=== PATIENT | female | born 2000 | race African-American/Black ===

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

== ENCOUNTER → 2023-12-25 | Outpatient (CLI) | payer SELFPAY ==
[2023-12-27 20:07] LABS: QNTFERON TB Mitogen Value > 10.00 IU/mL (.); QNTFERON TB Nil Value 0.04 IU/mL (.); QNTFERON TB1+ Ag Value 0.05 IU/mL (.); QNTFERON TB2+ Ag Value 0.04 IU/mL (.); QNTIFERON TB Positive Criteria Negative (Negative)
== END | disposition home or self-care (01) ==
PROVIDERS: PCP Pediatrics; Referring Provider Physician Assistant; Visit Provider Physician Assistant
DX: Z02.1 Encounter for pre-employment examination (principal)
CPT/HCPCS: 36415; 86480

== ENCOUNTER 2024-03-22 10:57 | Emergency (ER) | payer SELFPAY ==
[2024-03-22 10:57] VITALS: BP 125/76; PULSE 68; RESP 14; TEMP 36.3; O2SAT 99; BMI 27.9
--- NOTE | 2024-03-22 11:06 | EKG12_ITS ---
Test Reason : CP Blood Pressure : / mmHG Vent. Rate : 063 BPM Atrial Rate : 063 BPM P-R Int : 110 ms QRS Dur : 110 ms QT Int : 426 ms P-R-T Axes : 000 028 111 degrees QTc Int : 435 ms Sinus rhythm with short MD Nonspecific ST and T wave abnormality Abnormal ECG LOW ATRIAL RHYTHM Confirmed by Paul London ([id number]), rewrite editor JANESSA FRANCIS (1947) on 03/24/2024 11:02:09 AM Referred By: BLOSSOM Confirmed By:Paul London
--- NOTE | 2024-03-22 11:07 | ED.VIS.CHEST ---
HPI History of Present Illness Chief Complaint: Chest Pain Informant: patient Onset/Context/Timing Onset: Today and Yesterday Activity at onset: sudden Timing: Intermittent Quality: Positive for Aching Location: Substernal Current Severity: Gone Maximum Severity: Mild Worsened By: Nothing Relieved By: Nothing Associated Symptoms: Negative for Nausea, Vomiting, Diaphoresis, Dyspnea, Cough, Lightheadedness, Acid Reflux or Palpitations Narrative Narrative: 24-year-old female history of tetralogy of Fallot who had surgery at 11 months and again at 13 years old. She has done well. 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 Where she was working the required to wear an N95 mask when she had on yesterday she felt restricted her breathing and she had some midsternal chest discomfort. No hemoptysis. No leg pain or swelling. No pleuritic pain. No history of DVT or PE or risk factors. No recent travel, surgery or immobilization. No leg pain or swelling. Prior Similar Symptoms: No Recent Illness/Hospitalization: No CVD Risk Factors: Negative for Hypertension, Diabetes, Hypercholesterolemia, Family History 1' </=55 or Smoking PE Risk Factors: Negative for Recent Travel/Surgery, Recent Immobilization, Prior DVT or PE, Cancer or OCP + Smoking + >/=35 TAD Risk Factors: Negative for Marfan's Syndrome [facility] Medical History Tetralogy of Fallot Physical exam, pre-employment Allergy/AdvReac Type Severity Reaction Status Date / Time No Known Allergies Allergy Verified 03/22/24 10:57 Social History Smoking Status: Never smoker ROS ROS ED ROS Narrative Denies recent illness. No recent chest pain except for yesterday and today. Constitutional Constitutional ED: Denies chills or fever(s) Eyes Eyes: Reports none ENT ENT ED: Denies ear pain Cardiovascular Cardiovascular: Reports as per HPI and chest pain; Denies palpitations or racing heartbeat Respiratory/Chest Respiratory/Chest: Denies cough, dyspnea or dyspnea on exertion Gastrointestinal Gastrointestinal: Denies abdominal pain Genitourinary Genitourinary ED: Denies dysuria Musculoskeletal Musculoskeletal: Denies arthralgias Integumentary Denies abscess Neurologic Neurologic: Denies headache(s) Psychiatric Psychiatric: Denies anxiety Endocrine Endocrinology: Denies cold intolerance Hematologic/Lymphatic Hematologic/Lymphatic: Denies easy bleeding Allergic/Immunologic Allergic/Immunologic ED: Denies mouth swelling EXAM Physical Exam Narrative Exam Narrative: Well-appearing 24-year-old female. Vital signs stable afebrile. Pulse ox 9 9% on room air no hypoxia. H EENT exam unremarkable. Mytrex membranes. Neck nontender no JVD. Lungs clear to auscultation bilaterally. Heart regular rate and rhythm rate about 70 5/6 systolic ejection murmur. She has a chronic murmur from her tetralogy of Fallot. Chest wall nontender. No reproducible pain. Abdomen soft nontender. Moving all 4 extremities. Nontender no edema or cords. 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 Dorsi plantarflexion intact. She is awake and alert. No focal motor deficits. Const Vital Signs: 03/22/24 10:57 03/22/24 11:04 03/22/24 11:09 Temperature 97.3 F L Temperature Source Oral Pulse Rate 68 Respiratory Rate 14 Respiratory Effort Normal Non-Labored Blood Pressure 125/76 H Blood Pressure Mean 92 Pulse Ox 99 Oxygen Delivery Method Room Air Room Air Positive well nourished and well developed; Negative for obese, cachectic, contractures or unkempt General Appearance ED: well developed and NAD; Negative for unkempt, cachectic, contractures or pallor Nutritional Appearance: Negative for cachectic or obese HEENT Reports moist mucous membranes normocephalic and atraumatic Eyes PERRL and EOMs intact bilaterally General Eye ED: Negative for pale conjunctiva or scleral icterus Neck no lymphadenopathy, supple and no JVD General: Negative for tenderness Chest Wall inspection of chest normal and palpation of chest normal Chest: Negative for tenderness Resp normal respiratory effort and clear to auscultation bilaterally Effort and Inspection: Negative for respiratory distress Auscultation: Negative for rales, rhonchi or wheezes Cardio regular rate, regular rhythm, S1 normal heart sound, S2 normal heart sound and no murmurs Rate: Negative for bradycardia or tachycardic Peripheral Pulses: pulses 2+ throughout GI normal to inspection, nondistended, normoactive bowel sounds, soft to palpation, non-tender, non-distended and no masses Back/Spine no CVA tenderness and no thoracic nor lumbar tenderness Extremity normal to inspection General Extremety ED: Negative for edema, pulses abnormal or tenderness General Extremity: Negative for edema or pulses abnormal Neuro oriented x3 and CN's II-XII intact bilaterally Sensorium / Orientation: awake, alert, oriented to person, oriented to place and oriented to time; Negative for confused or lethargic Motor Exam: strength 5/5 throughout Psych mental status grossly normal Appearance: Negative for unkempt Attitude: No agitated Mood & Affect: Negative for depressed, anxious or tearful Skin no rashes or lesions noted and no wounds General Skin Exam: Negative for jaundice or pallor Rashes: No rashes noted Trauma: Negative for abrasion or laceration Heart Score History: Slightly/Non-Suspicious ECG: Normal Age: </= 45 years Risk Factors: No Risk Factors Troponin: </= Normal Limit Score: 0 MDM MDM MDM Narrative Medical decision making narrative: 24-year-old female history of tetralogy of Fallot. Atypical chest pain yesterday and today. Believes it was secondary wearing N95 mask and have unrestricted breathing according to the patient. Pain is not reproducible. She has no history or risk factors for DVT or PE. She undergo a cardiac workup. She has an impressive systolic ejection murmur but that is chronic. Repeat exam patient doing well at 1:05 PM. Discussed her test results. Exam unchanged. Atypical nature of her chest discomfort. No risk factors for PE or DVT or history. Comfortable with her being discharged home with outpatient follow-up as needed. Return if worse. History & Record Review Discussion w/independent historian: Patient Additional record(s) reviewed:: Prior inpatient record, Prior outpatient record, Prior ED visit and Prior labs Lab Data Attestation: I reviewed the patient's lab results. Lab results narrative: CBC shows white count 7.9. H&H 11.1 and 36. Patient has a baseline anemia. Consistent with prior labs. Platelets 235. Chemistries show potassium 3.4. Gap 6. BUN and creatinine are 19 and 0.8. Glucose 91. Troponin 6. Chest x-ray and EKG were unremarkable. Labs: Laboratory Results - last 24 hr 03/22/24 11:20 WBC 7.9 RBC 5.69 H Hgb 11.1 L Hct 36.0 L MCV 63.3 L MCH 19.5 L MCHC 30.8 L RDW Std Deviation 36.7 RDW Coeff of Estephania 17.1 H Plt Count 235 MPV 10.0 Immature Gran % (Auto) 0.500 Neut % (Auto) 53.7 Lymph % (Auto) 34.5 [place] % (Auto) 8.5 Eos % (Auto) 2.0 Baso % (Auto) 0.8 Absolute Neuts (auto) 4.2 Absolute Lymphs (auto) 2.72 Nucleated RBC % 0 Sodium 137 Potassium 3.4 L Chloride 106 Carbon Dioxide 25.0 Anion Gap 6 BUN 19 H Creatinine 0.85 Estim Creat Clear Calc 105.04 Est GFR (MDRD) Af Amer 107 Est GFR (MDRD) Non-Af 88 BUN/Creatinine Ratio 22.4 H Glucose 91 Calcium 9.2 Troponin I High Sens 6 Radiography Chest X-Ray - ED: Read by ED Physician, Normal, Heart, Lungs, Mediastinum, Bony Structures and No Acute Disease Diagnostic Testing: Clinical Impression(s) from Imaging Studies Chest X-Ray 03/22/24 11:48 IMPRESSION: Heart upper limits of normal in size with device at the AP window. Mild left basilar atelectasis or scarring. Electronically Signed: Sania Davis MD at 12:26 EDT , Chest x-ray, portable, single view shows no acute abnormality. Normal cardiac silhouette. Normal lung torres. She does have a metallic cage like device I suspect from her prior tetralogy of Fallot surgery. Rhythm Strip Rhythm Strip: Sinus Rhythm Rate: 63 Ectopy: None EKG Initial EKG: Attestation: I personally reviewed and interpreted this EKG as follows: Interpretation: Sinus Rhythm and No Acute Injury Pattern Comments: Normal sinus rhythm rate of 63 no acute signs of MN or ischemia. Inverted T waves in lead V2. No ST elevation. No old EKG available for comparison. Prior EKG tracings: not available for review Discharge Plan Triage Chief Complaint: Chest Pain ED Provider: Elgin Bauman Dx/Rx/DC Orders Clinical Impression: Atypical chest pain, History of tetralogy of Fallot Instructions: ED Chest Pain, Uncertain Cause Primary Care Provider: Care Physician,No Primary Referrals: Gordo Plata MD [Non-Staff] - Activity Restrictions/Additional Instructions: Follow-up with your primary care physician if the chest discomfort continues. Your labs x-ray and EKG today were unremarkable. Print Language: Indonesian Disposition Disposition: Home, Self Care
[2024-03-22 11:42] LABS: Absolute Lymphocyte Count 2.72 X10^3/uL (0.83-4.51); Absolute Neutrophil Count 4.2 X10^3/uL (2.0-7.7); Basophil# 0.06 X10^3/uL; Basophil% 0.8 % (0-1); Eosinophil# 0.16 X10^3/uL; Hemoglobin 11.1 g/dL (12.0-15.0); Lymphocyte # 2.72 X10^3/ul (0.83-4.51); Lymphocyte % 34.5 % (19-41); Mean Corp Hgb Conc 30.8 g/dL (32-36); Mean Corpuscular Hgb 19.5 pg (27.0-32.0); Mean Corpuscular Volume 63.3 fL (81-99); Monocyte# 0.67 X10^3/uL; Monocyte% 8.5 % (0-10); NRBC Flagged by Analyzer 0 % (0-5); Neutrophil # 4.23 X10^3/uL (2.7-7.7); Neutrophil % 53.7 % (47-70); Platelet Count 235 K/mm3 (150-450); RBC Distribution Width CV 17.1 % (11.6-14.6); RBC Distribution Width SD 36.7 fl (35.1-43.9); Red Blood Count 5.69 M/mm3 (4.2-5.4); White Blood Count 7.9 K/mm3 (4.4-11.0)
--- NOTE | 2024-03-22 11:48 | RAD_ITS ---
HISTORY: chest pain. TECHNIQUE: XR Chest 1 View. COMPARISON: None. FINDINGS: CARDIOMEDIASTINAL BORDERS: Cardiac silhouette limits of normal in size with device noted at the AP window. Mediastinal contour unremarkable. LUNGS: Linear plaque-like opacity in the left lung base. PLEURA: No pleural effusion or pneumothorax seen. OSSEOUS STRUCTURES: Unremarkable. RAD/Chest 1 View (Portable) IMPRESSION: Heart upper limits of normal in size with device at the AP window. Mild left basilar atelectasis or scarring. Electronically Signed: Sania Davis MD at 12:26 EDT ,
[2024-03-22 11:59] LABS: Anion Gap 6 (5-15); BUN 19 mg/dL (7-18); BUN/Creat Ratio 22.4 RATIO (10-20); Calcium,Total 9.2 mg/dL (8.5-10.1); Chloride 106 mmol/L (98-107); Creatinine, Serum 0.85 mg/dL (0.55-1.02); EST Glomerular Filtration Rate 88 mL/min (>60); Est Glom Filt Rate - Afr Amer 107 mL/min (>60); Estimated Creatinine Clearance 105.04 ml/min; Glucose 91 mg/dL (74-106); Potassium 3.4 mmol/L (3.5-5.1); Sodium Level 137 mmol/L (136-145); Troponin-I HS 6 pg/mL (3.0-54.0)
[2024-03-22 12:57] VITALS: BP 109/67; PULSE 72; RESP 16; TEMP 36.6; O2SAT 99
== END 2024-03-22 13:20 | disposition home or self-care (01) ==
PROVIDERS: Emergency Provider Emergency Medicine; Visit Provider Emergency Medicine
DX: R07.89 Other chest pain (principal)
CPT/HCPCS: 71045; 80048; 84484; 85025; 93005; 99284; A4216

== ENCOUNTER 2025-01-03 22:34 | Inpatient (IN) | payer SELFPAY ==
[2025-01-03 22:34] VITALS: BP 130/74; PULSE 104; RESP 18; TEMP 37.3; O2SAT 98; BMI 26.5
--- NOTE | 2025-01-03 22:40 | EDS_ITS ---
HPI History of Present Illness Chief Complaint: Abd Pain [facility] Medical History (Updated 01/04/25 @ 02:31 by Jihan Beard) Pulmonary embolism Seizures Tetralogy of Fallot Physical exam, pre-employment Home Medications ?Medication ?Instructions ?Recorded ?Last Taken ?Type ascorbate calcium (vitamin C) 500 1 g PO DAILY vitamin 01/03/25 01/02/25 History mg tablet folic acid 1 mg tablet 1 mg PO DAILY supplement 11/2301/02/25 History magnesium 200 mg tablet 200 mg PO DAILY supplement 0 01/03/25 01/02/25 History mecobalamin (vitamin B12) 500 mcg 500 mcg PO DAILY sup plement 01/03/25 01/02/25 History chewable tablet Allergy/AdvReac Type Severity Reaction Status Date / Time No Known Allergies Allergy Verified 01/03/25 22:36 Social History Smoking Status: Never smoker EXAM Physical Exam Const Vital Signs: 01/03/25 22:34 01/03/25 22:34 01/03/25 23:36 Temperature 99.2 F H 99.2 F H 99.6 F H Temperature Source Oral Oral Oral Pulse Rate 104 H 104 H 94 Respiratory Rate 18 18 20 H Blood Pressure 130/74 H 130/74 H 104/76 Blood Pressure Mean 92 92 85 Pulse Ox 98 98 99 Oxygen Delivery Method Room Air Room Air Room Air 01/04/25 00:00 01/04/25 01:00 01/04/25 01:00 Temperature 99.6 F H 98.8 F 98.8 F Temperature Source Oral Oral Pulse Rate 90 87 86 Respiratory Rate 20 H 18 18 Blood Pressure 110/70 109/65 109/65 Blood Pressure Mean 83 79 79 Pulse Ox 99 98 98 Oxygen Delivery Method Room Air Room Air MDM MDM MDM Narrative Medical decision making narrative: HISTORY OF PRESENT ILLNESS: Chief complaint: Abdominal pain 24-year-old female history of tetralogy of Fallot presents with right-sided flank/rib pain. No inciting event. Patient notes she lifts but stretches a lot before and denies any injury. No falls or trauma. Notes it difficult for her take deep breaths secondary to pain. Notes pain is worse when she lies down. Denies chest pain. The patient denies recent surgery in the last 4 weeks or immobilization in the last 3 days, denies previous diagnosis of DVT or PE, hemoptysis, unilateral leg swelling or malignancy with treatment the last 6 months or palliative. No estrogen use noted. Denies leg swelling. Denies recent cough fever chills. She does note having bronchitis/pneumonia last month. No recent antibiotics. REVIEW OF SYSTEMS: Pertinent positives: Right flank/rib pain Pertinent negatives: Chest pain, leg swelling, cough, urinary complaints PHYSICAL EXAM: Nursing triage notes reviewed, Vital signs reviewed Constitutional: please see mdm HENT: MMM Eyes: Pupils equal round and reactive to light, Extraocular muscles intact Neck: No stridor, no JVD, full neck ROM Lungs: Clear to auscultation, No wheezing or rales. No increased work of breathing, no conversational dyspnea, no accessory muscle use, no nasal flaring. No respiratory distress noted. TTP of right rib margin. No crepitus or flail chest noted. No signs of trauma Heart: Regular rate and rhythm, No murmurs, No rubs and No gallops, 2+ distal pulses (radial, femoral, posterior tibial) in all extremities Abdomen: Soft, there is no tenderness, rigidity, rebound or guarding, no obvious peritoneal signs, no palpable pulsatile abdominal masses, no auscultated abdominal bruit : No CVAT Extremities: No edema Neuro: No new focal neurological deficits, cranial nerves II through XII intact, 5/5 strength in all present extremities. Intact sensation to light touch in all present extremities, 2+ reflexes bilateral patella tendons. Skin: No rash or lesions noted MEDICAL DECISION MAKING: Chief Complaint: please see HPI External records reviewed: Reviewed prior imaging studies. No recent Gallo imaging of the abdomen or pelvis Factors affecting care: As per HPI Social determinants of health: Denies drug use. Notes he sexually active 1 partner unprotected. Not concern about STDs. History obtained from others: Mother Consults: Radiology, Internal Medicine [facility] Narrative: The patient was initially tachycardic with a heart rate of 104, afebrile, nontoxic-appearing saturating 98% on room air I considered the following differential diagnosis: Rib injury, musculoskeletal pain, PE, pneumonia, ACS, gallbladder pathology, nephrolithiasis, pyelonephritis I obtained a broad lab evaluation to further determine if the patient was suffering from a life-threatening etiology. Obtain test prior to giving any NSAIDs. ALL IMAGES (IF OBTAINED) HAVE BEEN PERSONALLY REVIEWED AND INTERPRETED BY MYSELF. EKG shows NSR, Normal axis, anterior lateral TWI, no STEMI, similar to prior CBC no leukocytosis, noted severe anemia (downtrend from prior), no thrombocytopenia D-dimer close elevated concerning for increased clot breakdown and PE in the setting of right rib pain. Will perform CTA of the chest Chest x-ray was read reviewed personally still showed possible right lower lobe infiltrate. Radiologist agreed my interpretation BMP with no significant electrolyte abnormalities, borderline metabolic acidosis with a bicarb of 20.7 with lab reference range of 21-32. No sign of endorgan damage with a normal anion gap LFTs show no evidence of hepatobiliary pathology. High-sensitivity troponin is negative, no evidence of myocardial ischemia Lipase is wnl indicating no pancreatic inflammation. Urinalysis shows no evidence of urinary inflammation suggestive of UTI Urine test negative CT of the chest showed RLL PNA, PE Will start patient on anticoagulation and antibiotic and discuss admission The synthesis of the patient's history, physical exam, labs images suggest PE/PNA causing the patient's symptoms. On reassessment patient's heart rate improved. No sign of right heart strain. Add on BNP and admit. The patient and/or family, caregivers express understanding. The patient and/or family, caregivers agrees with the plan. Shared decision making: I will have a discussion with the patient and or visitors regarding risk/benefits of further testing or admission. They will be made aware of of the risk/benefits inherent in this decision they will be given the opportunity to voice understanding. Total critical care time today provided was at least 0 minutes. This excludes separately billable procedures. Critical care time (if documented) is secondary to the patient having high probability of clinically significant/life threatening deterioration in the patient's condition which required my urgent intervention. Impression: 1. Acute right rib pain 2. Elevated D-dimer 3. Acute pulmonary embolism 4. Community-acquired pneumonia Dispo: Admit to PCU This note was generated with News[employer] dictation software. It may contain incorrect words, spelling, and punctuation that were not noted in review of the chart prior to signing. Lab Data Labs: Laboratory Results - last 24 hr 01/03/25 01/03/25 23:10 23:15 WBC 10.3 RBC 4.70 Hgb 8.7 L Hct 28.4 L MCV 60.4 L MCH 18.5 L MCHC 30.6 L RDW Std Deviation 42.6 RDW Coeff of Estephania 20.8 H Plt Count 213 MPV 9.5 Immature Gran % (Auto) 0.600 Neut % (Auto) 75.9 H Lymph % (Auto) 14.3 L [place] % (Auto) 7.3 Eos % (Auto) 0.8 Baso % (Auto) 1.1 H Absolute Neuts (auto) 7.9 H Absolute Lymphs (auto) 1.48 Nucleated RBC % 0 Anisocytosis 1+ PT 15.7 H INR 1.2 APTT 36.2 D-Dimer Quant (PE/DVT) 1.45 H* Sodium 136 Potassium 3.6 Chloride 104 Carbon Dioxide 20.7 L Anion Gap 11 BUN 13 Creatinine 0.75 Estim Creat Clear Calc 116.30 Est GFR (MDRD) Non-Af 114 BUN/Creatinine Ratio 17.4 Glucose 108 H Calcium 8.8 Total Bilirubin 0.71 AST 15 ALT 16 Alkaline Phosphatase 63 Troponin T High Sens < 6 NT pro BNP II 238 Total Protein 7.2 Albumin 4.0 Globulin 3.3 Albumin/Globulin Ratio 1.2 Lipase 13 Urine Color Yellow Urine Clarity Clear Urine pH 6.0 Ur Specific [place] 1.015 Urine Protein 30 H Urine Glucose (UA) Normal Urine Ketones Negative Urine Occult Blood 150 H Urine Nitrite Negative Urine Bilirubin Negative Urine Urobilinogen 1 H Ur Leukocyte Esterase Negative Urine RBC 0-5 SEEN Urine WBC 0 SEEN Ur Squamous Epith Cells 0-5 SEEN Urine Bacteria 1+ Urine Mucus 0 SEEN Urine Test Negative Radiography Diagnostic Testing: Clinical Impression(s) from Imaging Studies Chest X-Ray 01/03/25 23:21 IMPRESSION: Suspected superior segment right lower lobe pneumonia. Posttreatment progress imaging recommended. Reading Location: [facility] Chest CTA 01/03/25 23:40 IMPRESSION: Right lower lobe pulmonary emboli, small clot burden. Negative heart strain. Right lower lobe airspace disease favoring pneumonia. Critical results discussed with Dr. Sanchez at 12:30 a.m.. Reading Location: [facility] Discharge Plan Disposition Disposition: Acute Care Hospital [facility] Discharge Date/Time: 01/04/25 01:59
--- OUTSIDE RECORDS SUMMARY | 2025-01-03 22:48 | XMS RPT_ITS | CCD ---
Author Organization [facility] Care Team Providers Care Facilities Maintenance Supervisor Name Role Phone LADONNA PLATA Consulting Unavailable HOWARD SHANKS - Attending Unavailable HOWARD SHANKS - Primary Care Unavailable HOWARD SHANKS - Admitting Unavailable PROVIDER, YANE Consulting Unavailable Ladonna Plata MD Primary Care Provider Ladonna Plata MD Primary Care Provider Ladonna Plata MD Primary Care Provider Unavailable Primary Care Provider Unavailabl e Padmini Porter DO Primary Care Provider [phone] Care Physician, No Primary Referring Unava ilable Care Physician, No Primary Primary Care Unava ilable Howard Juarez Attending Unavailable Sherlyn, Ladonna Pérez Primary Care Unavailable Huber Chaidez Referring Unavailable Huber Chaidez Attending Unavailable Care Physician, No Primary Primary Care Unava ilable Elgin Bauman Attending Unavailable Huber Chaidez Attending Unavailable Ladonna Plata Referring Unavailable Kartik Plataothy Elisa Primary Care Unavailable Huber Chaidez Attending Unavailable Kartik Plataothy Elisa Referring Unavailable Playl, Ladonna M Primary Care Unavailable NO, PHYSICIAN Primary Care Unavailable VINNY CASEY Attending Unava ilable NO, PHYSICIAN Primary Care Unavailable VINNY CASEY Attending Unava ilable Unavailable Primary Care Provider Unavailabl e PADMINI PORTER Primary Care Unavailable FABIOLA HURT Referring Unavailable PADMINI PORTER Primary Care Unavailable SELF Referring Unavailable BENDLANDON, TANYA Referring Unavailable PADMINI PORTER Primary Care Unavailable LAMONT ARREAGA Referring Unavailable ASPEN OWEN Referring Unavailable BENDTANYA NAVARRETE Referring Unavailable PADMINI PORTER Primary Care Unavailable BENDALY, TANYA Attending Unavailable BENDALY, TANYA Referring Unavailable PADMINI PORTER Primary Care Unavailable LAMONT ARREAGA Attending Unavailable ASPEN OWEN Attending Unavailable PADMINI PORTER Primary Care Unavailable TANYA BUTTERFIELD Referring Unavailable PADMINI PORTER Primary Care Unavailable TANYA BUTTERFIELD Referring Unavailable Allergies Allergy Classification Reported Allergen(s) Allergy Type Date of Onset Reaction(s) Facility (20 sources) Seasonal allergy; Translations: [SEASONAL ALLERGIES] Propensity to adverse reactions 12-15-2009 [facility] Work Phone: (10 sources) Latex; Translations: [LATEX] Drug Allergy 03-22-2024 Rash [facility] Medications Current Medications Medication Drug Class(es) Dates Sig (Normalized) Sig (Original) amoxicillin 875 mg oral tablet (10 sources) Penicillin-class Antibacterial Start: 06-19-2023 End: 06-29-2023 take 1 tablet by mouth twice daily amoxicillin (AMOXIL) 875 mg tablet Indications: Sore throat Take 1 tablet by mouth two times a day for 10 days. 20 tablet 0 06/19/2023 06/29/2023 Active Start: 02-09-2022 End: 03-29-2023 amoxicillin (POLYMOX, AMOXIL ) 500 mg capsule Indications: TOF (tetralogy of Fallot) Take 4 capsules by mouth as directed. Take dose 30-60 minutes prior to appointment. 4 capsule 0 02/09/2022 03/29/2023 Discontinued Comment on above: Take 4 capsules by [facility] as directed. Take dose 30-60 minutes prior to appointment. Take 1 tablet by [facility] two times a day for 10 days. amoxicillin 875 mg / clavulanate 125 mg oral tablet (1 source) Penicillin-class Antibacterial Start: End: take 1 tablet by mouth twice daily amoxicillin-clavula balbina potassium (AUGMENTIN) 875-125 mg per tablet Take 1 tablet by mouth two times a day for 5 days. 10 tablet 11/04/2024 11/09/2024 Active doxycycline monohydrate 100 mg oral tablet (1 source) Tetracycline-class Drug Start: 5 End: take 1 tablet by mouth twice daily doxycycline monohydrate 100 mg tablet Take 1 tablet by mouth two times a day for 5 days. 10 tablet 11/04/2024 11/09/2024 Active fluconazole 150 mg oral tablet (2 sources) Azole Antifungal Start: 2 End: 2 take 1 tablet by mouth once fluconazole (DIFLUCAN) 150 mg tablet Take 1 tablet by mouth one time only for 1 dose. 1 tablet 0 01/31/2022 01/31/2022 Active Start: 12-20-2021 End: 12-20-2021 take 1 tablet by mouth once fluconazole (DIFLUCAN) 150 mg tablet Take 1 tablet by mouth one time only for 1 dose. 1 tablet 0 12/20/2021 12/20/2021 Active Comment on above: Take 1 tablet by jaime [facility] one time only for 1 dose. iv contrast (will be provided with radiology test) (1 source) Star t: 01-30 End: 01-30 inject 1 dose intravenously once iv contrast (will be provided with radiology test) MRI Card Congenital Inject, intravenously, once for 1 dose. No IV access, insert saline lock prior to the beginning of sedation, infusion, injection of imaging exam. Discontinue saline lock post exam. If Pt has a central line or IVAD, may access for administration according to line specific nursing protocol.Once exam is complete flush line and de-access according to line specific nursing protocol in the MR contrast administration guidelines link 1 Each 0 02/16/2023 02/16/2023 Active Comment on above: MRI Card Congenital Inject, intravenously, once for 1 dose. No IV access, insert saline lock prior to the beginning of sedation, infusion, injection of imaging exam. Discontinue saline lock post exam. If Pt has a central line or IVAD, may access for administration according to line specific nursing protocol.Once exam is complete flush line and de-access according to line specific nursing protocol in the MR contrast administration guidelines link methylPREDNISolone (1 source) Corticosteroid Star t: 06-01 End: 06-02 methylPREDNISolone (MEDROL, ELIZABETH,) 4 mg Dose-Pack Indications: Sore throat Follow dosing instructions, take with food. 21 tablet 0 06/19/2023 06/25/2023 Active Comment on above: Follow dosing instru ctions, take with food. oseltamivir 75 mg oral capsule (1 source) Neuraminidase Inhibitor Star t: 05-02 End: 05-03 oseltamivir (TAMIFLU) 75 mg capsule Take 1 capsule by mouth twice daily for 5 days. FOR 5 DAYS. 10 capsule 0 05/16/2022 05/21/2022 Active Comment on above: Take 1 capsule by [facility] twice daily for 5 days. FOR 5 DAYS. predniSONE 20 mg oral tablet (1 source) Star t: 03-04 End: 11-18 take 2 tablets by mouth once daily predniSONE (DELTASONE) 20 mg tablet Take 2 tablets by mouth once daily for 5 days. 10 tablet 0 03/31/2023 04/05/2023 Active Comment on above: Take 2 tablets by [facility] once daily for 5 days. Completed/Discontinued Medications Medication Drug Class(es) Dates Sig (Normalized) Sig (Original) aspirin 325 mg oral tablet (19 sources) Platelet Aggregation Inhibitor, Nonsteroidal Anti-inflammatory Drug Start: 08-04-2020 End: 05-16-2022 take 1 tablet by mouth once daily aspirin 325 mg tablet Take 1 tablet by mouth once daily. 30 tablet 3 08/04/2020 05/16/2022 Discontinued take 1 tablet by mouth once jarrett y aspirin 81 mg cap Take 1 tablet by mouth once daily. Active Comment on above: Take 1 tablet by [facility] once daily. Take by mouth. benzonatate 100 mg oral capsule (6 sources) Non-narcotic Antitussive Start: 11-05-19 End: 12-06-19 take 1 capsule by mouth every eight hours as needed benzonatate (TESSALON PERLE) 100 mg capsule Take 1 capsule by mouth three times a day as needed. 21 capsule 11/04/2024 12/05/2024 Discontinued Desogestrel / Ethinyl Estradiol (13 sources) Progestin, Estrogen Start: 11-03-19 End: 03-29-20 take 1 tablet by mouth once daily, then take 0.15 tablet by mouth once Desogestrel-Ethinyl Estradiol (APRI) 0.15-0.03 mg per tablet Indications: Surveillance for control, oral contraceptives , Breakthrough bleeding on OCPs Take 1 tablet by mouth once daily. 84 tablet 3 11/02/2021 03/29/2023 Discontinued Start: 11-02-2021 take 1 tablet by jaime [facility] once daily, then take 0.15 tablet by mouth once Desogestrel-Ethinyl Estradiol (APRI) 0.15-0.03 mg per tablet Indications: Surveillance for control, oral contraceptives , Breakthrough bleeding on OCPs Take 1 tablet by mouth once daily. 84 tablet 3 11/02/2021 Active Comment on above: Take 1 tablet by jaime [facility] once daily. Ethinyl Estradiol / Levonorgestrel (1 source) Progestin, Estrogen, Progestin-containing Intrauterine Device Start: 02-08-20 End: 11-03-19 take 1 tablet by mouth once daily L-Norgest and E Estradiol-E Estrad (ASHLYNA) 0.15 mg-30 mcg (84)/10 mcg (7) Take 1 tablet by mouth once daily. 91 tablet 3 02/07/2021 11/02/2021 Discontinued Comment on above: Take 1 tablet by jaime th once daily. 24 hr levETIRAcetam 500 mg extended release oral tablet (6 sources) Start: 11-19-19 End: 05-16-20 take 1 tablet by mouth once daily levETIRAcetam XR (KEPPRA XR) 500 mg 24 hr tablet Take 1,000 mg by mouth once daily. 0 11/19/2019 05/16/2022 Discontinued Comment on above: Take 1,000 mg by jaime th once daily. naproxen 375 mg oral tablet (6 sources) Nonsteroidal Anti-inflammatory Drug Start: 02-08-20 End: 05-16-20 take 1 tablet by mouth every eight hours as needed naproxen (NAPROSYN) 375 mg tablet Take 1 tablet by mouth three times daily as needed (pain). for severe cramping 60 tablet 1 02/07/2021 05/16/2022 Discontinued Comment on above: Take 1 tablet by jaime [facility] three times daily as needed (pain). for severe cramping triamcinolone acetonide 1 mg/ml topical cream (13 sources) Corticosteroid Start: 02-24-20 End: 03-29-20 23 triamcinolone acetonide (KENALOG) 0.1 % cream Apply to affected area twice daily until rash resolved. Not to exceed 14 days consecutive use. 45 g 1 02/23/2021 03/29/2023 Discontinued Comment on above: Apply to affected ar ea twice daily until rash resolved. Not to exceed 14 days consecutive use. Problems Active Problems Problem Classification Problem Date Documented Date Episodic/Chronic Administrative/social admission (1 source) Encounter for pre-employment examination; Translations: [Encounter for pre-employment examination] Onset: 02-21-2024 Episodic Attention-deficit, conduct, and disruptive behavior disorders (20 sources) Attention deficit hyperactivity disorder, predominantly inattentive type; Translations: [Attention-deficit hyperactivity disorder, predominantly inattentive type] Onset: 03-19-2017 03-19-2017 Chronic Cardiac and circulatory congenital anomalies (20 sources) Tetralogy of Fallot; Translations: [Tetralogy of Fallot] Onset: 06-10-2003 10-26-2003 Chronic Chronic obstructive pulmonary disease and bronchiectasis (2 sources) Bronchitis, not specified as acute or chronic; Translations: [Bronchitis, not specified as acute or chronic] Onset: 10-01-2024 Episodic Conduction disorders (20 sources) Vkibp-Iyatddrer-Vqlvv pattern; Translations: [Pre-excitation syndrome] Onset: 08-13-2015 08-13-2015 Chronic Contraceptive and procreative management (1 source) Oral contraception; Translations: [Encounter for surveillance of contraceptive pills] Episodic Fever of unknown origin (1 source) Pyrexia of unknown origin; Translations: [Fever, unspecified] 09-01-2024 Episodic Heart valve disorders (20 sources) Pulmonary valve disorder; Translations: [Nonrheumatic pulmonary valve disorder, unspecified] Onset: 04-26-2004 Resolved: 05-09-2013 11-15-2015 Chronic Immunizations and screening for infectious disease (1 source) Patient encounter status; Translations: [Encounter for screening for infections with a predominantly sexual mode of transmission] Episodic Menstrual disorders (2 sources) Break-through bleeding; Translations: [Excessive and frequent menstruation with irregular cycle] Chronic Other and ill-defined heart disease (20 sources) Right cardiac ventricular dilatation; Translations: [Cardiomegaly] Onset: 06-08-2015 06-08-2015 Chronic Other and ill-defined heart disease (1 source) Heart disease, unspecified; Translations: [Dysfunction of right cardiac ventricle] Onset: 10-23-2024 Chronic Other female genital disorders (1 source) Vaginal discharge; Translations: [Other specified noninflammatory disorders of vagina] Episodic Other lower respiratory disease (1 source) Cough; Translations: [Acute cough] 07-17-2023 Episodic Other lower respiratory disease (5 sources) Cough; Translations: [Acute cough] 09-01-2024 Episodic Other skin disorders (1 source) Eruption; Translations: [Rash and other nonspecific skin eruption] 03-22-2024 Episodic Other upper respiratory infections (3 sources) Sore throat symptom; Translations: [Acute pharyngitis, unspecified] 03-29-2023 Episodic Unclassified (1 source) Acute cough; Translations: [Acute cough] Onset: 12-05-2024 Viral infection (2 sources) Viral disease; Translations: [Viral infection, unspecified] Episodic Past or Other Problems Problem Classification Problem Date Documented Date Episodic/Chronic Acquired foot deformities (10 sources) Acquired bilateral pes planus; Translations: [Flat foot [pes planus] (acquired), right foot] Onset: 02-27-2011 Resolved: 01-12-2020 01-12-2020 Episodic Cardiac dysrhythmias (10 sources) Other specified cardiac arrhythmias; Translations: [Other specified cardiac dysrhythmias] Onset: 09-11-2003 Resolved: 11-14-2012 11-14-2012 Chronic Complication of device; implant or graft (20 sources) Mechanical complication of heart valve prosthesis; Translations: [Other specified complication of cardiac prosthetic devices, implants and grafts, initial encounter] Onset: 06-08-2015 06-08-2015 Episodic Deficiency and other anemia (20 sources) Anemia; Translations: [Anemia, unspecified] Onset: 03-05-2013 03-05-2013 Episodic Epilepsy; convulsions (20 sources) Seizure; Translations: [Unspecified convulsions] Onset: 08-13-2015 08-13-2015 Episodic Nonspecific chest pain (12 sources) Chest pain; Translations: [Chest pain, unspecified] Onset: 08-12-2015 Resolved: 08-13-2015 08-13-2015 Episodic Other lower respiratory disease (10 sources) Disorder of diaphragm; Translations: [Disorders of diaphragm] Onset: 08-06-2002 Resolved: 03-05-2013 01-10-2024 Episodic Other screening for suspected conditions (not mental disorders or infectious disease) (10 sources) Electrocardiogram abnormal; Translations: [Abnormal electrocardiogram [ECG] [EKG]] Onset: 07-28-2012 Resolved: 11-14-2012 11-14-2012 Episodic Otitis media and related conditions (10 sources) Dysfunction of eustachian tube; Translations: [Unspecified Eustachian tube disorder, unspecified ear] Onset: 12-12-2004 Resolved: 03-05-2013 03-05-2013 Episodic Results Test Name Value Interpretation Reference Range Facility [facility] 12-05-2024 CNOV Office Visit (UCWSTR ) KIMBERLY PATEL ([id number]) 2 F Date Time Provider Department 12/05/24 3:30 PM LAMONT ARREAGA [facility] During your visit today, we recorded the following information about you: Temperature Pulse Respiration Blood pressure 101.4 degrees 112/minute 26/minute 106/58 Weight 73.1 kg Lamont Arreaga MD 12/05/2024 6:44 PM Addendum [facility] Subjective Kimberly Patel is a 24 year old female. Patient presents with: Cough: Fever x4 days, worse, recent pneumonia Patient presents with illness over the last 4 days. She has had harsh cough and hoarseness. She feels significantly worse today with bodyaches, dizziness, nasal congestion, and rhinorrhea. She has dyspnea on exertion but not at rest. Cough is rarely productive. Denies sore throat vomiting or diarrhea. She feels her body is aching from harsh coughing. She has taken ibuprofen and cough medicine. Her history is significant for left lung pneumonia treated here 11/04/2024 with Augmentin and doxycycline. She has a past medical history of tetralogy of Fallot with repair. Denies history of asthma or chronic lung infections. Cough Review of Systems Respiratory: Positive for cough. Objective BP 106/58 Pulse 112 Temp (!) 38.6 ?C (101.4 ?F) Resp 26 Wt 73.1 kg (161 lb 2.5 oz) LMP 10/16/2024 (Approximate) SpO2 99% BMI 26.85 kg/m? Physical Exam Constitutional: General: She is not in acute distress. HENT: Right Ear: Tympanic membrane and ear canal normal. Left Ear: Tympanic membrane and ear canal normal. Nose: No congestion or rhinorrhea. Right Sinus: No maxillary sinus tenderness or frontal sinus tenderness. Left Sinus: No maxillary sinus tenderness or frontal sinus tenderness. Mouth/Throat: Mouth: Mucous membranes are moist. Pharynx: No oropharyngeal exudate or posterior oropharyngeal erythema. Eyes: Extraocular Movements: Extraocular movements intact. Conjunctiva/sclera: Conjunctivae normal. Pupils: Pupils are equal, round, and reactive to light. Cardiovascular: Rate and Rhythm: Normal rate and regular rhythm. Heart sounds: Murmur (4/6 systolic murmur loudest at RUSB) heard. Pulmonary: Effort: No respiratory distress. Breath sounds: No wheezing, rhonchi or rales. Musculoskeletal: Cervical back: Neck supple. Lymphadenopathy: Cervical: No cervical adenopathy. Neurological: Mental Status: She is alert. {ASSESSMENT/PLAN: 1. Acute cough - ICD9: 786.2, ICD10: R05.1 - XR CHEST 2V FRONTAL/LAT -interval clearing of left left lung opacity. No acute process. - COVID-19 MOLECULAR (POC) negative - suspect viral URI - Supportive care treatment with rest, cold medicine, and analgesia. - Viral URI contagiousness recommendations: avoid exposure to others until fever free for 24 hours without fever reducing medication. An additional 5 days of limiting contact can include covering coughs/masking, social distance, and hand hygiene. - BENZONATATE 100 MG CAPSULE Lamont Arreaga MD History and Record Review Systemic symptoms present included: fever Differential Diagnoses - viral URI is more likely for the following reason(s): suggested by HANDP - pneumonia is less likely for the following reason(s): no evidence on imaging - COVID-19 is less likely for the following reason(s): laboratory studies not suggestive Procedures Allergies As of Date: 12/05/2024 Noted Allergy Reaction LATEX 03/22/2024 2 - Rash SEASONAL ALLERGIES 12/15/2009 Date Reviewed: 12/05/2024 Reviewed by: Letty Arndt MA - Fully Assessed Reason for Visit: Cough [28] Cmt: Fever x4 days, worse, recent pneumonia Primary Visit Diagnosis:Acute cough [R05.1] Order(s):XR CHEST 2V FRONTAL/LAT [[id number]] Order #: [id number] FUTURE COVID-19 MOLECULAR (POC) [3633395] Order #: [id number] #:[id number] benzonatate (TESSALON PERLE) 100 mg capsuleTake 1 capsule by mouth three times a day as needed.Disp: 21 capsuleRfl: 0 Prescriptions as of 12/07/2024 - benzonatate (TESSALON PERLE) 100 mg capsule Take 1 capsule by mouth three times a day as needed. - aspirin 81 mg cap Take 1 tablet by mouth once daily. 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 Normal [facility] COVID-19 MOLECULAR (POC)on 0 12-05-2024 Procedural Control Valid [facility] SARS-CoV-2 (COVID-19) RNA JOSE+probe Ql (Unsp spec) Negative Negative [facility] Comment on above: Location:[facility], [address] [place] [address], [place], [place], [id number] [place] [address] XR CHEST 2V FRONTAL/LATon XR CHEST 2V FRONTAL/LAT * * *Final Report* * * DATE OF EXAM: Dec 05 2024 4:19PM WOX [id number] - XR CHEST 2V FRONTAL/LAT / PROCEDURE REASON: Acute cough * * * * Physician Interpretation * * * * EXAMINATION: CHEST RADIOGRAPH (2 VIEW FRONTAL and LATERAL) CLINICAL HISTORY: Acute cough MQ: XC2_6 EXAM DATE/TIME: 12/05/2024 4:19 PM COMPARISON: 11/04/2024 RESULT: Lines, tubes, and devices: None. Lungs and pleura: Interval clearing of the infiltrate in the LEFT midlung field. Scattered calcific densities throughout the LEFT lung No consolidation. No lung mass. No pleural effusion. No pneumothorax. Cardiomediastinal silhouette: Normal cardiomediastinal silhouette. Pulmonary valve prosthesis noted. Bones and soft tissues: Unremarkable. IMPRESSION: No acute radiographic abnormality. Drilling Plant Operator: CHRIS Transcribe Date/Time: Dec 05 2024 4:23P Dictated by : DANNA TURCIOS DO This examination was interpreted and the report reviewed and electronically signed by: DANNA TURCIOS DO on Dec 05 2024 4:24PM EST [id number] Normal [facility] XR Chest PA and Lateralon IMPRESSION: No acute radiographic abnormality. Drilling Plant Operator: [facility] Transcribe Date/Time: Dec 05 2024 4:23P Dictated by : DANNA TURCIOS DO This examination was interpreted and the report reviewed and electronically signed by: DANNA TURCIOS DO on Dec 05 2024 4:24PM EST DIVISION OF RADIOLOGY * * *Final Report* * * DATE OF EXAM: Dec 05 2024 4:19PM WOX [id number] - XR CHEST 2V FRONTAL/LAT / PROCEDURE REASON: Acute cough * * * * Physician Interpretation * * * * EXAMINATION: CHEST RADIOGRAPH (2 VIEW FRONTAL & LATERAL) CLINICAL HISTORY: Acute cough MQ: XC2_6 EXAM DATE/TIME: 12/05/2024 4:19 PM COMPARISON: 11/04/2024 RESULT: Lines, tubes, and devices: None. Lungs and pleura: Interval clearing of the infiltrate in the LEFT midlung field. Scattered calcific densities throughout the LEFT lung No consolidation. No lung mass. No pleural effusion. No pneumothorax. Cardiomediastinal silhouette: Normal cardiomediastinal silhouette. Pulmonary valve prosthesis noted. Bones and soft tissues: Unremarkable. DIVISION OF RADIOLOGY Provider, Chelsey Clay - 12/05/2024 * * *Final Report* * * DATE OF EXAM: Dec 05 2024 4:19PM WOX [id number] - XR CHEST 2V FRONTAL/LAT / PROCEDURE REASON: Acute cough * * * * Physician Interpretation * * * * EXAMINATION: CHEST RADIOGRAPH (2 VIEW FRONTAL & LATERAL) CLINICAL HISTORY: Acute cough MQ: XC2_6 EXAM DATE/TIME: 12/05/2024 4:19 PM COMPARISON: 11/04/2024 RESULT: Lines, tubes, and devices: None. Lungs and pleura: Interval clearing of the infiltrate in the LEFT midlung field. Scattered calcific densities throughout the LEFT lung No consolidation. No lung mass. No pleural effusion. No pneumothorax. Cardiomediastinal silhouette: Normal cardiomediastinal silhouette. Pulmonary valve prosthesis noted. Bones and soft tissues: Unremarkable. IMPRESSION IMPRESSION: No acute radiographic abnormality. Drilling Plant Operator: [email or web address] Transcribe Date/Time: Dec 05 2024 4:23P Dictated by : DANNA TURCIOS DO This examination was interpreted and the report reviewed and electronically signed by: DANNA TURCIOS DO on Dec 05 2024 4:24PM [facility] Radiology Study observation (narrative) [facility] XR Chest PA and LateralOrder ed By: Cc Provider on 12-05-2024 [facility] CNOVon 11-04-2024 CNOV Office Visit (UCWSTR ) KIMBERLY PATEL ([id number]) 2 F Date Time Provider Department 11/04/24 2:30 PM ASPEN OWEN [facility] During your visit today, we recorded the following information about you: Temperature Pulse Respiration Blood pressure 97.4 degrees 79/minute 18/minute 118/72 Weight 74.4 kg Aspen Owen PA 11/04/2024 3:16 PM Signed [facility] Subjective Kimberly Patel is a 24 year old female. Patient presents with: Cough: Cough, congestion, bodyaches and FONG x several weeks HPI 24-year-old female presents for cough. Patient states she has had a cough for several weeks. She was seen in August and September by the emergency room and diagnosed with bronchitis. She was given Augmentin and albuterol inhaler. No imaging was completed at those visits. Patient states cough improved slightly, but has never completely gone away. Has gotten worse recently. She is continuing with dry cough. No chest pain. She states occasionally has some shortness of breath when in a coughing fit. No shortness of breath at rest or with exertion. She denies any fevers. No nasal congestion. She has history of multiple heart conditions and heart surgeries. Follows with cardiology. No other complaint. 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 FAMILY HISTORY Adopted: Yes Problem Relation Age of Onset other (sickle cell) Brother Social History Tobacco Use Smoking status: Never Passive exposure: Yes Smokeless tobacco: Never Tobacco comments: brother outdoors Vaping Use Vaping status: Never Used Substance Use Topics Alcohol use: No Drug use: No Review of Systems Constitutional: Negative for chills and fever. HENT: Negative for congestion, ear pain and sore throat. Respiratory: Positive for cough and shortness of breath. Cardiovascular: Negative for chest pain. Gastrointestinal: Negative for diarrhea and vomiting. Objective BP 118/72 Pulse 79 Temp 36.3 ?C (97.4 ?F) (Tympanic) Resp 18 Wt 74.4 kg (164 lb 0.4 oz) LMP 10/16/2024 (Approximate) SpO2 98% BMI 27.33 kg/m? Physical Exam Vitals and nursing note reviewed. Constitutional: General: She is not in acute distress. Appearance: Normal appearance. She is not toxic-appearing. HENT: Right Ear: Tympanic membrane and ear canal normal. Left Ear: Tympanic membrane and ear canal normal. Nose: Nose normal. Mouth/Throat: Mouth: Mucous membranes are moist. Pharynx: Oropharynx is clear. Eyes: Conjunctiva/sclera: Conjunctivae normal. Cardiovascular: Rate and Rhythm: Normal rate and regular rhythm. Pulmonary: Effort: Pulmonary effort is normal. Breath sounds: Normal breath sounds. No wheezing, rhonchi or rales. Skin: General: Skin is warm and dry. Neurological: Mental Status: She is alert. {ASSESSMENT/PLAN: 1. Acute cough - ICD9: 786.2, ICD10: R05.1 - Cough x several weeks, worse recently. Has been treated for bronchitis by emergency room x 2. Has been Augmentin twice in the past 2 months. No imaging completed at those visits. Will obtain XR to rule out pneumonia. -Continue albuterol inhaler -Discussed if x-ray is negative, patient should follow-up with her night monitor to make sure nothing cardiac is contributing to the cough. Patient agreeable. - XR CHEST 2V FRONTAL/LAT - Will call patient with chest x-ray results. - Rx Tessalon Perles to help with cough Diagnosis and treatment plan were discussed and questions were answered to the patient's satisfaction. Pt acknowledged understanding of concepts and follow up plan. Specific signs and symptoms that would indicate the need for higher level of care were discussed in detail warranting prompt ER evaluation. ROSSY Gomez History and Record Review External record(s) reviewed: prior outpatient record. Differential Diagnoses - Viral bronchitis is more likely for (more content not included)... Normal [facility] XR CHEST 2V FRONTAL/LATon XR CHEST 2V FRONTAL/LAT * * *Final Report* * * DATE OF EXAM: Nov 04 2024 3:23PM WOX 5291 - XR CHEST 2V FRONTAL/LAT / PROCEDURE REASON: Acute cough * * * * Physician Interpretation * * * * EXAMINATION: CHEST RADIOGRAPH (2 VIEW FRONTAL and LATERAL) CLINICAL HISTORY: Acute cough MQ: XC2_6 EXAM DATE/TIME: 11/04/2024 3:23 PM COMPARISON: Chest x-ray dated 09/01/2024 RESULT: Lines, tubes, and devices: None. Lungs and pleura: Mild opacity in the left midlung zone suspect for bronchopneumonia in the appropriate clinical setting.. No pleural effusion. No pneumothorax. Cardiomediastinal silhouette: Stable cardiomediastinal silhouette with pulmonary valve prosthesis. Bones and soft tissues: Unremarkable. IMPRESSION: Mild opacity in the left midlung zone suspect for bronchopneumonia in the appropriate clinical setting. Drilling Plant Operator: CHRIS Transcribe Date/Time: Nov 04 2024 3:28P Dictated by : IRENE KC MD This examination was interpreted and the report reviewed and electronically signed by: IRENE KC MD on Nov 04 2024 3:29PM EST [id number] Normal [facility] XR Chest PA and Lateralon IMPRESSION: Mild opacity in the left midlung zone suspect for bronchopneumonia in the appropriate clinical setting. Drilling Plant Operator: [facility] Transcribe Date/Time: Nov 04 2024 3:28P Dictated by : IRENE KC MD This examination was interpreted and the report reviewed and electronically signed by: IRENE KC MD on Nov 04 2024 3:29PM EST DIVISION OF RADIOLOGY * * *Final Report* * * DATE OF EXAM: Nov 04 2024 3:23PM WOX 5291 - XR CHEST 2V FRONTAL/LAT / PROCEDURE REASON: Acute cough * * * * Physician Interpretation * * * * EXAMINATION: CHEST RADIOGRAPH (2 VIEW FRONTAL & LATERAL) CLINICAL HISTORY: Acute cough MQ: XC2_6 EXAM DATE/TIME: 11/04/2024 3:23 PM COMPARISON: Chest x-ray dated 09/01/2024 RESULT: Lines, tubes, and devices: None. Lungs and pleura: Mild opacity in the left midlung zone suspect for bronchopneumonia in the appropriate clinical setting.. No pleural effusion. No pneumothorax. Cardiomediastinal silhouette: Stable cardiomediastinal silhouette with pulmonary valve prosthesis. Bones and soft tissues: Unremarkable. DIVISION OF RADIOLOGY Provider, Chelsey Clay - 11/04/2024 * * *Final Report* * * DATE OF EXAM: Nov 04 2024 3:23PM WOX 5291 - XR CHEST 2V FRONTAL/LAT / PROCEDURE REASON: Acute cough * * * * Physician Interpretation * * * * EXAMINATION: CHEST RADIOGRAPH (2 VIEW FRONTAL & LATERAL) CLINICAL HISTORY: Acute cough MQ: XC2_6 EXAM DATE/TIME: 11/04/2024 3:23 PM COMPARISON: Chest x-ray dated 09/01/2024 RESULT: Lines, tubes, and devices: None. Lungs and pleura: Mild opacity in the left midlung zone suspect for bronchopneumonia in the appropriate clinical setting.. No pleural effusion. No pneumothorax. Cardiomediastinal silhouette: Stable cardiomediastinal silhouette with pulmonary valve prosthesis. Bones and soft tissues: Unremarkable. IMPRESSION IMPRESSION: Mild opacity in the left midlung zone suspect for bronchopneumonia in the appropriate clinical setting. Drilling Plant Operator: CHRIS Transcribe Date/Time: Nov 04 2024 3:28P Dictated by : IRENE KC MD This examination was interpreted and the report reviewed and electronically signed by: IRENE KC MD on Nov 04 2024 3:29PM EST [facility] Radiology Study observation (narrative) [facility] XR Chest PA and LateralOrder ed By: [facility] Provider on 11-04-2024 [facility] CNCOon 10-23-2024 CNCO Letter Text Normal [facility] CNOVon 10-23-2024 CNOV Office Visit (CHPDMN ) KIMBERLY PATEL ([id number]) 2 F Date Time Provider Department 10/23/24 11:00 AM EVENT MONITORS PEDS CARD MAINCHPDMN During your visit today, we recorded the following information about you: Meagan Avila OCCA 10/23/2024 10:38 AM Signed ZIOPATCH APPLICATION PEDIATRIC CARDIOLOGY -Chest is cleansed and prepped with razor, prep tape, and alcohol. -Ziopatch placed on chest -Ziopatch activated -Serial # [id number] -Instructed patient 1) Patient to wear monitor forHolter Monitor less than 48hrs, Purchasing And Claims Supervisor [id number] 2) Diary documentation 3) Usage of event button 4) Maintenance and care of monitor 5) Safety issues with monitor 6) Call with problems [phone] Verbalized understanding of instructions by patient. SIGNATURE: DANIELLE Carolina PATIENT NAME: Kimberly Patel DATE: October 23, 2024 TIME: 10:37 AM Referring Provider: TANYA BUTTERFIELD [[id number]] Allergies As of Date: 10/23/2024 Noted Allergy Reaction LATEX 03/22/2024 2 - Rash SEASONAL ALLERGIES 12/15/2009 Date Reviewed: 10/23/2024 Reviewed by: Meagan Avila OCCA - Fully Assessed Reason for Visit: Event [921] Cmt: zio Primary Visit Diagnosis:TOF (tetralogy of Fallot) ([facility]) [Q21.3] Prescriptions as of 10/23/2024 - aspirin 81 mg cap Take 1 tablet by mouth once daily. 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] 06/08/2015 Chest pain [R07.9] 08/12/2015 08/13/2015 Xpujq-Enjqkrzhb-Xlisp (WPW) syndrome [I45.6] 08/13/2015 Seizure (HCC) [R56.9] 08/13/2015 Attention deficit hyperactivity disorder (ADHD)*03/19/2017 TOF (tetralogy of Fallot) (HCC) [Q21.3] 10/23/2024 Encounter Status:Closed by MEAGAN AVILA on 10/23/24 Normal [facility] CNOV Office Visit (CHPDMN ) KIMBERLY PATEL ([id number]) 2 F Date Time Provider Department 10/23/24 10:00 AM TANYA BUTTERFIELD CHPDMN During your visit today, we recorded the following information about you: Temperature Pulse Respiration Blood pressure 98.4 degrees 87/minute 20/minute 112/69 Weight Height Last Period 74 kg 1.65 m 10/16/24 Tanya Butterfield MD 10/24/2024 8:16 AM Signed PEDIATRIC CARDIOLOGY FOLLOW UP SERVICE DATE: 10/23/2024 PCP: Padmini Porter DO CHIEF COMPLAINT: TOF Results communicated back by electronic medical record I had the pleasure of seeing Kimberly Patel in Pediatric Cardiology consultation at [facility] on 10/23/2024. Kimberly is a 24 year old female. History was obtained from: mother SUMMATION AND REVIEW OF OLD MEDICAL RECORDS: Mostly from Dr. 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 Krzysztof Marin on 01/03/2002. The repair consisted of transatrial infundibular resection, transatrial Dacron patch closure of malalignment VSD, direct suture of large secundum ASD, trans pulmonary valvotomy, autologous pericardial patch repair of main pulmonary artery and unroofing and reduction of coronary sinus. 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 She had left diaphragm plication via left thoracotomy on 01/28/2002 followed by tracheostomy on 02/07/2002. She had failure to thrive and feeding difficulty after discharge from the hospital and needed gastrostomy tube placement with Andry fundoplication on 04/28/2002. She gradually did better and her tracheostomy was decannulated on 01/09/2003. She then progressed as expected and had severe pulmonary valve regurgitation with severe RV enlargement (RVEDVi 182 ml/m2 - cMRI 07/10/2012). 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 Therefore, she had pulmonary valve replacement with a 25-mm Magna Ease 3300 by [employer] bovine pericardial valve with right ventricular outflow tract augmentation (using a CorMatrix) by Dr. Sean Cotton on 09/27/2012; she also had tricuspid valve repair and purse-string closure of coronary sinus to left atrial fistula during the same operation. Her post operative couse was relatively uncomplicated. She did relatively well since. Her echocardiogram in June 2015 showed mild to moderate pulmonary valve stenosis (V max of 3 m/s) with moderate pulmonary valve regurgitation. She had cardiac MRI performed on 06/18/2015 which confirmed liqtgoun-pa-ykvike pulmonary valve regurgitation with RF 35% with flow acceleration through the pulmonic valve. The right ventricular end diastolic volume index was 130 ml/m2 with low-normal RV systolic function EF 49%. She had repeat cardiac MRI on 10/14/2018 that showed moderate pulmonary valve regurgitation (RF of 24%) and moderately dilated RV with RVEDVi 152 cc/m2 (previously 130 ml/m2). Her CPET in 2019 was also decreased compared to previous. Her case was discussed in our [facility] surgical conference and consensus was for transcatheter valve replacement. She was taken to the labor gang supervisor on 05/19/2020. She was found to have a baseline gradient of 27 mm Hg across the pulmonary valve in addition to her known regurgitation. A 22 mm Vandana valve was placed on 22 mm ensemble and post dilated to 24 mm with a 24 X 4 Winder Gold balloon with an excellent result and 7 mmHg across the valve. She tolerated the procedure well and was discharged the next day. 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 She had electrophysiologic study in August 2012 prior to her surgery which showed left posterior pathyway with weak antegrade AP conduction, lack of retrograde AP conduction and inability to induce SVT. Therefore, no ablation was pursued. A holter in 2018 showed tachycardia to 222 bpm which appeared preexcited. These findings prompted re-evaluation by our EP service at which time a repeat EP study was recommended. Kimberly was taken again to the EP lab on November 22, 2017 which was notable for a short HV interval through concentric conduction which blocked bidirectionally with adenosine. These findings, along with others seen during her study, were conclusive for a fasciculoventricular fiber. No arrhythmias were induced as expected and ablation was not pursued. She last saw Peds EP (Dr.Peter Zhao) on 01/07/2018 and his impression was that since Kimberly has (more content not included)... Normal [facility] CNOV Office Visit (PSTLAB ) AMANDAKIMBERLY ([id number]) 2 F Date Time Provider Department 10/23/24 9:00 AM PEDS STRESS TECH SC PSTLAB During your visit today, we recorded the following information about you: Referring Provider: TANYA BUTTERFIELD [[id number]] Allergies As of Date: 10/23/2024 Noted Allergy Reaction LATEX 03/22/2024 2 - Rash SEASONAL ALLERGIES 12/15/2009 Date Reviewed: 10/23/2024 Reviewed by: Jerry Farmer APRN.SUPERVISOR [employer] - Fully Assessed Visit Diagnoses:TOF (tetralogy of Fallot) (HCC) [Q21.3] Status post transcatheter replacement of pulmonary valve [Z95.4] Order(s):PEDS EXERCISE METABOLIC STRESS [[id number]] Order #: [id number]. #:[id number]: 1 PEDS EXERCISE METABOLIC STRESS [[id number]] Order #: [id number]. #:[id number]: 1 Prescriptions as of 10/24/2024 - iv contrast (will be provided with radiology test) MRI Card Congenital Inject, intravenously, once for 1 dose. No IV access, insert saline lock prior to the beginning of sedation, infusion, injection of imaging exam. Discontinue saline lock post exam. If Pt has a central line or IVAD, may access for administration according to line specific nursing protocol.Once exam is complete flush line and de-access according to line specific nursing protocol in the MR contrast administration guidelines link - aspirin 81 mg cap Take 1 tablet by mouth once daily. 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] 06/08/2015 Chest pain [R07.9] 08/12/2015 08/13/2015 Qnmjo-Pnomixfsc-Srobl (WPW) syndrome [I45.6] 08/13/2015 Seizure (HCC) [R56.9] 08/13/2015 Attention deficit hyperactivity disorder (ADHD)*03/19/2017 TOF (tetralogy of Fallot) ([facility]) [Q21.3] 10/23/2024 Encounter Status:Closed by FRANK ISRAEL on 10/24/24 Normal [facility] ECG COMPLETEon 10-23-2024 ECG COMPLETE Ventricular Rate : 6 9 BPM Atrial Rate : 69 BPM P-R Interval : 122 ms QRS Duration : 116 ms Q-T Interval : 412 ms QTC Calculation(Bazett) : 441 ms Calculated P [place] : 6 degrees Calculated R [place] : 36 degrees Calculated T [place] : 82 degrees NORMAL SINUS RHYTHM NONSPECIFIC T WAVE ABNORMALITY ABNORMAL ECG Confirmed by TANYA BUTTERFIELD MD ([id number]) on 10/24/2024 11:00:45 AM NAME : KIMBERLY PATEL PID : [id number] : 2000 Gender : Female Race : ORD : [id number] Procedure Date : Oct 23 2024 07:58:37 Edit Date : Oct 24 2024 11:00:50 Diagnosis: NORMAL SINUS RHYTHM NONSPECIFIC T WAVE ABNORMALITY ABNORMAL ECG Confirmed by TANYA BUTTERFIELD MD ([id number]) on 10/24/2024 11:00:45 AM Test Reason : Location : 570 : [facility] Overread By : TANYA BUTTERFIELD MD Edited By : TANYA BUTTERFIELD MD Referred By : TANYA BUTTERFIELD Acquired by : Marlo carolina [facility] PEDIATRIC ECHOon 10-23-2024 PEDIATRIC ECHO + --+ -+ Pediatric Cardiology Echocardiogram Report + + -+ NAME: MISS KIMBERLY PATEL : 2000 Ht: 165.0 cm PT ID#: [id number] Age: 24 years Wt: 74.0 kg Sex: F BSA: 1.86 m STUDY DATE: 10/23/2024 7:46:54 AM BP: 112/69 mmHg Image Quality: Technically difficult and adequate. Referring Physician: Tanya Butterfield MD Diagnosing Physician: Hanny Luciano MD Senior Scheduler: Portia Mas 2nd Senior Scheduler: Diagnosis: Q21.3 Tetralogy of Fallot; Z95.2 Presence of prosthetic heart valve; I36.1 Tricuspid valve insufficiency (Nonrheumatic) Procedure Code: 97838, 47689, 17564 Congenital Transthoracic, complete (w/Doppler and color) Exam Location: [facility] [place] [facility]. Indications: Evaluate biventricular size and function, cardiac repairs Exam Quality: Images were suboptimal secondary to Prominent Lung Artifact and Poor Acoustic Windows. Color Doppler was utilized to interrogate the cardiac valves assessed. Spectral Doppler was utilized to determine the flow velocities and pressure gradients reported in this exam. History: History of TOF, LSVC to CS without innominate vein, S/P complete repair without infundibular resection, VSD patch closure, suture closure of ASD, pulmonary valvotomy and pericardial patch augementation of MPA, unroofing and CS reduction (2001). S/P PVR and RVOT augmentation (2012). S/P transcatheter Vandana valve placement (05/2020). Mild TR, mild RVE and mild aortic and branch PA dilation Segmental Anatomy, Cardiac Position and Situs: The segmental anatomy and situs are normal. The heart position is within the left hemithorax (levo position). Levocardia (apex to the left). The aorta is to the right of the pulmonary artery. Segmental anatomy is S,D,S. Systemic Veins: Right superior vena cava is right sided and drains normally to the right atrium. Left superior vena cava drains to the coronary sinus. There are bilateral superior venae cavae without a bridging vein. The inferior vena cava is right sided and inserts normally into the right atrium. The coronary sinus is dilated. Atria: The right atrium is normal in size. The left atrium is normal in size. No hemodynamically significant atrial shunt is seen. Tricuspid Valve: There is mild tricuspid valve regurgitation. Right ventricular pressure is estimated by TR jet velocity to be 50 mmHg plus right atrial V-wave. Tricuspid Valve measurements TR peak gradient: 49.9 mmHg Regurg peak velocity: 3.53 m/s Right Ventricle: Right ventricle is normal in size and mildly hypertrophied with mildly diminished systolic function. RV measurements RV ET(PulmV) 340 msec Mitral Valve: The mitral valve is normal. There is trace mitral valve regurgitation. There is no mitral valve stenosis. Left Ventricle: Normal left ventricular size and wall thickness with normal systolic function. M-Mode Z Score LVIDd: 5.26 cm 0.26 LVIDs 3.45 cm LVPWd: 0.85 cm 1.02 IVSd 0.96 cm 1.89 Relative wall thickness 0.34 LV mass 173.2 g 2.95 LV mass index (BSA) 95.5 g/m LV mass index (ht^2.7) 45 g/m2.7 Systolic Function: LV SF (m-mode) 34.4 % EF, A4C: 63.0 % 4 Chamber: Area, d 30.60 cm Major, d 7.59 cm Vol, d 100.7 ml Vol index, d 55.52 ml/m Area, s 16.36 cm Major, s 6.39 cm Vol, s 37.3 ml Vol index, s 20.56 ml/m VSD: There is no residual ventricular septal defect. RVOT: There is no right ventricular outflow tract obstruction. Pulmonary Valve: There is mild pulmonary valve stenosis. There is trace pulmonary valve regurgitation. There is a 22 mm Vandana stent-mounted pulmonary valve. The peak pulmonary gradient is 34.5 mmHg and the mean is 20.9 mmHg. Pulmonary valve measurements: Peak velocity: 2.94 m/sec Peak gradient: 35 mmHg Mean gradient: 21 mmHg Ejection time: 340 msec Pulmonary Arteries: The left pulmonary artery is dilated. The right pulmonary artery is dilated. Pulmonary Arteries measurements: Z Score RPA Diam 2.54 cm 4.42 LPA Diam 2.27 cm 3.15 LPA peak velocity: 1.65 m/s LPA peak gradient: 10.91 mmHg RPA peak velocity: 1.46 m/s RPA peak gradient: 8.57 mmHg LVOT: There is no left ventricular outflow tract obstruction. Aortic Valve: The aortic valve is normal with no stenosis and no regurgitation. The aortic root appears normal in size. The peak aortic gradient is 6.2 mmHg and the mean is 3.8 mmHg. Aortic Valve measurements: Z Score Ao Arlene diam 2.3 cm 1.29 Ao Root(sinus) 3.1 cm 1.10 Peak velocity: 1.25 m/s Peak gradient 6.21 mmHg Mean gradient: 3.83 mmHg VTI: 0.24 m Ejection time: 257 msec Aorta: There is no coarctation of the aorta. The ascending aorta is mildly dilated in size. Normal abdominal aorta Doppler. Aorta measurements Z Score Ao desc Vmax 1.00 m/s Ao desc Pk Grad 4.0 mmHg Ascending Ao 3.6 cm 4.85 Pericardium: There is no pericardial effusion. Interventi (more content not included)... 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 Poor aerobic (4.9 METS 42% predicted) and exercise (7.0 eMETS 56% predcited) capacity. 2. Low normal heart rate response with peak HR 170 bpm, abnormally low 1 min and low normal 2 min HR recovery (0.6% 1 min, 12.4% 2 min). 3. Normal systolic and diastolic BP response. IMPE BP 115/75 mmHg. 4. Abnormal peak VO2 (1.26 l/min) and VO2/kg (17.0 ml/min/kg) 42.2% predicted. 5. AT was not reached. 6. Oxygen pulse (7.4 ml) with normal initial rise then fall during mid exercise. 7. Total ventilation (VE/ht2.5 11.0 l/ht2.5; VT/kg 13.6 ml/kg; RR 39.0/min). 8. Low normal peak exercise ETCO2 (33.0 torr). 9. VE/VCO2 at AT and slope (33.0). 10. Low atrial rhythm with no ectopy rest, NSR with no ectopy during exercise and two PACs in recovery 11. Patient requested to stop due to shortness of breath and difficulty breathing with mask. Conclusion: Blunted HR and normal BP response to submaximal exercise (RER 0.0.96) with evidence of limitation based on VO2, AT, oxygen pulse, ETCO2, VE/VCO2, and HR recovery. Compared to 2020, decreased eMETS (8.7), decreased HR (187), increased VO2/kg (13.3), similar RER (0.98). 2019, eMETS (7.7), HR (180), VO2/kg (18.7) RER(1.00) Electronically Signed On 10-23-2024 20:17:27 EDT by Eloy Lubin MD Site: ID: [id number] Name: KIMBERLY PATEL Visit Date: 10/23/2024 Doctor: [employer] Detective: Frank Israel Age: 24 Date of : 2000 Gender: Female Race: Other Height: 64.96 in Weight: 163.14 lbs BSA: 1.813 Diagnosis: TOF (tetralogy of Fallot) Dyspnea: Cough: Wheeze: Tobacco Use: None Medications: Comments: Review Status: Not Reviewed Treadmill Summary Text Report Mid 5 of 7 Rest AT VO2Max Pred AT/Max Max/Pred WORK Time (min) 3:15 6:27 6:23 Ex Time (min) 3:11 3:07 Speed (MPH) 2.5 2.5 100 O2 CONSUMPTION VO2 (mL/kg/min) 4.3 14.3 18.6 31.1 76 59 VO2 (L/min) 0.32 1.06 1.38 2.30 76 59 VCO2 (L/min) 0.26 1.01 1.33 2.78 76 47 RER 0.81 0.96 0.96 99 METS 1.2 4.1 5.3 8.9 76 59 VENTILATION VE BTPS (L/min) 10.7 34.2 44.3 128.4 77 34 Vt BTPS (L) 0.39 0.99 1.08 91 RR (br/min) 27 35 41 84 BR (%) 91.6 73.3 65.5 111 VE/VO2 34 32 32 39 100 82 VE/VCO2 42 34 33 32 101 103 VO2/VE 29.6 30.8 31.1 40.7 99 76 VCO2/VE 23.8 29.6 29.9 39.6 98 75 CARDIAC HR (bpm) 75 170 168 196 101 85 VO2/HR (mL/beat) 4 6 8 12 75 69 HRR-No Rest (%) 61.6 13.3 14.2 93 RatePrsPd SBP*HR/100 82 187 2797 6 V/Q PETO2 (mmHg) 109 111 112 99 PETCO2 (mmHg) 33 35 34 102 PaCO2_est (mmHg) 34.1 34.6 33.7 38-42 102 Interpretation: Normal [facility] ED Prov Noteon 10-01-2024 ED Prov Note ED PROVIDER NOTE [facility] NAME: Kimberly Patel AGE: 24 y.o. : 2000 VISIT DATE: 10/01/2024 CSN: [id number] PCP: No, Physician Chief Complaint Patient presents with URI Patient is a 24-year-old female with a significant past medical history of tetralogy of Fallot with surgical repair who presents today for concern of upper respiratory infection. Patient states last 10 days she has had a moderately productive cough but denies any chest pain, shortness of breath, history of DVT/PE, abdominal pain, nausea, vomiting, lightheadedness, dizziness or syncope. Patient mitts to sick contacts. Patient been eating and drinking normally. No past medical history on file. No past surgical history on file. No family history on file. Social History [1] Previous Medications Medication Sig aspirin 81 mg chewable tablet Chew and Swallow 1 (one) tablet (81 mg total) daily . [DISCONTINUED] albuterol 90 mcg/actuation inhaler Inhale 2 (two) puffs every 4 (four) hours as needed . Allergies[2] Review of Systems Constitutional: Negative for chills and fever. Eyes: Negative for pain. Respiratory: Positive for cough. Negative for chest tightness and shortness of breath. Cardiovascular: Negative for chest pain and palpitations. Gastrointestinal: Negative for abdominal pain, nausea and vomiting. Genitourinary: Negative for flank pain. Musculoskeletal: Negative for arthralgias and myalgias. Skin: Negative for rash. Neurological: Negative for dizziness, syncope, light-headedness and headaches. Psychiatric/Behavioral: Negative for agitation. All other systems reviewed and are negative. Patient Vitals for the past 24 hrs: BP Temp Temp src Pulse Resp SpO2 Height Weight 10/01/24 1610 (!) 159/97 97.7 degrees F (36.5 degrees C) Temporal 98 16 98 % 5' 5 73.9 kg (163 lb) Physical Exam Vitals and nursing note reviewed. Constitutional: Appearance: Normal appearance. HENT: Head: Normocephalic. Nose: Congestion and rhinorrhea present. Eyes: Pupils: Pupils are equal, round, and reactive to light. Cardiovascular: Rate and Rhythm: Normal rate and regular rhythm. Pulses: Normal pulses. Heart sounds: Normal heart sounds. Musculoskeletal: Cervical back: Normal range of motion. Pulmonary: Effort: Pulmonary effort is normal. No respiratory distress. Breath sounds: Normal breath sounds. No wheezing or rales. Abdominal: General: Abdomen is flat. There is no distension. Tenderness: There is no abdominal tenderness. There is no guarding. Skin: General: Skin is warm. Capillary Refill: Capillary refill takes less than 2 seconds. Neurological: General: No focal deficit present. Mental Status: She is alert. Psychiatric: Mood and Affect: Mood normal. Laboratory & Radiographic Imaging (if done): No results found for this visit on 10/01/24. No orders to display Procedures Medical Decision Making Patient seen and evaluated for concern of cough and upper respiratory symptoms. Patient suspected bronchitis was given a prescription for Augmentin and inhaler to aid in cough. Patient's lungs are clear patient satting 98% at this time there is little clinical concern for pneumonia and therefore additional workup was not done. Patient educated on reason return and agrees to do so patient is discharged stable condition. The patient has been informed that they may have pre-hypertension or hypertension based on a blood pressure reading in the Emergency Department. I recommend that the patient call the primary care provider listed on their discharge instructions or a physician of their choice as soon as possible to arrange follow-up in the next 4 weeks for further evaluation of possible pre-hypertension or hypertension. . Clinical Impression: 1. Bronchitis ED Disposition ED Disposition Discharge Condition Stable Comment Kimberly Patel discharged to home/self care in stable condition. Follow-up Information 1. Almaz Cazares MD. Specialty: Family Medicine Why: As needed, If symptoms worsen [address] [address] Contact information for after-discharge care Follow-up information has not been specified. New Prescriptions amoxicillin-clavulanate (AUGMENTIN) 875-125 mg per tablet Take 1 (one) tablet by mouth 2 (two) times a day for 10 days . albuterol 90 mcg/actuation inhaler Inhale 2 (two) puffs every 4 (four) hours as needed . [1] Social History Socioeconomic History Marital status: Single Social Drivers of Health Financial Resource Strain: Medium Risk (05/16/2022) Received from [facility] Overall Financial Resource Strain (CARDIA) Difficulty of Paying Living Expenses: Somewhat hard Food Insecurity: Unknown (05/16/2022) Received from [facility] Hunger Vital Sign Worried About Running Out of Food in the Last Year: Patien (more content not included)... [facility] ED Prov Noteon 09-03-2024 ED Prov Note ED PROVIDER NOTE [facility] NAME: Kimberly Patel AGE: 24 y.o. : 2000 VISIT DATE: 09/03/2024 CSN: [id number] PCP: No, Physician Chief Complaint Patient presents with Cough Patient is a 24-year-old female with no significant past medical history presents today for concern of cough. Patient states for the last 2 weeks she has had a moderately productive cough. Patient states she was seen in urgent care and had a negative COVID and flu test 2 days prior as well as a negative chest x-ray. Patient denies previous history of DVT/PE. Patient states she continues to have a mildly productive cough. Patient denies any chest pain, shortness of breath, abdominal pain, back pain, lightheadedness, dizziness or syncope. Patient admits to sick contacts. Patient been eating and drinking normally No past medical history on file. No past surgical history on file. No family history on file. Social History Socioeconomic History Marital status: Single Previous Medications Medication Sig aspirin 81 mg chewable tablet Chew and Swallow 1 (one) tablet (81 mg total) daily . No Known Allergies Review of Systems Constitutional: Negative for chills and fever. Eyes: Negative for pain. Respiratory: Positive for cough. Negative for chest tightness and shortness of breath. Cardiovascular: Negative for chest pain and palpitations. Gastrointestinal: Negative for abdominal pain, nausea and vomiting. Genitourinary: Negative for flank pain. Musculoskeletal: Negative for arthralgias and myalgias. Skin: Negative for rash. Neurological: Negative for dizziness, syncope, light-headedness and headaches. Psychiatric/Behavioral: Negative for agitation. All other systems reviewed and are negative. Patient Vitals for the past 24 hrs: BP Temp Pulse Resp SpO2 Height Weight 09/03/24 1434 125/69 98.9 degrees F (37.2 degrees C) (!) 110 16 97 % 5' 5 73 kg (161 lb) Physical Exam Vitals and nursing note reviewed. Constitutional: Appearance: Normal appearance. HENT: Head: Normocephalic. Nose: Congestion and rhinorrhea present. Eyes: Pupils: Pupils are equal, round, and reactive to light. Cardiovascular: Rate and Rhythm: Normal rate and regular rhythm. Pulses: Normal pulses. Heart sounds: Normal heart sounds. Musculoskeletal: Cervical back: Normal range of motion. Pulmonary: Effort: Pulmonary effort is normal. No respiratory distress. Breath sounds: Normal breath sounds. No wheezing or rales. Abdominal: General: Abdomen is flat. There is no distension. Tenderness: There is no abdominal tenderness. There is no guarding. Skin: General: Skin is warm. Capillary Refill: Capillary refill takes less than 2 seconds. Neurological: General: No focal deficit present. Mental Status: She is alert. Psychiatric: Mood and Affect: Mood normal. Laboratory & Radiographic Imaging (if done): No results found for this visit on 09/03/24. No orders to display Procedures Medical Decision Making Patient seen and evaluated for concern of cough. Patient's lungs are clear and at this time there is little clinical concern for pneumonia and therefore patient suspected bronchitis was given a prescription for Augmentin and inhaler to aid in cough. Patient agrees assessment and plan understands return and patient was discharged stable condition. The patient has been informed that they may have pre-hypertension or hypertension based on a blood pressure reading in the Emergency Department. I recommend that the patient call the primary care provider listed on their discharge instructions or a physician of their choice as soon as possible to arrange follow-up in the next 4 weeks for further evaluation of possible pre-hypertension or hypertension. . Clinical Impression: 1. Bronchitis ED Disposition ED Disposition Discharge Condition Stable Comment Kimberly Patel discharged to home/self care in stable condition. Follow-up Information 1. Almaz Cazares MD. Specialty: Family Medicine Why: As needed, If symptoms worsen [address] [place] [id number] Contact information for after-discharge care Follow-up information has not been specified. New Prescriptions amoxicillin-clavulanate (AUGMENTIN) 875-125 mg per tablet Take 1 (one) tablet by mouth 2 (two) times a day for 7 days . albuterol 90 mcg/actuation inhaler Inhale 2 (two) puffs every 4 (four) hours as needed . Vinny Casey, 09/03/24 1505 AUTHENTICATED BY KENYA BENZ 09/03/2024 [facility]:05:11 [facility] ([facility] ) KIMBERLY PATEL ([id number]) 2 F Date Time Provider Department 09/01/24 10:45 AM FABIOLA HURT [facility] During your visit today, we recorded the following information about you: Temperature Pulse Respiration Blood pressure 101.5 degrees 97/minute 18/minute 108/72 Weight 78.3 kg Fabiola Hurt APRN.SUPERVISOR [employer] 09/01/2024 11:32 AM Signed Subjective HPI HPI Kimberly Patel is a 24 year old female who presents today for CC of fever, cough, sob. This started on/off for 1 week. Has tried otc medication for relief. Symptoms are worsened by nothing. Risk factors sick exposures. nonsmoker. Denies possibility of being . Reports all s/s improving. Hx of multiple heart surgeries, follows with cardiology. No pcp. Denies st. Denies urinary changes or concerns for uti. Denies abd pain. 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 FAMILY HISTORY Adopted: Yes Problem Relation Age of Onset other (sickle cell) Brother Social History Tobacco Use Smoking status: Never Passive exposure: Yes Smokeless tobacco: Never Tobacco comments: brother outdoors Vaping Use Vaping status: Never Used Substance Use Topics Alcohol use: No Drug use: No Review of Systems Constitutional: Positive for fever and malaise/fatigue. HENT: Negative for congestion, ear pain, nosebleeds and sore throat. Respiratory: Positive for cough. Negative for shortness of breath and wheezing. Musculoskeletal: Negative for neck pain. Skin: Negative for itching and rash. Neurological: Positive for dizziness (one day last week). Objective Blood pressure 108/72, pulse 97, temperature (!) 38.6 ?C (101.5 ?F), temperature source Tympanic, resp. rate 18, weight 78.3 kg (172 lb 9.9 oz), last menstrual period 07/03/2023, SpO2 99%. Physical Exam Constitutional: General: She is not in acute distress. Appearance: She is not ill-appearing, toxic-appearing or diaphoretic. HENT: Head: Normocephalic and atraumatic. Right Ear: Hearing, tympanic membrane, ear canal and external ear normal. Left Ear: Hearing, tympanic membrane, ear canal and external ear normal. Nose: Nose normal. Mouth/Throat: Pharynx: Uvula midline. No pharyngeal swelling, oropharyngeal exudate, posterior oropharyngeal erythema or uvula swelling. Eyes: General: Lids are normal. No scleral icterus. Right eye: No discharge. Left eye: No discharge. Conjunctiva/sclera: Conjunctivae normal. Pupils: Pupils are equal, round, and reactive to light. Neck: Trachea: Trachea normal. Cardiovascular: Rate and Rhythm: Normal rate and regular rhythm. Heart sounds: Normal heart sounds. Pulmonary: Effort: Pulmonary effort is normal. Breath sounds: Normal breath sounds. Musculoskeletal: Cervical back: Normal range of motion and neck supple. Lymphadenopathy: Cervical: No cervical adenopathy. Right cervical: No superficial cervical adenopathy. Left cervical: No superficial cervical adenopathy. Skin: Findings: No rash. Neurological: Mental Status: She is alert and oriented to person, place, and time. ASSESSMENT/PLAN: 1. URI, acute - ICD9: 465.9, ICD10: J06.9 (primary diagnosis) - Discussed viral etiology and rationale for treatment. - Symptomatic treatment with prn analgesia - Supportive care with fluids and rest -If you experience chest pain/shortness of breath go to ER - INFLUENZA AANDB MOLECULAR (POC) 2. Acute cough - ICD9: 786.2, ICD10: R05.1 Xray negative - XR CHEST 2V FRONTAL/LAT IMPRESSION: No acute radiographic abnormality. Dictated by : IRENE KC MD 3. FUO (fever of unknown origin) - ICD9: 780.60, ICD10: R50.9 Concerns with patient health history Discussed going to ER vs watchful waiting Since s/s are improving patient would like to wait If anything new occurs or worsens go to ER [place] (more content not included)... Normal [facility] INFLUENZA A&B MOLECULAR (POC )on 09-01-2024 Flu A (POCT) Negative Negative [facility] Flu B (POCT) Negative Negative [facility] Procedural Control Valid [facility] Location:[facility], [address] [place] [address], [place], [address] [facility] POINT OF CARE [facility] XR CHEST 2V FRONTAL/LATon XR CHEST 2V FRONTAL/LAT * * *Final Report* * * DATE OF EXAM: Sep 01 2024 10:40AM WOX 5291 - XR CHEST 2V FRONTAL/LAT / PROCEDURE REASON: Acute cough * * * * Physician Interpretation * * * * EXAMINATION: CHEST RADIOGRAPH (2 VIEW FRONTAL and LATERAL) CLINICAL HISTORY: Acute cough MQ: XC2_6 EXAM DATE/TIME: 09/01/2024 10:40 AM COMPARISON: Chest x-ray dated 07/17/2023 RESULT: Lines, tubes, and devices: None. Lungs and pleura: No consolidation. No lung mass. No pleural effusion. No pneumothorax. Cardiomediastinal silhouette: Stable cardiomediastinal silhouette with pulmonary valve prosthesis. Bones and soft tissues: Surgical clips are present in the upper abdomen. Mild dextrocurvature of the midthoracic spine. IMPRESSION: No acute radiographic abnormality. Drilling Plant Operator: CHRIS Transcribe Date/Time: Sep 01 2024 10:50A Dictated by : IRENE KC MD This examination was interpreted and the report reviewed and electronically signed by: IRENE KC MD on Sep 01 2024 10:51AM EST [id number] Normal [facility] XR Chest PA and Lateralon IMPRESSION: No acute radiographic abnormality. Drilling Plant Operator: [facility] Transcribe Date/Time: Sep 01 2024 10:50A Dictated by : IRENE KC MD This examination was interpreted and the report reviewed and electronically signed by: IRENE KC MD on Sep 01 2024 10:51AM EST DIVISION OF RADIOLOGY * * *Final Report* * * DATE OF EXAM: Sep 01 2024 10:40AM WOX 5291 - XR CHEST 2V FRONTAL/LAT / PROCEDURE REASON: Acute cough * * * * Physician Interpretation * * * * EXAMINATION: CHEST RADIOGRAPH (2 VIEW FRONTAL & LATERAL) CLINICAL HISTORY: Acute cough MQ: XC2_6 EXAM DATE/TIME: 09/01/2024 10:40 AM COMPARISON: Chest x-ray dated 07/17/2023 RESULT: Lines, tubes, and devices: None. Lungs and pleura: No consolidation. No lung mass. No pleural effusion. No pneumothorax. Cardiomediastinal silhouette: Stable cardiomediastinal silhouette with pulmonary valve prosthesis. Bones and soft tissues: Surgical clips are present in the upper abdomen. Mild dextrocurvature of the midthoracic spine. DIVISION OF RADIOLOGY Provider, Chelsey schultz Lipscomb - 09/01/2024 * * *Final Report* * * DATE OF EXAM: Sep 01 2024 10:40AM WOX 5291 - XR CHEST 2V FRONTAL/LAT / PROCEDURE REASON: Acute cough * * * * Physician Interpretation * * * * EXAMINATION: CHEST RADIOGRAPH (2 VIEW FRONTAL & LATERAL) CLINICAL HISTORY: Acute cough MQ: XC2_6 EXAM DATE/TIME: 09/01/2024 10:40 AM COMPARISON: Chest x-ray dated 07/17/2023 RESULT: Lines, tubes, and devices: None. Lungs and pleura: No consolidation. No lung mass. No pleural effusion. No pneumothorax. Cardiomediastinal silhouette: Stable cardiomediastinal silhouette with pulmonary valve prosthesis. Bones and soft tissues: Surgical clips are present in the upper abdomen. Mild dextrocurvature of the midthoracic spine. IMPRESSION IMPRESSION: No acute radiographic abnormality. Drilling Plant Operator: PSCB Transcribe Date/Time: Sep 01 2024 10:50A Dictated by : IRENE KC MD This examination was interpreted and the report reviewed and electronically signed by: IRENE KC MD on Sep 01 2024 10:51AM EST [facility] Radiology Study observation (narrative) [facility] XR Chest PA and LateralOrder ed By: [facility] Provider on 09-01-2024 [facility] Urgent Care Visit Reporton 1 07-08-2023 Urgent Care Visit Report [facility] [address], [address] [place] [address] OFFICE VISIT Date of Service: 05/08/24 MR#: [id number] Acct: [id number] Name: KIMBERLY PATEL Rep #: [id number] : 2000 Provider: ROSSY Dsouza Age/Sex: 24/F Location: [facility] Status: Signed Intake Vital Signs 03/22/24 10:57 Height 5 ft 5 in Intake Visit Reasons: PE NON DOT PHYSICAL/ MAJORA AB Allergies No Known Allergies Allergy (Verified 03/22/24 10:57) [facility] Medical History Tetralogy of Fallot Physical exam, pre-employment Social History Smoking Status: Never smoker HPI HPI Details: KIMBERLY PATEL, is a 24 F who presents to the office today for preemployment physical. Please see corresponding scanned documents with today's date. Office Procedures Physical Exam Coding PE Coding Pre-employment PE: Yes Coding Level of Care Code No Charge Diagnoses Physical exam, pre-employment Z02.1 Assessment and Plan Assessment and Plan (1) Physical exam, pre-employment: Status: Acute 05/08/24 1453 Date Howard BLAIR Cosigner Signature: Date (if applicable) CC: Normal [facility] 12 Lead EKGon 03-22-2024 12 Lead EKG [facility] [address] [place] [address] 12 Lead EKG 03/22/24 1107 MR#: [id number] Acct: [id number] Name: KIMBERLY PATEL Rep #: [id number] : 2000 24 From: Paul London MD Attending Dr: Status: DEP ER Ordering Dr: Elgin Bauman MD Date: 03/22/24 Location: ED Sex: F AA Admitted: Test Reason : CP Blood Pressure : / mmHG Vent. Rate : 063 BPM Atrial Rate : 063 BPM P-R Int : 110 ms QRS Dur : 110 ms QT Int : 426 ms P-R-T Axes : 000 028 111 degrees QTc Int : 435 ms Sinus rhythm with short HI Nonspecific ST and T wave abnormality Abnormal ECG LOW ATRIAL RHYTHM Confirmed by Paul London ([id number]), primer expeditor and drier JANESSA FRANCIS ([id number]) on 03/24/2024 11:02:09 AM Referred By: BLOSSOM Confirmed By:Paul London 03/24/241101 Date Paul London MD CC: Dr. Elgin Bauman MD; No Primary Care Physician Signed Normal [facility] Basic Metabolic Profile (BMP )on 03-22-2024 BUN/CRE 22.4 RATIO High 10-20 [facility] Comment on above: Order Comment: 'TROP ' Serial specimen #1, #2 or #3: 1 Performed By: #### L 100.0100, L501.4020, L500.2500 #### [facility] [address] [place], [address] CA,Total 9.2 mg/dL Normal 8.5-10.1 [facility] Comment on above: Order Comment: 'TROP ' Serial specimen #1, #2 or #3: 1 Performed By: #### L 100.0100, L501.4020, L500.2500 #### [facility] [address] [place], [address] Chloride [Moles/Vol] 106 mmol/L Normal 98-107 [facility] Comment on above: Order Comment: 'TROP ' Serial specimen #1, #2 or #3: 1 Performed By: #### L 100.0100, L501.4020, L500.2500 #### [facility] [address] [place], [address] CO2 [Moles/Vol] 25.0 mmol/L Normal 21.0-32.0 [facility] Comment on above: Order Comment: 'TROP ' Serial specimen #1, #2 or #3: 1 Performed By: #### L 100.0100, L501.4020, L500.2500 #### [facility] [address] [place], [address] Creatinine [Mass/Vol] 0.85 mg/dL Normal 0.55-1.02 [facility] Comment on above: Order Comment: 'TROP ' Serial specimen #1, #2 or #3: 1 Result Comment: The validity of the calculated GFR GFRAA in patients over 70 years has not been determined. Clinical correlation is essential. Performed By: #### L 100.0100, L501.4020, L500.2500 #### [facility] [address] [place], [address] ECRCL 105.04 ml/min Normal [facility] Comment on above: Order Comment: 'TROP ' Serial specimen #1, #2 or #3: 1 Performed By: #### L 100.0100, L501.4020, L500.2500 #### [facility] [address] [place], [address] EST GFR - AA 107 mL/min Normal >60 [facility] Comment on above: Order Comment: 'TROP ' Serial specimen #1, #2 or #3: 1 Result Comment: Afri can [place] GFR Calc Performed By: #### L 100.0100, L501.4020, L500.2500 #### [facility] [address] [place], [address] GAP 6 Normal 5-15 [facility] Comment on above: Order Comment: 'TROP ' Serial specimen #1, #2 or #3: 1 Performed By: #### L 100.0100, L501.4020, L500.2500 #### [facility] [address] [place], [address] GFR/1.73 sq M.predicted among non-blacks MDRD (S/P/Bld) [Vol rate/Area] 88 mL/min/{1.73_m2} Normal >60 [facility] Comment on above: Order Comment: 'TROP ' Serial specimen #1, #2 or #3: 1 Result Comment: Non- GFR Calc Performed By: #### L 100.0100, L501.4020, L500.2500 #### [facility] [address] [place], [address] Glucose [Mass/Vol] 91 mg/dL Normal 74-106 [facility] Comment on above: Order Comment: 'TROP ' Serial specimen #1, #2 or #3: 1 Performed By: #### L 100.0100, L501.4020, L500.2500 #### [facility] [address] [place], [address] Potassium [Moles/Vol] 3.4 mmol/L Low 3.5-5.1 [facility] Comment on above: Order Comment: 'TROP ' Serial specimen #1, #2 or #3: 1 Performed By: #### L 100.0100, L501.4020, L500.2500 #### [facility] [address] [place], [address] Sodium [Moles/Vol] 137 mmol/L Normal 136-145 [facility] Comment on above: Order Comment: 'TROP ' Serial specimen #1, #2 or #3: 1 Performed By: #### L 100.0100, L501.4020, L500.2500 #### [facility] [address] [place], [address] Urea nitrogen [Mass/Vol] 19 mg/dL High 7-18 [facility] Comment on above: Order Comment: 'TROP ' Serial specimen #1, #2 or #3: 1 Performed By: #### L 100.0100, L501.4020, L500.2500 #### [facility] [address] [place], [address] CBC W/Diff, Automatedon - Absolute Lymph 2.72 X10 3/uL Normal 0.83-4.51 [facility] Comment on above: Performed By: #### L 100.0100, L501.4020, L500.2500 #### [facility] [address] [place], [address] Absolute Neut 4.2 X10 3/uL Normal 2.0-7.7 [facility] Comment on above: Performed By: #### L 100.0100, L501.4020, L500.2500 #### [facility] [address] [place], [address] Basophils/100 WBC (Bld) 0.8 % Normal 0-1 [facility] Comment on above: Performed By: #### L 100.0100, L501.4020, L500.2500 #### [facility] [address] [place], [address] Eosinophils/100 WBC (Bld) 2.0 % Normal 0-5 [facility] Comment on above: Performed By: #### L 100.0100, L501.4020, L500.2500 #### [facility] [address] [place], [address] Erythrocyte distribution width (RBC) [Ratio] 17.1 % High 11.6-14.6 [facility] Comment on above: Performed By: #### L 100.0100, L501.4020, L500.2500 #### [facility] [address] [place], [address] Hematocrit (Bld) [Volume fraction] 36.0 % Low 37-47 [facility] Comment on above: Performed By: #### L 100.0100, L501.4020, L500.2500 #### [facility] [address] [place], [address] Hemoglobin (Bld) [Mass/Vol] 11.1 g/dL Low 12.0-15.0 [facility] Comment on above: Performed By: #### L 100.0100, L501.4020, L500.2500 #### [facility] [address] [place], [address] IG% 0.500 Normal 0.0-0.9 [facility] Comment on above: Result Comment: IG% - Immature Granulocytes (promyelocytes, myelocytes and metamyelocytes) > 1% indicates that a LEFT SHIFT is Present. Performed By: #### L 100.0100, L501.4020, L500.2500 #### [facility] [address] [place], [address] Lymphocytes/100 WBC (Bld) 34.5 % Normal 19-41 [facility] Comment on above: Performed By: #### L 100.0100, L501.4020, L500.2500 #### [facility] [address] [place], [address] MCH (RBC) [Entitic mass] 19.5 pg Low 27.0-32.0 [facility] Comment on above: Performed By: #### L 100.0100, L501.4020, L500.2500 #### [facility] [address] [place], [address] MCHC (RBC) [Mass/Vol] 30.8 g/dL Low 32-36 [facility] Comment on above: Performed By: #### L 100.0100, L501.4020, L500.2500 #### [facility] [address] [place], [address] MCV (RBC) [Entitic vol] 63.3 fL Low 81-99 [facility] Comment on above: Performed By: #### L 100.0100, L501.4020, L500.2500 #### [facility] [address] [place], [address] Monocytes/100 WBC (Bld) 8.5 % Normal 0-10 [facility] Comment on above: Performed By: #### L 100.0100, L501.4020, L500.2500 #### [facility] [address] [place], [address] Neutrophils/100 WBC (Bld) 53.7 % Normal 47-70 [facility] Comment on above: Performed By: #### L 100.0100, L501.4020, L500.2500 #### [facility] [address] [place], [address] Nucleated RBC (Bld) [#/Vol] 0 10*3/uL Normal 0-5 [facility] Comment on above: Performed By: #### L 100.0100, L501.4020, L500.2500 #### [facility] [address] [place], [address] Platelet mean volume (Bld) [Entitic vol] 10.0 fL Normal 6.2-12.0 [facility] Comment on above: Performed By: #### L 100.0100, L501.4020, L500.2500 #### [facility] [address] [place], [address] Platelets (Bld) [#/Vol] 235 10*3/uL Normal 150-450 [facility] Comment on above: Performed By: #### L 100.0100, L501.4020, L500.2500 #### [facility] [address] [place], [address] RBC (Bld) [#/Vol] 5.69 10*6/uL High 4.2-5.4 [facility] Comment on above: Performed By: #### L 100.0100, L501.4020, L500.2500 #### [facility] [address] [place], [address] RDW SD 36.7 fl Normal 35.1-43.9 [facility] Comment on above: Performed By: #### L 100.0100, L501.4020, L500.2500 #### [facility] [address] [place], [address] WBC (Bld) [#/Vol] 7.9 10*3/uL Normal 4.4-11.0 [facility] Comment on above: Performed By: #### L 100.0100, L501.4020, L500.2500 #### [facility] [address] [place], [address] CNOVon 03-22-2024 CNOV Office Visit (UCWSTR ) SPENCER PATELSHANAE Baptiste ([id number]) 2 F Date Time Provider Department 03/22/24 10:30 AM FABIOLA HURT [facility] During your visit today, we recorded the following information about you: Temperature Pulse Respiration Blood pressure 97.7 degrees 63/minute 18/minute 110/74 Weight 76.1 kg Fabiola Hurt APRN.SUPERVISOR [employer] 03/22/2024 12:01 PM Signed Subjective HPI HPI Kimberly Baptiste Amanda is a 24 year old female who presents today for CC of rash on face for 2 days, chest pain/sob on off for 2 days. Has tried otc medication for rash. Symptoms are worsened by nothing. Risk factors hx of Tetrology of Fallot/surgeries. nonsmoker. 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 FAMILY HISTORY Adopted: Yes Problem Relation Age of Onset other (sickle cell) Brother Social History Tobacco Use Smoking status: Never Passive exposure: Yes Smokeless tobacco: Never Tobacco comments: brother outdoors Vaping Use Vaping status: Never Used Substance Use Topics Alcohol use: No Drug use: No ROS Objective Blood pressure 110/74, pulse 63, temperature 36.5 ?C (97.7 ?F), temperature source Tympanic, resp. rate 18, weight 76.1 kg (167 lb 12.3 oz), last menstrual period 07/03/2023, SpO2 98%. Physical Exam Constitutional: General: She is not in acute distress. Appearance: She is not toxic-appearing or diaphoretic. HENT: Head: Normocephalic and atraumatic. Cardiovascular: Rate and Rhythm: Normal rate and regular rhythm. Heart sounds: Normal heart sounds, S1 normal and S2 normal. Pulmonary: Effort: Accessory muscle usage present. No respiratory distress. Breath sounds: Normal breath sounds. Skin: Neurological: Mental Status: She is alert and oriented to person, place, and time. Gait: Gait is intact. ASSESSMENT/PLAN: 1. Chest pain, unspecified type - ICD9: 786.50, ICD10: R07.9 (primary diagnosis) Will refer to ER, unclear what hospital she will go to at this time. 2. Rash - ICD9: 782.1, ICD10: R21 Likely latex allergy Otc management advised Fabiola Hurt APRN.SUPERVISOR [employer] Referring Provider: SELF [200] Allergies As of Date: 03/22/2024 Noted Allergy Reaction LATEX 03/22/2024 2 - Rash SEASONAL ALLERGIES 12/15/2009 Date Reviewed: 03/22/2024 Reviewed by: Chloé Perla LPN - Fully Assessed Reason for Visit: Rash [1087] Cmt: Rash on face x 2 days Primary Visit Diagnosis:Chest pain, unspecified type [R07.9] Other Visit Diagnosis:Rash [R21] Prescriptions as of 03/22/2024 - aspirin 81 mg cap Take 1 tablet by mouth once daily. 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] 08/06/2002 03/05/2013 TETRALOGY OF FALLOT [Q21.3] 06/10/2003 Other specified cardiac dysrhythmias [I49.8] 09/11/2003 11/14/2012 Pulmonary valve disorders [I37.9] 04/26/2004 05/09/2013 Dysfunction of eustachian tube [H69.90] 12/12/2004 03/05/2013 Flat feet [M21.41, M21.42] 02/27/2011 01/12/2020 Abnormal ECG [R94.31] 07/28/2012 11/14/2012 Anemia [D64.9] 03/05/2013 Pulmonary valve disorder [I37.9] 05/09/2013 Tricuspid valve disorder [I07.9] 05/09/2013 Right ventricular dilation [I51.7] 06/08/2015 Prosthetic valve regurgitation [T82.897A] 06/08/2015 Chest pain [R07.9] 08/12/2015 08/13/2015 Yhxlm-Kvkmazsry-Fxsgc (WPW) syndrome [I45.6] 08/13/2015 Seizure (HCC) [R56.9] 08/13/2015 Attention deficit hyperactivity disorder (ADHD)*03/19/2017 Encounter Status:Closed by FABIOLA HURT on 03/22/24 Normal [facility] Chest 1 View (Portable)on Chest 1 View (Portable) [facility] [address] [place] [id number] Chest 1 View (Portable) MR#: [id number] Acct: [id number] Name: KIMBERLY PATEL Rep #: [id number] : 2000 F 24 From: Sania parker MD PCP: Care Physician,No Primary Status: REG ER Study: Chest 1 View (Portable) Date of Exam: 03/22/24 Exam# [id number] Ordering [place]: [place] [id number] HISTORY: chest pain. TECHNIQUE: XR Chest 1 View. COMPARISON: None. FINDINGS: CARDIOMEDIASTINAL BORDERS: Cardiac silhouette limits of normal in size with device noted at the AP window. Mediastinal contour unremarkable. LUNGS: Linear plaque-like opacity in the left lung base. PLEURA: No pleural effusion or pneumothorax seen. OSSEOUS STRUCTURES: Unremarkable. RAD/Chest 1 View (Portable) IMPRESSION: Heart upper limits of normal in size with device at the AP window. Mild left basilar atelectasis or scarring. Electronically Signed: Sania Davis MD at 12:26 EDT , CC: Dr. Elgin Bauman MD; No Primary Care Physician Drilling Plant Operator: Signed Normal [facility] Emergency Department Summary on 03-22-2024 Emergency Department Summary [facility] Medical Records Department [address] [place] [address] Emergency Department Summary 03/22/24 MR#: [id number] Acct: [id number] Name: KIMBERLY PATEL Rep #: [id number] : 2000 24 From: Elgin Bauman MD PCP: Care Physician,No Primary Status:DEP ER Location: ED HPI History of Present Illness Chief Complaint: Chest Pain Informant: patient Onset/Context/Timing Onset: Today and Yesterday Activity at onset: sudden Timing: Intermittent Quality: Positive for Aching Location: Substernal Current Severity: Gone Maximum Severity: Mild Worsened By: Nothing Relieved By: Nothing Associated Symptoms: Negative for Nausea, Vomiting, Diaphoresis, Dyspnea, Cough, Lightheadedness, Acid Reflux or Palpitations Narrative Narrative: 24-year-old female history of tetralogy of Fallot who had surgery at 11 months and again at 13 years old. She has done well. 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 Where she was working the required to wear an N95 mask when she had on yesterday she felt restricted her breathing and she had some midsternal chest discomfort. No hemoptysis. No leg pain or swelling. No pleuritic pain. No history of DVT or PE or risk factors. No recent travel, surgery or immobilization. No leg pain or swelling. Prior Similar Symptoms: No Recent Illness/Hospitalization : No CVD Risk Factors: Negative for Hypertension, Diabetes, Hypercholesterolemia, Family History 1' or Smoking PE Risk Factors: Negative for Recent Travel/Surgery, Recent Immobilization, Prior DVT or PE, Cancer or OCP + Smoking + >/=35 TAD Risk Factors: Negative for Marfan's Syndrome [facility] Medical History Tetralogy of Fallot Physical exam, pre-employment Allergy/AdvReac Type Severity Reaction Status Date / Time No Known Allergies Allergy Verified 03/22/24 10:57 Social History Smoking Status: Never smoker ROS ROS ED ROS Narrative Denies recent illness. No recent chest pain except for yesterday and today. Constitutional Constitutional ED: Denies chills or fever(s) Eyes Eyes: Reports none ENT ENT ED: Denies ear pain Cardiovascular Cardiovascular: Reports as per HPI and chest pain; Denies palpitations or racing heartbeat Respiratory/Chest Respiratory/Chest: Denies cough, dyspnea or dyspnea on exertion Gastrointestinal Gastrointestinal: Denies abdominal pain Genitourinary Genitourinary ED: Denies dysuria Musculoskeletal Musculoskeletal: Denies arthralgias Integumentary Denies abscess Neurologic Neurologic: Denies headache(s) Psychiatric Psychiatric: Denies anxiety Endocrine Endocrinology: Denies cold intolerance Hematologic/Lymphatic Hematologic/Lymphatic: Denies easy bleeding Allergic/Immunologic Allergic/Immunologic ED: Denies mouth swelling EXAM Physical Exam Narrative Exam Narrative: Well-appearing 24-year-old female. Vital signs stable afebrile. Pulse ox 9 9% on room air no hypoxia. H EENT exam unremarkable. Mytrex membranes. Neck nontender no JVD. Lungs clear to auscultation bilaterally. Heart regular rate and rhythm rate about 70 5/6 systolic ejection murmur. She has a chronic murmur from her tetralogy of Fallot. Chest wall nontender. No reproducible pain. Abdomen soft nontender. Moving all 4 extremities. Nontender no edema or cords. 5 out of 5 head still operator strength. Dorsi plantarflexion intact. She is awake and alert. No focal motor deficits. Const Vital Signs: 03/22/24 10:57 03/22/24 11:04 03/22/24 11:09 Temperature 97.3 F L Temperature Source Oral Pulse Rate 68 Respiratory Rate 14 Respiratory Effort Normal Non-Labored Blood Pressure 125/76 H Blood Pressure Mean 92 Pulse Ox 99 Oxygen Delivery Method Room Air Room Air Positive well nourished and well developed; Negative for obese, cachectic, contractures or unkempt General Appearance ED: well developed and NAD; Negative for unkempt, cachectic, contractures or pallor Nutritional Appearance: Negative for cachectic or obese HEENT Reports moist mucous membranes normocephalic and atraumatic Eyes PERRL and EOMs intact bilaterally General Eye ED: Negative for pale conjunctiva or scleral icterus Neck no lymphadenopathy, supple and no JVD General: Negative for tenderness Chest Wall inspection of chest normal and palpation of chest normal Chest: Negative for tenderness Resp normal respiratory effort and clear to auscultation bilaterally Effort and Inspection: Negative for respiratory distress Auscultation: Negative for rales, rhonchi or wheezes Cardio regular rate, regular rhythm, S1 normal heart sound, S2 normal heart sound and no murmurs Rate: Negative for bradycardia or tachycardi (more content not included)... Normal [facility] L501.4020on 03-22-2024 TROPONIN-I HS 6 pg/mL Normal 3.0-54.0 [facility] Comment on above: Order Comment: 'TROP ' Serial specimen #1, #2 or #3: 1 Result Comment: Plea se Note: New Test Units and Gender Specific Reference Ranges. For more information see Policy Stat Procedure [place] High Sensitivity Troponin (TNIH) and attachments. Performed By: #### L 100.0100, L501.4020, L500.2500 #### [facility] [address] [place], [address] Quantiferon TB-Gold+on 12-26 QFT MITOGEN ASHLEIGH > 10.00 Normal . [facility] Comment on above: Performed By: #### L 3400.8000 #### [facility] [address] [place], [address] QFT NIL VALUE 0.04 IU/mL Normal . [facility] Comment on above: Performed By: #### L 3400.8000 #### [facility] [address] [place], [place], [id number] (632) QFT TB GOLD+ Comment Normal . [facility] Comment on above: Result Comment: Red tiFERON-TB Gold Plus is a qualitative indirect test for M tuberculosis infection (including disease) and is intended for use in conjunction with risk assessment, radiography, and other medical and diagnostic evaluations. The QuantiFERON-TB Gold Plus result is determined by subtracting the Nil value from either TB antigen (Ag) value. The Mitogen tube serves as a control for the test. Performed By: #### L 3400.8000 #### [facility] [address] [place], [address] (576) QFT TB POS CRIT Negative Normal Negative [facility] Comment on above: Result Comment: No r esponse to M tuberculosis antigens detected. Infection with M tuberculosis is unlikely, but high risk individuals should be considered for additional testing (ATS/IDSA/CDC Clinical Practice Guidelines, 2017). The reference range is an Antigen minus Nil result of <0.35 IU/mL. The specimen received for QuantiFERON testing was incubated by the ordering institution. Specific procedures outlined in our Directory of Services and in the package insert for the QuantiFERON Gold (In Tube) test must be followed to enable for proper stimulation of cells for the production of interferon gamma. Chemiluminescence immunoassay methodology Performed at: [facility] [address] [id number] Psychiatric Rn: Rolando Stephens PhD, Phone: [phone] Performed By: #### L 3400.8000 #### [facility] [address] [place], [address] (314 QFT TB1+ AG ASHLEIGH 0.05 IU/mL Normal . [facility] Comment on above: Performed By: #### L 3400.8000 #### [facility] [address] [place], [address] (273 QFT TB2+ AG ASHLEIGH 0.04 IU/mL Normal . [facility] Comment on above: Performed By: #### L 3400.8000 #### [facility] [address] [place], [address] Office Visit Reporton 2023 Office Visit Report [facility] [address] [place] [address] OFFICE VISIT Date of Service: 12/25/23 MR#: [id number] Acct: [id number] Patient: KIMBERLY PATEL Rep #: [id number] : 2000 Provider: ROSSY Morrow Age/Sex: 23/F Location: [facility] Status: Signed with Addenda ADDENDUM by Scarlet Lowe on 04/03/24 at 1510 Office Procedure Documentation entered by Scarlet Lowe 04/03/24 15:10: [facility] Billing Sheet Testing Respirator Fit Testing: Yes Occquant-Quantiferon: Yes Date cc: * Signed Intake Intake Visit Reasons: RESP FIT TEST/QUANTIFERON/[place] 12/25/23 1651 Date Huber Leivaignlovely Signature: Date (if applicable) CC: Normal [facility] Urgent Care Visit Reporton 0 12-25-2023 Urgent Care Visit Report [facility] [address], [address] [place] [id number] OFFICE VISIT Date of Service: 12/25/23 MR#: [id number] Acct: [id number] Name: KIMBERLY PATEL Rep #: [id number] : 2000 Provider: ROSSY Morrow Age/Sex: 23/F Location: [facility] Status: Signed Intake Intake Visit Reasons: PRE EMP/NON DOT PHYSICAL/[place] PFS Medical History (Updated 07/17/22 @ 09:50 by Huber BLAIR PA) Physical exam, pre-employment Social History Smoking Status: Never smoker HPI HPI Details: KIMBERLY PATEL, is a 23 F who presents to the office today for Office Procedures Physical Exam Coding PE Coding Pre-employment PE: Yes Coding Level of Care Code No Charge Diagnoses Physical exam, pre-employment Z02.1 Assessment and Plan Assessment and Plan (1) Physical exam, pre-employment: Status: Acute Orders: Orders Quantiferon TB-Gold+ Today Z02.1 - Encounter for pre-employment examination 12/25/23 1459 Date Huber BLAIR Cosigner Signature: Date (if applicable) CC: Normal [facility] XR Chest PA and Lateralon IMPRESSION: No acute radiographic abnormality. Drilling Plant Operator: PSCB Transcribe Date/Time: Jul 17 2023 9:36A Dictated by : BRENT SANTANA MD This examination was interpreted and the report reviewed and electronically signed by: BRENT SANTANA MD on Jul 17 2023 9:38AM [facility] DIVISION OF RADIOLOGY * * *Final Report* * * DATE OF EXAM: Jul 17 2023 9:34AM WOX 5291 - XR CHEST 2V FRONTAL/LAT / PROCEDURE REASON: Acute cough * * * * Physician Interpretation * * * * EXAMINATION: CHEST RADIOGRAPH (2 VIEW FRONTAL & LATERAL) CLINICAL HISTORY: Acute cough MQ: XC2_6 EXAM DATE/TIME: 07/17/2023 9:34 AM COMPARISON: Chest x-ray on 06/03/2020 RESULT: Lines, tubes, and devices: Pulmonary valve replacement noted. Lungs and pleura: No consolidation. No lung mass. No pleural effusion. No pneumothorax. Cardiomediastinal silhouette: Unremarkable cardiomediastinal silhouette. Bones and soft tissues: Unremarkable. DIVISION OF RADIOLOGY Provider, Dee Dee Hodan [facility] - 07/17/2023 * * *Final Report* * * DATE OF EXAM: Jul 17 2023 9:34AM WOX 5291 - XR CHEST 2V FRONTAL/LAT / PROCEDURE REASON: Acute cough * * * * Physician Interpretation * * * * EXAMINATION: CHEST RADIOGRAPH (2 VIEW FRONTAL & LATERAL) CLINICAL HISTORY: Acute cough MQ: XC2_6 EXAM DATE/TIME: 07/17/2023 9:34 AM COMPARISON: Chest x-ray on 06/03/2020 RESULT: Lines, tubes, and devices: Pulmonary valve replacement noted. Lungs and pleura: No consolidation. No lung mass. No pleural effusion. No pneumothorax. Cardiomediastinal silhouette: Unremarkable cardiomediastinal silhouette. Bones and soft tissues: Unremarkable. IMPRESSION IMPRESSION: No acute radiographic abnormality. 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 EBV VCA IgM, Qual Negative Negative [facility] Interpretation (EBVPNL) Never Infected. EBV panel interpretation is a general guide that is meant to capture most, but not all, of the possible clinical scenarios. Non-specific reactivities are not uncommon especially with equivocal results. Should the overall interpretation not be consistent with the clinical picture, please contact the medical accounting clerk of the test for assistance. [facility] STREP A MOLECULAR (POC)on Procedural Control Valid [facility] Strep A (POCT) Negative Negative [facility] STREP A MOLECULAR (POC)on Procedural Control Valid [facility] Strep A (POCT) Negative Negative [facility] HEP B SURFACE AB, QUANT [CCL ]on 09-13-2021 HepB SurfaceAb,Quant <8.00 Low >=12.00 [facility] Comment on above: Result Comment: No e vidence of antibodies to Hepatitis B surface antigen. [facility] [address] [facility] [place] [id number] Anibal Montana III, M.D. [id number] Performed By: #### 2 [id number] #### 48 [address] [address] MEASLES IGG ANTIBODY [CCL]on 09-13-2021 Measles IgG, Qual Positive Normal Positive [facility] Comment on above: Result Comment: The result suggests recent or past exposure to Measles virus or Measles vaccination. The current test does not detect neutralizing antibodies. Positive result may also be seen due to presence of passively-transferred antibodies. Please correlate with patient's history. [facility] [address] [facility] [place] [address] Anibal Montana III, M.D. [id number] Performed By: #### 2 [id number] #### [address] [address] MUMPS IGG AB [CCL]on 022 Mumps IgG, Qual Positive Normal Positive [facility] Comment on above: Result Comment: The result suggests recent or past exposure to Mumps virus or Mumps vaccination. The current test does not detect neutralizing antibodies. Positive result may also be seen due to presence of passively-transferred antibodies. Please correlate with patient's history. [email or web address] [address] [place] [id number] Anibal Montana III, M.D. [id number] Performed By: #### 2 [id number] #### [facility],[address] [place] [address] RUBELLA IgG ANTIBODY [OLD]on 09-13-2021 Rubella IgG Ab, Qual Positive Normal Positive [facility] Comment on above: Result Comment: The result suggests recent or past exposure to Rubella virus or history of Rubella vaccination. Positive result may also be seen due to presence of passively-transferred antibodies. Please correlate with patient's history. [email or web address] [address] [place] [address] Anibal Montana III, M.D. [id number] Performed By: #### 2 [id number] #### [facility],[address] [place] [address] GLUCOSEon 09-08-2021 Glucose [Mass/Vol] 62 mg/dL Low 74 - 106 [facility] Comment on above: Performed By: #### 2 [id number] #### [facility],[address] [place] [address] LIPID PROFILEon 09-08-2021 Cholesterol [Mass/Vol] 137 mg/dL Normal 0 - 240 [facility] Comment on above: Performed By: #### 2 [id number] #### [facility],[address] [place] [address] Cholesterol in HDL [Mass/Vol] 73 mg/dL High 40 - 60 [facility] Comment on above: Performed By: #### 2 [id number] #### [facility],[address] [place] [address] Cholesterol in LDL [Mass/Vol] 57 mg/dL Normal 0 - 129 [facility] Comment on above: Performed By: #### 2 [id number] #### [facility],[address] [place] [address] Cholesterol.total/Ch olesterol in HDL [Mass ratio] 1.9 {ratio} Normal 0.0 - 5.0 [facility] Comment on above: Performed By: #### 2 [id number] #### [facility],[address] [place] [address] Lipid 1996 panel Normal [facility] Comment on above: Result Comment: LIPI D PROFILE Performed By: #### 2 [id number] #### [facility],[address] [place] [address] Triglyceride [Mass/Vol] 33 mg/dL Normal 0 - 150 [facility] Comment on above: Performed By: #### 2 [id number] #### [facility],[address] [place], [place] [id number] URINE COTININE TEST [[facility]]on 09-08-2021 COTININE Negative Normal NORMAL: NEGATIVE [facility] Comment on above: Result Comment: The COT One Step Cotinine Device (Urine) yields a positve result when the Cotinine in urine exceeds 200 ng/mL. A Cotinine concentration > 200 ng/mL indicates an active tobacco product user. The window of detection for Cotinine in urine at a cutoff level of 200 ng/mL is expected to be up to 2-3 days after nicotine use. Performed By: #### 2 [id number] #### [facility],[address] [place] [address] Levetiracetamon 03-24-2019 Levetiracetam [Mass/Vol] Low 12.0-46.0 [facility] Comment on above: Result Comment: <2.0 Result rechecked. Performed By: #### L MENDEL #### [facility] [address] [address] Vital Signs Date Time Vital Sign Value Performing Clinician Facility 12-05-2024 15:31-0400 Body mass index (BMI) [Ratio] 26.85 kg/m2 Lamont Arreaga MD Work Phone: [facility] 12-05-2024 15:31-040 Body temperature 101.41 [degF] Lamont Arreaga MD Work Phone: [facility] 12-05-2024 [id number] Body weight 73.1 kg Lamont Arreaga MD Work Phone: [facility] 12-05-2024 15:31-0400 Diastolic blood pressure 58 mm[Hg] Lamont Arreaga MD Work Phone: [facility] 12-05-2024 15:31-0400 Heart rate 112 /min Lamont Arreaga MD Work Phone: [facility] 12-05-2024 15:31-0400 Respiratory rate 26 /min Lamont Arreaga MD Work Phone: [facility] 12-05-2024 15:31-0400 SaO2% (BldA) [Mass fraction] 99 % Lamont Arreaga MD Work Phone: [facility] 12-05-2024 15:31-0400 Systolic blood pressure 106 mm[Hg] Lamont Arreaga MD Work Phone: [facility] 11-04-2024 14:32-0400 Body mass index (BMI) [Ratio] 27.33 kg/m2 Krislyn Aberegg PA Work Phone: [facility] 11-04-2024 14:32-0400 Body temperature 97.39 [degF] Krislyn Aberegg PA Work Phone: [facility] 11-04-2024 14:32-0400 Body weight 74.4 kg Krislyn Aberegg PA Work Phone: [facility] 11-04-2024 14:32-0400 Diastolic blood pressure 72 mm[Hg] Krislyn Aberegg PA Work Phone: [facility] 11-04-2024 14:32-0400 Heart rate 79 /min Krislyn Aberegg PA Work Phone: [facility] 11-04-2024 14:32-0400 Respiratory rate 18 /min Krislyn Aberegg PA Work Phone: [facility] 11-04-2024 14:32-0400 SaO2% (BldA) [Mass fraction] 98 % Krislyn Aberegg PA Work Phone: [facility] 11-04-2024 14:32-0400 Systolic blood pressure 118 mm[Hg] Krislyn Aberegg PA Work Phone: [facility] 09-01-2024 10:09-0500 Body mass index (BMI) [Ratio] 28.97 kg/m2 Fabiolamelissa Hurt CONDITIONER TUMBLER.[employer] Work Phone: [facility] 09-01-2024 10:09-0500 Body temperature 101.5 [degF] Fabiola Hurt CONDITIONER TUMBLER.[employer] Work Phone: [facility] 09-01-2024 10:09-0500 Body weight 78.3 kg Fabiola Hurt CONDITIONER TUMBLER.[employer] Work Phone: [facility] 09-01-2024 10:09-0500 Diastolic blood pressure 72 mm[Hg] Fabiola uHrt CONDITIONER TUMBLER.[employer] Work Phone: [facility] 09-01-2024 10:09-0500 Heart rate 97 /min Fabiola Hurt CONDITIONER TUMBLER.[employer] Work Phone: [facility] 09-01-2024 10:09-0500 Respiratory rate 18 /min Fabiola Hurt CONDITIONER TUMBLER.[employer] Work Phone: [facility] 09-01-2024 10:09-0500 SaO2% (BldA) [Mass fraction] 99 % Fabiola Hurt CONDITIONER TUMBLER.[employer] Work Phone: [facility] 09-01-2024 10:09-0500 Systolic blood pressure 108 mm[Hg] Fabiola Hurt CONDITIONER TUMBLER.[employer] Work Phone: [facility] 03-22-2024 10:27-0400 Body mass index (BMI) [Ratio] 28.16 kg/m2 Fabiola Hurt CONDITIONER T[employer]BLER.[employer] Work Phone: [facility] 03-22-2024 10:27-0400 Body temperature 97.7 [degF] Fabiola Hurt CONDITIONER TUMBLER.[employer] Work Phone: [facility] 03-22-2024 10:27-0400 Body weight 76.1 kg Fabiola Hurt CONDITIONER TUMBLER.[employer] Work Phone: [facility] 03-22-2024 10:27-0400 Diastolic blood pressure 74 mm[Hg] Fabiola Hurt CONDITIONER TUMBLER.[employer] Work Phone: [facility] 03-22-2024 10:27-0400 Heart rate 63 /min Fabiola Hurt CONDITIONER TUMBLER.[employer] Work Phone: [facility] 03-22-2024 10:27-0400 Respiratory rate 18 /min Fabiola Hurt CONDITIONER TUMBLER.[employer] Work Phone: [facility] 03-22-2024 10:27-0400 SaO2% (BldA) [Mass fraction] 98 % Fabiola Hurt CONDITIONER TUMBLER.[employer] Work Phone: [facility] 03-22-2024 10:27-0400 Systolic blood pressure 110 mm[Hg] Fabiola Hurt CONDITIONER T[employer]BLER.[employer] Work Phone: [facility] 06-19-2023 08:56-0500 Body temperature 102 [degF] Mary Bogner PA-C Work Phone: [facility] 06-19-2023 08:56-0500 Body weight 72.58 kg Mary Bogner PA-C Work Phone: [facility] 06-19-2023 08:56-0500 Diastolic blood pressure 80 mm[Hg] Mary Bogner PA-C Work Phone: [facility] 06-19-2023 08:56-0500 Heart rate 106 /min Mary Bogner PA-C Work Phone: [facility] 06-19-2023 08:56-0500 Respiratory rate 18 /min Mary Bogner PA-C Work Phone: [facility] 06-19-2023 08:56-0500 SaO2% (BldA) [Mass fraction] 96 % Mary Bogner PA-C Work Phone: [facility] 06-19-2023 08:56-0500 Systolic blood pressure 120 mm[Hg] Mary Bogner PA-C Work Phone: [facility] 03-31-2023 10:59-0400 Body temperature 98.2 [degF] Kylie Athy PA-C Work Phone: [facility] 03-31-2023 10:59-0400 Body weight 72.48 kg Kylie Athy PA-C Work Phone: [facility] 03-31-2023 10:59-0400 Diastolic blood pressure 80 mm[Hg] Kylie Athy PA-C Work Phone: [facility] 03-31-2023 10:59-0400 Heart rate 53 /min Kylie Athy PA-C Work Phone: [facility] 03-31-2023 10:59-0400 Respiratory rate 16 /min Kylie Athy PA-C Work Phone: [facility] 03-31-2023 10:59-0400 SaO2% (BldA) [Mass fraction] 99 % Kylie Athy PA-C Work Phone: [facility] 03-31-2023 10:59-0400 Systolic blood pressure 112 mm[Hg] Kylie Athy PA-C Work Phone: [facility] 03-29-2023 15:19-0400 Body temperature 97.2 [degF] Marie Rodgers MD Work Phone: [facility] 03-29-2023 15:19-0400 Body weight 73.57 kg Marie Rodgers MD Work Phone: [facility] 03-29-2023 15:19-0400 Heart rate 60 /min Marie Rodgers MD Work Phone: [facility] 03-29-2023 15:19-0400 Respiratory rate 12 /min Marie Rodgers MD Work Phone: [facility] 02-15-2023 15:28-0400 Diastolic blood pressure 75 mm[Hg] Tanya Butterfield MD Work Phone: [facility] 02-15-2023 15:28-0400 Systolic blood pressure 110 mm[Hg] Tanya Butterfield MD Work Phone: [facility] 02-15-2023 14:24-0400 Body height 164.4 cm Tanya Butterfield MD Work Phone: [facility] 02-15-2023 14:24-0400 Body temperature 98.01 [degF] Tanya Butterfield MD Work Phone: [facility] 02-15-2023 14:24-0400 Body weight 74.4 kg Tanya Butterfield MD Work Phone: [facility] 02-15-2023 14:24-0400 Heart rate 69 /min Tanya Butterfield MD Work Phone: [facility] 02-15-2023 14:24-0400 Respiratory rate 18 /min Tanya Butterfield MD Work Phone: [facility] 02-15-2023 14:24-0400 SaO2% (BldA) [Mass fraction] 100 % Tanya Butterfield MD Work Phone: [facility] 12-16-2021 11:21-0400 Body weight 73.48 kg Tracy Cazares CONDITIONER TUMBLER.CNM Work Phone: [facility] 12-16-2021 11:21-0400 Diastolic blood pressure 68 mm[Hg] Tracy Plotts CONDITIONER TUMBLER.CNM Work Phone: [facility] 12-16-2021 11:21-0400 Systolic blood pressure 110 mm[Hg] Tracy Cazares CONDITIONER TUMBLER.CNM Work Phone: [facility] 11-02-2021 11:44-0400 Body height 165.1 cm Mica Sarabia APRN.[employer] Work Phone: [facility] 11-02-2021 11:44-0400 Body weight 72.58 kg Mica Sarabia APRN.[employer] Work Phone: [facility] 11-02-2021 11:44-0400 Diastolic blood pressure 60 mm[Hg] Mica Sarabia APRN.[employer] Work Phone: [facility] 11-02-2021 11:44-0400 Systolic blood pressure 110 mm[Hg] Mica Nickie CECILIO Work Phone: [facility] Encounters Encounter Date Encounter Type Care Provider Facility Start: 12-05-2024 End: 12-05-2024 Subsequent hospital visit by physician Xr [facility] [place] Work Phone: Radiology Comment on above: Acute cough [R05.1] Start: 12-05-2024 End: 12-05-2024 Office outpatient visit 25 minutes Lamont Arreaga MD Work Phone: [facility] Comment on above: Acute cough (Primary Dx) Start: 12-05-2024 End: 12-05-2024 ambulatory LAMONT ARREAGA Facility:[facility] Start: 11-25-2024 End: 11-25-2024 ambulatory Tracy Quezada RN Pediatric Cardiology Comment on above: Cardiac MRI Start: 11-25-2024 End: 11-25-2024 E-mail encounter from caregiver Tracy Quezada RN Pediatric Cardiology Start: 11-04-2024 End: 11-04-2024 Subsequent hospital visit by physician Xr [facility] [place] Work Phone: Radiology Comment on above: Acute cough [R05.1] Start: 11-04-2024 End: 11-04-2024 Patient encounter procedure Aspen BLAIR Work Phone: [facility] Comment on above: Acute cough (Primary Dx) Start: 11-04-2024 End: 11-04-2024 ambulatory ASPEN OWEN Facility:[facility] Start: 11-04-2024 End: 11-04-2024 Follow-up encounter Aspen BLAIR Work Phone: [facility] Start: 10-23-2024 End: 10-23-2024 ambulatory TANYA BENDALY Facility:[facility] Start: 10-23-2024 End: 10-23-2024 ambulatory TANYA BENDALY Facility:[facility] Start: 10-01-2024 End: 10-01-2024 Emergency department patient visit PHYSICIAN [facility] Start: 09-03-2024 End: 09-03-2024 Emergency department patient visit PHYSICIAN [facility] Start: 09-01-2024 End: 09-01-2024 Patient encounter procedure Fabiola Hurt APRN.[employer] Work Phone: [facility] Comment on above: URI, acute (Primary Dx); Acute cough; FUO (fever of unknown origin) Start: 09-01-2024 End: 09-01-2024 ambulatory PADMINI C GERMAN Facility:[facility] Start: 09-01-2024 End: 09-01-2024 Subsequent hospital visit by physician Xr [facility] Work Phone: Radiology Comment on above: Acute cough [R05.1] Start: 05-08-2024 End: 05-08-2024 ambulatory No Primary Care Physician Facility:[facility] Start: 03-22-2024 End: 03-22-2024 Emergency department patient visit No Primary Care Physician Facility:[facility] Start: 03-22-2024 End: 03-22-2024 ambulatory PADMINI C GERMAN Facility:[facility] Start: 03-22-2024 End: 03-22-2024 Patient encounter procedure Fabiola Hurt APRN.[employer] Work Phone: [facility] Comment on above: Chest pain, unspecif ied type (Primary Dx); Rash Start: 12-25-2023 End: 12-25-2023 ambulatory Huber BLAIR Facility:[facility] Start: 12-25-2023 End: 12-25-2023 ambulatory Ladonna Plata Facility:[facility] Start: 07-17-2023 End: 07-17-2023 Subsequent hospital visit by physician Xr [facility] Work Phone: Radiology Comment on above: Acute cough [R05.1] Start: 06-19-2023 End: 06-19-2023 Office outpatient new 45 minutes Mary Esparza PA-C Work Phone: [facility] Comment on above: Sore throat (Primary Dx) Start: 03-31-2023 End: 03-31-2023 Patient encounter procedure Kylie Ray PA-C Work Phone: [facility] Comment on above: Viral illness (Prima ry Dx) Start: 03-29-2023 End: 03-29-2023 Patient encounter procedure Marie Rodgers MD Work Phone: [facility] [place] Comment on above: Sore throat (Primary Dx); TOF (tetralogy of Fallot) Start: 03-08-2023 ambulatory Tracy handy RN Pediatric Cardiology Comment on above: [employer] Monitor Start: 03-08-2023 E-mail encounter fro m caregiver Tracy Quezada RN [facility] Start: 02-15-2023 End: 02-15-2023 Orders Only Tanya Butterfield MD Work Phone: Pediatric Cardiology Comment on above: 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); TOF (tetralogy of Fallot) TOF (tetralogy of Fa llot) (Primary Dx) TOF (tetralogy of Fa llot) (Primary Dx); Status post transcatheter replacement of pulmonary valve Start: 02-07-2023 ambulatory Tanya Butterfield MD Work Phone: [facility] Start: 02-07-2023 Patient encounter procedure Tanya Butterfield MD Work Phone: Pediatric Cardiology Comment on above: Scheduling an appoin tment 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); TOF (tetralogy of Fallot) Start: 05-16-2022 End: 05-16-2022 ambulatory Marie Rodgers MD Work Phone: [facility] [place] Comment on above: Viral syndrome (Prim suzi Dx) Start: 05-16-2022 End: 05-16-2022 Telemedicine consultation with patient Marie Rodgers MD Work Phone: [facility] Start: 04-11-2022 ambulatory Cassie Lcok RN NURSE O N CALL Comment on above: Cough Start: 01-31-2022 Telephone encounter Tracy stevenson APRN.CNM Work Phone: OB/Gynecology Comment on above: Vaginal Problem Start: 12-20-2021 Telephone encounter Tracy stevenson NICOLAS.CNM Work Phone: OB/Gynecology Comment on above: Results Start: 12-16-2021 End: 12-16-2021 Patient encounter procedure Tracy Cazares NICOLAS.CNM Work Phone: OB/Gynecology Comment on above: Vaginal discharge (P rimary Dx); Screen for STD (sexually transmitted disease) Start: 11-02-2021 End: 11-02-2021 Patient encounter procedure Mica Sarabia APRN.[employer] Work Phone: OB/Gynecology Comment on above: Breakthrough bleedin g on OCPs (Primary Dx); Dysmenorrhea; Surveillance for control, oral contraceptives Start: 09-08-2021 End: 09-08-2021 [facility] Start: 09-08-2021 Encounter for genera l adult medical examination without abnormal findings [facility] Procedures Date Procedure Procedure Detail Performing Clinician Start: 12-05-2024 Radiologic exam ches t 2 views Lamont Arreaga MD Work Phone: Start: 12-05-2024 Sars-cov-2 detection by dna/rna Lamont Arreaga MD Work Phone: Start: 11-04-2024 Radiologic exam ches t 2 views Aspen BLAIR Work Phone: Start: 09-01-2024 Radiologic exam ches t 2 views Fabiola Hurt APRN.[employer] Work Phone: Start: 09-01-2024 INFLUENZA A&B MOLECU LAR (POC) Fabiola Hurt APRN.[employer] Work Phone: Start: 07-17-2023 Radiologic exam ches t 2 views Emily Rodriguez APRN.[employer] Work Phone: Start: 03-31-2023 STREP A MOLECULAR (POC) [facility] Provider Start: 03-29-2023 STREP A MOLECULAR (POC) Marie Rodgers MD Work Phone: Start: 10-01-2017 Adult depression screening assessment Mica Sarabia APRN.CNP Work Phone: Plan of Treatment Date Care Activity Detail Author Start: 03-02-2025 Influenza vaccination Influenz a Vaccine (Season Ended) [facility] Start: 10-23-2024 End: 10-23-2024 Patient encounter procedure Pediatric Cardiology Comment on above: TOF (tetralogy of Fa llot) [Q21.3] Start: 03-02-2024 Covid-19 Vaccine ( season) Covid-19 Vaccine ( season) [facility] Start: 03-02-2024 Covid-19 Vaccine ( season) Covid-19 Vaccine ( season) [facility] Start: 03-02-2024 Influenza vaccination Influenza Vacc ine (#1) [facility] Start: 03-05-2023 Urine microalbumin profile [facility] Start: 03-02-2023 Influenza vaccination [facility] Start: 12-16-2022 CHLAMYDIA SCREENING (18-24) CHLAMYDIA SCREENING (18-24) [facility] Start: 12-16-2022 GC (GONORRHEA) SCREE CHRISTOPHER (18-24) GC (GONORRHEA) SCREENING (18-24) [facility] Start: 12-16-2022 Screening for Chlamy zenaida trachomatis Chlamydia Screening (18-24) [facility] Start: 07-02-2022 [facility] Start: 03-02-2022 Influenza vaccination C [facility] Start: 02-07-2022 CHLAMYDIA SCREENING (18-24) CHLAMYDIA SCREENING (18-24) [facility] Start: 02-07-2022 GC (GONORRHEA) SCREE CHRISTOPHER (18-24) GC (GONORRHEA) SCREENING (18-24) [facility] Start: 2022 PAP TESTING PAP TESTING [facility] Start: 2022 Screening for malign ant neoplasm of cervix [facility] Start: 07-02-2021 DEPRESSION [facility] Start: 2019 Anxiety Screening Anxiety Screening [facility] Start: 2019 Depression Screening Depression Scre ening [facility] Start: 2019 HEPATITIS C SCREENING HEPATITIS C [facility] Start: 2019 Hepatitis C screening Hepatitis C [facility] Start: 2019 HIV SCREENING HIV SCREENING [facility] Start: 2019 HIV screening HIV Screening [facility] Start: 10-01-2018 Adult depression screening assessment DEPRESSION SCREENING [facility] Start: 2017 Meningococcal B Vacc ine (1 of 2 - Standard) Meningococcal B Vaccine (1 of 2 - Standard) [facility] Start: 2017 Meningococcal B Vacc ine: Consider Based On Risk (1 of 2 - Patient Seeks Protection) Meningococcal B Vaccine: Consider Based On Risk (1 of 2 - Patient Seeks Protection) [facility] Start: 2017 MENINGOCOCCAL B: Consider based on risk (1 of 2 - Patient Seeks Protection) MENINGOCOCCAL B: Consider based on risk (1 of 2 - Patient Seeks Protection) [facility] Start: 2015 PEDS TO ADULT TRANSI TION ANNUAL ASSESSMENT PEDS TO ADULT TRANSITION ANNUAL ASSESSMENT [facility] Start: 2013 PEDS TO ADULT TRANSI TION INITIAL DISCUSSION PEDS TO ADULT TRANSITION INITIAL DISCUSSION [facility] Start: 2011 MENINGOCOCCAL B: Consider based on risk (1 of 2 - Risk Bexsero 2-dose series) MENINGOCOCCAL B: Consider based on risk (1 of 2 - Risk Bexsero 2-dose series) [facility] Start: 2006 COVID-19 VACCINE (#1) COVID-19 VACCI NE (#1) [facility] Start: 2006 COVID-19 VACCINE (1) COVID-19 VACCIN E (1) [facility] Start: 2001 COVID-19 VACCINE (#1) COVID-19 VACCI NE (#1) [facility] BACTERIAL VAGINOSIS AMPLIFICATION BACTERIAL VAGINOSIS AMPLIFICATION Lab Routine Vaginal discharge Screen for STD (sexually transmitted disease) Ordered: 12/16/2021 [facility] Work Phone: Comment on above: Ordered: 12/16/2021 HAZEL / TRICHOMONA S AMPLIFICATION HAZEL / TRICHOMONAS AMPLIFICATION Lab Routine Vaginal discharge Screen for STD (sexually transmitted disease) Ordered: 12/16/2021 [facility] Work Phone: Comment on above: Ordered: 12/16/2021 CBC W Auto Different ial panel - Blood CBC + DIFF Lab Routine Sore throat 06/19/2023 9:24 AM EST [facility] Work Phone: Chlamydia trachomatis+Neisseria gonorrhoeae DNA [Presence] in Unspecified specimen by JOSE with probe detection GC/CHLAMYDIA DNA DET Lab Routine Vaginal discharge Screen for STD (sexually transmitted disease) Ordered: 12/16/2021 [facility] Work Phone: Comment on above: Ordered: 12/16/2021 End: 02-08-2024 ECG COMPLETE ECG COMPLETE ECG Routine Status post transcatheter replacement of pulmonary valve TOF (tetralogy of Fallot) 1 Occurrences starting 02/07/2023 until 02/08/2024 [facility] Work Phone: Comment on above: 1 Occurrences starti ng 02/07/2023 until 02/08/2024 End: 05-10-2024 ECHO PED W/O CONTRAST ECHO PED W/O CONTRAST ECHO PEDS Routine Status post transcatheter replacement of pulmonary valve TOF (tetralogy of Fallot) 1 Occurrences starting 02/07/2023 until 05/10/2024 [facility] Work Phone: Comment on above: 1 Occurrences starti ng 02/07/2023 until 05/10/2024 End: 03-16-2024 MRA CHEST CARDIOVASCULAR WO/W IVCON MRA CHEST CARDIOVASCULAR WO/W IVCON Radiology Routine TOF (tetralogy of Fallot) 1 Occurrences starting 02/16/2023 until 03/16/2024 [facility] Work Phone: Comment on above: 1 Occurrences starti ng 02/16/2023 until 03/16/2024 End: 03-16-2024 MRI CARDIAC MORPH FUNC WO/W IVCON MRI CARDIAC MORPH FUNC WO/W IVCON Radiology Routine TOF (tetralogy of Fallot) 1 Occurrences starting 02/16/2023 until 03/16/2024 [facility] Work Phone: Comment on above: 1 Occurrences starti ng 02/16/2023 until 03/16/2024 End: 03-16-2024 MRI CARDIAC VELOCITY FLOW MAP MRI CARDIAC VELOCITY FLOW MAP Radiology Routine TOF (tetralogy of Fallot) 1 Occurrences starting 02/16/2023 until 03/16/2024 [facility] Work Phone: Comment on above: 1 Occurrences starti ng 02/16/2023 until 03/16/2024 OUTSIDE VENDOR CARDI AC OUTPATIENT EXTENDED RHYTHM RECORDING (WITHOUT TELEMETRY) OUTSIDE VENDOR CARDIAC OUTPATIENT EXTENDED RHYTHM RECORDING (WITHOUT TELEMETRY) Holter Routine Status post transcatheter replacement of pulmonary valve TOF (tetralogy of Fallot) Ordered: 02/15/2023 [facility] Work Phone: Comment on above: Ordered: 02/15/2023 [facility] Immunizations Immunization Date Immunization Notes Care Provider Fa yaz 03-19-2017 influenza, injectabl e, quadrivalent, contains preservative Mica Sarabia APRN.[facility] Work Phone: [facility] Work Phone: 03-19-2017 meningococcal polysaccharide (groups A, C, Y and W-135) diphtheria toxoid conjugate vaccine (MCV4P) Mica Sarabia APRN.[facility] Work Phone: [facility] Work Phone: 03-19-2017 influenza virus vacc ine, unspecified formulation Marie Rodgers MD Work Phone: [facility] 04-12-2016 influenza, injectabl e, quadrivalent, contains preservative Mica Sarabia APRN.[employer] Work Phone: [facility] Work Phone: 03-20-2015 influenza, injectabl e, quadrivalent, contains preservative Mica Sarabia APRN.[employer] Work Phone: [facility] 03-20-2015 influenza, seasonal, injectable Mica Sarabia APRN.[employer] Work Phone: [facility] Work Phone: 01-12-2014 human papilloma viru s vaccine, quadrivalent Mica Sarabia APRN.[employer] Work Phone: [facility] Work Phone: 10-08-2013 human papilloma viru s vaccine, quadrivalent Mica Sarabia APRN.[employer] Work Phone: [facility] Work Phone: 03-05-2013 human papilloma viru s vaccine, quadrivalent Mica Sarabia APRN.[employer] Work Phone: [facility] 03-05-2013 Meningococcal, MCV4, unspecified conjugate formulation(groups A, C, Y and W-135) Mica Sarabia APRN.[employer] Work Phone: [facility] 03-05-2013 tetanus toxoid, redu jocelin diphtheria toxoid, and acellular pertussis vaccine, adsorbed Mica Sarabia APRN.[employer] Work Phone: [facility] 05-15-2008 hepatitis A vaccine, unspecified formulation Mica Sarabia APRN.[facility] Work Phone: [facility] Work Phone: 03-07-2007 hepatitis A vaccine, unspecified formulation Mica Sarabia APRN.[facility] Work Phone: [facility] Work Phone: 03-07-2007 varicella virus vaccine Mica Sarabia APRN.[facility] Work Phone: [facility] Work Phone: 02-16-2005 diphtheria, tetanus toxoids and acellular pertussis vaccine Mica Sarabia APRN.[employer] Work Phone: [facility] Work Phone: 02-16-2005 measles, mumps and rubella virus vaccine Mica Sarabia APRN.[employer] Work Phone: [facility] Work Phone: 02-16-2005 poliovirus vaccine, inactivated Mica Sarabia APRN.[employer] Work Phone: [facility] Work Phone: 03-16-2003 diphtheria, tetanus toxoids and acellular pertussis vaccine Mica Sarabia APRN.[employer] Work Phone: [facility] Work Phone: 03-16-2003 haemophilus influenz ae type b vaccine, HbOC conjugate Mica Sarabia APRN.[employer] Work Phone: [facility] Work Phone: 03-16-2003 pneumococcal conjuga te vaccine, 7 valent Mica Sarabia APRN.[facility] Work Phone: [facility] Work Phone: 02-24-2002 measles, mumps and rubella virus vaccine Mica Sarabia APRN.[facility] Work Phone: [facility] Work Phone: 02-24-2002 varicella virus vaccine Mica Sarabia APRN.[facility] Work Phone: [facility] Work Phone: 2001 diphtheria, tetanus toxoids and acellular pertussis vaccine Mica Sarabia APRN.[facility] Work Phone: [facility] Work Phone: 2001 haemophilus influenz ae type b vaccine, HbOC conjugate Mica Sarabia APRN.[facility] Work Phone: [facility] Work Phone: 2001 pneumococcal conjuga te vaccine, 7 valent Mica Sarabia APRN.[facility] Work Phone: [facility] Work Phone: 2001 poliovirus vaccine, inactivated Mica Sarabia APRN.[facility] Work Phone: [facility] Work Phone: 2001 hepatitis B vaccine, pediatric or pediatric/adolescent dosage Mica Sarabia APRN.[facility] Work Phone: [facility] Work Phone: 2001 diphtheria, tetanus toxoids and acellular pertussis vaccine Mica Sarabia APRN.[facility] Work Phone: [facility] Work Phone: 2001 haemophilus influenz ae type b vaccine, HbOC conjugate Mica Sarabia APRN.[facility] Work Phone: [facility] Work Phone: 2001 pneumococcal conjuga te vaccine, 7 valent Mica Sarabia CONDITIONER TUMBLER.[facility] Work Phone: [facility] Work Phone: 2001 poliovirus vaccine, inactivated Mica Sarabia [employer] Work Phone: [facility] Work Phone: 2001 diphtheria, tetanus toxoids and acellular pertussis vaccine Mica Sarabia [employer] Work Phone: [facility] Work Phone: 2001 haemophilus influenz ae type b vaccine, HbOC conjugate Mica Sarabia CONDITIONER [employer].[facility] Work Phone: [facility] Work Phone: 2001 pneumococcal conjuga te vaccine, 7 valent Mica Sarabia CONDITIONER [employer]ER.[facility] Work Phone: [facility] Work Phone: 2001 poliovirus vaccine, inactivated Mica Sarabia CONDITIONER T[employer]BLER.[facility] Work Phone: [facility] Work Phone: 2001 diphtheria, tetanus toxoids and acellular pertussis vaccine, unspecified formulation Mica Sarabia CONDITIONER [employer]ER.[facility] Work Phone: [facility] Work Phone: 2001 hepatitis B vaccine, pediatric or pediatric/adolescent dosage Mica Sarabia CONDITIONER [employer] Work Phone: [facility] Work Phone: 2001 poliovirus vaccine, inactivated Mica Sarabia [employer] Work Phone: [facility] Work Phone: 2001 hepatitis B vaccine, pediatric or pediatric/adolescent dosage Mica Sarabia [employer] Work Phone: [facility] Work Phone: 2001 hepatitis B vaccine, pediatric or pediatric/adolescent dosage Mica Sarabia [employer] Work Phone: [facility] Work Phone: Payers Date Payer Category Payer Self-pay 2021 Unknown [id number] 2018 Unknown [employer] P[employer] [id number] 2018-Present [phone] [address] [place] [address] PPO [id number] 2001 Unknown [id number] Unknown [id number] Unknown [id number] Unknown [id number] Unknown [id number] Unknown [id number] Unknown [id number] Social History Date Type Detail Facility Start: 10-18-2017 End: 02-15-2023 Tobacco smoking status NMIS Never smoked tobacco [facility] Start: 10-18-2017 End: 02-15-2023 Tobacco use and exposure Smokeless tobacco non-user [facility] Start: 11-02-2021 End: 12-05-2024 Alcohol intake Current non-drinker of alcohol (finding) [facility] Start: 10-18-2017 End: 02-15-2023 Tobacco Comment brother outdoors [facility] Start: 2001 Sex Assigned At Not on file [facility] Start: 10-09-2021 End: 12-16-2021 Exposure to SARS-CoV-2 (event) Not sure [facility] Work Phone: History of tobacco use Passive smoker [facility] Start: 2001 Sex Assigned At Female [facility] Start: 05-16-2022 History SDOH Social Connections Phone 98 [facility] Start: 05-16-2022 History SDOH Social Connections Membership 2 [facility] Start: 05-16-2022 History SDOH Physical Activity DPW 1 [facility] Start: 05-16-2022 History SDOH Physical Activity MPS 6 [facility] Start: 05-16-2022 History SDOH Stress 3 [facility] Start: 05-16-2022 End: 02-15-2023 History of Social function [facility] Start: 05-16-2022 End: 02-15-2023 Social connection and isolation panel [facility] In a typical week, h ow many times do you talk on the telephone with family, friends, or neighbors? Patient refused [facility] Do you belong to any clubs or organizations such as amish groups, unions, fraternal or athletic groups, or school groups? No [facility] Are you now , , , , never or living with a partner? Refused [facility] How hard is it for y ou to pay for the very basics like food, housing, medical care, and heating Somewhat hard [facility] Do you feel stress - tense, restless, nervous, or anxious, or unable to sleep at night because your mind is troubled all the time - these days [OSQ] To some extent [facility] (I/We) worried wheth er (my/our) food would run out before (I/we) got money to buy more. DK or Refused [facility] Start: 03-14-2022 Gender identity Identifies as female gender (finding) [facility] Start: 03-14-2022 Sexual orientation Heterosexual (finding) [facility] Medical Equipment Procedure Code Equipment Code Equipment Original Text Equipment Identifier Dates Patch Card Ecm Ped 4 X 7cm - [id number] Start: 09-27-2012 Comment on above: Description: CorMatr ix for patch Valve Aort Ease Thrmfx Bprt - [id number] Start: 09-27-2012 Comment on above: Description: [employer] PERIMOUNT MAGNA EASE AORTIC VALVE Functional Status Date Assessment Result Facility 05-20-2020 Are you deaf, or do you have serious difficulty hearing No 05/20/2020 1:27 PM Katerine Mckoy RN No [facility] 05-20-2020 Are you blind, or do you have serious difficulty seeing, even when wearing glasses No 05/20/2020 1:27 PM Katerine Mckoy RN No [facility] 05-20-2020 Do you have serious difficulty walking or climbing stairs No 05/20/2020 1:27 PM Katerine Mckoy RN No [facility] 05-20-2020 Do you have difficul ty dressing or bathing No 05/20/2020 1:27 PM Katerine Mckoy RN No [facility] 05-20-2020 Because of a physica l, mental, or emotional condition, do you have difficulty doing errands alone such as visiting a physician's office or shopping No 05/20/2020 1:27 PM Katerine Mckoy RN No [facility] Mental Status Date Assessment Result Facility 05-20-2020 Because of a physica l, mental, or emotional condition, do you have serious difficulty concentrating, remembering, or making decisions No 05/20/2020 1:27 PM Katerine Mckoy RN No [facility] Clinical Notes 08-12-2015 to 12-05-2024 Dmitriy Bishop RT(R) - 12/05/2024 4:20 PM EDTMLamont Arevalo MD - 12/05/2024 4:08 PM EDTTelephone Encounter - Aspen Owen PA - 11/04/2024 3:32 PM EDTPatient Instructions Note Date & Type Note Facility 12-05-2024 History of Present illness Narrative Radiology Service Progress Note PATIENT NAME: Kimberly Patel DATE OF SERVICE: December 05, 2024 TIME: 4:12 PM PATIENT IDENTITY VERIFICATION COMPLETED USING TWO (2) IDENTIFIERS: Name and Date of confirmed by patient verbally. FALL SCREENING: Has the patient had 2 falls in the last year or 1 fall with injury or currently using an Ambulatory Assistive Device (Walker, Cane, Wheelchair, Crutches, etc.)? No PATIENT GENDER DATA: Assigned female at . status: : No status: NO. PATIENT RELEVANT IMPLANT DATA REVIEWED: Not Applicable PATIENT PRESENTS WITH AN IMPLANTABLE OR ATTACHED SOFT DRINK POWDER MIXER: No RADIOLOGY DEPARTMENT: General X-ray: Exam(s) Completed: Chest X-Ray PERIPHERAL IV DATA: Not applicable SIGNED BY: RT Arlin(Linda) December 05, 2024 4:12 PM documented in this encounter [facility] 12-05-2024 Note HNO ID: [id number] Author: DMITRIY BISHOP RT(R) Service: Radiology Author Type: Technologist Type: Progress Notes Filed: 12/05/2024 16:19 Note Text: Radiology Service Progress Note PATIENT NAME: Kimberly Patel DATE OF SERVICE: December 05, 2024 TIME: 4:12 PM PATIENT IDENTITY VERIFICATION COMPLETED USING TWO (2) IDENTIFIERS: Name and Date of confirmed by patient verbally. FALL SCREENING: Has the patient had 2 falls in the last year or 1 fall with injury or currently using an Ambulatory Assistive Device (Walker, Cane, Wheelchair, Crutches, etc.)? No PATIENT GENDER DATA: Assigned female at . status: : No status: NO. PATIENT RELEVANT IMPLANT DATA REVIEWED: Not Applicable PATIENT PRESENTS WITH AN IMPLANTABLE OR ATTACHED SOFT DRINK POWDER MIXER: No RADIOLOGY DEPARTMENT: General X-ray: Exam(s) Completed: Chest X-Ray PERIPHERAL IV DATA: Not applicable SIGNED BY: RT Arlin(Linda) December 05, 2024 4:12 PM [facility] 12-05-2024 Note HNO ID: [id number] Author: LAMONT ARREAGA MD Service: ? Author Type: Physician Type: Progress Notes Filed: 12/05/2024 18:44 Note Text: [facility] Subjective Kimberly Patel is a 24 year old female. Patient presents with: Cough: Fever x4 days, worse, recent pneumonia Patient presents with illness over the last 4 days. She has had harsh cough and hoarseness. She feels significantly worse today with bodyaches, dizziness, nasal congestion, and rhinorrhea. She has dyspnea on exertion but not at rest. Cough is rarely productive. Denies sore throat vomiting or diarrhea. She feels her body is aching from harsh coughing. She has taken ibuprofen and cough medicine. Her history is significant for left lung pneumonia treated here 11/04/2024 with Augmentin and doxycycline. She has a past medical history of tetralogy of Fallot with repair. Denies history of asthma or chronic lung infections. Cough Review of Systems Respiratory: Positive for cough. Objective BP 106/58 Pulse 112 Temp (!) 38.6 ?C (101.4 ?F) Resp 26 Wt 73.1 kg (161 lb 2.5 oz) LMP 10/16/2024 (Approximate) SpO2 99% BMI 26.85 kg/m? Physical Exam Constitutional: General: She is not in acute distress. HENT: Right Ear: Tympanic membrane and ear canal normal. Left Ear: Tympanic membrane and ear canal normal. Nose: No congestion or rhinorrhea. Right Sinus: No maxillary sinus tenderness or frontal sinus tenderness. Left Sinus: No maxillary sinus tenderness or frontal sinus tenderness. Mouth/Throat: Mouth: Mucous membranes are moist. Pharynx: No oropharyngeal exudate or posterior oropharyngeal erythema. Eyes: Extraocular Movements: Extraocular movements intact. Conjunctiva/sclera: Conjunctivae normal. Pupils: Pupils are equal, round, and reactive to light. Cardiovascular: Rate and Rhythm: Normal rate and regular rhythm. Heart sounds: Murmur (4/6 systolic murmur loudest at RUSB) heard. Pulmonary: Effort: No respiratory distress. Breath sounds: No wheezing, rhonchi or rales. Musculoskeletal: Cervical back: Neck supple. Lymphadenopathy: Cervical: No cervical adenopathy. Neurological: Mental Status: She is alert. {ASSESSMENT/PLAN: 1. Acute cough - ICD9: 786.2, ICD10: R05.1 - XR CHEST 2V FRONTAL/LAT -interval clearing of left left lung opacity. No acute process. - COVID-19 MOLECULAR (POC) negative - suspect viral URI - Supportive care treatment with rest, cold medicine, and analgesia. - Viral URI contagiousness recommendations: avoid exposure to others until fever free for 24 hours without fever reducing medication. An additional 5 days of limiting contact can include covering coughs/masking, social distance, and hand hygiene. - BENZONATATE 100 MG CAPSULE Lamont Arreaga MD History and Record Review Systemic symptoms present included: fever Differential Diagnoses - viral URI is more likely for the following reason(s): suggested by HANDP - pneumonia is less likely for the following reason(s): no evidence on imaging - COVID-19 is less likely for the following reason(s): laboratory studies not suggestive Procedures [facility] 12-05-2024 History of Present illness Narrative [facility] Patel is a 24 year old female. Patient presents with: Cough: Fever x4 days, worse, recent pneumonia Patient presents with illness over the last 4 days. She has had harsh cough and hoarseness. She feels significantly worse today with bodyaches, dizziness, nasal congestion, and rhinorrhea. She has dyspnea on exertion but not at rest. Cough is rarely productive. Denies sore throat vomiting or diarrhea. She feels her body is aching from harsh coughing. She has taken ibuprofen and cough medicine. Her history is significant for left lung pneumonia treated here 11/04/2024 with Augmentin and doxycycline. She has a past medical history of tetralogy of Fallot with repair. Denies history of asthma or chronic lung infections. Cough Review of Systems Respiratory: Positive for cough. Objective BP 106/58 Pulse 112 Temp (!) 38.6 C (101.4 F) Resp 26 Wt 73.1 kg (161 lb 2.5 oz) LMP 10/16/2024 (Approximate) SpO2 99% BMI 26.85 kg/m Physical Exam Constitutional: General: She is not in acute distress. HENT: Right Ear: Tympanic membrane and ear canal normal. Left Ear: Tympanic membrane and ear canal normal. Nose: No congestion or rhinorrhea. Right Sinus: No maxillary sinus tenderness or frontal sinus tenderness. Left Sinus: No maxillary sinus tenderness or frontal sinus tenderness. Mouth/Throat: Mouth: Mucous membranes are moist. Pharynx: No oropharyngeal exudate or posterior oropharyngeal erythema. Eyes: Extraocular Movements: Extraocular movements intact. Conjunctiva/sclera: Conjunctivae normal. Pupils: Pupils are equal, round, and reactive to light. Cardiovascular: Rate and Rhythm: Normal rate and regular rhythm. Heart sounds: Murmur (4/6 systolic murmur loudest at RUSB) heard. Pulmonary: Effort: No respiratory distress. Breath sounds: No wheezing, rhonchi or rales. Musculoskeletal: Cervical back: Neck supple. Lymphadenopathy: Cervical: No cervical adenopathy. Neurological: Mental Status: She is alert. {ASSESSMENT/PLAN: 1. Acute cough - ICD9: 786.2, ICD10: R05.1 - XR CHEST 2V FRONTAL/LAT -interval clearing of left left lung opacity. No acute process. - COVID-19 MOLECULAR (POC) negative - suspect viral URI - Supportive care treatment with rest, cold medicine, and analgesia. - Viral URI contagiousness recommendations: avoid exposure to others until fever free for 24 hours without fever reducing medication. An additional 5 days of limiting contact can include covering coughs/masking, social distance, and hand hygiene. - BENZONATATE 100 MG CAPSULE Lamont Arreaga MD History and Record Review Systemic symptoms present included: fever Differential Diagnoses - viral URI is more likely for the following reason(s): suggested by H&P - pneumonia is less likely for the following reason(s): no evidence on imaging - COVID-19 is less likely for the following reason(s): laboratory studies not suggestive Procedures documented in this encounter [facility] 11-04-2024 Telephone encounter Note Call patient with XR results. Left-sided bronchopneumonia. She does have history of multiple heart conditions. Will double cover. Rx doxycycline. Rx Augmentin. Patient denies any concern for . Not breast-feeding. Advised to follow-up with PCP in 4 to 6-week [facility] 11-04-2024 Miscellaneous Notes Call patient with XR results. Left-sided bronchopneumonia. She does have history of multiple heart conditions. Will double cover. Rx doxycycline. Rx Augmentin. Patient denies any concern for . Not breast-feeding. Advised to follow-up with PCP in 4 to 6-week documented in this encounter [facility] 11-04-2024 History of Present illness Narrative Radiology Service Progress Note PATIENT NAME: Kimberly Patel DATE OF SERVICE: November 04, 2024 TIME: 3:13 PM PATIENT IDENTITY VERIFICATION COMPLETED USING TWO (2) IDENTIFIERS: Name and Date of confirmed by patient verbally. FALL SCREENING: Has the patient had 2 falls in the last year or 1 fall with injury or currently using an Ambulatory Assistive Device (Walker, Cane, Wheelchair, Crutches, etc.)? No PATIENT GENDER DATA: Assigned female at . status: : No status: NO. PATIENT RELEVANT IMPLANT DATA REVIEWED: Yes PATIENT PRESENTS WITH AN IMPLANTABLE OR ATTACHED SOFT DRINK POWDER MIXER: No RADIOLOGY DEPARTMENT: General X-ray: Exam(s) Completed: Chest X-Ray PERIPHERAL IV DATA: Not applicable SIGNED BY: RT Alyson(Linda) November 04, 2024 3:13 PM documented in this encounter [facility] 11-04-2024 Note HNO ID: [id number] Author: SERENA BOONE RT(Linda) Service: ? Author Type: Narcotics And Vice Detective Type: Progress Notes Filed: 11/04/2024 15:22 Note Text: Radiology Service Progress Note PATIENT NAME: Kimberly Patel DATE OF SERVICE: November 04, 2024 TIME: 3:13 PM PATIENT IDENTITY VERIFICATION COMPLETED USING TWO (2) IDENTIFIERS: Name and Date of confirmed by patient verbally. FALL SCREENING: Has the patient had 2 falls in the last year or 1 fall with injury or currently using an Ambulatory Assistive Device (Walker, Cane, Wheelchair, Crutches, etc.)? No PATIENT GENDER DATA: Assigned female at . status: : No status: NO. PATIENT RELEVANT IMPLANT DATA REVIEWED: Yes PATIENT PRESENTS WITH AN IMPLANTABLE OR ATTACHED SOFT DRINK POWDER MIXER: No RADIOLOGY DEPARTMENT: General X-ray: Exam(s) Completed: Chest X-Ray PERIPHERAL IV DATA: Not applicable SIGNED BY: RT Alyson(Linda) November 04, 2024 3:13 PM [facility] 11-04-2024 Note HNO ID: [id number] Author: ASPEN OWEN PA Service: ? Author Type: Physician Hydrogeology Professor Type: Progress Notes Filed: 11/04/2024 15:16 Note Text: [facility] Subjective Kimberly Patel is a 24 year old female. Patient presents with: Cough: Cough, congestion, bodyaches and FONG x several weeks HPI 24-year-old female presents for cough. Patient states she has had a cough for several weeks. She was seen in August and September by the emergency room and diagnosed with bronchitis. She was given Augmentin and albuterol inhaler. No imaging was completed at those visits. Patient states cough improved slightly, but has never completely gone away. Has gotten worse recently. She is continuing with dry cough. No chest pain. She states occasionally has some shortness of breath when in a coughing fit. No shortness of breath at rest or with exertion. She denies any fevers. No nasal congestion. She has history of multiple heart conditions and heart surgeries. Follows with cardiology. No other complaint. 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 FAMILY HISTORY Adopted: Yes Problem Relation Age of Onset other (sickle cell) Brother Social History Tobacco Use Smoking status: Never Passive exposure: Yes Smokeless tobacco: Never Tobacco comments: brother outdoors Vaping Use Vaping status: Never Used Substance Use Topics Alcohol use: No Drug use: No Review of Systems Constitutional: Negative for chills and fever. HENT: Negative for congestion, ear pain and sore throat. Respiratory: Positive for cough and shortness of breath. Cardiovascular: Negative for chest pain. Gastrointestinal: Negative for diarrhea and vomiting. Objective BP 118/72 Pulse 79 Temp 36.3 ?C (97.4 ?F) (Tympanic) Resp 18 Wt 74.4 kg (164 lb 0.4 oz) LMP 10/16/2024 (Approximate) SpO2 98% BMI 27.33 kg/m? Physical Exam Vitals and nursing note reviewed. Constitutional: General: She is not in acute distress. Appearance: Normal appearance. She is not toxic-appearing. HENT: Right Ear: Tympanic membrane and ear canal normal. Left Ear: Tympanic membrane and ear canal normal. Nose: Nose normal. Mouth/Throat: Mouth: Mucous membranes are moist. Pharynx: Oropharynx is clear. Eyes: Conjunctiva/sclera: Conjunctivae normal. Cardiovascular: Rate and Rhythm: Normal rate and regular rhythm. Pulmonary: Effort: Pulmonary effort is normal. Breath sounds: Normal breath sounds. No wheezing, rhonchi or rales. Skin: General: Skin is warm and dry. Neurological: Mental Status: She is alert. {ASSESSMENT/PLAN: 1. Acute cough - ICD9: 786.2, ICD10: R05.1 - Cough x several weeks, worse recently. Has been treated for bronchitis by emergency room x 2. Has been Augmentin twice in the past 2 months. No imaging completed at those visits. Will obtain XR to rule out pneumonia. -Continue albuterol inhaler -Discussed if x-ray is negative, patient should follow-up with her night monitor to make sure nothing cardiac is contributing to the cough. Patient agreeable. - XR CHEST 2V FRONTAL/LAT - Will call patient with chest x-ray results. - Rx Severo Singh to help with cough Diagnosis and treatment plan were discussed and questions were answered to the patient's satisfaction. Pt acknowledged understanding of concepts and follow up plan. Specific signs and symptoms that would indicate the need for higher level of care were discussed in detail warranting prompt ER evaluation. ROSSY Gomez History and Record Review External record(s) reviewed: prior outpatient record. Differential Diagnoses - Viral bronchitis is more likely for the following reason(s): suggested by HANDP - Possible pneumonia is more likely for the following reason(s): Awaiting chest x-ray result Disposition The patient was discharged. Procedures [facility] 11-04-2024 History of Present illness Narrative [facility] Subjective Kimberly Patel is a 24 year old female. Patient presents with: Cough: Cough, congestion, bodyaches and FONG x several weeks HPI 24-year-old female presents for cough. Patient states she has had a cough for several weeks. She was seen in August and September by the emergency room and diagnosed with bronchitis. She was given Augmentin and albuterol inhaler. No imaging was completed at those visits. Patient states cough improved slightly, but has never completely gone away. Has gotten worse recently. She is continuing with dry cough. No chest pain. She states occasionally has some shortness of breath when in a coughing fit. No shortness of breath at rest or with exertion. She denies any fevers. No nasal congestion. She has history of multiple heart conditions and heart surgeries. Follows with cardiology. No other complaint. 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 FAMILY HISTORY Adopted: Yes Problem Relation Age of Onset other (sickle cell) Brother Social History Tobacco Use Smoking status: Never Passive exposure: Yes Smokeless tobacco: Never Tobacco comments: brother outdoors Vaping Use Vaping status: Never Used Substance Use Topics Alcohol use: No Drug use: No Review of Systems Constitutional: Negative for chills and fever. HENT: Negative for congestion, ear pain and sore throat. Respiratory: Positive for cough and shortness of breath. Cardiovascular: Negative for chest pain. Gastrointestinal: Negative for diarrhea and vomiting. Objective BP 118/72 Pulse 79 Temp 36.3 C (97.4 F) (Tympanic) Resp 18 Wt 74.4 kg (164 lb 0.4 oz) LMP 10/16/2024 (Approximate) SpO2 98% BMI 27.33 kg/m Physical Exam Vitals and nursing note reviewed. Constitutional: General: She is not in acute distress. Appearance: Normal appearance. She is not toxic-appearing. HENT: Right Ear: Tympanic membrane and ear canal normal. Left Ear: Tympanic membrane and ear canal normal. Nose: Nose normal. Mouth/Throat: Mouth: Mucous membranes are moist. Pharynx: Oropharynx is clear. Eyes: Conjunctiva/sclera: Conjunctivae normal. Cardiovascular: Rate and Rhythm: Normal rate and regular rhythm. Pulmonary: Effort: Pulmonary effort is normal. Breath sounds: Normal breath sounds. No wheezing, rhonchi or rales. Skin: General: Skin is warm and dry. Neurological: Mental Status: She is alert. {ASSESSMENT/PLAN: 1. Acute cough - ICD9: 786.2, ICD10: R05.1 - Cough x several weeks, worse recently. Has been treated for bronchitis by emergency room x 2. Has been Augmentin twice in the past 2 months. No imaging completed at those visits. Will obtain XR to rule out pneumonia. -Continue albuterol inhaler -Discussed if x-ray is negative, patient should follow-up with her night monitor to make sure nothing cardiac is contributing to the cough. Patient agreeable. - XR CHEST 2V FRONTAL/LAT - Will call patient with chest x-ray results. - Rx Tessalon Francisco to help with cough Diagnosis and treatment plan were discussed and questions were answered to the patient's satisfaction. Pt acknowledged understanding of concepts and follow up plan. Specific signs and symptoms that would indicate the need for higher level of care were discussed in detail warranting prompt ER evaluation. ROSSY Gomez History and Record Review External record(s) reviewed: prior outpatient record. Differential Diagnoses - Viral bronchitis is more likely for the following reason(s): suggested by H&P - Possible pneumonia is more likely for the following reason(s): Awaiting chest x-ray result Disposition The patient was discharged. Procedures documented in this encounter [facility] 10-23-2024 Note HNO ID: [id number] Author: TRACY QUEZADA RN Service: ? Author Type: Registered Nurse Type: Progress Notes Filed: 10/24/2024 13:39 Note Text: October 23, 2024 Patient: Kimberly Guerrero Brief Cardiac History: TOF Primary Melter Supervisor Electric Arc Furnace: Dr. Butterfield This RN attended Kimberly's office visit today with Dr. Butterfield and Jerry Farmer APRN. Discussed current health status, medications, social determinants of health and plan for follow-up. Visit Summary: Kimberly is doing well overall, she has no specific cardiac concerns at this time Medication changes made today: NONE Follow Up: Zio patch placed today Schedule cardiac MRI in the next few months Follow up in one year with echo, EKG and office visit with Dr. Butterfield In agreement with Dr. Butterfield, this patient does not need active care coordination. RN to be available if needed for any future concerns Tracy Quezada RN [facility] 10-23-2024 Note HNO ID: [id number] Author: MEAGAN AVILA OCCA Service: ? Author Type: Thermometer Production Worker Type: Progress Notes Filed: 10/23/2024 10:38 Note Text: Summary: carmen ZIOPATCH APPLICATION PEDIATRIC CARDIOLOGY -Chest is cleansed and prepped with razor, prep tape, and alcohol. -Ziopatch placed on chest -Ziopatch activated -Serial # [id number] -Instructed patient 1) Patient to wear monitor forHolter Monitor less than 48hrs, Purchasing And Claims Supervisor [phone] 2) Diary documentation 3) Usage of event button 4) Maintenance and care of monitor 5) Safety issues with monitor 6) Call with problems [phone] Verbalized understanding of instructions by patient. SIGNATURE: DANIELLE Carolina PATIENT NAME: Kimberly Patel DATE: October 23, 2024 TIME: 10:37 AM [facility] 10-23-2024 Note HNO ID: [id number] Author: TANYA BUTTERFIELD MD Service: ? Author Type: Physician Type: Progress Notes Filed: 10/24/2024 08:16 Note Text: PEDIATRIC CARDIOLOGY FOLLOW UP SERVICE DATE: 10/23/2024 PCP: Padmini Porter DO CHIEF COMPLAINT: TOF Results communicated back by electronic medical record I had the pleasure of seeing Kimberly Patel in Pediatric Cardiology consultation at [facility] on 10/23/2024. Kimberly is a 24 year old female. History was obtained from: mother SUMMATION AND REVIEW OF OLD MEDICAL RECORDS: Mostly from Dr. 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 Krzysztof Marin on 01/03/2002. The repair consisted of transatrial infundibular resection, transatrial Dacron patch closure of malalignment VSD, direct suture of large secundum ASD, trans pulmonary valvotomy, autologous pericardial patch repair of main pulmonary artery and unroofing and reduction of coronary sinus. 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 She had left diaphragm plication via left thoracotomy on 01/28/2002 followed by tracheostomy on 02/07/2002. She had failure to thrive and feeding difficulty after discharge from the hospital and needed gastrostomy tube placement with Andry fundoplication on04/28/2002. She gradually did better and her tracheostomy was decannulated on 01/09/2003. She then progressed as expected and had severe pulmonary valve regurgitation with severe RV enlargement (RVEDVi 182 ml/m2 - cMRI 07/10/2012). 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 Therefore, she had pulmonary valve replacement with a 25-mm Magna Ease 3300 by [place] bovine pericardial valve with right ventricular outflow tract augmentation (using a CorMatrix) by Dr. Sean Cotton on 09/27/2012; she also had tricuspid valve repair and purse-string closure of coronary sinus to left atrial fistula during the same operation. Her post operative couse was relatively uncomplicated. She did relatively well since. Her echocardiogram in June 2015 showed mild to moderate pulmonary valve stenosis (V max of 3 m/s) with moderate pulmonary valve regurgitation. She had cardiac MRI performed on 06/18/2015 which confirmed rdepobge-jh-ifrjer pulmonary valve regurgitation with RF 35% with flow acceleration through the pulmonic valve. The right ventricular end diastolic volume index was 130 ml/m2 with low-normal RV systolic function EF 49%. She had repeat cardiac MRI on 10/14/2018 that showed moderate pulmonary valve regurgitation (RF of 24%) and moderately dilated RV with RVEDVi 152 cc/m2 (previously 130 ml/m2). Her CPET in 2019 was also decreased compared to previous. Her case was discussed in our Sunday surgical conference and consensus was for transcatheter valve replacement. She was taken to the labor gang supervisor on 05/19/2020. She was found to have a baseline gradient of 27 mm Hg across the pulmonary valve in addition to her known regurgitation. A 22 mm Vandana valve was placed on and post dilated to 24 mm with a 24 X 4 Winder Gold balloon with an excellent result and 7 mmHg across the valve. She tolerated the procedure well and was discharged the next day. 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 She had electrophysiologic study in August 2012 prior to her surgery which showed left posterior pathyway with weak antegrade AP conduction, lack of retrograde AP conduction and inability to induce SVT. Therefore, no ablation was pursued. A holter in 2018 showed tachycardia to 222 bpm which appeared preexcited. These findings prompted re-evaluation by our EP service at which time a repeat EP study was recommended. Kimberly was taken again to the EP lab on November 22, 2017 which was notable for a short HV interval through concentric conduction which blocked bidirectionally with adenosine. These findings, along with others seen during her study, were conclusive for a fasciculoventricular fiber. No arrhythmias were induced as expected and ablation was not pursued. She last saw Peds EP (Dr.Peter Zhao) on 01/07/2018 and his impression was that since Kimberly has no arrhythmia substrate there is no indication for routine follow-up with Peds EP unless she were to have syncope or palpitations. They recommended no sports restrictions. She was also diagnosed with seizure (confirmed by VEEG) in August 2015 after she had syncopal/loss of consciousness episode in the shower. HISTORY OF P (more content not included)... [facility] 10-23-2024 Note HNO ID: [id number] Author: ROLANDA OCHOA MD Service: ? Author Type: Physician Type: Procedures Filed: 10/31/2024 13:56 Note Text: Patient Name: Kimberly Patel : 2000 Ordering Provider: Tanya BUTTERFIELD Indication: Q21.3 Tetralogy of Fallot Type of Monitor: Extended Monitoring-Zio Patch Enrollment Dates: 10/23/2024-10/24/2024 Patient had a min HR of 49 bpm, max HR of 149 bpm, and avg HR of 88 bpm. Predominant underlying rhythm was Sinus Rhythm. Isolated SVEs were rare (<1.0%, 176), and no SVE Couplets or SVE Triplets were present. Isolated VEs were rare (<1.0%, 303), and no VE Couplets or VE Triplets were present. There were 3 patient triggered events consistent with sinus. There were no symptoms reported. 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 Butterfield This RN attended Kimberly's office visit today with Dr. Butterfield and Jerry Farmer APRN. Discussed current health status, medications, social determinants of health and plan for follow-up. Visit Summary: Kimberly is doing well overall, she has no specific cardiac concerns at this time Medication changes made today: NONE Follow Up: Zio patch placed today Schedule cardiac MRI in the next few months Follow up in one year with echo, EKG and office visit with Dr. Butterfield In agreement with Dr. Butterfield, this patient does not need active care coordination. RN to be available if needed for any future concerns Tracy Quezada RN Allergies As of Date: 10/23/2024 Noted Allergy Reaction LATEX 03/22/2024 2 - Rash SEASONAL ALLERGIES 12/15/2009 Date Reviewed: 10/23/2024 Reviewed by: Jerry Farmer APRN.SUPERVISOR [employer] - Fully Assessed Prescriptions as of 10/24/2024 - iv contrast (will be provided with radiology test) MRI Card Congenital Inject, intravenously, once for 1 dose. No IV access, insert saline lock prior to the beginning of sedation, infusion, injection of imaging exam. Discontinue saline lock post exam. If Pt has a central line or IVAD, may access for administration according to line specific nursing protocol.Once exam is complete flush line and de-access according to line specific nursing protocol in the MR contrast administration guidelines link - aspirin 81 mg cap Take 1 tablet by mouth once daily. 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] 06/08/2015 Chest pain [R07.9] 08/12/2015 08/13/2015 Yqyon-Ahecupkno-Qmvgv (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 Author Type: Nurse Practitioner Type: Progress Notes Filed: 09/01/2024 11:32 Note Text: Subjective HPI HPI Kimberly Patel is a 24 year old female who presents today for CC of fever, cough, sob. This started on/off for 1 week. Has tried otc medication for relief. Symptoms are worsened by nothing. Risk factors sick exposures. nonsmoker. Denies possibility of being . Reports all s/s improving. Hx of multiple heart surgeries, follows with cardiology. No pcp. Denies st. Denies urinary changes or concerns for uti. Denies abd pain. 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 PULMONARY VALVE DISORDER 04/26/2004 Right ventricular dilation 06/08/2015 Seizure (HCC) 08/13/2015 Tetralogy of Fallot s/p surgical repair 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 Xxjkz-Qwihmrkgg-Gavmi (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 PAST SURGICAL HISTORY Procedure Laterality Date COMPL RPR TETRALOGY FALLOT W/O PULM ATRESIA Several staged procedures ESOPHAGOGAST FUNDOPLAST, ANDRY, BELSEY with the tetrology repair (same time frame) PLACE GASTROSTOMY TUBE with the tetrology repair (same time frame) REPLACEMENT, PULMONARY VALVE 09/27/12 TRACHEOSTOMY, <3 Y/O closed age approx 5 yr TYMPANOSTOMY LOCAL/TOPICAL ANESTHESIA approx 2 yr of age ALLERGIES Latex and Seasonal Allergies MEDICATIONS aspirin 81 mg cap Take 1 tablet by mouth once daily. FAMILY HISTORY Adopted: Yes Problem Relation Age of Onset other (sickle cell) Brother Social History Tobacco Use Smoking status: Never Passive exposure: Yes Smokeless tobacco: Never Tobacco comments: brother outdoors Vaping Use Vaping status: Never Used Substance Use Topics Alcohol use: No Drug use: No Review of Systems Constitutional: Positive for fever and malaise/fatigue. HENT: Negative for congestion, ear pain, nosebleeds and sore throat. Respiratory: Positive for cough. Negative for shortness of breath and wheezing. Musculoskeletal: Negative for neck pain. Skin: Negative for itching and rash. Neurological: Positive for dizziness (one day last week). Objective Blood pressure 108/72, pulse 97, temperature (!) 38.6 ?C (101.5 ?F), temperature source Tympanic, resp. rate 18, weight 78.3 kg (172 lb 9.9 oz), last menstrual period 07/03/2023, SpO2 99%. Physical Exam Constitutional: General: She is not in acute distress. Appearance: She is not ill-appearing, toxic-appearing or diaphoretic. HENT: Head: Normocephalic and atraumatic. Right Ear: Hearing, tympanic membrane, ear canal and external ear normal. Left Ear: Hearing, tympanic membrane, ear canal and external ear normal. Nose: Nose normal. Mouth/Throat: Pharynx: Uvula midline. No pharyngeal swelling, oropharyngeal exudate, posterior oropharyngeal erythema or uvula swelling. Eyes: General: Lids are normal. No scleral icterus. Right eye: No discharge. Left eye: No discharge. Conjunctiva/sclera: Conjunctivae normal. Pupils: Pupils are equal, round, and reactive to light. Neck: Trachea: Trachea normal. Cardiovascular: Rate and Rhythm: Normal rate and regular rhythm. Heart sounds: Normal heart sounds. Pulmonary: Effort: Pulmonary effort is normal. Breath sounds: Normal breath sounds. Musculoskeletal: Cervical back: Normal range of motion and neck supple. Lymphadenopathy: Cervical: No cervical adenopathy. Right cervical: No superficial cervical adenopathy. Left cervical: No superficial cervical adenopathy. Skin: Findings: No rash. Neurological: Mental Status: She is alert and oriented to person, place, and time. ASSESSMENT/PLAN: 1. URI, acute - ICD9: 465.9, ICD10: J06.9 (primary diagnosis) - Discussed viral etiology and rationale for treatment. - Symptomatic treatment with prn analgesia - Supportive care with fluids and rest -If you experience chest pain/shortness of breath go to ER - INFLUENZA AANDB MOLECULAR (POC) 2. Acute cough - ICD9: 786.2, ICD10: R05.1 Xray negative - XR CHEST 2V FRONTAL/LAT IMPRESSION: No acute radiographic abnormality. Dictated by : IRENE KC MD 3. FUO (fever of unknown origin) - ICD9: 780.60, ICD10: R50.9 Concerns with patient health history Discussed going to ER vs watchful waiting Since s/s are improving patient would like to wait If anything new occurs or worsens go to ER Fabiola Hurt APRN.SUPERVISOR [employer] [facility] 09-01-2024 History of Present illness Narrative Subjective HPI HPI Kimberly Patel is a 24 year old female who presents today for CC of fever, cough, sob. This started on/off for 1 week. Has tried otc medication for relief. Symptoms are worsened by nothing. Risk factors sick exposures. nonsmoker. Denies possibility of being . Reports all s/s improving. Hx of multiple heart surgeries, follows with cardiology. No pcp. Denies st. Denies urinary changes or concerns for uti. Denies abd pain. 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 FAMILY HISTORY Adopted: Yes Problem Relation Age of Onset other (sickle cell) Brother Social History Tobacco Use Smoking status: Never Passive exposure: Yes Smokeless tobacco: Never Tobacco comments: brother outdoors Vaping Use Vaping status: Never Used Substance Use Topics Alcohol use: No Drug use: No Review of Systems Constitutional: Positive for fever and malaise/fatigue. HENT: Negative for congestion, ear pain, nosebleeds and sore throat. Respiratory: Positive for cough. Negative for shortness of breath and wheezing. Musculoskeletal: Negative for neck pain. Skin: Negative for itching and rash. Neurological: Positive for dizziness (one day last week). Objective Blood pressure 108/72, pulse 97, temperature (!) 38.6 C (101.5 F), temperature source Tympanic, resp. rate 18, weight 78.3 kg (172 lb 9.9 oz), last menstrual period 07/03/2023, SpO2 99%. Physical Exam Constitutional: General: She is not in acute distress. Appearance: She is not ill-appearing, toxic-appearing or diaphoretic. HENT: Head: Normocephalic and atraumatic. Right Ear: Hearing, tympanic membrane, ear canal and external ear normal. Left Ear: Hearing, tympanic membrane, ear canal and external ear normal. Nose: Nose normal. Mouth/Throat: Pharynx: Uvula midline. No pharyngeal swelling, oropharyngeal exudate, posterior oropharyngeal erythema or uvula swelling. Eyes: General: Lids are normal. No scleral icterus. Right eye: No discharge. Left eye: No discharge. Conjunctiva/sclera: Conjunctivae normal. Pupils: Pupils are equal, round, and reactive to light. Neck: Trachea: Trachea normal. Cardiovascular: Rate and Rhythm: Normal rate and regular rhythm. Heart sounds: Normal heart sounds. Pulmonary: Effort: Pulmonary effort is normal. Breath sounds: Normal breath sounds. Musculoskeletal: Cervical back: Normal range of motion and neck supple. Lymphadenopathy: Cervical: No cervical adenopathy. Right cervical: No superficial cervical adenopathy. Left cervical: No superficial cervical adenopathy. Skin: Findings: No rash. Neurological: Mental Status: She is alert and oriented to person, place, and time. ASSESSMENT/PLAN: 1. URI, acute - ICD9: 465.9, ICD10: J06.9 (primary diagnosis) - Discussed viral etiology and rationale for treatment. - Symptomatic treatment with prn analgesia - Supportive care with fluids and rest -If you experience chest pain/shortness of breath go to ER - INFLUENZA A&B MOLECULAR (POC) 2. Acute cough - ICD9: 786.2, ICD10: R05.1 Xray negative - XR CHEST 2V FRONTAL/LAT IMPRESSION: No acute radiographic abnormality. Dictated by : IRENE KC MD 3. FUO (fever of unknown origin) - ICD9: 780.60, ICD10: R50.9 Concerns with patient health history Discussed going to ER vs watchful waiting Since s/s are improving patient would like to wait If anything new occurs or worsens go to ER Fabiola Hurt APRN.ANDERSON documented in this encounter [facility] 09-01-2024 History of Present illness Narrative Radiology Service Progress Note PATIENT NAME: Kimberly Patel DATE OF SERVICE: September 01, 2024 TIME: 10:28 AM PATIENT IDENTITY VERIFICATION COMPLETED USING TWO (2) IDENTIFIERS: Name and Date of confirmed by patient verbally. FALL SCREENING: Has the patient had 2 falls in the last year or 1 fall with injury or currently using an Ambulatory Assistive Device (Walker, Cane, Wheelchair, Crutches, etc.)? No PATIENT GENDER DATA: Assigned female at . status: : No status: NO. PATIENT RELEVANT IMPLANT DATA REVIEWED: Yes PATIENT PRESENTS WITH AN IMPLANTABLE OR ATTACHED SOFT DRINK POWDER MIXER: No RADIOLOGY DEPARTMENT: General X-ray: Exam(s) Completed: Chest X-Ray PERIPHERAL IV DATA: Not applicable SIGNED BY: RT Alyson(R) September 01, 2024 10:28 AM documented in this encounter [facility] 09-01-2024 Note HNO ID: [id number] Author: SERENA BOONE RT(R) Service: ? Author Type: Narcotics And Vice Detective Type: Progress Notes Filed: 09/01/2024 10:39 Note Text: Radiology Service Progress Note PATIENT NAME: Kimberly Patel DATE OF SERVICE: September 01, 2024 TIME: 10:28 AM PATIENT IDENTITY VERIFICATION COMPLETED USING TWO (2) IDENTIFIERS: Name and Date of confirmed by patient verbally. FALL SCREENING: Has the patient had 2 falls in the last year or 1 fall with injury or currently using an Ambulatory Assistive Device (Walker, Cane, Wheelchair, Crutches, etc.)? No PATIENT GENDER DATA: Assigned female at . status: : No status: NO. PATIENT RELEVANT IMPLANT DATA REVIEWED: Yes PATIENT PRESENTS WITH AN IMPLANTABLE OR ATTACHED SOFT DRINK POWDER MIXER: No RADIOLOGY DEPARTMENT: General X-ray: Exam(s) Completed: Chest X-Ray PERIPHERAL IV DATA: Not applicable SIGNED BY: RT Alyson(R) September 01, 2024 10:28 AM [facility] 03-22-2024 Note HNO ID: [id number] Author: FABIOLA HURT APRN.SUPERVISOR [employer] Service: ? Author Type: Nurse Practitioner Type: Progress Notes Filed: 03/22/2024 12:01 Note Text: Subjective HPI HPI Kimberly Patel is a 24 year old female who presents today for CC of rash on face for 2 days, chest pain/sob on off for 2 days. Has tried otc medication for rash. Symptoms are worsened by nothing. Risk factors hx of Tetrology of Fallot/surgeries. nonsmoker. 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 PULMONARY VALVE DISORDER 04/26/2004 Right ventricular dilation 06/08/2015 Seizure (HCC) 08/13/2015 Tetralogy of Fallot s/p surgical repair 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 Imhjg-Bwfospunc-Axsfs (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 PAST SURGICAL HISTORY Procedure Laterality Date COMPL RPR TETRALOGY FALLOT W/O PULM ATRESIA Several staged procedures ESOPHAGOGAST FUNDOPLAST, ANDRY, BELSEY with the tetrology repair (same time frame) PLACE GASTROSTOMY TUBE with the tetrology repair (same time frame) REPLACEMENT, PULMONARY VALVE 09/27/12 TRACHEOSTOMY, <2 Y/O closed age approx 5 yr TYMPANOSTOMY LOCAL/TOPICAL ANESTHESIA approx 2 yr of age ALLERGIES Seasonal Allergies MEDICATIONS aspirin 81 mg cap Take 1 tablet by mouth once daily. FAMILY HISTORY Adopted: Yes Problem Relation Age of Onset other (sickle cell) Brother Social History Tobacco Use Smoking status: Never Passive exposure: Yes Smokeless tobacco: Never Tobacco comments: brother outdoors Vaping Use Vaping status: Never Used Substance Use Topics Alcohol use: No Drug use: No ROS Objective Blood pressure 110/74, pulse 63, temperature 36.5 ?C (97.7 ?F), temperature source Tympanic, resp. rate 18, weight 76.1 kg (167 lb 12.3 oz), last menstrual period 07/03/2023, SpO2 98%. Physical Exam Constitutional: General: She is not in acute distress. Appearance: She is not toxic-appearing or diaphoretic. HENT: Head: Normocephalic and atraumatic. Cardiovascular: Rate and Rhythm: Normal rate and regular rhythm. Heart sounds: Normal heart sounds, S1 normal and S2 normal. Pulmonary: Effort: Accessory muscle usage present. No respiratory distress. Breath sounds: Normal breath sounds. Skin: Neurological: Mental Status: She is alert and oriented to person, place, and time. Gait: Gait is intact. ASSESSMENT/PLAN: 1. Chest pain, unspecified type - ICD9: 786.50, ICD10: R07.9 (primary diagnosis) Will refer to ER, unclear what hospital she will go to at this time. 2. Rash - ICD9: 782.1, ICD10: R21 Likely latex allergy Otc management advised Fabiola Hurt APRN.SUPERVISOR [employer] [facility] 03-22-2024 History of Present illness Narrative Images from the original note were not included. Subjective HPI HPI Kimberly Patel is a 24 year old female who presents today for CC of rash on face for 2 days, chest pain/sob on off for 2 days. Has tried otc medication for rash. Symptoms are worsened by nothing. Risk factors hx of Tetrology of Fallot/surgeries. nonsmoker. 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 PULMONARY VALVE DISORDER 04/26/2004 Right ventricular dilation 06/08/2015 Seizure (HCC) 08/13/2015 Tetralogy of Fallot s/p surgical repair 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 Jsuys-Rxxmivxap-Fwnhp (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 PAST SURGICAL HISTORY Procedure Laterality Date COMPL RPR TETRALOGY FALLOT W/O PULM ATRESIA Several staged procedures ESOPHAGOGAST FUNDOPLAST, ANDRY, BELSEY with the tetrology repair (same time frame) PLACE GASTROSTOMY TUBE with the tetrology repair (same time frame) REPLACEMENT, PULMONARY VALVE 09/27/12 TRACHEOSTOMY, <2 Y/O closed age approx 5 yr TYMPANOSTOMY LOCAL/TOPICAL ANESTHESIA approx 2 yr of age ALLERGIES Seasonal Allergies MEDICATIONS aspirin 81 mg cap Take 1 tablet by mouth once daily. FAMILY HISTORY Adopted: Yes Problem Relation Age of Onset other (sickle cell) Brother Social History Tobacco Use Smoking status: Never Passive exposure: Yes Smokeless tobacco: Never Tobacco comments: brother outdoors Vaping Use Vaping status: Never Used Substance Use Topics Alcohol use: No Drug use: No ROS Objective Blood pressure 110/74, pulse 63, temperature 36.5 C (97.7 F), temperature source Tympanic, resp. rate 18, weight 76.1 kg (167 lb 12.3 oz), last menstrual period 07/03/2023, SpO2 98%. Physical Exam Constitutional: General: She is not in acute distress. Appearance: She is not toxic-appearing or diaphoretic. HENT: Head: Normocephalic and atraumatic. Cardiovascular: Rate and Rhythm: Normal rate and regular rhythm. Heart sounds: Normal heart sounds, S1 normal and S2 normal. Pulmonary: Effort: Accessory muscle usage present. No respiratory distress. Breath sounds: Normal breath sounds. Skin: Neurological: Mental Status: She is alert and oriented to person, place, and time. Gait: Gait is intact. ASSESSMENT/PLAN: 1. Chest pain, unspecified type - ICD9: 786.50, ICD10: R07.9 (primary diagnosis) Will refer to ER, unclear what hospital she will go to at this time. 2. Rash - ICD9: 782.1, ICD10: R21 Likely latex allergy Otc management advised Fabiola Hurt APRN.CNP documented in this encounter [facility] 07-17-2023 History of Present illness Narrative Radiology Service Progress Note PATIENT NAME: Kimberly Patel DATE OF SERVICE: July 17, 2023 TIME: 9:24 AM PATIENT IDENTITY VERIFICATION COMPLETED USING TWO (2) IDENTIFIERS: Name and Date of confirmed by patient verbally. FALL SCREENING: Has the patient had 2 falls in the last year or 1 fall with injury or currently using an Ambulatory Assistive Device (Walker, Cane, Wheelchair, Crutches, etc.)? No PATIENT GENDER DATA: Female. status: : No status: NO. PATIENT RELEVANT IMPLANT DATA REVIEWED: Not Applicable RADIOLOGY DEPARTMENT: General X-ray: Exam(s) Completed: Chest X-Ray PERIPHERAL IV DATA: Not applicable SIGNED BY: RT Arlin(R) July 17, 2023 9:24 AM documented in this encounter [facility] 06-19-2023 History of Present illness Narrative 06/19/2023 Patient presents with: Sore Throat: x 1 week, seen yesterday SUBJECTIVE: This is a 23 year old that is here today for Complaint(s) of sore throat x 1 week. She was seen yesterday-negative for strep, flu, COVID. Continues to have a sore throat, + pain with swallowing. Notes it is hard to swallow but able to tolerate liquids and secretions. No known history of mono. Denies abdominal pain, chest pain SOB, rash. 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 No current facility-administered medications for this visit. SOCIAL HISTORY Social History Tobacco Use Smoking status: Never Passive exposure: Yes Smokeless tobacco: Never Tobacco comments: brother outdoors Vaping Use Vaping Use: Never used Substance Use Topics Alcohol use: No Drug use: No REVIEW OF SYSTEMS See HPI OBJECTIVE: BP 120/80 Pulse 106 Temp (!) 38.9 C (102 F) Resp 18 Wt 72.6 kg (160 lb) LMP 03/18/2023 (Approximate) SpO2 96% BMI 26.85 kg/m APPEARANCE alert, in no acute distress, well-hydrated, well nourished. EYES PERRLA, conjunctiva and sclera normal. NOSE/SINUS Nares normal. Septum midline. Mucosa normal. No drainage or sinus tenderness. THROAT + marked erythema Tonsils ANGEL with ANGEL tonsillary hypertrophy and exudate, symmetric. Uvula midline. + hoarseness. Controlling secretions. NECK Supple, + ANGEL anterior cervical adenopathy HEART RRR with normal S1 and S2 LUNG clear to auscultation, No wheezing, rhonchi, rales. ASSESSMENT/PLAN: 1. Sore throat - ICD9: 462, ICD10: J02.9 - antibiotic as written to cover other potential bacterial causes + prednisone. Test for mono, discussed possibility of rash with amoxicillin. - Contagious dz precautions discussed- including considered contagious until on antibiotics for 24 hours - The patient should follow up in 3-5 days if symptoms persist or worsen - Call back if drooling, increased temperature, symptoms of dehydration and/or still sick in one week Reviewed red flags and when to seek care sooner in ED - AMOXICILLIN 875 MG TABLET - WILFREDO MIRANDA PANEL - METHYLPREDNISOLONE 4 MG TABLETS IN A DOSE PACK - CBC + DIFF The patient indicates understanding of these issues and agrees with the plan. Mary Esparza PA-C 06/19/2023 documented in this encounter [facility] 03-31-2023 History of Present illness Narrative This note was created using [employer]. Subjective Kimberly Patel is a 23 year old female. HPI Presents with a chief complaint of sore throat and hoarse voice. She states she has had symptoms on and off over the past 10 days. Yesterday she also started a mild cough. She was seen by PCP 2 days ago thought she had a viral illness. Strep was negative. Her right tonsil is still bothering her so she came back in for evaluation. No chest pain or shortness of breath. No wheezing. She does have a history of tetralogy of Fallot with repair. She has not had a fever. No vomiting or diarrhea. Review of Systems Constitutional: Negative for fever. HENT: Positive for sore throat and voice change. Negative for congestion and ear pain. Respiratory: Positive for cough. Negative for chest tightness, shortness of breath and wheezing. Cardiovascular: Negative. Gastrointestinal: Negative. Genitourinary: Negative. Musculoskeletal: Negative. Skin: Negative. All other systems reviewed and are negative. 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 predniSONE (DELTASONE) 20 mg tablet Take 2 tablets by mouth once daily for 5 days. 10 tablet 0 No current facility-administered medications for this visit. PAST SURGICAL HISTORY Procedure Laterality Date COMPL RPR TETRALOGY FALLOT W/O PULM ATRESIA Several staged procedures ESOPHAGOGAST FUNDOPLAST, ANDRY, BELSEY with the tetrology repair (same time frame) PLACE GASTROSTOMY TUBE with the tetrology repair (same time frame) REPLACEMENT, PULMONARY VALVE 09/27/12 TRACHEOSTOMY, <3 Y/O closed age approx 5 yr TYMPANOSTOMY LOCAL/TOPICAL ANESTHESIA approx 2 yr of age FAMILY HISTORY Adopted: Yes Problem Relation Age of Onset other (sickle cell) Brother Social History Tobacco Use Smoking status: Never Passive exposure: Yes Smokeless tobacco: Never Tobacco comments: brother outdoors Vaping Use Vaping Use: Never used Substance Use Topics Alcohol use: No Drug use: No Objective BP 112/80 Pulse (!) 53 Temp 36.8 C (98.2 F) (Right Tympanic) Resp 16 Wt 72.5 kg (159 lb 12.8 oz) LMP 03/18/2023 (Approximate) SpO2 99% BMI 26.82 kg/m Physical Exam Vitals reviewed. Constitutional: Appearance: Normal appearance. HENT: Head: Normocephalic and atraumatic. Right Ear: Tympanic membrane, ear canal and external ear normal. Left Ear: Tympanic membrane, ear canal and external ear normal. Nose: Nose normal. Mouth/Throat: Mouth: Mucous membranes are moist. Comments: Some mild hypertrophy of the right tonsil. No significant erythema. No other lesions in the throat. Hoarse voice noted. Cardiovascular: Rate and Rhythm: Normal rate and regular rhythm. Heart sounds: Murmur heard. Pulmonary: Effort: Pulmonary effort is normal. Breath sounds: Normal breath sounds. Musculoskeletal: Cervical back: Neck supple. Lymphadenopathy: Cervical: No cervical adenopathy. Skin: General: Skin is warm and dry. Findings: No rash. Neurological: General: No focal deficit present. Mental Status: She is alert. Assessment and Plan ASSESSMENT/PLAN: 1. Viral illness - ICD9: 079.99, ICD10: B34.9 Strep was negative again. Her lungs are clear here. She just started coughing the evening before, no signs of pneumonia on exam. Was more her throat that was bothering her and hoarse voice. Discussed using prednisone to help with the sore throat and tonsillar swelling. Discussed voice rest for the hoarse voice. Discussed red flags to be seen again. Patient agreeable. Kylie Ray PA-C documented in this encounter [facility] 03-29-2023 History of Present illness Narrative Patient brought in today by self presents today with ST and pain at right anterior cervical LN for the past few days. FONG today. No fever. Pt has had nasal congestion and hoarse voice for several days. No significant cough. COVID test yesterday was negative. 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 PULMONARY VALVE DISORDER 04/26/2004 Right ventricular dilation 06/08/2015 Seizure (HCC) 08/13/2015 Tetralogy of Fallot s/p surgical repair 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 Wpbqu-Meozpvytp-Kbhwm (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 Med: none GENERAL: alert and active in no apparent distress EYES: conjunctiva clear, no drainage EARS: Right color pale, light reflex normal, Left color pale, light reflex normal NOSE/SINUSES : mild congestion OROPHARYNX:moist mucous membranes, mild erythema, tonsillar hypertrophy, 2+, and no exudates present NECK: supple, no LAD palpated, but there was mild tenderness at location of anterior cervical LNs, normal ROM at neck CARDIOVASCULAR : Regular Rate and Rhythm , harsh 3/6 systolic murmur heard throughout precordium LUNGS: clear to auscultation ASSESSMENT: Sore throat, likely due to viral URI. Neck pain is likely due to reactive LN PLAN: Per orders. Symptomatic care, call for fever or worsened Sx. Marie Rodgers MD documented in this encounter [facility] 02-15-2023 History of Present illness Narrative Summary: zio ZIOPATCH APPLICATION PEDIATRIC CARDIOLOGY -Chest is cleansed and prepped with razor, prep tape, and alcohol. 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 SIGNATURE: Calista López MA PATIENT NAME: Kimberly Patel DATE: February 15, 2023 TIME: 4:12 PM documented in this encounter [facility] 02-15-2023 History of Present illness Narrative PEDIATRIC CARDIOLOGY FOLLOW UP SERVICE DATE: 02/15/2023 PCP: Ladonna Plata MD CHIEF COMPLAINT: TOF Results communicated back by electronic medical record I had the pleasure of seeing Kimberly Patel in Pediatric Cardiology consultation at [facility] on 02/15/2023. History was obtained from: mother and patient SUMMATION AND REVIEW OF OLD MEDICAL RECORDS: Mostly from Dr. 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 Krzysztof Marin on 01/03/2002. The repair consisted of transatrial infundibular resection, transatrial Dacron patch closure of malalignment VSD, direct suture of large secundum ASD, trans pulmonary valvotomy, autologous pericardial patch repair of main pulmonary artery and unroofing and reduction of coronary sinus. 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 She had left diaphragm plication via left thoracotomy on 01/28/2002 followed by tracheostomy on 02/07/2002. She had failure to thrive and feeding difficulty after discharge from the hospital and needed gastrostomy tube placement with Andry fundoplication on 04/28/2002. She gradually did better and her tracheostomy was decannulated on 01/09/2003. She then progressed as expected and had severe pulmonary valve regurgitation with severe RV enlargement (RVEDVi 182 ml/m2 - cMRI 07/10/2012). 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 Therefore, she had pulmonary valve replacement with a 25-mm Magna Ease 3300 by [employer] Herbs bovine pericardial valve with right ventricular outflow tract augmentation (using a CorMatrix) by Dr. Sean Cotton on 09/27/2012; she also had tricuspid valve repair and purse-string closure of coronary sinus to left atrial fistula during the same operation. Her post operative couse was relatively uncomplicated. She did relatively well since. Her echocardiogram in June 2015 showed mild to moderate pulmonary valve stenosis (V max of 3 m/s) with moderate pulmonary valve regurgitation. She had cardiac MRI performed on 06/18/2015 which confirmed zngwsolr-go-xwyeuv pulmonary valve regurgitation with RF 35% with flow acceleration through the pulmonic valve. The right ventricular end diastolic volume index was 130 ml/m2 with low-normal RV systolic function EF 49%. She had repeat cardiac MRI on 10/14/2018 that showed moderate pulmonary valve regurgitation (RF of 24%) and moderately dilated RV with RVEDVi 152 cc/m2 (previously 130 ml/m2). Her CPET in 2019 was also decreased compared to previous. Her case was discussed in our Sunday surgical conference and consensus was for transcatheter valve replacement. She was taken to the labor gang supervisor on 05/19/2020. She was found to have a baseline gradient of 27 mm Hg across the pulmonary valve in addition to her known regurgitation. A 22 mm Vandana valve was placed on 22 mm ensemble and post dilated to 24 mm with a 24 X 4 Winder Gold balloon with an excellent result and 7 mmHg across the valve. She tolerated the procedure well and was discharged the next day. 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 She had electrophysiologic study in August 2012 prior to her surgery which showed left posterior pathyway with weak antegrade AP conduction, lack of retrograde AP conduction and inability to induce SVT. Therefore, no ablation was pursued. A holter in 2018 showed tachycardia to 222 bpm which appeared preexcited. These findings prompted re-evaluation by our EP service at which time a repeat EP study was recommended. Kimberly was taken again to the EP lab on November 22, 2017 which was notable for a short HV interval through concentric conduction which blocked bidirectionally with adenosine. These findings, along with others seen during her study, were conclusive for a fasciculoventricular fiber. No arrhythmias were induced as expected and ablation was not pursued. She last saw Peds EP (Dr.Peter Zhao) on 01/07/2018 and his impression was that since Kimberly has no arrhythmia substrate there is no indication for routine follow-up with Peds EP unless she were to have syncope or palpitations. They recommended no sports restrictions. She was also diagnosed with seizure (confirmed by VEEG) in August 2015 after she had syncopal/loss of consciousness episode in the shower. HISTORY OF PRESENT ILLNESS: Since her previous visit with us last year, she continues to be free from an cardiac symptoms. 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 She also tries to go to the gym daily where she does a mix of light lifting and cardio. She feels that she has normal exercise tolerance. She denies and unusual dyspnea, palpitations, syncope, dizziness, chest pain, or peripheral edema. She continues to take her daily baby aspirin, though she sometimes forgets. She also knows that she needs antibiotics before dental procedures. She is overdue to dental checkup. REVIEW OF SYSTEM: As noted above; otherwise negative. 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 No history of arrhythmias or cardiomyopathies. SOCIAL HISTORY: Social History Tobacco Use Smoking status: Never Passive exposure: Yes Smokeless tobacco: Never Tobacco comments: brother outdoors Vaping Use Vaping Use: Never used Substance Use Topics Alcohol use: No Drug use: No Lives at home with parents. 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 Take dose 30-60 minutes prior to appointment. iv contrast (will be provided with radiology test) MRI Card Congenital Inject, intravenously, once for 1 dose. No IV access, insert saline lock prior to the beginning of sedation, infusion, injection of imaging exam. Discontinue saline lock post exam. If Pt has a central line or IVAD, may access for administration according to line specific nursing protocol.Once exam is complete flush line and de-access according to line specific nursing protocol in the MR contrast administration guidelines link Desogestrel-Ethinyl Estradiol (APRI) 0.15-0.03 mg per tablet Take 1 tablet by mouth once daily. (Patient not taking: Reported on 02/15/2023) triamcinolone acetonide (KENALOG) 0.1 % cream Apply to affected area twice daily until rash resolved. Not to exceed 14 days consecutive use. (Patient not taking: Reported on 11/02/2021) No current facility-administered medications for this visit. ALLERGIES: Seasonal Allergies PHYSICAL EXAMINATION: 02/15/23 1424 02/15/23 1528 BP: 130/69 110/75 BP Site: Right Arm Right Arm BP Position: Sitting Sitting BP Cuff Size: Regular Adult Regular Adult Pulse: 69 Resp: 18 Temp: 36.7 C (98 F) TempSrc: Temporal SpO2: 100% Weight: 74.4 kg (164 lb 0.4 oz) Height: 164.4 cm (5' 4.72) Rechecked manually 110/75 Normalized BMI data available only for age 0 to 20 years. Last 5 Encounter BP Readings: Date: BP: 02/15/2023 130/69 02/09/2022 123/68 12/16/2021 110/68 11/02/2021 110/60 02/23/2021 100/64 Constitutional: Kimberly is a well-developed, well-nourished young lady in no apparent distress. HENT: Normocephalic, Atraumatic,Oral mucosa are pink and moist. Eyes: PERRL, Conjunctiva normal Cardiovascular: quiet precordium with no heave or thrill, regular rate, normal S1, normal and physiologically splitting S2, no clicks, rubs or gallops. Murmur: grade - II/; timing - Systolic; no diastolic murmur; quality - Harsh; location - LUSB; Thorax & Lungs: Normal breath sounds, Good air exchange, No wheezing, rales, rhonchi, or crackles. Skin: Warm and dry. Abdomen: Bowel sounds normal, Soft, No tenderness, No masses or organomegalies. Extremities: Warm and well perfused. No cyanosis or clubbing. Pulses: upper and lower extremity pulses normal with no brachio-femoral delay Neurologic: Alert & interactive. TESTING: I have personally reviewed the following labs/imaging modalities: Electrocardiogram (02/15/23): Normal sinus rhythm with a ventricular rate of 64 beats per minute. There was nonspecific T waves abnormalities. Echocardiogram (02/15/23): 1. Normal left ventricular size and systolic function. 2. On limited assessment, the right ventricle appears to have normal size and normal global systolic function, with some hypokinesis of the RVOT. 3. Status post pulmonary valve replacement with Vandana valve. There is some interval progression in the pulmonary prosthetic gradient, peak/mean systolic gradient ~ 35/22 mmHg (previously 28/13 mmHg) with mild regurgitation. 4. No evidence of branch pulmonary artery stenosis. 5. Trivial tricuspid valve regurgitation with velocity suggesting RVSP ~ 42 mmHg + RA pressure, commensurate with the pulmonary valve gradient. 6. No obvious residual intracardiac shunts. 7. Normal mitral and aortic valve function. 8. Moderate ascending aortic dilation. 9. Dilated CS, known to receive LSVC. (02/09/2022): 1. S/P Vandana valve. Mild pulmonary valvar stenosis (P mmHg) with trivial regurgitation. 2. S/P TV repair. The leaflets appear thickened. There is mild tricuspid regurgitation. 3. Normal left ventricular chamber size, wall thickness and systolic function. 4. Normal right ventricular chamber size, wall thickness and systolic function. There is interventricular dyssynchrony with septal flattening in early LV diastole/late RV systole. 5. Trivial aortic regurgitation. 6. Mildly dilated ascending aorta. 7. The descending aortic Doppler pattern is nonobstructive. 8. History of bilateral SVCs without bridging vein (not evaluated today). 9. There is no pericardial effusion. 0. Compared to the prior study on 02/10/21, there is no significant change Cardiopulmonary Exercise Testing (02/10/2021): 1. Abnormal aerobic (5.4 METS) and exercise (8.7 eMETS) capacity. 2. Normal heart rate response with max HR 187 bpm, normal 1 min and high normal 2 min HR recovery (13.4% 1 min, 31% 2 min). 3. Normal systolic and diastolic BP response. Peak BP 149/53 mmhg. 4. Abnormal peak VO2 (1.35 l/min) and VO2/kg (19.1 ml/min/kg). 5. AT was not reached. 6. Abnormal oxygen pulse (7.2 ml) with normal initial rise, falling mid exercise with slight rise at peak. 7. Below average total ventilation (VE/ht2.5 9.8 l/ht2.5; VT/kg 13.3 ml/kg; RR 37/min). 8. High normal peak exercise ETCO2 (43 torr). 9. Normal VE/VCO2 at AT and slope (26). 10. Low atrial rhythm with 2 isolated PVCs at rest, NSR with no ectopy during exercise or in recovery 11. Patient reported difficulty breathing and SOB. Conclusion: Normal HR and BP response to submaximal exercise (RER 0.98, max HR, HR plateau) with evidence of limitation based on submaximal VO2, AT, oxygen pulse with reassuring VE/VCO2, ETCO2, and HR recovery. Increase in eMETS (7.7), HR (180), VO2/kg (18.7) with similar effort (1.00) from 2019. Cardiac MRI (10/14/2018) IMPRESSION: History of tetralogy of fallot status post repair. 1. Status post pulmonic valve replacement with 25 mm bovine prosthesis that appear well seated with moderate pulmonic regurgitation. Estimated RF 24% (derived from combined RPA and LPA flows, could be underestimate). There is also significant flow acceleration through the pulmonic valve (Vmax 3.5 m/s), c/w moderate stenosis. 2. Moderately dilated RV with interval increase in size (RVEDVi 152 cc/m2; previously 130 ml/m2) with normal systolic function (RVEF 52%; previously EF 49%). There is also mild right ventricular hypertrophy with prominent trabeculations. There is mild invagination of the RV free wall due to the mild pectus excavatum deformity. 3. Mildly dilated MPA and PA branches. No stenosis. 4. Status post tricuspid angioplasty ring. Mild-moderate TV regurgitation, RF 24%; previously 23%. 5. Normal LV size and systolic function. EF 61%. 6. Stable mild prominence of the aortic sinuses (3.6 cm). 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 7. Bilateral SVC and no bridging vein. The left SVC drains into a dilated coronary sinus. Status post coronary sinus to LA fistula repair. No obvious residual atrial or ventricular level shunting. Qp/Qs 1.1 8. Normal origin of the left and right coronary arteries from a minimally clockwise rotated aortic root. ASSESSMENT and PLAN: 1. 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 S/P complete repair by Dr. Krzysztof Marin on 01/03/2002.(transatrial infundibular resection, transatrial Dacron patch closure of malalignment VSD, direct suture of large secundum ASD, trans pulmonary valvotomy, autologous pericardial patch repair of main pulmonary artery and unroofing and reduction of coronary sinus) 3. 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 Tracheostomy on 02/07/2002; decannulated on 01/09/2003 5. Failure to thrive and feeding difficulty requiring gastrostomy tube placement with Andry fundoplication on 04/28/2002. 6. S/P pulmonary valve replacement with a 25-mm Magna Ease 3300 by [place] bovine pericardial valve with right ventricular outflow tract augmentation (using a CorMatrix), tricuspid valve repair and purse-string closure of coronary sinus to left atrial fistula by Dr. Sean Cotton on 09/27/2012, for severe pulmonary valve regurgitation with severe RV enlargement, moderate to severe tricuspid valve regurgitation and small left atrial to coronary sinus fistula 7. S/P Vandana valve on 22 mm ensemble with post dilatation using a 24 X 4 Winder Gold balloon on 05/19/2020 (Mariella, CC) for moderate pulmonary valve stenosis with moderate pulmonary valve regurgitation and moderate RV dilatation. 8. Orejk-Jfrjpxzhs-Orbad syndrome S/P EP studies twice with no ablation (inability to induce SVT) 9. 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 She should undergo cardiopulmonary exercise stress test at her next visit with us in 1 year to assess her exercise capacity. Although she denies and palpitations, she is at high risk of arrhythmias given her history of ToF. As a result, she we will place a zio patch today for monitoring. She has expected progression of her Vandana valve stenosis with a peak gradient of 35 mmHg, up from 28mmHg last year. Systolic murmur across the valve remains at 3/6, and diastolic period remains quiet. On echo, regurgitation of her pulmonary valve remains trivial. Despite the increased gradient across the Vandana valve, her RV size and thickness appears stable on echo. We will obtain CMR to better quantify her right heart chamber sizes to guide timing of future pulmonary valve interventions. This can be completed anytime before hear next routine follow up with us in 1 year, when she will also complete echo, EKG, and cardiopulmonary exercise test. She should continue daily baby aspirin indefinitely. She will also require SBE prophylaxis and good dental hygiene. No activity restrictions at this point. PLAN: 1. Follow up in 1 year with echo, EKG, and cardiopulmonary exercise test 2. Cardiac MRI before next follow up 2. SBE prophylaxis and continue excellent dental care (she is overdue for routine dental checkup) 3. Continue Aspirin 81 mg daily for life 4. No activity restrictions Paul Soria MD Pediatric Cardiology, PGY-3 02/15/23 5:08 PM TEACHING PHYSICIAN NOTE OF PERSONAL INVOLVEMENT IN CARE: I have reviewed the progress note obtained and documented by Dr. Soria and I personally participated in the sprague components. I have discussed the case and management of the patient's care with him. Tanya Butterfield MD, [facility], [facility] Pediatric and Congenital Interventional Cardiology Pediatric Cardiology Adult Congenital Cardiology [facility] documented in this encounter [facility] 02-15-2023 Instructions Tracy Quezada, JAESN - 02/15/2023 2:57 PM EDT Thank you for seeing Dr. Butterfield today at [facility] Children's Office Number: [phone] Urgent After Hours Number: [phone] (fellow electrical continuity inspector) Scheduling Line: [phone] -The echo done today didn't show any major changes, there was a slight increase in the valve gradient which we will continue to follow -Continue daily baby aspirin -Zio patch placed today for 24 hours, we will reach out once we have these results -SBE prophylaxis is needed -Please call and schedule your cardiac MRI at [facility] at your earliest convenience, you can call [phone] -No physical restrictions -Follow up in one year with an echo, stress test and EKG documented in this encounter [facility] 05-16-2022 History of Present illness Narrative DISTANCE HEALTH PEDIATRIC SICK VISIT Patient seen on [employer] video visit platform Kimberly Patel physically located in the [facility]. PCP: Ladonna Plata MD See demographics for Kimberly's permanent address. Kimberly Patel is a 22 year old who presents for a distance health visit . Current symptoms: NASAL CONGESTION, cough, ST, FONG and malaise for the past 2 days Sick contacts: several coworkers have influenza ACTIVE PROBLEM LIST Attention Deficit Hyperactivity Disorder (Adhd), Predominantly Inattentive Type - 03/19/2017 Kxywl-Dvlrzslnx-Xzaup (Wpw) Syndrome - 08/13/2015 Seizure (Hcc) - 08/13/2015 Right Ventricular Dilation - 06/08/2015 Prosthetic Valve Regurgitation - 06/08/2015 Pulmonary Valve Disorder - 05/09/2013 Tricuspid Valve Disorder - 05/09/2013 Anemia - 03/05/2013 Tetralogy of Fallot - 06/10/2003 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 PULMONARY VALVE DISORDER 04/26/2004 Right ventricular dilation 06/08/2015 Seizure (HCC) 08/13/2015 Tetralogy of Fallot s/p surgical repair 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 Rznxz-Tdodlngrq-Cgfqp (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 ALLERGIES: ALLERGIES Allergen Reactions Seasonal Allergies MEDICATIONS: oseltamivir (TAMIFLU) 75 mg capsule Take 1 capsule by mouth twice daily for 5 days. FOR 5 DAYS. amoxicillin (POLYMOX, AMOXIL) 500 mg capsule Take 4 capsules by mouth as directed. Take dose 30-60 minutes prior to appointment. Desogestrel-Ethinyl Estradiol (APRI) 0.15-0.03 mg per tablet Take 1 tablet by mouth once daily. triamcinolone acetonide (KENALOG) 0.1 % cream Apply to affected area twice daily until rash resolved. Not to exceed 14 days consecutive use. (Patient not taking: No sig reported) VIDEO EXAM: performed via video enabled technology General: Well developed, No acute distress Eyes: clear, no drainage, pupils equal Nose: no exudate OP: moist mucous membranes Neck: Full ROM Lungs: nonlabored breathing, no audible wheezing, no retractions ASSESSMENT/PLAN: Viral syndrome - high likelihood of influenza given recent exposures Testing offered, but declined Will treat with tamiflu for presumptive influenza given pt's h/o TOF. Pt counseled on risks and side effects of tamiflu. Reviewed indications to got to ER or call our office. SIGNATURE: Marie Rodgers MD PATIENT NAME: Kimberly Patel DATE: May 16, 2022 TIME: 2:27 PM documented in this encounter [facility] 04-11-2022 Miscellaneous Notes Mother on the line and patient is not present for triage, suggest that patient calls back for further assistance. documented in this encounter [facility] 01-31-2022 Miscellaneous Notes Patient notified. Vickie Ceballos RN Rx sent. Patient can also try Monistat 7 OTC x 7 nights. No intercourse through treatment. Please have her make appointment if doesn't improve. Tracy Cazares APRN.CNM Patient calling with c/o yeast infection. Thick white cottage cheese like discharge, a little itching, and dryness. Started Sunday last week. Tried one day Monistat yesterday because that's all she could find. Skin on the vulva will bleed when she wipes. Asking for Diflucan RX to be sent to [facility] in [place]. Would like a call back. Vickie Ceballos RN documented in this encounter [facility] 12-20-2021 Miscellaneous Notes Patient notified. Voiced understanding. Vickie Ceballos RN Message left asking pt to call the office for test results. Padmini Anne LPN ----- Message from Tracy Cazares APRN.CNM sent at 12/20/2021 8:59 AM EDT ----- Positive for yeast. Rx sent for Diflucan 150 mg PO x 1. Please notify patient. Tracy Cazares APRN.CNM documented in this encounter [facility] 12-16-2021 History of Present illness Narrative Kimberly Patel is a 21 year old female who presents for vaginal burning and discharge for 3 days. Vaginal discharge: moderate amount, thick and white. Itching: No Dyspareunia: No Fever/chills: No Abdominal pain: No Bladder: Negative for dysuria or frequency Bowel: No blood in stool, pain with BM, tarry stool, persistent diarrhea or constipation Any new sexual partners or concern for STD exposure: No Any history of STDs: None Does your partner have any new complaints: No Are you currently taking any medications to treat vaginitis: No Do you use feminine sprays, douches or deodorants: No Past medical, surgical, social history, medications and allergies reviewed and updated. OBJECTIVE: BP 110/68 Wt 162 lb (73.5kg) LMP 12/01/2021 GENERAL: Well developed, well nourished in no apparent distress ABDOMEN: soft and non-tender PELVIC: external genitalia normal, normal Bartholin's glands, urethra, [place] Glades's glands, no vulvar lesions, no cervical lesions, good vaginal support, physiologic discharge present, normal appearing perineal body and perianal region BIMANUAL: uterus normal size, shape and consistency, no adnexal masses, non-tender and no cervical motion tenderness. RECTOVAGINAL: deferred. ASSESSMENT/PLAN: 1. Vaginal discharge - ICD9: 623.5, ICD10: N89.8 (primary diagnosis) - HAZEL / TRICHOMONAS AMPLIFICATION - BACTERIAL VAGINOSIS AMPLIFICATION 2. Screen for STD (sexually transmitted disease) - ICD9: V74.5, ICD10: Z11.3 - HAZEL / TRICHOMONAS AMPLIFICATION - BACTERIAL VAGINOSIS AMPLIFICATION - GC/CHLAMYDIA DNA DET STD screening: Accepted STD check for Gonorrhea and Chlamydia. Any new medications given to the patient have been explained as to directions, reasons for prescribing and side effects. Perineal hygiene and safe sex were discussed with the patient. Handout on vulvar hygiene given to patient Will notify patient of results and any change to treatment plan RTO-as needed and for yearly exams Tracy Cazares APRN.CNM documented in this encounter [facility] 12-16-2021 Instructions Tracy Cazares APRN.CNM - 12/16/2021 11:42 AM EDT GENERAL VULVAR CARE The goal of vulvar therapy is to keep the vulva dry and free from irritants. Below is a list of items that should be done or avoided for vulvar hygiene. DO'S * Avoid soap when washing the vulva, warm water only. * Dry vulva with a blow dryer on cool setting. * Wear only WHITE, 100% cotton underpants. * Rinse underclothes carefully after washing. * Wash new underclothes before wearing. * Mild soap for washing underclothes - no detergents, especially Tide. * Use soft toilet tissue - WHITE ONLY. * Use tampons for menstrual flow - not deodorized. * Take Aveeno sitz baths daily, if prescribed by physician. DONT'S * Scratch * Use soap, detergents, or fabric softener (liquid or paper). * Use nylon or dmitri acetate. * Wear panty hose or panty girdles. * Use perineal pads (Kotex, Modess, etc.). * Engage in activity that causes the perineum to remain wet. * Use Vaseline, oils, greases, bubble bath, bath oils, feminine sprays, etc. * Use talc or powder. * Use douches, unless prescribed by physician. documented in this encounter [facility] 11-02-2021 Instructions Mica Sarabia APRN.CNP - 11/02/2021 12:02 PM EDT Take 2 of your naproxen every 12 hours beginning 48 hours prior to menses and continue for 5 days. documented in this encounter [facility] 11-02-2021 History of Present illness Narrative Kimberly Patel is a 21 year old female who presents for problem visit bleeding with OCP HPI: On Ashlyna extended use ULISES - has frequent BTB beginning a few weeks after new pack starts and continuing in varying amounts until she starts new pack. Has always had BTB with extended use OCP. Naproxen for cramping. OB History T0 L0 SAB0 IAB0 Ectopic0 Multiple0 Live Births0 Car [place] History LMP: 03/22/2020 (LMP Unknown), Drug Induced Amenorrhea Age at Menarche: Age at First : Age at Menopause: Car [place] History Comments: Sexual Activity: Yes; No partner data on record Contraception: No contraception data on record 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 PULMONARY VALVE DISORDER 04/26/2004 Right ventricular dilation 06/08/2015 Seizure (HCC) 08/13/2015 Tetralogy of Fallot s/p surgical repair 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 Ujady-Vuwmievhu-Gphmc (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 PAST SURGICAL HISTORY Procedure Laterality Date COMPL RPR TETRALOGY FALLOT W/O PULM ATRESIA Several staged procedures ESOPHAGOGAST FUNDOPLAST, ANDRY, BELSEY with the tetrology repair (same time frame) PLACE GASTROSTOMY TUBE with the tetrology repair (same time frame) REPLACEMENT, PULMONARY VALVE 09/27/12 TRACHEOSTOMY, <3 Y/O closed age approx 5 yr TYMPANOSTOMY LOCAL/TOPICAL ANESTHESIA approx 2 yr of age FAMILY HISTORY Adopted: Yes Problem Relation Age of Onset other (sickle cell) Brother Social History Tobacco Use Smoking status: Passive Smoke Exposure - Never Smoker Smokeless tobacco: Never Used Tobacco comment: brother outdoors Vaping Use Vaping Use: Never used Substance Use Topics Alcohol use: No Drug use: No Current Outpatient Medications Medication Sig L-Norgest and E Estradiol-E Estrad (ASHLYNA) 0.15 mg-30 mcg (84)/10 mcg (7) Take 1 tablet by mouth once daily. naproxen (NAPROSYN) 375 mg tablet Take 1 tablet by mouth three times daily as needed (pain). for severe cramping triamcinolone acetonide (KENALOG) 0.1 % cream Apply to affected area twice daily until rash resolved. Not to exceed 14 days consecutive use. (Patient not taking: Reported on 11/02/2021 ) aspirin 325 mg tablet Take 1 tablet by mouth once daily. levETIRAcetam XR (KEPPRA XR) 500 mg 24 hr tablet Take 1,000 mg by mouth once daily. (Patient not taking: Reported on 02/07/2021 ) No current facility-administered medications for this visit. Allergies As of Date: 11/02/2021 Allergen Noted Reaction SEASONAL ALLERGIES 12/15/2009 Fully Assessed 11/02/2021 REVIEW OF SYSTEMS Allergies and current medication updated:Yes EXAM: BP 110/60 Ht 5' 5 (1.65m) Wt 160 lb (72.6kg) LMP 03/22/2020 BMI 26.63 kg/(m^2). GENERAL: pleasant, female in no apparent distress CHEST: Normal inspiratory effort NEURO: alert and oriented x3,exam grossly non-focal ASSESSMENT/PLAN: 1. Surveillance for control, oral contraceptives - ICD9: V25.41, ICD10: Z30.41 (primary diagnosis) - Discussed BTB with extended use OCP. She would like to try a monthly OCP to see if that is better for her. Will change to Apri - DESOGESTREL 0.15 MG-ETHINYL ESTRADIOL 0.03 MG TABLET 2. Breakthrough bleeding on OCPs - ICD9: 626.6, ICD10: N92.1 See above - DESOGESTREL 0.15 MG-ETHINYL ESTRADIOL 0.03 MG TABLET 3. Dysmenorrhea - ICD9: 625.3, ICD10: N94.6 - Takes naproxen as needed. Discussed taking naproxen every 12 hours beginning 48 hours prior to menses and continue for 5 days. Follow-up as needed. Mica Sarabia APRN.ANDERSON I spent a total of 25 minutes on the date of the service which included preparing to see the patient, [id number] patient care, completing clinical documentation, obtaining and/or reviewing separately obtained history, performing a medically appropriate examination, counseling and educating the patient/family/caregiver and ordering medications, tests, or procedures. documented in this encounter [facility] 08-12-2015 History of Past i llness Narrative Problem Noted Date Resolved Date Chest pain 08/12/2015 08/13/2015 Abnormal ECG 07/28/2012 11/14/2012 Flat feet 02/27/2011 01/12/2020 Dysfunction of eustachian tube 12/12/2004 0 03/05/2013 Pulmonary valve disorders 04/26/20042012 Other specified cardiac dysrhythmias(427.89) 06/200411/14/2012 Disorders of diaphragm 08/06/2002 3 Overview: surgical injury, now resolved documented as of this encounter (statuses as of 11/02/2021) [facility] History of Past illness Narrative* Problem Noted Date Resolved Date Chest pain 08/12/2015 08/13/2015 Abnormal ECG 07/28/2012 11/14/2012 Flat feet 02/27/2011 01/12/2020 Dysfunction of eustachian tube 12/12/2004 0 03/05/2013 Pulmonary valve disorders 04/26/20042012 Other specified cardiac dysrhythmias(427.89) 06/200411/14/2012 Disorders of diaphragm 08/06/2002 3 Overview: surgical injury, now resolved documented as of this encounter (statuses as of 12/16/2021) [facility] History of Past illness Narrative* Problem Noted Date Resolved Date Chest pain 08/12/2015 08/13/2015 Abnormal ECG 07/28/2012 11/14/2012 Flat feet 02/27/2011 01/12/2020 Dysfunction of eustachian tube 12/12/2004 0 03/05/2013 Pulmonary valve disorders 04/26/20042012 Other specified cardiac dysrhythmias(427.89) 06/200411/14/2012 Disorders of diaphragm 08/06/2002 3 Overview: surgical injury, now resolved documented as of this encounter (statuses as of 12/20/2021) [facility] History of Past illness Narrative* Problem Noted Date Resolved Date Chest pain 08/12/2015 08/13/2015 Abnormal ECG 07/28/2012 11/14/2012 Flat feet 02/27/2011 01/12/2020 Dysfunction of eustachian tube 12/12/2004 0 03/05/2013 Pulmonary valve disorders 04/26/20042012 Other specified cardiac dysrhythmias(427.89) 06/200411/14/2012 Disorders of diaphragm 08/06/2002 3 Overview: surgical injury, now resolved documented as of this encounter (statuses as of 01/31/2022) [facility] History of Past illness Narrative* Problem Noted Date Resolved Date Chest pain 08/12/2015 08/13/2015 Abnormal ECG 07/28/2012 11/14/2012 Flat feet 02/27/2011 01/12/2020 Dysfunction of eustachian tube 12/12/2004 0 03/05/2013 Pulmonary valve disorders 04/26/20042012 Other specified cardiac dysrhythmias(427.89) 06/200411/14/2012 Disorders of diaphragm 08/06/2002 3 Overview: surgical injury, now resolved documented as of this encounter (statuses as of 04/11/2022) [facility] History of Past illness Narrative* Problem Noted Date Resolved Date Chest pain 08/12/2015 08/13/2015 Abnormal ECG 07/28/2012 11/14/2012 Flat feet 02/27/2011 01/12/2020 Dysfunction of eustachian tube 12/12/2004 0 03/05/2013 Pulmonary valve disorders 04/26/20042012 Other specified cardiac dysrhythmias(427.89) 06/200411/14/2012 Disorders of diaphragm 08/06/2002 3 Overview: surgical injury, now resolved documented as of this encounter (statuses as of 05/16/2022) [facility] History of Past illness Narrative* Problem Noted Date Diagnosed Date Resolved Date Chest pain 08/12/2015 08/13/2015 Abnormal ECG 07/28/2012 11/14/2012 Flat feet 02/27/2011 01/12/2020 Dysfunction of eustachian tube 12/12/2004 03/05/2013 Pulmonary valve disorders 04/26/2004 Other specified cardiac dysrhythmias(427.89) 4 11/14/2012 Disorders of diaphragm 08/06/200203/05 Overview: surgical injury, now resolved documented as of this encounter (statuses as of 02/07/2023) [facility] History of Past illness Narrative* Problem Noted Date Diagnosed Date Resolved Date Chest pain 08/12/2015 08/13/2015 Abnormal ECG 07/28/2012 11/14/2012 Flat feet 02/27/2011 01/12/2020 Dysfunction of eustachian tube 12/12/2004 03/05/2013 Pulmonary valve disorders 04/26/2004 Other specified cardiac dysrhythmias(427.89) 4 11/14/2012 Disorders of diaphragm 08/06/200203/05 Overview: surgical injury, now resolved documented as of this encounter (statuses as of 02/07/2023) [facility] History of Past illness Narrative* Problem Noted Date Diagnosed Date Resolved Date Chest pain 08/12/2015 08/13/2015 Abnormal ECG 07/28/2012 11/14/2012 Flat feet 02/27/2011 01/12/2020 Dysfunction of eustachian tube 12/12/2004 03/05/2013 Pulmonary valve disorders 04/26/2004 Other specified cardiac dysrhythmias(427.89) 4 11/14/2012 Disorders of diaphragm 08/06/200203/05 Overview: surgical injury, now resolved documented as of this encounter (statuses as of 02/16/2023) [facility] History of Past illness Narrative* Problem Noted Date Diagnosed Date Resolved Date Chest pain 08/12/2015 08/13/2015 Abnormal ECG 07/28/2012 11/14/2012 Flat feet 02/27/2011 01/12/2020 Dysfunction of eustachian tube 12/12/2004 03/05/2013 Pulmonary valve disorders 04/26/2004 Other specified cardiac dysrhythmias(427.89) 4 11/14/2012 Disorders of diaphragm 08/06/200203/05 Overview: surgical injury, now resolved documented as of this encounter (statuses as of 02/16/2023) [facility] History of Past illness Narrative* Problem Noted Date Diagnosed Date Resolved Date Chest pain 08/12/2015 08/13/2015 Abnormal ECG 07/28/2012 11/14/2012 Flat feet 02/27/2011 01/12/2020 Dysfunction of eustachian tube 12/12/2004 03/05/2013 Pulmonary valve disorders 04/26/2004 Other specified cardiac dysrhythmias(427.89) 4 11/14/2012 Disorders of diaphragm 08/06/200203/05 Overview: surgical injury, now resolved documented as of this encounter (statuses as of 02/16/2023) [facility] History of Past illness Narrative* Problem Noted Date Diagnosed Date Resolved Date Chest pain 08/12/2015 08/13/2015 Abnormal ECG 07/28/2012 11/14/2012 Flat feet 02/27/2011 01/12/2020 Dysfunction of eustachian tube 12/12/2004 03/05/2013 Pulmonary valve disorders 04/26/2004 Other specified cardiac dysrhythmias(427.89) 4 11/14/2012 Disorders of diaphragm 08/06/200203/05 Overview: surgical injury, now resolved documented as of this encounter (statuses as of 03/08/2023) [facility] History of Past illness Narrative* Problem Noted Date Diagnosed Date Resolved Date Chest pain 08/12/2015 08/13/2015 Abnormal ECG 07/28/2012 11/14/2012 Flat feet 02/27/2011 01/12/2020 Dysfunction of eustachian tube 12/12/2004 03/05/2013 Pulmonary valve disorders 04/26/2004 Other specified cardiac dysrhythmias(427.89) 4 11/14/2012 Disorders of diaphragm 08/06/200203/05 Overview: surgical injury, now resolved documented as of this encounter (statuses as of 03/30/2023) [facility] History of Past illness Narrative* Problem Noted Date Diagnosed Date Resolved Date Chest pain 08/12/2015 08/13/2015 Abnormal ECG 07/28/2012 11/14/2012 Flat feet 02/27/2011 01/12/2020 Dysfunction of eustachian tube 12/12/2004 03/05/2013 Pulmonary valve disorders 04/26/2004 Other specified cardiac dysrhythmias(427.89) 4 11/14/2012 Disorders of diaphragm 08/06/200203/05 Overview: surgical injury, now resolved documented as of this encounter (statuses as of 03/31/2023) [facility] History of Past illness Narrative* Problem Noted Date Diagnosed Date Resolved Date Chest pain 08/12/2015 08/13/2015 Abnormal ECG 07/28/2012 11/14/2012 Flat feet 02/27/2011 01/12/2020 Dysfunction of eustachian tube 12/12/2004 03/05/2013 Pulmonary valve disorders 04/26/2004 Other specified cardiac dysrhythmias(427.89) 4 11/14/2012 Disorders of diaphragm 08/06/200203/05 Overview: surgical injury, now resolved documented as of this encounter (statuses as of 06/20/2023) [facility] Diagnosis Breakthrough bleeding on OCPs- Primary Metrorrhagia Dysmenorrhea Surveillance for control, oral contraceptives Surveillance of previously prescribed contraceptive pill [facility] Diagnosis Vaginal discharge- Primary Leukorrhea, not specified as infective Screen for STD (sexually transmitted disease) Screening examination for venereal disease [facility]* Diagnosis Viral syndrome- Primary Unspecified viral infection, in conditions classified elsewhere and of unspecified site [facility]* Diagnosis Status post transcatheter replacement of pulmonary valve- Primary Heart valve replaced by other means TOF (tetralogy of Fallot) Tetralogy of Fallot [facility] Diagnosis Status post transcatheter replacement of pulmonary valve- Primary Heart valve replaced by other means TOF (tetralogy of Fallot) Tetralogy of Fallot [facility] Diagnosis TOF (tetralogy of Fallot)- Primary Tetralogy of Fallot [facility] Diagnosis TOF (tetralogy of Fallot)- Primary Tetralogy of Fallot Status post transcatheter replacement of pulmonary valve Heart valve replaced by other means [facility]* Diagnosis Sore throat- Primary Acute pharyngitis TOF (tetralogy of Fallot) Tetralogy of Fallot [facility]* Diagnosis Viral illness- Primary Unspecified viral infection, in conditions classified elsewhere and of unspecified site [facility]* Diagnosis Sore throat- Primary Acute pharyngitis [facility]* Diagnosis Acute cough [facility]* Diagnosis Chest pain, unspecified type- Primary Rash Rash and other nonspecific skin eruption [facility]* Diagnosis URI, acute- Primary Acute upper respiratory infections of unspecified site Acute cough FUO (fever of unknown origin) Fever, unspecified documented in this encounter [facility]* Diagnosis Acute cough- Primary Acute cough documented in this encounter [facility]* Diagnosis Acute cough documented in this encounter [facility] note* Diagnosis Acute cough- Primary Acute cough documented in this encounter [facility] note* Diagnosis Acute cough [facility] Outpatient Procedure (Routine) - Closed Specialty Diagnoses / Procedures Referred By Foreign lucas Referred To Contact [facility] Diagnoses Status post transcatheter replacement of pulmonary valve TOF (tetralogy of Fallot) Procedures ECG COMPLETE ECG ROUTINE ECG W/LEAST 12 LDS W/I&R Tanya Butterfield MD [address] [place] [address] [facility] [address] [place] [address] Referral ID Status Reason Start Date Expiration Date V isits Requested Visits Authorized [id number] Closed Auto-Generate d Referral 02/07/2023 02/07/2024 1 0 [facility] for visit Narrative* (Routine) - New Request Specialty Diagnoses / Procedures Referred By Foreign lucas Referred To Contact [facility] Diagnoses chest x ray Procedures X-RAY EXAM CHEST 2 VIEWS Aspen Andrews PA [address] [place] [address] Phone: tel: fax: [facility] [address] [place] [address] Phone: tel: Referral ID Status Reason Start Date Expiration Date Visits Requested Visits Authorized [id number] New Request OON/Self Pay Override 11/04/2024 02/02/2025 1 1 [facility] Summary Purpose Family History No Family History Records FoundNo Family History Records FoundNo Family History Records FoundNo Family History Records FoundNo Family History Records Found Advance Directives No Advanced Directives Records FoundDocuments on File Type Date Recorded 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 Advance Directive(s) 05/10/2020 8:49 AM ma in campus Reason for Referral Specialty Diagnoses / Procedures Referred By Contac t Referred To Contact [facility] Diagnoses TOF (tetralogy of Fallot) Procedures MRA CHEST CARDIOVASCULAR WO/W IVCON MRA CHEST WITH OR W/O CONT Tanya Butterfield MD [address] [place] [address] [facility] [place] [address] Referral ID Status Reason Start Date Expiration Date Visits Requested Visits Authorized [id number] Pending Review Auto-Generat ed Referral 02/16/2023 03/16/2024 1 1 Specialty Diagnoses / Procedures Referred By Contac t Referred To Contact [facility] Diagnoses TOF (tetralogy of Fallot) Procedures MRI CARDIAC MORPH FUNC WO/W IVCON CARDIAC MRI W/WO CONTRAST & FURTHER SEQ Tanya Butterfield MD [address] [place] [address] [facility] [place] [address] Referral ID Status Reason Start Date Expiration Date Visits Requested Visits Authorized [id number] Pending Review Auto-Generat ed Referral 02/16/2023 03/16/2024 1 1 Specialty Diagnoses / Procedures Referred By Contac t Referred To Contact [facility] IMAGING Diagnoses TOF (tetralogy of Fallot) Procedures MRI CARDIAC VELOCITY FLOW MAP CARDIAC MRI FOR VELOCITY FLOW MAPPING Tanya Butterfield MD [address] [place] [address] [facility] [place] [address] Referral ID Status Reason Start Date Expiration Date Visits Requested Visits Authorized [id number] Pending Review Auto-Generat ed Referral 02/16/2023 03/16/2024 1 1 Specialty Diagnoses / Procedures Referred By Contac t Referred To Contact [facility] Diagnoses TOF (tetralogy of Fallot) Procedures ESTABLISH WITH PRIMARY CARE NEW PATIENT OFFICE/OUTPATIENT [facility] 60-74 MINUTES Marie Rodgers MD [address] [place] [address] [facility] [address] [place] [address] Referral ID Status Reason Start Date Expiration Date Visits Requested Visits Authorized [id number] Authorized PCP Requested Referral 03/29/2023 03/28/2024 1 1 Additional Source Comments INFORMATION SOURCE (unrecogn ized section and content) DATE CREATED AUTHOR 03/25/2019 [facility] DATE CREATED AUTHOR AUTHOR'S ORGANIZ ATION 09/14/2021 [facility] DATE CREATED AUTHOR AUTHOR'S ORGANIZ ATION 05/10/2024 [facility] DATE CREATED AUTHOR AUTHOR'S ORGANIZ ATION 10/08/2024 [facility] DATE CREATED AUTHOR AUTHOR'S ORGANIZ ATION 12/07/2024 [facility] Source Comments (unrecognize d section and content) In the event this informatio n is protected by the Federal Confidentiality of Alcohol and Drug Abuse Patient Records regulations: The Federal rules restrict any use of the information to criminally investigate or prosecute any alcohol or drug abuse patient.[facility] the event this information is protected by the Federal Confidentiality of Alcohol and Drug Abuse Patient Records regulations: The Federal rules restrict any use of the information to criminally investigate or prosecute any alcohol or drug abuse patient.[facility] the event this information is protected by the Federal Confidentiality of Alcohol and Drug Abuse Patient Records regulations: The Federal rules restrict any use of the information to criminally investigate or prosecute any alcohol or drug abuse patient.[facility] the event this information is protected by the Federal Confidentiality of Alcohol and Drug Abuse Patient Records regulations: The Federal rules restrict any use of the information to criminally investigate or prosecute any alcohol or drug abuse patient.[facility] the event this information is protected by the Federal Confidentiality of Alcohol and Drug Abuse Patient Records regulations: The Federal rules restrict any use of the information to criminally investigate or prosecute any alcohol or drug abuse patient.[facility] HospitalIn the event this information is protected by the Federal Confidentiality of Alcohol and Drug Abuse Patient Records regulations: The Federal rules restrict any use of the information to criminally investigate or prosecute any alcohol or drug abuse patient.[facility] the event this information is protected by the Federal Confidentiality of Alcohol and Drug Abuse Patient Records regulations: The Federal rules restrict any use of the information to criminally investigate or prosecute any alcohol or drug abuse patient.[facility] HospitalIn the event this information is protected by the Federal Confidentiality of Alcohol and Drug Abuse Patient Records regulations: The Federal rules restrict any use of the information to criminally investigate or prosecute any alcohol or drug abuse patient.[facility] HospitalIn the event this information is protected by the Federal Confidentiality of Alcohol and Drug Abuse Patient Records regulations: The Federal rules restrict any use of the information to criminally investigate or prosecute any alcohol or drug abuse patient.[facility] HospitalIn the event this information is protected by the Federal Confidentiality of Alcohol and Drug Abuse Patient Records regulations: The Federal rules restrict any use of the information to criminally investigate or prosecute any alcohol or drug abuse patient.[facility] HospitalIn the event this information is protected by the Federal Confidentiality of Alcohol and Drug Abuse Patient Records regulations: The Federal rules restrict any use of the information to criminally investigate or prosecute any alcohol or drug abuse patient.[facility] HospitalIn the event this information is protected by the Federal Confidentiality of Alcohol and Drug Abuse Patient Records regulations: The Federal rules restrict any use of the information to criminally investigate or prosecute any alcohol or drug abuse patient.[facility] HospitalIn the event this information is protected by the Federal Confidentiality of Alcohol and Drug Abuse Patient Records regulations: The Federal rules restrict any use of the information to criminally investigate or prosecute any alcohol or drug abuse patient.[facility] HospitalIn the event this information is protected by the Federal Confidentiality of Alcohol and Drug Abuse Patient Records regulations: The Federal rules restrict any use of the information to criminally investigate or prosecute any alcohol or drug abuse patient.[facility] HospitalIn the event this information is protected by the Federal Confidentiality of Alcohol and Drug Abuse Patient Records regulations: The Federal rules restrict any use of the information to criminally investigate or prosecute any alcohol or drug abuse patient.[facility] HospitalIn the event this information is protected by the Federal Confidentiality of Alcohol and Drug Abuse Patient Records regulations: The Federal rules restrict any use of the information to criminally investigate or prosecute any alcohol or drug abuse patient.[facility] HospitalIn the event this information is protected by the Federal Confidentiality of Alcohol and Drug Abuse Patient Records regulations: The Federal rules restrict any use of the information to criminally investigate or prosecute any alcohol or drug abuse patient.[facility] HospitalIn the event this information is protected by the Federal Confidentiality of Alcohol and Drug Abuse Patient Records regulations: The Federal rules restrict any use of the information to criminally investigate or prosecute any alcohol or drug abuse patient.[facility] HospitalIn the event this information is protected by the Federal Confidentiality of Alcohol and Drug Abuse Patient Records regulations: The Federal rules restrict any use of the information to criminally investigate or prosecute any alcohol or drug abuse patient.[facility] HospitalIn the event this information is protected by the Federal Confidentiality of Alcohol and Drug Abuse Patient Records regulations: The Federal rules restrict any use of the information to criminally investigate or prosecute any alcohol or drug abuse patient.[facility] HospitalIn the event this information is protected by the Federal Confidentiality of Alcohol and Drug Abuse Patient Records regulations: The Federal rules restrict any use of the information to criminally investigate or prosecute any alcohol or drug abuse patient.[facility] HospitalIn the event this information is protected by the Federal Confidentiality of Alcohol and Drug Abuse Patient Records regulations: The Federal rules restrict any use of the information to criminally investigate or prosecute any alcohol or drug abuse patient.[facility] HospitalIn the event this information is protected by the Federal Confidentiality of Alcohol and Drug Abuse Patient Records regulations: The Federal rules restrict any use of the information to criminally investigate or prosecute any alcohol or drug abuse patient.[facility] HospitalIn the event this information is protected by the Federal Confidentiality of Alcohol and Drug Abuse Patient Records regulations: The Federal rules restrict any use of the information to criminally investigate or prosecute any alcohol or drug abuse patient.[facility] HospitalIn the event this information is protected by the Federal Confidentiality of Alcohol and Drug Abuse Patient Records regulations: The Federal rules restrict any use of the information to criminally investigate or prosecute any alcohol or drug abuse patient.[facility] Reason for Visit (unrecogniz ed section and content) Reason Comments Vaginal Bleeding Specialty Diagnoses / Procedures Referred By Foreign t Referred To Contact [facility] Diagnoses control counseling control Procedures OFFICE/OUTPATIENT ESTABLISHED HIGH MDM 40-54 MIN control Self [facility][Note 3] [address] [place] [address] Referral ID Status Reason Start Date Expiration Date V isits Requested Visits Authorized [id number] Closed OON/Self Pay Override 10/19/2021 01/17/2022 1 1 Reason Comments Vaginal Problem Specialty Diagnoses / Procedures Referred By Contac t Referred To Contact [employer] Diagnoses possible yeast infection Procedures OFFICE/OUTPATIENT ESTABLISHED MOD MDM 30-39 MIN EST WHI OB Self Tracy Cazares APRN.CNM [address] [place] [address] Referral ID Status Reason Start Date Expiration Date Visits Re quested Visits Authorized [id number] Closed 12/16/2021 07/01/2022 1 1 Reason Comments Results Reason Comments Cough Reason Comments Nasal Congestion Cough Specialty Diagnoses / Procedures Referred By Contac t Referred To Contact Pediatrics / PRIMARY CARE PEDIATRICS Diagnoses INFLUENZA Procedures PHYS/QHP TELEPHONE EVALUATION 5-10 MIN VIDEO PRIMARY EST Self Marie Rodgers MD [address] [place] [address] Referral ID Status Reason Start Date Expiration Date Visits Re quested Visits Authorized [id number] Closed 05/16/2022 08/14/2022 1 1 Reason Comments Event Zio Reason Comments Follow Up Routine follow up no concerns Specialty Diagnoses / Procedures Referred By Contac t Referred To Contact Pediatric Cardiology / PEDIATRIC CARDIOLOGY Diagnoses TOF Procedures EST PEDS SPECIALTY Tanya Butterfield MD [address] [facility] [place] [address] Tanya Butterfield MD [address] [place] [address] Referral ID Status Reason Start Date Expiration Date Visits Requested Visits Authorized [id number] Authorized Patient Cleared - Qualified 100% FAS 02/07/2023 05/08/2023 99 99 Reason Comments Sore Throat X few days, worse on outside of neck than outside Reason Comments Recheck From 03/29 P EDS visit; not feeling better with new SX of cough Reason Comments Sore Throat x 1 week, seen yeste rday Reason Comments Rash Rash on face x 2 day s Reason Comments Fever Fever off and on x 1 week Reason Comments Cough Cough, congestion, b odyaches and FONG x several weeks Reason Comments Cough Fever x4 days, worse , recent pneumonia Care Teams (unrecognized sec tion and content) Facilities Maintenance Supervisor Relationship Specialty Start Date End Date Ladonna Plata MD [address] [facility] [place] [id number] PCP - General 08/15/02 Facilities Maintenance Supervisor Relationship Specialty Start Date End Date Ladonna Plata MD [address] [facility], [place] [id number] PCP - General 08/15/02 Facilities Maintenance Supervisor Relationship Specialty Start Date End Date Ladonna Plata MD [address] [facility], [place] [id number] PCP - General 08/15/02 Facilities Maintenance Supervisor Relationship Specialty Start Date End Date Ladonna Plata MD [address] [facility], [place] [id number] PCP - General 08/15/02 Facilities Maintenance Supervisor Relationship Specialty Start Date End Date Ladonna Plata MD [address] [facility], [place] [id number] PCP - General 08/15/02 Facilities Maintenance Supervisor Relationship Specialty Start Date End Date Ladonna Plata MD [address] [facility], [place] [id number] PCP - General 08/15/02 Facilities Maintenance Supervisor Relationship Specialty Start Date End Date Ladonna Plata MD [address] [facility], [place] [id number] PCP - General 08/15/02 Facilities Maintenance Supervisor Relationship Specialty Start Date End Date Ladonna Plata MD [address] [place] [address] PCP - General 08/15/02 Facilities Maintenance Supervisor Relationship Specialty Start Date End Date Ladonna Plata MD [address] [place] [address] PCP - General 08/15/02 Facilities Maintenance Supervisor Relationship Specialty Start Date End Date Ladonna Plata MD [address] [facility] [place] [address] PCP - General 08/15/02 Facilities Maintenance Supervisor Relationship Specialty Start Date End Date Ladonna Plata MD [address] [facility] [address] PCP - General 08/15/02 Facilities Maintenance Supervisor Relationship Specialty Start Date End Date Padmini Porter DO [address] [place] [address] PCP - General Family Medicine 07/05/23 Facilities Maintenance Supervisor Relationship Specialty Start Date End Date Padmini Porter DO [address] [place] [address] PCP - General Family Medicine 07/05/23 Facilities Maintenance Supervisor Relationship Specialty Start Date End Date Padmini Porter DO [address] [place] [address] PCP - General Family Medicine 07/05/23 Facilities Maintenance Supervisor Relationship Specialty Start Date End Date Padmini Porter DO [address] [place] [address] PCP - General Family Medicine 07/05/23 FOR RECORDS PERTAINING TO PATIENTS WHO ARE OR HAVE BEEN ENROLLED IN A CHEMICAL DEPENDENCY/SUBSTANCEABUSE PROGRAM, SOME INFORMATION MAY BE OMITTED. This clinical summary was aggregated from multiple sources. Caution should be exercised in using it in the provision of clinical care. This summary normalizes information from multiple sources, and as a consequence, information in this document may materially change the coding, format and clinical context of patient data. In addition, data may be omitted in some cases. CLINICAL DECISIONS SHOULD BE BASED ON THE PRIMARY CLINICAL RECORDS. [employer] [facility]. provides no warranty or guarantee of the accuracy or completeness of information in this document.
--- NOTE | 2025-01-03 22:59 | EKG12_ITS ---
Test Reason : CP ADMIT Blood Pressure : */* mmHG Vent. Rate : 74 BPM Atrial Rate : 74 BPM P-R Int : 124 ms QRS Dur : 110 ms QT Int : 438 ms P-R-T Axes : 10 49 82 degrees QTcB Int : 486 ms Normal sinus rhythm Nonspecific T wave abnormality Prolonged QT Abnormal ECG Confirmed by RENETTA MARAVILLA, YEIMI ([id number]), editor continuity and script JANESSA FRANCIS ([id number]) on 01/05/2025 1:20:29 PM Referred By: Confirmed By: YEIMI JACKSON MD
[2025-01-03] MEDS: 0.9% Normal Saline (1000mL) 1,000 ML 1000 ML IV (23:14)
--- NOTE | 2025-01-03 23:21 | RAD_ITS ---
PROCEDURE: CHEST PA AND LATERAL 01/03/2025 REASON FOR EXAM: RIGHT RIB PAIN TECHNIQUE: CHEST PA AND LATERAL COMPARISON: 03/22/2024 FINDINGS: Borderline prominent heart size. Status post PDA closure. Elevated right hemidiaphragm. Well inflated lungs. On the lateral view, there is focal opacity overlying the lower thoracic spine, possibly consolidation, possibly in the right retrocardiac region, not well seen on frontal imaging. RAD/Chest PA and Lateral IMPRESSION: Suspected superior segment right lower lobe pneumonia. Posttreatment progress imaging recommended. Reading Location: [facility]-
[2025-01-03 23:23] LABS: Mucous, Urine 0 SEEN /hpf (<or=2+)
[2025-01-03 23:26] LABS: Color, Urine Yellow (Yellow); Glucose, Dipstick Normal (Normal); Ketone-Dipstick Negative (Negative); Leukocyte Esterase-Dipstick Negative /ul (Negative); Nitrite-Dipstick Negative (Negative); Occult Blood-Urine 150 /ul (Negative); Protein-Dipstick 30 mg/dl (Negative); Specific Gravity, Urine 1.015 (1.002-1.030); Urine Bilirubin Dipstick Negative (Negative)
[2025-01-03 23:26] LABS: Hematocrit 28.4 % (37-47); Hemoglobin 8.7 g/dL (12.0-15.0); Immature Granulocytes Count 0.060 X10^3/uL (0.0-0.0); Mean Corp Hgb Conc 30.6 g/dL (32-36); Mean Corpuscular Volume 60.4 fL (81-99); Mean Platelet Vol. 9.5 fl (6.2-12.0); NRBC Flagged by Analyzer 0 % (0-5); POSITIVE MORPHOLOGY YES; Platelet Count 213 K/mm3 (150-450); RBC Distribution Width CV 20.8 % (11.6-14.6); RBC Distribution Width SD 42.6 fl (35.1-43.9); Red Blood Count 4.70 M/mm3 (4.2-5.4); White Blood Count 10.3 K/mm3 (4.4-11.0)
[2025-01-03 23:36] VITALS: BP 104/76; PULSE 94; RESP 20; TEMP 37.6; O2SAT 99
[2025-01-03 23:40] LABS: D-Dimer Quantitative (DVT/PE) 1.45 FEU/ug/m (0.27-0.49); Differential Indicated SCAN CRITERIA MET
--- NOTE | 2025-01-03 23:40 | CT_ITS ---
PROCEDURE: CTA CHEST W/WO CONTRAST 01/03/2025 REASON FOR EXAM: RIGHT RIB PAIN, ELEVATED D-DIMER RULE OUT PE TECHNIQUE: CTA CHEST W/WO CONTRAST Multiplanar Sagittal and Coronal images were obtained. CONTRAST: Isovue 300 VOLUME: 90 mL One or more dose reduction techniques were used (e.g., Automated exposure control, adjustment of the mA and/or kV according to patient size, use of iterative reconstruction technique). RADIATION DOSE SUMMARY: CTDlvol: 14 mGy DLP: 243 mGycm COMPARISON: Chest x-ray 01/03/2025 FINDINGS: Unremarkable base of neck and axilla. Aberrant right subclavian artery. Normal esophagus. Upper limits of normal heart size. No aortic dissection. Borderline prominent ascending aorta, 3.9 cm cross-section. Right lower lobe segmental pulmonary emboli. Possible tiny left upper lobe subsegmental embolism. Overall small clot burden. Negative heart strain. Central airways are patent. There is right lower lobe consolidative airspace disease. There is left base atelectasis. Tiny right-sided effusion. No pneumothorax. No acute upper abdominal findings. No acute chest wall findings. CT/CTA Chest W/WO Contrast IMPRESSION: Right lower lobe pulmonary emboli, small clot burden. Negative heart strain. Right lower lobe airspace disease favoring pneumonia. Critical results discussed with Dr. Sanchez at 12:30 a.m.. Reading Location: [place] [address]
[2025-01-03 23:43] LABS: AST(SGOT) 15 U/L (<=31); Alanine Aminotransfer ALT/SGPT 16 U/L (<=34); Albumin, Serum 4.0 g/dL (3.5-5.0); Alkaline Phosphatase 63 U/L (35-104); Anion Gap 11 (5-15); BUN 13 mg/dL (4-19); BUN/Creat Ratio 17.4 RATIO (10-20); Calcium,Total 8.8 mg/dL (7.6-11.0); Carbon Dioxide 20.7 mmol/L (21.0-32.0); Chloride 104 mmol/L (98-108); Estimated Creatinine Clearance 116.30 ml/min (50-250); Globulin 3.3 g/dL (2.2-4.2); Glucose 108 mg/dL (70-99); Lipase 13 U/L (13-75); Potassium 3.6 mmol/L (3.3-5.1); Troponin T High Sensitivity < 6 ng/L (<=14)
[2025-01-03 23:47] LABS: Red Blood Cells-Urine 0-5 SEEN /hpf (0-5); Squamous Epithelial Cells - UA 0-5 SEEN /hpf (5-10)
[2025-01-03 23:48] LABS: Internal QC Validated? YES +Cl - CLEAR BKGD; Pregnancy, Urine Negative Negative; Record Kit Lot#,Urine Preg 0000947241
[2025-01-04] VITALS (11 sets, daily range): BP systolic 106–117; BP diastolic 62–71; PULSE 70–90; RESP 14–22; TEMP 36.8–37.6; O2SAT 95–99; BMI 26.5
[2025-01-04 00:02] LABS: Anisocytosis 1+
--- NOTE | 2025-01-04 00:49 | HP.PCM.HOS_ITS ---
[facility] - General General Date of Admission: 01/04/25 Date of Service: 01/04/25 Chief Complaint: Fever and Right-sided Rib Pain. HPI Narrative KIMBERLY PATEL, is a 24 F with a past medical history of tetralogy of Fallot, chronic microcytic anemia with MCV of ~63 fL since hemoglobin ~11 g/dL since 2013, overweight; BMI of 26.6 this admission and recently diagnosed pneumonia with patient admitted to another hospital approximately 2 weeks ago who presents to [facility] ER complaining of fever and Right-sided rib pain. Ms. Patel reports her symptoms began just prior to admission with the abrupt- onset of dyspnea at rest and pleuritic chest pain that is made worse by lying down and deep breathing. She denies recent injury, overexertion, leg swelling or history of VTE. In the ER she was noted to have a low-grade Fever of 99.6 ?F with an elevated D-dimer of 1.45 present on admission prompting CTA chest with IV contrast that revealed Right lower lobe pulmonary emboli, small clot burden with no signs of heart strain in addition to Right lower lobe airspace disease favoring Pneumonia complicated by clinical evidence of severe Right sided Pleuritic Chest Pain and she was then admitted to the PCU for ongoing care for status expected to extend beyond 2 midnights. [facility] Medical History (Updated 01/04/25 @ 01:[address] 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-employment Home Medications ?Medication ?Instructions ?Recorded ?Last Taken ?Type ascorbate calcium (vitamin C) 500 1 g PO DAILY 5 Unknown History mg tablet folic acid 1 mg tablet 1 mg PO DAILY 01/03/25 Unkno wn History magnesium 200 mg tablet 200 mg PO DAILY 01/03/25 Unk nown History mecobalamin (vitamin B12) 500 mcg 500 mcg PO DAILY 11/23 Unknown History chewable tablet Allergy/AdvReac Type Severity Reaction Status Date / Time No Known Allergies Allergy Verified 01/03/25 22:36 Social History Smoking Status: Never smoker ROS ROS Narrative Review of Systems: Constitutional: Patient noted to have low-grade fever in ER but she denies chills. Eyes: Patient denies changes in vision or discharge from eyes. ENT: Patient denies runny nose, sore throat or ear pain. Resp: Patient admits to dyspnea at rest with severe Right-sided pleuritic chest pain as per HPI. CV: Patient denies anginal-type chest pain, palpitations, heart racing or lower extremity edema. GI: Patient denies abdominal pain, nausea, vomiting, diarrhea or constipation. : Patient denies dysuria, hematuria urinary frequency. MSK: Patient admits to severe Right-sided rib pain as per HPI. Skin: Patient denies rash, abscess, wounds or jaundice. Psych: Patient denies symptoms of uncontrolled depression or anxiety. Neuro: Patient denies headache, paresthesias or focal neurologic deficits. Allergy: Patient denies lip swelling, tongue swelling or urticaria. Hematology: Patient denies easy bleeding or easy bruisability. Endocrinology: Patient denies polyuria, polydipsia, polyphagia or heat/cold intolerance. 14 point ROS otherwise negative except for positives noted above in HPI. Vital Signs Vital Signs Vital Signs: 01/03/25 22:34 01/03/25 22:34 01/03/25 23:36 Temperature 99.2 F H 99.2 F H 99.6 F H Temperature Source Oral Oral Oral Pulse Rate 104 H 104 H 94 Respiratory Rate 18 18 20 H Blood Pressure 130/74 H 130/74 H 104/76 Blood Pressure Mean 92 92 85 Pulse Ox 98 98 99 Oxygen Delivery Method Room Air Room Air Room Air 01/04/25 00:00 Temperature 99.6 F H Temperature Source Oral Pulse Rate 90 Respiratory Rate 20 H Blood Pressure 110/70 Blood Pressure Mean 83 Pulse Ox 99 Oxygen Delivery Method Room Air Weight Weight: 159 lb 9 oz Body Mass Index (BMI) 26.5 Physical Exam Const alert, oriented x3 and average body habitus Constitutional Narrative: Patient appears uncomfortable. General Appearance: cooperative HEENT normocephalic, head/scalp atraumatic, hearing grossly normal bilaterally and moist oral mucous membranes Eyes PERRL, EOMs intact bilaterally and conjunctivae normal Neck no lymphadenopathy, supple and no JVD Resp normal respiratory effort, no retractions, no use of accessory muscles and clear to auscultation bilaterally Cardio regular rate and regular rhythm GI normal to inspection, nondistended, normoactive bowel sounds, soft to palpation, non-tender and non-distended Extremity normal to inspection, full ROM and no clubbing, cyanosis or edema Skin Skin Narrative: Patient has no evidence of rash, abscess, wounds or jaundice. Neuro oriented x3, CN's II-XII intact bilaterally, moves all extremities and no focal motor deficits Sensorium / Orientation: awake, alert, oriented to person, oriented to place and oriented to time Speech: speech normal Psych Mood & Affect: anxious Results Medical Records Data Attestation: I reviewed the patient's medical records Lab / Micro Data Attestation: I reviewed the patient's lab results. 01/03/25 23:15 01/03/25 23:15 Labs: Laboratory Results - last 24 hr 01/03/25 23:10: Urine Color Yellow, Urine Clarity Clear, Urine pH 6.0, Ur Specific [place] 1.015, Urine Protein 30 H, Urine Glucose (UA) Normal, Urine Ketones Negative, Urine Occult Blood 150 H, Urine Nitrite Negative, Urine Bilirubin Negative, Urine Urobilinogen 1 H, Ur Leukocyte Esterase Negative, Urine RBC 0-5 SEEN, Urine WBC 0 SEEN, Ur Squamous Epith Cells 0-5 SEEN, Urine Bacteria 1+, Urine Mucus 0 SEEN, Urine Test Negative 01/03/25 23:15: WBC 10.3, RBC 4.70, Hgb 8.7 L, Hct 28.4 L, MCV 60.4 L, MCH 18.5 L, MCHC 30.6 L, RDW Std Deviation 42.6, RDW Coeff of Estephania 20.8 H, Plt Count 213, MPV 9.5, Immature Gran % (Auto) 0.600, Neut % (Auto) 75.9 H, Lymph % (Auto) 14.3 L, [place] % (Auto) 7.3, Eos % (Auto) 0.8, Baso % (Auto) 1.1 H, Absolute Neuts (auto) 7.9 H, Absolute Lymphs (auto) 1.48, Nucleated RBC % 0, Anisocytosis 1+, D -Dimer Quant (PE/DVT) 1.45 H*, Sodium 136, Potassium 3.6, Chloride 104, Carbon Dioxide 20.7 L, Anion Gap 11, BUN 13, Creatinine 0.75, Estim Creat Clear Calc 116.30, Est GFR (MDRD) Non-Af 114, BUN/Creatinine Ratio 17.4, Glucose 108 H, Calcium 8.8, Total Bilirubin 0.71, AST 15, ALT 16, Alkaline Phosphatase 63, Troponin T High Sens < 6, Total Protein 7.2, Albumin 4.0, Globulin 3.3, Albumin/Globulin Ratio 1.2, Lipase 13 Imaging Radiology Impression Chest X-Ray 01/03/25 23:21 IMPRESSION: Suspected superior segment right lower lobe pneumonia. Posttreatment progress imaging recommended. Reading Location: [facility]-2 Chest CTA 01/03/25 23:40 IMPRESSION: Right lower lobe pulmonary emboli, small clot burden. Negative heart strain. Right lower lobe airspace disease favoring pneumonia. Critical results discussed with Dr. Sanchez at 12:30 a.m.. Reading Location: [facility]-2 Assessment & Plan Assessment/Plan (1) Pulmonary embolism: QUALIFIERS: Pulmonary embolism type: multiple subsegmental (without acute cor pulmonale) Qualified Code(s): I26.94 - Multiple subsegmental thrombotic pulmonary emboli without acute cor pulmonale (2) Pneumonia: QUALIFIERS: Pneumonia type: due to unspecified organism L aterality: right Lung location: lower lobe of lung Qualified Code(s): J18.9 - Pneumonia, unspecified organism (3) Pleuritic chest pain: (4) Microcytic anemia: (5) History of pneumonia: (6) Overweight (BMI 25.0-29.9): (7) Tetralogy of Fallot: PLAN: Plan 1. CTA chest with IV contrast that revealed Right lower lobe pulmonary emboli, small clot burden with no signs of heart strain - Admit to PCU. Continue IV heparin begun in the ER and titrate per protocol. Give acetaminophen as needed for [id number] (level 1-5/10) pain or fever. Give morphine IV as needed for severe (level 6-10/10) pain. 2. CT this admission also positive for Right lower lobe airspace disease favoring Pneumonia complicating #1 - Resume use of IV ceftriaxone and IV azithromycin begun in ER and await culture and sensitivity data. Check urinary antigens to Streptococcus pneumonia and Legionella. Give Mucinex as needed. 3. Severe Right sided Pleuritic Chest Pain due to #1 & #2 - We will follow pain regimen and scales outlined in #1. 4. Chronic microcytic anemia with MCV of 60.4 fL and hemoglobin of 8.7 g/dL compounding #1 - #3 - Check iron studies, ferritin and Hemoccult stools. 5. Recently diagnosed pneumonia with patient admitted to another hospital approximately 2 weeks ago - Noted with PE likely associated with recent pneumonia and hospitalization. 6. Overweight; BMI of 26.6 this admission - Weight loss will be recommended. 7. History of tetralogy of Fallot adding to the medical complexity of #1 - #6 - Noted. Check echocardiogram to evaluate LVEF. 8. DVT prophylaxis - Patient started on IV heparin for #1. Total time: Approximately (but not less than) 75 minutes. Charges/Coding Visit Charges Inpatient E&M: 00020 Init Hosp L3
[2025-01-04 01:03] LABS: Prothrombin Time (Protime)PT. 15.7 SECONDS (11.7-14.9)
[2025-01-04 01:04] LABS: Partial Thromboplast Time 36.2 Seconds (24.1-36.2)
--- NOTE | 2025-01-04 01:18 | ECHOD_ITS ---
Reason For Study Reason For Study: Pulmonary embolism Procedure This was a 2D Doppler, Color Flow transthoracic echocardiogram. Exam performed portable in patient room. Left Ventricle Normal LV size. Mild concentric left ventricular hypertrophy. The left ventricular ejection fraction is 65 %. No regional wall motion abnormalities noted. Right Ventricle Normal RV size. Normal systolic function. Atria Normal left atrium. Normal right atrium. Mitral Valve Normal mitral valve. Tricuspid Valve Normal tricuspid valve. Moderate (2+) tricuspid valve insufficiency. Pulmonary artery systolic pressure is 91 mmHg. Aortic Valve Trisinus/trileaflet aortic valve. Pulmonic Valve Moderate stenosis of the pulmonic valve. Max pulmonary gradient is approximately 53 mmHg with a mean gradient of 33 mmHg. Great Vessels Normal aortic root. Moderate pulmonary artery dilation. Inferior vena cava collapse with sniff. Pericardium/Pleural No pericardial effusion. MMode/2D Measurements & Calculations LVIDd: 4.1 cm IVSd: 1.3 cm Ao root diam: 3.4 cm LVIDs: 2.5 cm LVPWd: 1.3 cm FS: 39.8 % RVOT diam: 2.5 cm LVAd ap4: 27.3 cm2 SV(MOD-sp4): 55.4 ml LVLd ap4: 7.4 cm SI(MOD-sp4): 30.4 ml/m2 EDV(MOD-sp4): 84.0 ml EDV(sp4-el): 84.9 ml LVAs ap4: 14.3 cm2 LVLs ap4: 5.9 cm ESV(MOD-sp4): 28.6 ml ESV(sp4-el): 29.3 ml EF(MOD-sp4): 66.0 % EF(sp4-el): 65.5 % SV(sp4-el): 55.6 ml LA dimension(2D): 2.9 cm Time Measurements MV dec time: 0.24 sec Doppler Measurements & Calculations MV E max don: 90.2 cm/sec Lat Peak E' Don: 20.0 cm/sec Med Peak E' Don: 7.9 cm/sec MV A max don: 67.9 cm/sec E/E' lat: 4.5 E/E' med: 11.5 MV E/A: 1.3 MV dec slope: 385.4 cm/sec2 Ao V2 max: 122.4 cm/sec LV V1 max: 118.2 cm/sec Ao max P.0 mmHg LV V1 max P.6 mmHg Ao V2 mean: 88.3 cm/sec LV V1 mean P.5 mmHg Ao mean P.5 mmHg LV V1 mean: 88.5 cm/sec Ao V2 VTI: 23.3 cm LV V1 VTI: 22.5 cm AV (velocity ratio): 0.97 PA V2 max: 361.1 cm/sec SV(RVOT): 159.3 ml TR max don: 470.9 cm/sec PA V2 mean: 271.0 cm/sec TR max P.7 mmHg PA mean PG (full): 28.9 mmHg PA V2 VTI: 95.4 cm ECHO/Echo Complete Interpretation Summary Normal LV size. The left ventricular ejection fraction is 65 %. Mild concentric left ventricular hypertrophy. Pulmonary artery systolic pressure is 91 mmHg. Moderate stenosis of the pulmonic valve. Max pulmonary gradient is approximately 53 mmHg with a mean gradient of 33 mmHg . Patient has a history of repaired tetralogy of Fallot and the pulmonary artery systolic pressure cannot be necessarily extrapolated from the TR velocity. There is no evidence of D-shaped septum however noted. Ordering Physician: Contreras Perez Performed By: Julio Cesar Olivera RCS
[2025-01-04] MEDS: Heparin Injection (Vial) 5,000 UNIT/ML VIAL 4000 UNIT IV (01:37)
[2025-01-04] MEDS: HEPARIN/D5w 25,000 UNITS 25,000 UNITS/250 ML IV.SOLN. 9 UNITS CONT INF (01:40)
--- OUTSIDE RECORDS SUMMARY | 2025-01-04 01:48 | XMS RPT_ITS | CCD ---
Author Organization [facility] Care Team Providers Care Silviculture Professor Name Role Phone LADONNA PLATA Consulting Unavailable HOWARD SHANKS - Attending Unavailable HOWARD SHANKS - Primary Care Unavailable HOWARD SHANKS - Admitting Unavailable PROVIDER, YANE Consulting Unavailable Ladonna Plata MD Primary Care Provider Ladonna Plata MD Primary Care Provider Ladonna Plata MD Primary Care Provider Unavailable Primary Care Provider Unavailabl e Padmini Porter DO Primary Care Provider [phone] Care Physician, No Primary Referring Unava ilable [...] [SEASONAL ALLERGIES] Propensity to adverse reactions 12-15-2009 [facility] Work Phone: (10 sources) Latex; Translations: [LATEX] Drug Allergy 03-22-2024 Rash [facility] Medications Current Medications Medication Drug Class(es) Dates [...] Comment on above: Take 4 capsules by [facility] as directed. Take dose 30-60 minutes prior to appointment. Take 1 tablet by [facility] two times a day for 10 days. [...] Comment on above: Take 1 capsule by [facility] twice daily for 5 days. FOR 5 DAYS. predniSONE 20 mg oral tablet (1 source) Star t: 03-04 End: 11-18 take 2 tablets by mouth once daily predniSONE (DELTASONE) 20 mg tablet Take 2 tablets by mouth once daily for 5 days. 10 tablet 0 03/31/2023 04/05/2023 Active Comment on above: Take 2 tablets by [facility] once daily for 5 days. Completed/Discontinued Medications [...] Comment on above: Take 1 tablet by [facility] once daily. Take by mouth. benzonatate 100 [...] Onset: 10-01-2024 Episodic Conduction disorders (20 sources) Yvgob-Kslgetlpd-Ewxjw pattern; Translations: [Pre-excitation syndrome] Onset: 08-13-2015 08-13-2015 [...] Test Name Value Interpretation Reference Range Facility [facility] 12-05-2024 CNOV Office Visit (UCWSTR ) KIMBERLY PATEL ([id number]) 2 F Date Time Provider Department 12/05/24 3:30 PM LAMONT ARREAGA [facility] During your visit today, we recorded the following information about you: Temperature Pulse Respiration Blood pressure 101.4 degrees 112/minute 26/minute 106/58 Weight 73.1 kg Lamont Arreaga MD 12/05/2024 6:44 PM Addendum [facility] Subjective Kimberly aPtel is a 24 year old female. Patient [...] Diagnosis:Acute cough [R05.1] Order(s):XR CHEST 2V FRONTAL/LAT [0975991] Order #: [id number] FUTURE COVID-19 MOLECULAR (POC) [2048256] Order #: [id number]. #:[id number] benzonatate (TESSALON PERLE) 100 mg capsuleTake [...] 08/13/2015 Rhoda-P (more content not included)... Normal [facility] COVID-19 MOLECULAR (POC)on 0 12-05-2024 Procedural Control Valid [facility] SARS-CoV-2 (COVID-19) RNA JOSE+probe Ql (Unsp spec) Negative Negative [facility] Comment on above: Location:[facility], [address] [place] [address], [place], [place], [id number] [place] [address] XR CHEST 2V FRONTAL/LATon XR CHEST 2V [...] tissues: Unremarkable. IMPRESSION: No acute radiographic abnormality. Senior Embedded Software Engineer: CHRIS Transcribe Date/Time: Dec 05 2024 4:23P Dictated by : DANNA TURCIOS DO This examination was interpreted and the report reviewed and electronically signed by: DANNA TURCIOS DO on Dec 05 2024 4:24PM EST [id number] Normal [facility] XR Chest PA and Lateralon IMPRESSION: No acute radiographic abnormality. Senior Embedded Software Engineer: [facility] Transcribe Date/Time: Dec 05 2024 [...] Unremarkable. IMPRESSION IMPRESSION: No acute radiographic abnormality. Senior Embedded Software Engineer: PSCPepito Transcribe Date/Time: Dec 05 2024 4:23P Dictated by : DANNA TURCIOS DO This examination was interpreted and the report reviewed and electronically signed by: DANNA TRUCIOS DO on Dec 05 2024 4:24PM [facility] Radiology Study observation (narrative) [facility] XR Chest PA and LateralOrder ed By: Cc Provider on 12-05-2024 [facility] CNOVon 11-04-2024 CNOV Office Visit (UCWSTR ) KIMBERLY PATEL ([id number]) 2 F Date Time Provider Department 11/04/24 2:30 PM ASPEN OWEN W[facility] During your visit today, we recorded the following information about you: Temperature Pulse Respiration Blood pressure 97.4 degrees 79/minute 18/minute 118/72 Weight 74.4 kg Aspen Owen PA 11/04/2024 3:16 PM Signed [facility] Subjective Kimberly Patel is a 24 year old female. Patient presents with: Cough: Cough, congestion, bodyaches and OFNG x several weeks HPI 24-year-old female presents [...] DISORDER 04/26/2004 Right ventricular dilation 06/08/2015 Seizure ([facility]) 08/13/2015 Tetralogy of Fallot (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 Normal [facility] XR CHEST 2V FRONTAL/LATon XR CHEST [...] for bronchopneumonia in the appropriate clinical setting. Senior Embedded Software Engineer: CHRIS Transcribe Date/Time: Nov 04 2024 3:28P Dictated by : IRENE KC MD This examination was interpreted and the report reviewed and electronically signed by: IRENE KC MD on Nov 04 2024 3:29PM EST [id number] Normal [facility] XR Chest PA and Lateralon IMPRESSION: Mild opacity in the left midlung zone suspect for bronchopneumonia in the appropriate clinical setting. Senior Embedded Software Engineer: [facility] Transcribe Date/Time: Nov 04 2024 [...] for bronchopneumonia in the appropriate clinical setting. Senior Embedded Software Engineer: CHRIS Transcribe Date/Time: Nov 04 2024 3:28P Dictated by : IRENE KC MD This examination was interpreted and the report reviewed and electronically signed by: IRENE KC MD on Nov 04 2024 3:29PM EST [facility] Radiology Study observation (narrative) [facility] XR Chest PA and LateralOrder ed By: Ccf Provider on 11-04-2024 [facility] CNCOon 10-23-2024 CNCO Letter Text Normal [facility] CNOVon 10-23-2024 CNOV Office Visit (CHPDMN ) KIMBERLY PATEL ([id number]) 2 F Date Time Provider Department 10/23/24 11:00 AM EVENT MONITORS PEDS CARD MAINCHPDMN During your visit today, we recorded the following information about you: Meagan Avila OCCA 10/23/2024 10:38 AM Signed ZIOPATCH APPLICATION PEDIATRIC CARDIOLOGY -Chest is cleansed and prepped with razor, prep tape, and alcohol. -Ziopatch placed on chest -Ziopatch activated -Serial # [id number] -Instructed patient 1) Patient to wear monitor forHolter Monitor less than 48hrs, [employer] [id number] 2) Diary documentation 3) Usage of event button 4) Maintenance and care of monitor 5) Safety issues with monitor 6) Call with problems [phone] Verbalized understanding of instructions by patient. SIGNATURE: DANIELLE Carolina PATIENT NAME: Kimberly Patel DATE: October 23, 2024 TIME: 10:37 AM Referring Provider: TANYA BUTTERFIELD [[id number]] Allergies As of Date: 10/23/2024 Noted Allergy Reaction LATEX 03/22/2024 2 - Rash SEASONAL ALLERGIES 12/15/2009 Date Reviewed: 10/23/2024 Reviewed by: Meagan Avila OCCA - Fully Assessed Reason for Visit: Event [921] Cmt: zio Primary Visit Diagnosis:TOF (tetralogy of Fallot) ([facility]) [Q21.3] Prescriptions as of 10/23/2024 - [...] [T82.897A] 06/08/2015 Chest pain [R07.9] 08/12/2015 08/13/2015 Lksws-Olmixaaif-Ztepj (WPW) syndrome [I45.6] 08/13/2015 Seizure (HCC) [R56.9] 08/13/2015 Attention deficit hyperactivity disorder (ADHD)*03/19/2017 TOF (tetralogy of Fallot) (HCC) [Q21.3] 10/23/2024 Encounter Status:Closed by MEAGAN AVILA on 10/23/24 Normal [facility] CNOV Office Visit (CHPDMN ) KIMBERLY PATEL ([id number]) 01 F Date Time Provider Department 10/23/24 [...] Kimberly Patel in Pediatric Cardiology consultation at [facility] on 10/23/2024. Kimberly is a 24 [...] a 25-mm Magna Ease 3300 by [employer] bovine pericardial valve with right ventricular outflow [...] cardiac MRI performed on 06/18/2015 which confirmed cxiiicct-cf-huccqh pulmonary valve regurgitation with RF 35% with [...] valve replacement. She was taken to the microbiology lab analyst on 05/19/2020. She was found to have a baseline gradient of 27 mm Hg across the pulmonary valve in addition to her known regurgitation. A 22 mm Vandana valve was placed on 22 mm ensemble and post dilated to 24 mm with a 24 X 4 [place] Gold balloon with an excellent result and 7 mmHg across the valve. She tolerated the procedure well and was discharged the next day. In addition, she also has Kbrqx-Vztljnpbx-Wonry syndrome (resting EKG with pre-excitation) without palpitation [...] Kimberly has (more content not included)... 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 #:[id number]: 1 PEDS EXERCISE METABOLIC STRESS [9200336] Order #: [id number]. 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) [Q21.3] 10/23/2024 Encounter Status:Closed by FRANK ISRAEL on 10/24/24 Normal [facility] ECG COMPLETEon 10-23-2024 ECG COMPLETE Ventricular Rate : 6 9 BPM Atrial Rate : 69 BPM P-R Interval : 122 ms QRS Duration : 116 ms Q-T Interval : 412 ms QTC Calculation(Bazett) : 441 ms Calculated P Decker : 6 degrees Calculated R Decker : 36 degrees Calculated T Decker : 82 degrees NORMAL SINUS RHYTHM NONSPECIFIC T WAVE ABNORMALITY ABNORMAL ECG Confirmed by TANYA BUTTERFIELD MD ([id number]) on 10/24/2024 11:00:45 AM NAME : KIMBERLY PATEL PID : [id number] : 2000 Gender : Female Race : ORD : [id number] Procedure Date : Oct 23 2024 07:58:37 Edit Date : Oct 24 2024 11:00:50 Diagnosis: NORMAL SINUS RHYTHM NONSPECIFIC T WAVE ABNORMALITY ABNORMAL ECG Confirmed by TANYA BUTTERFIELD MD ([id number]) on 10/24/2024 11:00:45 AM Test Reason : Location : 570 : [facility] Overread By : TANYA BUTTERFIELD MD Edited By : TANYA BUTTERFIELD MD Referred By : TANYA BUTTERFIELD Acquired by : Marlo carolina [facility] PEDIATRIC ECHOon 10-23-2024 PEDIATRIC ECHO + --+ -+ Pediatric Cardiology Echocardiogram Report + + -+ NAME: MISS KIMBERLY PATEL : 2000 Ht: 165.0 cm PT ID#: [id number] Age: 24 years Wt: 74.0 kg Sex: F BSA: 1.86 m STUDY DATE: 10/23/2024 7:46:54 AM BP: 112/69 mmHg Image Quality: Technically difficult and adequate. Referring Physician: Tanya Butterfield MD Diagnosing Physician: Hanny Luciano MD Pad Assembler: Portia Mas 2nd Pad Assembler: Diagnosis: Q21.3 Tetralogy of Fallot; Z95.2 Presence of prosthetic heart valve; I36.1 Tricuspid valve insufficiency (Nonrheumatic) Procedure Code: 22671, 20205, 29961 Congenital Transthoracic, complete (w/Doppler and color) Exam Location: [facility] [place] [facility]. Indications: Evaluate biventricular size and function, [...] effusion. Interventi (more content not included)... Normal [facility] PEDS EXERCISE METABOLIC STRE SSon 10-23-2024 PEDS EXERCISE METABOLIC STRESS [facility] Pediatric Cardiology Stress Laboratory [address] [place] [address] Test Date: 2024-10-23 Pat Name: KIMBERLY PATEL Department: Room: Gender: Female Elementary Principal: : 2000 Requested By: Order Number: [id number] Reading MD: Eloy Lubin MD Interpretive Statements [...] EDT by Eloy Lubin MD Site: ID: [id number] Name: KIMBERLY PATEL Visit Date: 10/23/2024 Doctor: Elementary Principal: Frank Israel Age: 24 Date of : [...] 34.1 34.6 33.7 38-42 102 Interpretation: Normal [facility] ED Prov Noteon 10-01-2024 ED Prov Note ED PROVIDER NOTE [facility] EMERGENCY [facility]PART[facility] NAME: Kimberly Patel AGE: 24 y.o. : 2000 VISIT DATE: 10/01/2024 CSN: [id number] PCP: No, Physician Chief Complaint Patient presents [...] Why: As needed, If symptoms worsen [address] [address] Contact information for after-discharge care Follow-up information [...] Resource Strain: Medium Risk (05/16/2022) Received from [facility] Overall Financial Resource Strain (CARDIA) Difficulty of Paying Living Expenses: Somewhat hard Food Insecurity: Unknown (05/16/2022) Received from [facility] Hunger Vital Sign Worried About Running Out of Food in the Last Year: Patien (more content not included)... [facility] ED Prov Noteon 09-03-2024 ED Prov Note ED PROVIDER NOTE [facility] NAME: Kimberly Patel AGE: 24 y.o. : 2000 VISIT DATE: 09/03/2024 CSN: [id number] PCP: No, Physician Chief Complaint Patient presents [...] care in stable condition. Follow-up Information 1. lAmaz Cazares MD. Specialty: Family Medicine Why: As needed, If symptoms worsen [address] [id number] Contact information for after-discharge care Follow-up information has not been specified. New Prescriptions amoxicillin-clavulanate (AUGMENTIN) 875-125 mg per tablet Take 1 (one) tablet by mouth 2 (two) times a day for 7 days . albuterol 90 mcg/actuation inhaler Inhale 2 (two) puffs every 4 (four) hours as needed . Vinny Casey, 09/03/24 1505 AUTHENTICATED BY KENYA BENZ 09/03/2024 15:05:11 [facility]UCWSTR ) KIMBERLY PATEL ([id number]) 2 F Date Time Provider Department 09/01/24 10:45 AM FABIOLA HURT [facility] During your visit today, we recorded the following information about you: Temperature Pulse Respiration Blood pressure 101.5 degrees 97/minute 18/minute 108/72 Weight 78.3 kg Fabiola Hurt APRN.WOOD CUTTER 09/01/2024 11:32 AM Signed Subjective HPI HPI [...] s/p surgical repair 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 Ymqls-Tlpegzdvp-Nxsbh (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 Normal [facility] INFLUENZA A&B MOLECULAR (POC )on 09-01-2024 Flu A (POCT) Negative Negative [facility] Flu B (POCT) Negative Negative [facility] Procedural Control Valid [facility] Location:[facility], [address] [place] [address], [place], [address] [facility] POINT OF CARE [facility] XR CHEST 2V FRONTAL/LATon XR CHEST 2V [...] midthoracic spine. IMPRESSION: No acute radiographic abnormality. Senior Embedded Software Engineer: CHRIS Transcribe Date/Time: Sep 01 2024 10:50A Dictated by : IRENE KC MD This examination was interpreted and the report reviewed and electronically signed by: IRENE KC MD on Sep 01 2024 10:51AM EST [id number] Normal [facility] XR Chest PA and Lateralon IMPRESSION: No acute radiographic abnormality. Senior Embedded Software Engineer: [facility] Transcribe Date/Time: Sep 01 2024 [...] spine. DIVISION OF RADIOLOGY Provider, Chelsey schultz Dawson - 09/01/2024 * * *Final Report* * [...] spine. IMPRESSION IMPRESSION: No acute radiographic abnormality. Senior Embedded Software Engineer: PSCB Transcribe Date/Time: Sep 01 2024 10:50A Dictated by : IRENE KC MD This examination was interpreted and the report reviewed and electronically signed by: IRENE KC MD on Sep 01 2024 10:51AM EST [facility] Radiology Study observation (narrative) [facility] XR Chest PA and LateralOrder ed By: [facility] Provider on 09-01-2024 [facility] Urgent Care Visit Reporton 1 07-08-2023 Urgent Care Visit Report [facility] [address], [address] [place] [address] OFFICE VISIT Date of Service: 05/08/24 MR#: [id number] Acct: [id number] Name: KIMBERLY PATEL Rep #: [id number] : 2000 Provider: ROSSY Dsouza Age/Sex: 24/F Location: [facility] Status: Signed Intake Vital Signs 03/22/24 10:57 Height 5 ft 5 in Intake Visit Reasons: PE NON DOT PHYSICAL/ MAJORA AB Allergies No Known Allergies Allergy (Verified 03/22/24 10:57) [facility] Medical History Tetralogy of Fallot Physical exam, [...] Cosigner Signature: Date (if applicable) CC: Normal [facility] 12 Lead EKGon 03-22-2024 12 Lead EKG [facility] Cardiovascular Services [address] [place] [address] 12 Lead EKG 03/22/24 1107 MR#: [id number] Acct: [id number] Name: KIMBERLY PATEL Rep #: [id number] : 2000 24 From: Paul London MD [...] : 435 ms Sinus rhythm with short ME Nonspecific ST and T wave abnormality Abnormal ECG LOW ATRIAL RHYTHM Confirmed by Paul London ([id number]), field map editor JANESSA FRANCIS ([id number]) on 03/24/2024 11:02:09 AM Referred By: BLOSSOM Confirmed By:Paul London 03/24/241101 Date Paul London MD CC: Dr. Eglin Bauman MD; No Primary Care Physician Signed Normal [facility] Basic Metabolic Profile (BMP )on 03-22-2024 BUN/CRE 22.4 RATIO High 10-20 [facility] Comment on above: Order Comment: 'TROP ' Serial specimen #1, #2 or #3: 1 Performed By: #### L 100.0100, L501.4020, L500.2500 #### [facility] [address] [place], [address] CA,Total 9.2 mg/dL Normal 8.5-10.1 [facility] Comment on above: Order Comment: 'TROP ' Serial specimen #1, #2 or #3: 1 Performed By: #### L 100.0100, L501.4020, L500.2500 #### [facility] [address] [place], [address] Chloride [Moles/Vol] 106 mmol/L Normal 98-107 [facility] Comment on above: Order Comment: 'TROP ' Serial specimen #1, #2 or #3: 1 Performed By: #### L 100.0100, L501.4020, L500.2500 #### [facility] [address] [place], [address] CO2 [Moles/Vol] 25.0 mmol/L Normal 21.0-32.0 [facility] Comment on above: Order Comment: 'TROP ' Serial specimen #1, #2 or #3: 1 Performed By: #### L 100.0100, L501.4020, L500.2500 #### [facility] [address] [place], [address] Creatinine [Mass/Vol] 0.85 mg/dL Normal 0.55-1.02 [facility] Comment on above: Order Comment: 'TROP ' Serial specimen #1, #2 or #3: 1 Result Comment: The validity of the calculated GFR GFRAA in patients over 70 years has not been determined. Clinical correlation is essential. Performed By: #### L 100.0100, L501.4020, L500.2500 #### [facility] [address] [place], [address] ECRCL 105.04 ml/min Normal [facility] Comment on above: Order Comment: 'TROP ' Serial specimen #1, #2 or #3: 1 Performed By: #### L 100.0100, L501.4020, L500.2500 #### [facility] [address] [place], [address] EST GFR - AA 107 mL/min Normal >60 [facility] Comment on above: Order Comment: 'TROP ' Serial specimen #1, #2 or #3: 1 Result Comment: Afri can [place] GFR Calc Performed By: #### L 100.0100, L501.4020, L500.2500 #### [facility] [address] [place], [address] GAP 6 Normal 5-15 [facility] Comment on above: Order Comment: 'TROP ' Serial specimen #1, #2 or #3: 1 Performed By: #### L 100.0100, L501.4020, L500.2500 #### [facility] [address] [place], [address] GFR/1.73 sq M.predicted among non-blacks MDRD (S/P/Bld) [Vol rate/Area] 88 mL/min/{1.73_m2} Normal >60 [facility] Comment on above: Order Comment: 'TROP ' Serial specimen #1, #2 or #3: 1 Result Comment: Non- GFR Calc Performed By: #### L 100.0100, L501.4020, L500.2500 #### [facility] [address] [place], [address] Glucose [Mass/Vol] 91 mg/dL Normal 74-106 [facility] Comment on above: Order Comment: 'TROP ' Serial specimen #1, #2 or #3: 1 Performed By: #### L 100.0100, L501.4020, L500.2500 #### [facility] [address] [place], [address] Potassium [Moles/Vol] 3.4 mmol/L Low 3.5-5.1 [facility] Comment on above: Order Comment: 'TROP ' Serial specimen #1, #2 or #3: 1 Performed By: #### L 100.0100, L501.4020, L500.2500 #### [facility] [address] [place], [address] Sodium [Moles/Vol] 137 mmol/L Normal 136-145 [facility] Comment on above: Order Comment: 'TROP ' Serial specimen #1, #2 or #3: 1 Performed By: #### L 100.0100, L501.4020, L500.2500 #### [facility] [address] [place], [address] Urea nitrogen [Mass/Vol] 19 mg/dL High 7-18 [facility] Comment on above: Order Comment: 'TROP ' Serial specimen #1, #2 or #3: 1 Performed By: #### L 100.0100, L501.4020, L500.2500 #### [facility] [address] [place], [address] CBC W/Diff, Automatedon - Absolute Lymph 2.72 X10 3/uL Normal 0.83-4.51 [facility] Comment on above: Performed By: #### L 100.0100, L501.4020, L500.2500 #### [facility] [address] [place], [address] Absolute Neut 4.2 X10 3/uL Normal 2.0-7.7 [facility] Comment on above: Performed By: #### L 100.0100, L501.4020, L500.2500 #### [facility] [address] [place], [address] Basophils/100 WBC (Bld) 0.8 % Normal 0-1 [facility] Comment on above: Performed By: #### L 100.0100, L501.4020, L500.2500 #### [facility] [address] [place], [address] Eosinophils/100 WBC (Bld) 2.0 % Normal 0-5 [facility] Comment on above: Performed By: #### L 100.0100, L501.4020, L500.2500 #### [facility] [address] [place], [address] Erythrocyte distribution width (RBC) [Ratio] 17.1 % High 11.6-14.6 [facility] Comment on above: Performed By: #### L 100.0100, L501.4020, L500.2500 #### [facility] [address] [place], [address] Hematocrit (Bld) [Volume fraction] 36.0 % Low 37-47 [facility] Comment on above: Performed By: #### L 100.0100, L501.4020, L500.2500 #### [facility] [address] [place], [address] Hemoglobin (Bld) [Mass/Vol] 11.1 g/dL Low 12.0-15.0 [facility] Comment on above: Performed By: #### L 100.0100, L501.4020, L500.2500 #### [facility] [address] [place], [address] IG% 0.500 Normal 0.0-0.9 [facility] Comment on above: Result Comment: IG% - Immature Granulocytes (promyelocytes, myelocytes and metamyelocytes) > 1% indicates that a LEFT SHIFT is Present. Performed By: #### L 100.0100, L501.4020, L500.2500 #### [facility] [address] [place], [address] Lymphocytes/100 WBC (Bld) 34.5 % Normal 19-41 [facility] Comment on above: Performed By: #### L 100.0100, L501.4020, L500.2500 #### [facility] [address] [place], [address] MCH (RBC) [Entitic mass] 19.5 pg Low 27.0-32.0 [facility] Comment on above: Performed By: #### L 100.0100, L501.4020, L500.2500 #### [facility] [address] [place], [address] MCHC (RBC) [Mass/Vol] 30.8 g/dL Low 32-36 [facility] Comment on above: Performed By: #### L 100.0100, L501.4020, L500.2500 #### [facility] [address] [place], [address] MCV (RBC) [Entitic vol] 63.3 fL Low 81-99 [facility] Comment on above: Performed By: #### L 100.0100, L501.4020, L500.2500 #### [facility] [address] [place], [address] Monocytes/100 WBC (Bld) 8.5 % Normal 0-10 [facility] Comment on above: Performed By: #### L 100.0100, L501.4020, L500.2500 #### [facility] [address] [place], [address] Neutrophils/100 WBC (Bld) 53.7 % Normal 47-70 [facility] Comment on above: Performed By: #### L 100.0100, L501.4020, L500.2500 #### [facility] [address] [place], [address] Nucleated RBC (Bld) [#/Vol] 0 10*3/uL Normal 0-5 [facility] Comment on above: Performed By: #### L 100.0100, L501.4020, L500.2500 #### [facility] [address] [place], [address] Platelet mean volume (Bld) [Entitic vol] 10.0 fL Normal 6.2-12.0 [facility] Comment on above: Performed By: #### L 100.0100, L501.4020, L500.2500 #### [facility] [address] [place], [address] Platelets (Bld) [#/Vol] 235 10*3/uL Normal 150-450 [facility] Comment on above: Performed By: #### L 100.0100, L501.4020, L500.2500 #### [facility] [address] [place], [address] RBC (Bld) [#/Vol] 5.69 10*6/uL High 4.2-5.4 [facility] Comment on above: Performed By: #### L 100.0100, L501.4020, L500.2500 #### [facility] [address] [place], [address] RDW SD 36.7 fl Normal 35.1-43.9 [facility] Comment on above: Performed By: #### L 100.0100, L501.4020, L500.2500 #### [facility] [address] [place], [address] WBC (Bld) [#/Vol] 7.9 10*3/uL Normal 4.4-11.0 [facility] Comment on above: Performed By: #### L 100.0100, L501.4020, L500.2500 #### [facility] [address] [place], [address] CNOVon 03-22-2024 CNOV Office Visit (UCWSTR ) SPENCER PATELSHANAE Baptiste ([id number]) 2 F Date Time Provider Department 03/22/24 10:30 AM FABIOLA HURT [facility] During your visit today, we recorded the following information about you: Temperature Pulse Respiration Blood pressure 97.7 degrees 63/minute 18/minute 110/74 Weight 76.1 kg Fabiola Hurt APRN.WOOD CUTTER 03/22/2024 12:01 PM Signed Subjective HPI HPI [...] s/p surgical repair 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 Ucjhe-Dwvlccbuo-Zuaxe (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 PAST SURGICAL HISTORY Procedure [...] latex allergy Otc management advised Fabiola Hurt APRN.WOOD CUTTER Referring Provider: SELF [200] Allergies As of [...] [T82.897A] 06/08/2015 Chest pain [R07.9] 08/12/2015 08/13/2015 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] 08/13/2015 Seizure (HCC) [R56.9] 08/13/2015 Attention deficit hyperactivity disorder (ADHD)*03/19/2017 Encounter Status:Closed by FABIOLA HURT on 03/22/24 Normal [facility] Chest 1 View (Portable)on Chest 1 View (Portable) [facility] Imaging Services [address] [place] [address] [id number] Chest 1 View (Portable) MR#: [id number] Acct: [id number] Name: KIMBERLY PATEL Rep #: [id number] : 2000 F 24 From: Sania parker MD PCP: Care Physician,No Primary Status: REG ER Study: Chest 1 View (Portable) Date of Exam: 03/22/24 Exam# [id number] Ordering [place]: [place] [id number] HISTORY: chest pain. TECHNIQUE: XR Chest 1 [...] Elgin Bauman MD; No Primary Care Physician Senior Embedded Software Engineer: Signed Normal [facility] Emergency Department Summary on 03-22-2024 Emergency Department Summary [facility] Medical Records Department [address] [place] [address] Emergency Department Summary 03/22/24 MR#: [id number] Acct: [id number] Name: KIMBERLY PATEL Rep #: [id number] : 2000 24 From: Elgin Bauman MD [...] TAD Risk Factors: Negative for Marfan's Syndrome [facility] Medical History Tetralogy of Fallot Physical exam, [...] edema or cords. 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 Dorsi plantarflexion intact. She is awake [...] or tachycardi (more content not included)... Normal [facility] L501.4020on 03-22-2024 TROPONIN-I HS 6 pg/mL Normal 3.0-54.0 [facility] Comment on above: Order Comment: 'TROP ' Serial specimen #1, #2 or #3: 1 Result Comment: Plea se Note: New Test Units and Gender Specific Reference Ranges. For more information see Policy Stat Procedure [place] High Sensitivity Troponin (TNIH) and attachments. Performed By: #### L 100.0100, L501.4020, L500.2500 #### [facility] [address] [place], [address] Quantiferon TB-Gold+on 12-26 QFT MITOGEN ASHLEIGH > 10.00 Normal . [facility] Comment on above: Performed By: #### L 3400.8000 #### [facility] [address] [place], [address] QFT NIL VALUE 0.04 IU/mL Normal . [facility] Comment on above: Performed By: #### L 3400.8000 #### [facility] [address] [place], [place], [address] (379) QFT TB GOLD+ Comment Normal . [facility] Comment on above: Result Comment: Red tiFERON-TB [...] test. Performed By: #### L 3400.8000 #### [facility] [address] [place], [address] (943) QFT TB POS CRIT Negative Normal Negative [facility] Comment on above: Result Comment: No r [...] interferon gamma. Chemiluminescence immunoassay methodology Performed at: [facility] [employer] [id number] Shaker Plate Operator: Rolando Stephens PhD, Phone: [phone] Performed By: #### L 3400.8000 #### [facility] [address] [place], [address] ([address] QFT TB1+ AG ASHLEIGH 0.05 IU/mL Normal . [facility] Comment on above: Performed By: #### L 3400.8000 #### [facility] [address] [place], [address] (927 QFT TB2+ AG ASHLEIGH 0.04 IU/mL Normal . [facility] Comment on above: Performed By: #### L 3400.8000 #### [facility] [address] [place], [address] Office Visit Reporton 2023 Office Visit Report [facility] [address] [place] [address] OFFICE VISIT Date of Service: 12/25/23 MR#: [id number] Acct: [id number] Patient: KIMBERLY PATEL Rep #: [id number] : 2000 Provider: ROSSY Morrow Age/Sex: 23/F Location: [facility] Status: Signed with Addenda ADDENDUM by Scarlet Lowe on 04/03/24 at 1510 Office Procedure Documentation entered by Scarlet Lowe 04/03/24 15:10: [facility] Billing Sheet Testing Respirator Fit Testing: Yes Occquant-Quantiferon: Yes Date cc: * Signed Intake Intake Visit Reasons: RESP FIT TEST/QUANTIFERON/[place] 12/25/23 1651 Date Huber Leivaignlovely Signature: Date (if applicable) CC: Normal [facility] Urgent Care Visit Reporton 0 12-25-2023 Urgent Care Visit Report [facility] [address], [address] [place] [id number] OFFICE VISIT Date of Service: 12/25/23 MR#: [id number] Acct: [id number] Name: KIMBERLY PATEL Rep #: [id number] : 2000 Provider: ROSSY Morrow Age/Sex: 23/F Location: [facility] Status: Signed Intake Intake Visit Reasons: PRE [...] Cosigner Signature: Date (if applicable) CC: Normal [facility] XR Chest PA and Lateralon IMPRESSION: No acute radiographic abnormality. Senior Embedded Software Engineer: PSCB Transcribe Date/Time: Jul 17 2023 9:36A Dictated by : BRENT SANTANA MD This examination was interpreted and the report reviewed and electronically signed by: BRENT SANTANA MD on Jul 17 2023 9:38AM [facility] DIVISION OF RADIOLOGY * * *Final Report* [...] DIVISION OF RADIOLOGY Provider, Dee Dee Hodan [facility] - 07/17/2023 * * *Final Report* [...] Unremarkable. IMPRESSION IMPRESSION: No acute radiographic abnormality. Senior Embedded Software Engineer: PSCB Transcribe Date/Time: Jul 17 2023 9:36A Dictated by : BRENT SANTANA MD This examination was interpreted and the report reviewed and electronically signed by: BRENT SANTANA MD on Jul 17 2023 9:38AM EST [facility] Radiology Study observation (narrative) [facility] XR Chest PA and LateralOrder ed By: Ccf Provider on 07-17-2023 [facility] WILFREDO MIRANDA PANELon 023 EBV NA Ab, Qual Negative Negative [facility] EBV VCA IgG, Qual Negative Negative [facility] EBV VCA IgM, Qual Negative Negative [facility] Interpretation (EBVPNL) Never Infected. EBV panel interpretation is a general guide that is meant to capture most, but not all, of the possible clinical scenarios. Non-specific reactivities are not uncommon especially with equivocal results. Should the overall interpretation not be consistent with the clinical picture, please contact the medical office clerk of the test for assistance. [facility] STREP A MOLECULAR (POC)on Procedural Control Valid [facility] Strep A (POCT) Negative Negative [facility] STREP A MOLECULAR (POC)on Procedural Control Valid [facility] Strep A (POCT) Negative Negative [facility] HEP B SURFACE AB, QUANT [CCL ]on 09-13-2021 HepB SurfaceAb,Quant <8.00 Low >=12.00 [facility] Comment on above: Result Comment: No e vidence of antibodies to Hepatitis B surface antigen. [facility] [address] [place] [id number] Anibal Montana III, M.D. [id number] Performed By: #### 2 17684 #### [address] [address] MEASLES IGG ANTIBODY [CCL]on 09-13-2021 Measles IgG, Qual Positive Normal Positive [facility] Comment on above: Result Comment: The result suggests recent or past exposure to Measles virus or Measles vaccination. The current test does not detect neutralizing antibodies. Positive result may also be seen due to presence of passively-transferred antibodies. Please correlate with patient's history. [facility] [address] [place] [address] Anibal Montana III, M.D. [id number] Performed By: #### 2 21216 #### [address] [address] MUMPS IGG AB [CCL]on 022 Mumps IgG, Qual Positive Normal Positive [facility] Comment on above: Result Comment: The result suggests recent or past exposure to Mumps virus or Mumps vaccination. The current test does not detect neutralizing antibodies. Positive result may also be seen due to presence of passively-transferred antibodies. Please correlate with patient's history. [facility] [employer] [address] [place] [id number] Anibal Montana III, M.D. [id number] Performed By: #### 2 55663 #### [facility],[address] [place] [address] RUBELLA IgG ANTIBODY [OLD]on 09-13-2021 Rubella IgG Ab, Qual Positive Normal Positive [facility] Comment on above: Result Comment: The result suggests recent or past exposure to Rubella virus or history of Rubella vaccination. Positive result may also be seen due to presence of passively-transferred antibodies. Please correlate with patient's history. [facility] [employer] [address] [place] [address] Anibal Montana III, M.D. [id number] Performed By: #### 2 64360 #### [facility],[address] [place] [address] GLUCOSEon 09-08-2021 Glucose [Mass/Vol] 62 mg/dL Low 74 - 106 [facility] Comment on above: Performed By: #### 2 48657 #### [facility],[address] [place] [address] LIPID PROFILEon 09-08-2021 Cholesterol [Mass/Vol] 137 mg/dL Normal 0 - 240 [facility] Comment on above: Performed By: #### 2 08093 #### [facility],[address] [place] [address] Cholesterol in HDL [Mass/Vol] 73 mg/dL High 40 - 60 [facility] Comment on above: Performed By: #### 2 52637 #### [facility],[address] [place] [address] Cholesterol in LDL [Mass/Vol] 57 mg/dL Normal 0 - 129 [facility] Comment on above: Performed By: #### 2 72373 #### [facility],[address] [place] [address] Cholesterol.total/Ch olesterol in HDL [Mass ratio] 1.9 {ratio} Normal 0.0 - 5.0 [facility] Comment on above: Performed By: #### 2 77509 #### [facility],[address] [place] [address] Lipid 1996 panel Normal [facility] Comment on above: Result Comment: LIPI D PROFILE Performed By: #### 2 13682 #### [facility],[address] [place] [address] Triglyceride [Mass/Vol] 33 mg/dL Normal 0 - 150 [facility] Comment on above: Performed By: #### 2 84526 #### [facility],[address] [place], [place] [address] URINE COTININE TEST [[facility]]on 09-08-2021 COTININE Negative Normal NORMAL: NEGATIVE [facility] Comment on above: Result Comment: The COT [...] after nicotine use. Performed By: #### 2 59236 #### [facility],[address] [place] [address] Levetiracetamon 03-24-2019 Levetiracetam [Mass/Vol] Low 12.0-46.0 [facility] Comment on above: Result Comment: <2.0 Result rechecked. Performed By: #### L MENDEL #### [facility] Chemistry [address] [address] Vital Signs Date Time Vital Sign Value Performing Clinician Facility 12-05-2024 15:31-0400 Body mass index (BMI) [Ratio] 26.85 kg/m2 Lamont Arreaga MD Work Phone: [facility] 12-05-2024 15:31-040 Body temperature 101.41 [degF] Lamont Arreaga MD Work Phone: [facility] 12-05-2024 [id number]:31040 Body weight 73.1 kg Lamont Arreaga MD Work Phone: [facility] 12-05-2024 15:31-0400 Diastolic blood pressure 58 mm[Hg] Lamont Arreaga MD Work Phone: [facility] 12-05-2024 15:31-0400 Heart rate 112 /min Lamont Arreaga MD Work Phone: [facility] 12-05-2024 15:31-0400 Respiratory rate 26 /min Lamont Arreaga MD Work Phone: [facility] 12-05-2024 15:31-0400 SaO2% (BldA) [Mass fraction] 99 % Lamont Arreaga MD Work Phone: [facility] 12-05-2024 15:31-0400 Systolic blood pressure 106 mm[Hg] Lamont Arreaga MD Work Phone: [facility] 11-04-2024 14:32-0400 Body mass index (BMI) [Ratio] 27.33 kg/m2 Krislyn Aberegg PA Work Phone: [facility] 11-04-2024 14:32-0400 Body temperature 97.39 [degF] Krislyn Aberegg PA Work Phone: [facility] 11-04-2024 14:32-0400 Body weight 74.4 kg Krislyn Aberegg PA Work Phone: [facility] 11-04-2024 14:32-0400 Diastolic blood pressure 72 mm[Hg] Krislyn Aberegg PA Work Phone: [facility] 11-04-2024 14:32-0400 Heart rate 79 /min Krislyn Aberegg PA Work Phone: [facility] 11-04-2024 14:32-0400 Respiratory rate 18 /min Krislyn Aberegg PA Work Phone: [facility] 11-04-2024 14:32-0400 SaO2% (BldA) [Mass fraction] 98 % Krislyn Aberegg PA Work Phone: [facility] 11-04-2024 14:32-0400 Systolic blood pressure 118 mm[Hg] Krislyn Aberegg PA Work Phone: [facility] 09-01-2024 10:09-0500 Body mass index (BMI) [Ratio] 28.97 kg/m2 Fabiolamelissa Hurt GRANULATING MACHINE OPERATOR.WOOD CUTTER Work Phone: [facility] 09-01-2024 10:09-0500 Body temperature 101.5 [degF] Fabiola Hurt GRANULATING MACHINE OPERATOR.WOOD CUTTER Work Phone: [facility] 09-01-2024 10:09-0500 Body weight 78.3 kg Fabiola Hurt GRANULATING MACHINE OPERATOR.WOOD CUTTER Work Phone: [facility] 09-01-2024 10:09-0500 Diastolic blood pressure 72 mm[Hg] Fabiola Hurt GRANULATING MACHINE OPERATOR.WOOD CUTTER Work Phone: [facility] 09-01-2024 10:09-0500 Heart rate 97 /min Fabiola Hurt GRANULATING MACHINE OPERATOR.WOOD CUTTER Work Phone: [facility] 09-01-2024 10:09-0500 Respiratory rate 18 /min Fabiola Hurt GRANULATING MACHINE OPERATOR.WOOD CUTTER Work Phone: [facility] 09-01-2024 10:09-0500 SaO2% (BldA) [Mass fraction] 99 % Fabiola Hurt GRANULATING MACHINE OPERATOR.WOOD CUTTER Work Phone: [facility] 09-01-2024 10:09-0500 Systolic blood pressure 108 mm[Hg] Fabiola Hurt GRANULATING MACHINE OPERATOR.WOOD CUTTER Work Phone: [facility] 03-22-2024 10:27-0400 Body mass index (BMI) [Ratio] 28.16 kg/m2 Fabiola Hurt GRANULATING MACHINE OPERATOR.WOOD CUTTER Work Phone: [facility] 03-22-2024 10:27-0400 Body temperature 97.7 [degF] Fabiola Hurt GRANULATING MACHINE OPERATOR.WOOD CUTTER Work Phone: [facility] 03-22-2024 10:27-0400 Body weight 76.1 kg Fabiola Hurt GRANULATING MACHINE OPERATOR.WOOD CUTTER Work Phone: [facility] 03-22-2024 10:27-0400 Diastolic blood pressure 74 mm[Hg] Fabiola Hurt GRANULATING MACHINE OPERATOR.WOOD CUTTER Work Phone: [facility] 03-22-2024 10:27-0400 Heart rate 63 /min Fabiola Hurt GRANULATING MACHINE OPERATOR.WOOD CUTTER Work Phone: [facility] 03-22-2024 10:27-0400 Respiratory rate 18 /min Fabiola Hurt GRANULATING MACHINE OPERATOR.WOOD CUTTER Work Phone: [facility] 03-22-2024 10:27-0400 SaO2% (BldA) [Mass fraction] 98 % Fabiola Hurt GRANULATING MACHINE OPERATOR.WOOD CUTTER Work Phone: [facility] 03-22-2024 10:27-0400 Systolic blood pressure 110 mm[Hg] Fabiola Hurt GRANULATING MACHINE OPERATOR.WOOD CUTTER Work Phone: [facility] 06-19-2023 08:56-0500 Body temperature 102 [degF] Mary Bogner PA-C Work Phone: [facility] 06-19-2023 08:56-0500 Body weight 72.58 kg Mary Bogner PA-C Work Phone: [facility] 06-19-2023 08:56-0500 Diastolic blood pressure 80 mm[Hg] Mary Bogner PA-C Work Phone: [facility] 06-19-2023 08:56-0500 Heart rate 106 /min Mary Bogner PA-C Work Phone: [facility] 06-19-2023 08:56-0500 Respiratory rate 18 /min Mary Bogner PA-C Work Phone: [facility] 06-19-2023 08:56-0500 SaO2% (BldA) [Mass fraction] 96 % Mary Bogner PA-C Work Phone: [facility] 06-19-2023 08:56-0500 Systolic blood pressure 120 mm[Hg] Mary Bogner PA-C Work Phone: [facility] 03-31-2023 10:59-0400 Body temperature 98.2 [degF] Kylie Athy PA-C Work Phone: [facility] 03-31-2023 10:59-0400 Body weight 72.48 kg Kylie Athy PA-C Work Phone: [facility] 03-31-2023 10:59-0400 Diastolic blood pressure 80 mm[Hg] Kylie Athy PA-C Work Phone: [facility] 03-31-2023 10:59-0400 Heart rate 53 /min Kylie Athy PA-C Work Phone: [facility] 03-31-2023 10:59-0400 Respiratory rate 16 /min Kylie Athy PA-C Work Phone: [facility] 03-31-2023 10:59-0400 SaO2% (BldA) [Mass fraction] 99 % Kylie Athy PA-C Work Phone: [facility] 03-31-2023 10:59-0400 Systolic blood pressure 112 mm[Hg] Kylie Athy PA-C Work Phone: [facility] 03-29-2023 15:19-0400 Body temperature 97.2 [degF] Marie Rodgers MD Work Phone: [facility] 03-29-2023 15:19-0400 Body weight 73.57 kg Marie Rodgers MD Work Phone: [facility] 03-29-2023 15:19-0400 Heart rate 60 /min Marie Rodgers MD Work Phone: [facility] 03-29-2023 15:19-0400 Respiratory rate 12 /min Marie Rodgers MD Work Phone: [facility] 02-15-2023 15:28-0400 Diastolic blood pressure 75 mm[Hg] Tanya Butterfield MD Work Phone: [facility] 02-15-2023 15:28-0400 Systolic blood pressure 110 mm[Hg] Tanya Butterfield MD Work Phone: [facility] 02-15-2023 14:24-0400 Body height 164.4 cm Tanya Butterfield MD Work Phone: [facility] 02-15-2023 14:24-0400 Body temperature 98.01 [degF] Tanya Butterfield MD Work Phone: [facility] 02-15-2023 14:24-0400 Body weight 74.4 kg Tanya Butterfield MD Work Phone: [facility] 02-15-2023 14:24-0400 Heart rate 69 /min Tanya Butterfield MD Work Phone: [facility] 02-15-2023 14:24-0400 Respiratory rate 18 /min Tanya Butterfield MD Work Phone: [facility] 02-15-2023 14:24-0400 SaO2% (BldA) [Mass fraction] 100 % Tanya Butterfield MD Work Phone: [facility] 12-16-2021 11:21-0400 Body weight 73.48 kg Tracy Cazares GRANULATING MACHINE OPERATOR.CNM Work Phone: [facility] 12-16-2021 11:21-0400 Diastolic blood pressure 68 mm[Hg] Tracy Plotts GRANULATING MACHINE OPERATOR.CNM Work Phone: [facility] 12-16-2021 11:21-0400 Systolic blood pressure 110 mm[Hg] Tracy Cazares GRANULATING MACHINE OPERATOR.CNM Work Phone: [facility] 11-02-2021 11:44-0400 Body height 165.1 cm Mica Sarabia APRN.WOOD CUTTER Work Phone: [facility] 11-02-2021 11:44-0400 Body weight 72.58 kg Mica Sarabia APRN.WOOD CUTTER Work Phone: [facility] 11-02-2021 11:44-0400 Diastolic blood pressure 60 mm[Hg] Mica Sarabia APRN.WOOD CUTTER Work Phone: [facility] 11-02-2021 11:44-0400 Systolic blood pressure 110 mm[Hg] Mica Nickie CECILOI Work Phone: [facility] Encounters Encounter Date Encounter Type Care Provider Facility Start: 12-05-2024 End: 12-05-2024 Subsequent hospital visit by physician Xr [facility] [place] Work Phone: Radiology Comment on above: Acute cough [R05.1] Start: 12-05-2024 End: 12-05-2024 Office outpatient visit 25 minutes Lamont Arreaga MD Work Phone: [facility] Comment on above: Acute cough (Primary Dx) Start: 12-05-2024 End: 12-05-2024 ambulatory LAMONT ARREAGA Facility:[facility] Start: 11-25-2024 End: 11-25-2024 ambulatory Tracy Quezada RN Pediatric Cardiology Comment on above: Cardiac MRI Start: 11-25-2024 End: 11-25-2024 E-mail encounter from caregiver Tracy Quezada RN Pediatric Cardiology Start: 11-04-2024 End: 11-04-2024 Subsequent hospital visit by physician Xr [facility] [place] Work Phone: Radiology Comment on above: Acute cough [R05.1] Start: 11-04-2024 End: 11-04-2024 Patient encounter procedure Aspen BLAIR Work Phone: [facility] Comment on above: Acute cough (Primary Dx) Start: 11-04-2024 End: 11-04-2024 ambulatory ASPEN OWEN Facility:[facility] Start: 11-04-2024 End: 11-04-2024 Follow-up encounter Aspen BLAIR Work Phone: [facility] Start: 10-23-2024 End: 10-23-2024 ambulatory TANYA BENDALY Facility:[facility] Start: 10-23-2024 End: 10-23-2024 ambulatory TANYA BENDALY Facility:[facility] Start: 10-01-2024 End: 10-01-2024 Emergency department patient visit PHYSICIAN [employer] [facility] Start: 09-03-2024 End: 09-03-2024 Emergency department patient visit PHYSICIAN [facility] Start: 09-01-2024 End: 09-01-2024 Patient encounter procedure Fabiola Hurt APRN.[employer] Work Phone: [facility] Comment on above: URI, acute (Primary Dx); Acute cough; FUO (fever of unknown origin) Start: 09-01-2024 End: 09-01-2024 ambulatory PADMINI C GERMAN Facility:[facility] Start: 09-01-2024 End: 09-01-2024 Subsequent hospital visit by physician Xr [facility] Work Phone: Radiology Comment on above: Acute cough [R05.1] Start: 05-08-2024 End: 05-08-2024 ambulatory No Primary Care Physician Facility:[facility] Start: 03-22-2024 End: 03-22-2024 Emergency department patient visit No Primary Care Physician Facility:[facility] Start: 03-22-2024 End: 03-22-2024 ambulatory PADMINI C GERMAN Facility:[facility] Start: 03-22-2024 End: 03-22-2024 Patient encounter procedure Fabiola Hurt APRN.[employer] Work Phone: [facility] Comment on above: Chest pain, unspecif ied type (Primary Dx); Rash Start: 12-25-2023 End: 12-25-2023 ambulatory Huebr BLAIR Facility:[facility] Start: 12-25-2023 End: 12-25-2023 ambulatory Ladonna Plata Facility:[facility] Start: 07-17-2023 End: 07-17-2023 Subsequent hospital visit by physician Xr [facility] Work Phone: Radiology Comment on above: Acute cough [R05.1] Start: 06-19-2023 End: 06-19-2023 Office outpatient new 45 minutes Mary Esparza PA-C Work Phone: [facility] Comment on above: Sore throat (Primary Dx) Start: 03-31-2023 End: 03-31-2023 Patient encounter procedure Kylie Ray PA-C Work Phone: [facility] Comment on above: Viral illness (Prima ry Dx) Start: 03-29-2023 End: 03-29-2023 Patient encounter procedure Marie Rodgers MD Work Phone: [facility] Comment on above: Sore throat (Primary Dx); TOF (tetralogy of Fallot) Start: 03-08-2023 ambulatory Tracy handy RN Pediatric Cardiology Comment on above: Zio Monitor Start: 03-08-2023 E-mail encounter fro m caregiver Tracy Quezada RN [facility] Start: 02-15-2023 End: 02-15-2023 Orders Only Tanya Butterfield MD Work Phone: Pediatric Cardiology Comment on above: 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); TOF (tetralogy of Fallot) TOF (tetralogy of Fa llot) (Primary Dx) TOF (tetralogy of Fa llot) (Primary Dx); Status post transcatheter replacement of pulmonary valve Start: 02-07-2023 ambulatory Tanya Butterfield MD Work Phone: [facility] Start: 02-07-2023 Patient encounter procedure Tanya Butterfield MD Work Phone: Pediatric Cardiology Comment on above: Scheduling an appoin tment 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); TOF (tetralogy of Fallot) Start: 05-16-2022 End: 05-16-2022 ambulatory Marie Rodgers MD Work Phone: [facility] Comment on above: Viral syndrome (Prim suzi Dx) Start: 05-16-2022 End: 05-16-2022 Telemedicine consultation with patient Marie Rodgers MD Work Phone: [facility] Start: 04-11-2022 ambulatory Cassie Lock RN NURSE O N CALL Comment on [...] End: 11-02-2021 Patient encounter procedure Mica Sarabia APRN.[employer] Work Phone: OB/Gynecology Comment on above: Breakthrough bleedin g on OCPs (Primary Dx); Dysmenorrhea; Surveillance for control, oral contraceptives Start: 09-08-2021 End: 09-08-20[facility]: 09-08-2021 Encounter for genera l adult medical examination without abnormal findings [facility] Procedures Date Procedure Procedure Detail Performing Clinician Start: 12-05-2024 Radiologic exam ches t 2 views Lamont Arreaga MD Work Phone: Start: 12-05-2024 Sars-cov-2 detection by dna/rna Lamont Arreaga MD Work Phone: Start: 11-04-2024 Radiologic exam ches t 2 views Aspen BLAIR Work Phone: Start: 09-01-2024 Radiologic exam ches t 2 views Fabiola Hurt APRN.[employer] Work Phone: Start: 09-01-2024 INFLUENZA A&B MOLECU LAR (POC) Fabiola Hurt APRN.[employer] Work Phone: Start: 07-17-2023 Radiologic exam ches t 2 views Emily Rodriguez APRN.[employer] Work Phone: Start: 03-31-2023 STREP A MOLECULAR (POC) [facility] Provider Start: 03-29-2023 STREP A MOLECULAR (POC) Marie Rodgers MD Work Phone: Start: 10-01-2017 Adult depression screening assessment Mica Sarabia APRN.CNP Work Phone: Plan of Treatment Date Care Activity Detail Author Start: 03-02-2025 Influenza vaccination Influenz a Vaccine (Season Ended) [facility] Start: 10-23-2024 End: 10-23-2024 Patient encounter procedure Pediatric Cardiology Comment on above: TOF (tetralogy of Fa llot) [Q21.3] Start: 03-02-2024 Covid-19 Vaccine ( season) Covid-19 Vaccine ( season) [facility] Start: 03-02-2024 Covid-19 Vaccine ( season) Covid-19 Vaccine ( season) [facility] Start: 03-02-2024 Influenza vaccination Influenza Vacc ine (#1) [facility] Start: 03-05-2023 Urine microalbumin profile [facility] Start: 03-02-2023 Influenza vaccination C [facility] Start: 12-16-2022 CHLAMYDIA SCREENING (18-24) CHLAMYDIA SCREENING (18-24) [facility] Start: 12-16-2022 GC (GONORRHEA) SCREE CHRISTOPHER (18-24) GC (GONORRHEA) SCREENING (18-24) [facility] Start: 12-16-2022 Screening for Chlamy zenaida trachomatis Chlamydia Screening (18-24) [facility] Start: 07-02-2022 DEPRESSION ASSESSMENT [facility] Start: 03-02-2022 Influenza vaccination C [facility] Start: 02-07-2022 CHLAMYDIA SCREENING (18-24) CHLAMYDIA SCREENING (18-24) [facility] Start: 02-07-2022 GC (GONORRHEA) SCREE CHRISTOPHER (18-24) GC (GONORRHEA) SCREENING (18-24) [facility] Start: 2022 PAP TESTING PAP TESTING [facility] Start: 2022 Screening for malign ant neoplasm of cervix [facility] Start: 07-02-2021 DEPRESSION ASSESSMENT DEPRESSION ASS [facility] Start: 2019 Anxiety Screening Anxiety Screening [facility] Start: 2019 Depression Screening Depression Scre ening [facility] Start: 2019 HEPATITIS C SCREENING HEPATITIS C [facility] Start: 2019 Hepatitis C screening Hepatitis C [facility] Start: 2019 HIV SCREENING HIV SCRE[facility] Start: 2019 HIV screening HIV Screening [facility] Start: 10-01-2018 Adult depression screening assessment DEPRESSION SCREENING [facility] Start: 2017 Meningococcal B Vacc ine (1 of 2 - Standard) Meningococcal B Vaccine (1 of 2 - Standard) [facility] Start: 2017 Meningococcal B Vacc ine: Consider Based On Risk (1 of 2 - Patient Seeks Protection) Meningococcal B Vaccine: Consider Based On Risk (1 of 2 - Patient Seeks Protection) [facility] Start: 2017 MENINGOCOCCAL B: Consider based on risk (1 of 2 - Patient Seeks Protection) MENINGOCOCCAL B: Consider based on risk (1 of 2 - Patient Seeks Protection) [facility] Start: 2015 PEDS TO ADULT TRANSI TION ANNUAL ASSESSMENT PEDS TO ADULT TRANSITION ANNUAL ASSESSMENT [facility] Start: 2013 PEDS TO ADULT TRANSI TION INITIAL DISCUSSION PEDS TO ADULT TRANSITION INITIAL DISCUSSION [facility] Start: 2011 MENINGOCOCCAL B: Consider based on risk (1 of 2 - Risk Bexsero 2-dose series) MENINGOCOCCAL B: Consider based on risk (1 of 2 - Risk Bexsero 2-dose series) [facility] Start: 2006 COVID-19 VACCINE (#1) COVID-19 VACCI NE (#1) [facility] Start: 2006 COVID-19 VACCINE (1) COVID-19 VACCIN E (1) [facility] Start: 2001 COVID-19 VACCINE (#1) COVID-19 VACCI NE (#1) [facility] BACTERIAL VAGINOSIS AMPLIFICATION BACTERIAL VAGINOSIS AMPLIFICATION Lab Routine Vaginal discharge Screen for STD (sexually transmitted disease) Ordered: 12/16/2021 [facility] Work Phone: Comment on above: Ordered: 12/16/2021 HAZEL / TRICHOMONA S AMPLIFICATION HAZEL / TRICHOMONAS AMPLIFICATION Lab Routine Vaginal discharge Screen for STD (sexually transmitted disease) Ordered: 12/16/2021 [facility] Work Phone: Comment on above: Ordered: 12/16/2021 CBC W Auto Different ial panel - Blood CBC + DIFF Lab Routine Sore throat 06/19/2023 9:24 AM EST [facility] Work Phone: Chlamydia trachomatis+Neisseria gonorrhoeae DNA [Presence] in Unspecified specimen by JOSE with probe detection GC/CHLAMYDIA DNA DET Lab Routine Vaginal discharge Screen for STD (sexually transmitted disease) Ordered: 12/16/2021 [facility] Work Phone: Comment on above: Ordered: 12/16/2021 End: 02-08-2024 ECG COMPLETE ECG COMPLETE ECG Routine Status post transcatheter replacement of pulmonary valve TOF (tetralogy of Fallot) 1 Occurrences starting 02/07/2023 until 02/08/2024 [facility] Work Phone: Comment on above: 1 Occurrences starti ng 02/07/2023 until 02/08/2024 End: 05-10-2024 ECHO PED W/O CONTRAST ECHO PED W/O CONTRAST ECHO PEDS Routine Status post transcatheter replacement of pulmonary valve TOF (tetralogy of Fallot) 1 Occurrences starting 02/07/2023 until 05/10/2024 [facility] Work Phone: Comment on above: 1 Occurrences starti ng 02/07/2023 until 05/10/2024 End: 03-16-2024 MRA CHEST CARDIOVASCULAR WO/W IVCON MRA CHEST CARDIOVASCULAR WO/W IVCON Radiology Routine TOF (tetralogy of Fallot) 1 Occurrences starting 02/16/2023 until 03/16/2024 [facility] Work Phone: Comment on above: 1 Occurrences starti ng 02/16/2023 until 03/16/2024 End: 03-16-2024 MRI CARDIAC MORPH FUNC WO/W IVCON MRI CARDIAC MORPH FUNC WO/W IVCON Radiology Routine TOF (tetralogy of Fallot) 1 Occurrences starting 02/16/2023 until 03/16/2024 [facility] Work Phone: Comment on above: 1 Occurrences starti ng 02/16/2023 until 03/16/2024 End: 03-16-2024 MRI CARDIAC VELOCITY FLOW MAP MRI CARDIAC VELOCITY FLOW MAP Radiology Routine TOF (tetralogy of Fallot) 1 Occurrences starting 02/16/2023 until 03/16/2024 [facility] Work Phone: Comment on above: 1 Occurrences starti ng 02/16/2023 until 03/16/2024 OUTSIDE VENDOR CARDI AC OUTPATIENT EXTENDED RHYTHM RECORDING (WITHOUT TELEMETRY) OUTSIDE VENDOR CARDIAC OUTPATIENT EXTENDED RHYTHM RECORDING (WITHOUT TELEMETRY) Holter Routine Status post transcatheter replacement of pulmonary valve TOF (tetralogy of Fallot) Ordered: 02/15/2023 [facility] Work Phone: Comment on above: Ordered: 02/15/2023 [facility] Immunizations Immunization Date Immunization Notes Care Provider Fa yaz 03-19-2017 influenza, injectabl e, quadrivalent, contains preservative Mica Sarabia APRN.[facility] Work Phone: [facility] Work Phone: 03-19-2017 meningococcal polysaccharide (groups A, C, Y and W-135) diphtheria toxoid conjugate vaccine (MCV4P) Mica Sarabia APRN.[facility] Work Phone: [facility] Work Phone: 03-19-2017 influenza virus vacc ine, unspecified formulation Marie Rodgers MD Work Phone: [facility] 04-12-2016 influenza, injectabl e, quadrivalent, contains preservative Mica Sarabia APRN.[employer] Work Phone: [facility] Work Phone: 03-20-2015 influenza, injectabl e, quadrivalent, contains preservative Mica Sarabia APRN.[employer] Work Phone: [facility] 03-20-2015 influenza, seasonal, injectable Mica Sarabia APRN.[employer] Work Phone: [facility] Work Phone: 01-12-2014 human papilloma viru s vaccine, quadrivalent Mica Sarabia APRN.[employer] Work Phone: [facility] Work Phone: 10-08-2013 human papilloma viru s vaccine, quadrivalent Mica Sarabia APRN.[employer] Work Phone: [facility] Work Phone: 03-05-2013 human papilloma viru s vaccine, quadrivalent Mica Sarabia APRN.[employer] Work Phone: [facility] 03-05-2013 Meningococcal, MCV4, unspecified conjugate formulation(groups A, C, Y and W-135) Mica Sarabia APRN.[employer] Work Phone: [facility] 03-05-2013 tetanus toxoid, redu jocelin diphtheria toxoid, and acellular pertussis vaccine, adsorbed Mica Sarabia APRN.[employer] Work Phone: [facility] 05-15-2008 hepatitis A vaccine, unspecified formulation Mica Sarabia APRN.[facility] Work Phone: [facility] Work Phone: 03-07-2007 hepatitis A vaccine, unspecified formulation Mica Sarabia APRN.[facility] Work Phone: [facility] Work Phone: 03-07-2007 varicella virus vaccine Mica Sarabia APRN.[facility] Work Phone: [facility] Work Phone: 02-16-2005 diphtheria, tetanus toxoids and acellular pertussis vaccine Mica Sarabia APRN.[employer] Work Phone: [facility] Work Phone: 02-16-2005 measles, mumps and rubella virus vaccine Mica Sarabia APRN.[employer] Work Phone: [facility] Work Phone: 02-16-2005 poliovirus vaccine, inactivated Mica Sarabia APRN.[employer] Work Phone: [facility] Work Phone: 03-16-2003 diphtheria, tetanus toxoids and acellular pertussis vaccine Mica Sarabia APRN.[employer] Work Phone: [facility] Work Phone: 03-16-2003 haemophilus influenz ae type b vaccine, HbOC conjugate Mica Sarabia APRN.[employer] Work Phone: [facility] Work Phone: 03-16-2003 pneumococcal conjuga te vaccine, 7 valent Mica Sarabia APRN.[facility] Work Phone: [facility] Work Phone: 02-24-2002 measles, mumps and rubella virus vaccine Mica Sarabia APRN.[facility] Work Phone: [facility] Work Phone: 02-24-2002 varicella virus vaccine Mica Sarabia APRN.[facility] Work Phone: [facility] Work Phone: 2001 diphtheria, tetanus toxoids and acellular pertussis vaccine Mica Sarabia APRN.[facility] Work Phone: [facility] Work Phone: 2001 haemophilus influenz ae type b vaccine, HbOC conjugate Mica Sarabia APRN.[facility] Work Phone: [facility] Work Phone: 2001 pneumococcal conjuga te vaccine, 7 valent Mica Sarabia APRN.[facility] Work Phone: [facility] Work Phone: 2001 poliovirus vaccine, inactivated Mica Sarabia APRN.[facility] Work Phone: [facility] Work Phone: 2001 hepatitis B vaccine, pediatric or pediatric/adolescent dosage Mica Sarabia APRN.[facility] Work Phone: [facility] Work Phone: 2001 diphtheria, tetanus toxoids and acellular pertussis vaccine iMca Sarabia APRN.[facility] Work Phone: [facility] Work Phone: 2001 haemophilus influenz ae type b vaccine, HbOC conjugate Mica Sarabia APRN.[facility] Work Phone: [facility] Work Phone: 2001 pneumococcal conjuga te vaccine, 7 valent Mica Sarabia GRANULATING MACHINE OPERATOR.[facility] Work Phone: [facility] Work Phone: 2001 poliovirus vaccine, inactivated Mica Sarabia GRANULATING MACHINE OPERATOR.[employer] Work Phone: [facility] Work Phone: 2001 diphtheria, tetanus toxoids and acellular pertussis vaccine Mica Sarabia GRANULATING MACHINE OPERATOR.[employer] Work Phone: [facility] Work Phone: 2001 haemophilus influenz ae type b vaccine, HbOC conjugate Mica Sarabia GRANULATING MACHINE OPERATOR.[facility] Work Phone: [facility] Work Phone: 2001 pneumococcal conjuga te vaccine, 7 valent Mica Sarabia GRANULATING MACHINE OPERATOR.[facility] Work Phone: [facility] Work Phone: 2001 poliovirus vaccine, inactivated Mica Sarabia GRANULATING MACHINE OPERATOR.[facility] Work Phone: [facility] Work Phone: 2001 diphtheria, tetanus toxoids and acellular pertussis vaccine, unspecified formulation Mica Sarabia GRANULATING MACHINE OPERATOR.[facility] Work Phone: [facility] Work Phone: 2001 hepatitis B vaccine, pediatric or pediatric/adolescent dosage Mica Sarabia GRANULATING MACHINE OPERATOR.[employer] Work Phone: [facility] Work Phone: 2001 poliovirus vaccine, inactivated Mica Sarabia GRANULATING MACHINE OPERATOR.[employer] Work Phone: [facility] Work Phone: 2001 hepatitis B vaccine, pediatric or pediatric/adolescent dosage Mica Sarabia GRANULATING MACHINE OPERATOR.[employer] Work Phone: [facility] Work Phone: 2001 hepatitis B vaccine, pediatric or pediatric/adolescent dosage Mica Sarabia GRANULATING MACHINE OPERATOR.[employer] Work Phone: [facility] Work Phone: Payers Date Payer Category Payer Self-pay 2021 Unknown [id number] 2018 Unknown [employer] PPO [id number] 2018-Present [phone] [address] [place] [address] PPO [id number] 2001 Unknown [id number] Unknown [id number] Unknown [id number] Unknown [id number] Unknown [id number] Unknown [id number] Unknown [id number] Social History Date Type Detail Facility Start: 10-18-2017 End: 02-15-2023 Tobacco smoking status CTIS Never smoked tobacco [facility] Start: 10-18-2017 End: 02-15-2023 Tobacco use and exposure Smokeless tobacco non-user [facility] Start: 11-02-2021 End: 12-05-2024 Alcohol intake Current non-drinker of alcohol (finding) [facility] Start: 10-18-2017 End: 02-15-2023 Tobacco Comment brother outdoors [facility] Start: 2001 Sex Assigned At Not on file [facility] Start: 10-09-2021 End: 12-16-2021 Exposure to SARS-CoV-2 (event) Not sure [facility] Work Phone: History of tobacco use Passive smoker [facility] Start: 2001 Sex Assigned At Female [facility] Start: 05-16-2022 History SDOH Social Connections Phone 98 [facility] Start: 05-16-2022 History SDOH Social Connections Membership 2 [facility] Start: 05-16-2022 History SDOH Physical Activity DPW 1 [facility] Start: 05-16-2022 History SDOH Physical Activity MPS 6 [facility] Start: 05-16-2022 History SDOH Stress 3 [facility] Start: 05-16-2022 End: 02-15-2023 History of Social function [facility] Start: 05-16-2022 End: 02-15-2023 Social connection and isolation panel [facility] In a typical week, h ow many times do you talk on the telephone with family, friends, or neighbors? Patient refused [facility] Do you belong to any clubs or organizations such as mormonism groups, unions, fraternal or athletic groups, or school groups? No [facility] Are you now , , , , never or living with a partner? Refused [facility] How hard is it for y ou to pay for the very basics like food, housing, medical care, and heating Somewhat hard [facility] Do you feel stress - tense, restless, nervous, or anxious, or unable to sleep at night because your mind is troubled all the time - these days [OSQ] To some extent [facility] (I/We) worried wheth er (my/our) food would run out before (I/we) got money to buy more. DK or Refused [facility] Start: 03-14-2022 Gender identity Identifies as female gender (finding) [facility] Start: 03-14-2022 Sexual orientation Heterosexual (finding) [facility] Medical Equipment Procedure Code Equipment Code Equipment Original Text Equipment Identifier Dates Patch Card Ecm Ped 4 X 7cm - [id number] Start: 09-27-2012 Comment on above: Description: CorMatr ix for patch Valve Aort Ease Thrmfx Bprt - [id number] Start: 09-27-2012 Comment on above: Description: [employer] PERIMOUNT MAGNA EASE AORTIC VALVE Functional Status Date Assessment Result Facility 05-20-2020 Are you deaf, or do you have serious difficulty hearing No 05/20/2020 1:27 PM Katerine Mckoy RN No [facility] 05-20-2020 Are you blind, or do you have serious difficulty seeing, even when wearing glasses No 05/20/2020 1:27 PM Katerine Mckoy RN No [facility] 05-20-2020 Do you have serious difficulty walking or climbing stairs No 05/20/2020 1:27 PM Katerine Mckoy RN No [facility] 05-20-2020 Do you have difficul ty dressing or bathing No 05/20/2020 1:27 PM Katerine Mckoy RN No [facility] 05-20-2020 Because of a physica l, mental, or emotional condition, do you have difficulty doing errands alone such as visiting a physician's office or shopping No 05/20/2020 1:27 PM Katerine Mckoy RN No [facility] Mental Status Date Assessment Result Facility 05-20-2020 Because of a physica l, mental, or emotional condition, do you have serious difficulty concentrating, remembering, or making decisions No 05/20/2020 1:27 PM Katerine Mckoy RN No [facility] Clinical Notes 08-12-2015 to 12-05-2024 Dmitriy Bishop [...] PATIENT PRESENTS WITH AN IMPLANTABLE OR ATTACHED SOLAR APPLICATIONS DEVELOPMENT ENGINEER: No RADIOLOGY DEPARTMENT: General X-ray: Exam(s) Completed: Chest X-Ray PERIPHERAL IV DATA: Not applicable SIGNED BY: RT Arlin(Linda) December 05, 2024 4:12 PM documented in this encounter [facility] 12-05-2024 Note HNO ID: [id number] Author: DMITRIY BISHOP RT(R) Service: Radiology Author [...] PATIENT PRESENTS WITH AN IMPLANTABLE OR ATTACHED SOLAR APPLICATIONS DEVELOPMENT ENGINEER: No RADIOLOGY DEPARTMENT: General X-ray: Exam(s) Completed: Chest X-Ray PERIPHERAL IV DATA: Not applicable SIGNED BY: RT Arlin(Linda) December 05, 2024 4:12 PM [facility] 12-05-2024 Note HNO ID: [id number] Author: LAMONT ARREAGA MD Service: ? Author [...] following reason(s): laboratory studies not suggestive Procedures [facility] 12-05-2024 History of Present illness Narrative [...] not suggestive Procedures documented in this encounter [facility] 11-04-2024 Telephone encounter Note Call patient with XR results. Left-sided bronchopneumonia. She does have history of multiple heart conditions. Will double cover. Rx doxycycline. Rx Augmentin. Patient denies any concern for . Not breast-feeding. Advised to follow-up with PCP in 4 to 6-week [facility] 11-04-2024 Miscellaneous Notes Call patient with XR results. Left-sided bronchopneumonia. She does have history of multiple heart conditions. Will double cover. Rx doxycycline. Rx Augmentin. Patient denies any concern for . Not breast-feeding. Advised to follow-up with PCP in 4 to 6-week documented in this encounter [facility] 11-04-2024 History of Present illness Narrative Radiology [...] PATIENT PRESENTS WITH AN IMPLANTABLE OR ATTACHED SOLAR APPLICATIONS DEVELOPMENT ENGINEER: No RADIOLOGY DEPARTMENT: General X-ray: Exam(s) Completed: Chest X-Ray PERIPHERAL IV DATA: Not applicable SIGNED BY: RT Alyson(Linda) November 04, 2024 3:13 PM documented in this encounter [facility] 11-04-2024 Note HNO ID: [id number] Author: SERENA BOONE RT(Linda) Service: ? Author Type: Elementary Principal Type: Progress Notes Filed: 11/04/2024 15:22 Note [...] PATIENT PRESENTS WITH AN IMPLANTABLE OR ATTACHED SOLAR APPLICATIONS DEVELOPMENT ENGINEER: No RADIOLOGY DEPARTMENT: General X-ray: Exam(s) Completed: Chest X-Ray PERIPHERAL IV DATA: Not applicable SIGNED BY: RT Alyson(Linda) November 04, 2024 3:13 PM [facility] 11-04-2024 Note HNO ID: [id number] Author: ASPEN OWEN PA Service: ? Author Type: Physician Auto Transmission Mechanic Type: Progress Notes Filed: 11/04/2024 15:16 Note [...] DISORDER 04/26/2004 Right ventricular dilation 06/08/2015 Seizure ([facility]) 08/13/2015 Tetralogy of Fallot (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 Procedures [facility] 11-04-2024 History of Present illness Narrative [...] DISORDER 04/26/2004 Right ventricular dilation 06/08/2015 Seizure ([facility]) 08/13/2015 Tetralogy of Fallot (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 Procedures documented in this encounter [facility] 10-23-2024 Note HNO ID: [id number] Author: TRACY QUEZADA RN Service: ? Author Type: Registered Nurse Type: Progress Notes Filed: 10/24/2024 13:39 Note Text: October 23, 2024 Patient: Kimberly Guerrero Brief Cardiac History: TOF Primary Narrow Fabric Calenderer: Dr. Butterfield This RN attended Kimberly's office [...] for any future concerns Tracy Quezada RN [facility] 10-23-2024 Note HNO ID: [id number] Author: MEAGAN AVILA OCCA Service: ? Author Type: Obstetrics Scrub Nurse Type: Progress Notes Filed: 10/23/2024 10:38 Note Text: Summary: carmen ZIOPATCH APPLICATION PEDIATRIC CARDIOLOGY -Chest is cleansed and prepped with razor, prep tape, and alcohol. -Ziopatch placed on chest -Ziopatch activated -Serial # [id number] -Instructed patient 1) Patient to wear monitor forHolter Monitor less than 48hrs, [employer] [id number] 2) Diary documentation 3) Usage of event button 4) Maintenance and care of monitor 5) Safety issues with monitor 6) Call with problems [phone] Verbalized understanding of instructions by patient. SIGNATURE: DANIELLE Carolina PATIENT NAME: Kimberly Patel DATE: October 23, 2024 TIME: 10:37 AM [facility] 10-23-2024 Note HNO ID: [id number] Author: TANYA BUTTERFIELD MD Service: ? Author Type: Physician Type: Progress Notes Filed: 10/24/2024 08:16 Note Text: PEDIATRIC CARDIOLOGY FOLLOW UP SERVICE DATE: 10/23/2024 PCP: Padmini Porter DO CHIEF COMPLAINT: TOF Results communicated back by electronic medical record I had the pleasure of seeing Kimberly Patel in Pediatric Cardiology consultation at [facility] on 10/23/2024. Kimberly is a 24 [...] with a 25-mm Magna Ease 3300 by [employer] bovine pericardial valve with right ventricular outflow [...] cardiac MRI performed on 06/18/2015 which confirmed ymsixzto-gv-xjfrpd pulmonary valve regurgitation with RF 35% with [...] valve replacement. She was taken to the microbiology lab analyst on 05/19/2020. She was found to have a baseline gradient of 27 mm Hg across the pulmonary valve in addition to her known regurgitation. A 22 mm Vandana valve was placed on and post dilated to 24 mm with a 24 X 4 [place] Gold balloon with an excellent result and 7 mmHg across the valve. She tolerated the procedure well and was discharged the next day. In addition, she also has Pbqpr-Inubzdvtx-Zdmhi syndrome (resting EKG with pre-excitation) without palpitation [...] HISTORY OF P (more content not included)... [facility] 10-23-2024 Note HNO ID: [id number] Author: ROLANDA OCHOA MD Service: ? Author [...] with sinus. There were no symptoms reported. [facility] 10-23-2024 Note Patient Outreach ( PDMN) KIMBERLY PATEL ([id number]) 2 F Date Time Provider Department 10/23/24 TRACY QUEZADA [facility]PDMN During your visit today, we recorded the following information about you: Tracy Quezada RN 10/24/2024 1:39 PM Signed October 23, 2024 Patient: Kimberly Guerrero Brief Cardiac History: TOF Primary Narrow Fabric Calenderer: Dr. Butterfield This RN attended Kimberly's office [...] Date Reviewed: 10/23/2024 Reviewed by: Jerry Farmer APRN.WOOD CUTTER - Fully Assessed Prescriptions as of 10/24/2024 [...] [T82.897A] 06/08/2015 Chest pain [R07.9] 08/12/2015 08/13/2015 Dezup-Xxpomqnkb-Fbkbk (WPW) syndrome [I45.6] 08/13/2015 Seizure (HCC) [R56.9] 08/13/2015 Attention deficit hyperactivity disorder (ADHD)*03/19/2017 TOF (tetralogy of Fallot) (HCC) [Q21.3] 10/23/2024 Encounter Status:Closed by TRACY QUEZADA on 10/24/24 [facility] 09-01-2024 Note HNO ID: [id number] Author: FABIOLA HURT APRN.WOOD CUTTER Service: ? 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 Author Type: Elementary Principal Type: Progress Notes Filed: 09/01/2024 10:39 Note [...] PATIENT PRESENTS WITH AN IMPLANTABLE OR ATTACHED SOLAR APPLICATIONS DEVELOPMENT ENGINEER: No RADIOLOGY DEPARTMENT: General X-ray: Exam(s) Completed: Chest X-Ray PERIPHERAL IV DATA: Not applicable SIGNED BY: RT Alyson(R) September 01, 2024 10:28 AM [facility] 03-22-2024 Note HNO ID: [id number] Author: FABIOLA HURT APRN.WOOD CUTTER Service: ? 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 PAST SURGICAL HISTORY Procedure [...] Fabiola Hurt APRN.CNP documented in this encounter [facility] 07-17-2023 History of Present illness Narrative Radiology [...] 2023 9:24 AM documented in this encounter [facility] 06-19-2023 History of Present illness Narrative 06/19/2023 [...] s/p surgical repair 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 Current Outpatient Medications Medication [...] Kylie Ray PA-C documented in this encounter [facility] 03-29-2023 History of Present illness Narrative Patient [...] Disorder Right Ventricular Dilation Prosthetic Valve Regurgitation Otgbv-Xyglhmvan-Vfadx (Wpw) Syndrome Seizure (Hcc) Attention Deficit Hyperactivity Disorder (Adhd), Predominantly Inattentive Type 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 -Ziopatch placed on chest -Ziopatch activated -Serial # [id number] -Instructed patient and parent 1) Patient to wear monitor forHolter Monitor less than 48hrs, [employer] Scout [id number] 2) Diary documentation 3) Usage of event button 4) Maintenance and care of monitor 5) Safety issues with monitor 6) Call with problems [phone] Verbalized understanding of instructions by patient and parent. SIGNATURE: Calista López MA PATIENT NAME: Kimberly Patle DATE: February 15, 2023 TIME: 4:12 PM documented in this encounter [facility] 02-15-2023 History of Present illness Narrative PEDIATRIC CARDIOLOGY FOLLOW UP SERVICE DATE: 02/15/2023 PCP: Ladonna Plata MD CHIEF COMPLAINT: TOF Results communicated back by electronic medical record I had the pleasure of seeing Kimberly Patel in Pediatric Cardiology consultation at [facility] on 02/15/2023. History was obtained from: [...] with a 25-mm Magna Ease 3300 by [employer] bovine pericardial valve with right ventricular outflow [...] cardiac MRI performed on 06/18/2015 which confirmed ypnpqtbo-pe-fagnlj pulmonary valve regurgitation with RF 35% with [...] valve replacement. She was taken to the microbiology lab analyst on 05/19/2020. She was found to have a baseline gradient of 27 mm Hg across the pulmonary valve in addition to her known regurgitation. A 22 mm Vandana valve was placed on 22 mm ensemble and post dilated to 24 mm with a 24 X 4 [place] Gold balloon with an excellent result and 7 mmHg across the valve. She tolerated the procedure well and was discharged the next day. 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 Tanya Butterfield MD, [facility], [facility] Pediatric and Congenital Interventional Cardiology Pediatric Cardiology Adult Congenital Cardiology [facility] documented in this encounter [facility] 02-15-2023 Instructions Tracy Quezada, JASEN - 02/15/2023 2:57 PM EDT Thank you for seeing Dr. 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 law firm receptionist) Scheduling Line: [phone] -The echo done today didn't show any major changes, there was a slight increase in the valve gradient which we will continue to follow -Continue daily baby aspirin -Zio patch placed today for 24 hours, we will reach out once we have these results -SBE prophylaxis is needed -Please call and schedule your cardiac MRI at [facility] [place] at your earliest convenience, you can call [phone] -No physical restrictions -Follow up in one year with an echo, stress test and EKG documented in this encounter [facility] 05-16-2022 History of Present illness Narrative DISTANCE HEALTH PEDIATRIC SICK VISIT Patient seen on [employer] video visit platform Kimberly Patel physically located in the [facility]. PCP: Ladonna Plata MD See demographics for Kimberly's permanent address. Kimberly Patel is a 22 year old who presents for a distance health visit . 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 documented in this encounter [facility] 01-31-2022 Miscellaneous Notes Patient notified. Vickie Ceballos [...] RX to be sent to [facility] in [place]. Would like a call back. Vickie Ceballos RN documented in this encounter [facility] 12-20-2021 Miscellaneous Notes Patient notified. Voiced understanding. Vickie Ceballos RN Message left asking pt to call the office for test results. Padmini Anne LPN ----- Message from Tracy Cazares APRN.CNM sent at 12/20/2021 8:59 AM EDT ----- Positive for yeast. Rx sent for Diflucan 150 mg PO x 1. Please notify patient. Tracy Cazares APRN.CNM documented in this encounter [facility] 12-16-2021 History of Present illness Narrative Kimberly [...] external genitalia normal, normal Bartholin's glands, urethra, [place]'s glands, no vulvar lesions, no cervical lesions, [...] Tracy Cazares APRN.CNM documented in this encounter [facility] 12-16-2021 Instructions Tracy Cazares APRN.CNM - 12/16/2021 [...] prescribed by physician. documented in this encounter [facility] 11-02-2021 Instructions Mica Sarabia APRN.CNP - 11/02/2021 12:02 PM EDT Take 2 of your naproxen every 12 hours beginning 48 hours prior to menses and continue for 5 days. 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 documented in this encounter [facility] 08-12-2015 History of Past i llness Narrative Problem Noted Date Resolved Date Chest pain 08/12/2015 08/13/2015 Abnormal ECG 07/28/2012 11/14/2012 Flat feet 02/27/2011 01/12/2020 Dysfunction of eustachian tube 12/12/2004 0 03/05/2013 Pulmonary valve disorders 04/26/20042012 Other specified cardiac dysrhythmias(427.89) 06/200411/14/2012 Disorders of diaphragm 08/06/2002 3 Overview: surgical injury, now resolved documented as of this encounter (statuses as of 11/02/2021) [facility] History of Past illness Narrative* Problem Noted Date Resolved Date Chest pain 08/12/2015 08/13/2015 Abnormal ECG 07/28/2012 11/14/2012 Flat feet 02/27/2011 01/12/2020 Dysfunction of eustachian tube 12/12/2004 0 03/05/2013 Pulmonary valve disorders 04/26/20042012 Other specified cardiac dysrhythmias(427.89) 06/200411/14/2012 Disorders of diaphragm 08/06/2002 3 Overview: surgical injury, now resolved documented as of this encounter (statuses as of 12/16/2021) [facility] History of Past illness Narrative* Problem Noted Date Resolved Date Chest pain 08/12/2015 08/13/2015 Abnormal ECG 07/28/2012 11/14/2012 Flat feet 02/27/2011 01/12/2020 Dysfunction of eustachian tube 12/12/2004 0 03/05/2013 Pulmonary valve disorders 04/26/20042012 Other specified cardiac dysrhythmias(427.89) 06/200411/14/2012 Disorders of diaphragm 08/06/2002 3 Overview: surgical injury, now resolved documented as of this encounter (statuses as of 12/20/2021) [facility] History of Past illness Narrative* Problem Noted Date Resolved Date Chest pain 08/12/2015 08/13/2015 Abnormal ECG 07/28/2012 11/14/2012 Flat feet 02/27/2011 01/12/2020 Dysfunction of eustachian tube 12/12/2004 0 03/05/2013 Pulmonary valve disorders 04/26/20042012 Other specified cardiac dysrhythmias(427.89) 06/200411/14/2012 Disorders of diaphragm 08/06/2002 3 Overview: surgical injury, now resolved documented as of this encounter (statuses as of 01/31/2022) [facility] History of Past illness Narrative* Problem Noted Date Resolved Date Chest pain 08/12/2015 08/13/2015 Abnormal ECG 07/28/2012 11/14/2012 Flat feet 02/27/2011 01/12/2020 Dysfunction of eustachian tube 12/12/2004 0 03/05/2013 Pulmonary valve disorders 04/26/20042012 Other specified cardiac dysrhythmias(427.89) 06/200411/14/2012 Disorders of diaphragm 08/06/2002 3 Overview: surgical injury, now resolved documented as of this encounter (statuses as of 04/11/2022) [facility] History of Past illness Narrative* Problem Noted Date Resolved Date Chest pain 08/12/2015 08/13/2015 Abnormal ECG 07/28/2012 11/14/2012 Flat feet 02/27/2011 01/12/2020 Dysfunction of eustachian tube 12/12/2004 0 03/05/2013 Pulmonary valve disorders 04/26/20042012 Other specified cardiac dysrhythmias(427.89) 06/200411/14/2012 Disorders of diaphragm 08/06/2002 3 Overview: surgical injury, now resolved documented as of this encounter (statuses as of 05/16/2022) [facility] History of Past illness Narrative* Problem Noted Date Diagnosed Date Resolved Date Chest pain 08/12/2015 08/13/2015 Abnormal ECG 07/28/2012 11/14/2012 Flat feet 02/27/2011 01/12/2020 Dysfunction of eustachian tube 12/12/2004 03/05/2013 Pulmonary valve disorders 04/26/2004 Other specified cardiac dysrhythmias(427.89) 4 11/14/2012 Disorders of diaphragm 08/06/200203/05 Overview: surgical injury, now resolved documented as of this encounter (statuses as of 02/07/2023) [facility] History of Past illness Narrative* Problem Noted Date Diagnosed Date Resolved Date Chest pain 08/12/2015 08/13/2015 Abnormal ECG 07/28/2012 11/14/2012 Flat feet 02/27/2011 01/12/2020 Dysfunction of eustachian tube 12/12/2004 03/05/2013 Pulmonary valve disorders 04/26/2004 Other specified cardiac dysrhythmias(427.89) 4 11/14/2012 Disorders of diaphragm 08/06/200203/05 Overview: surgical injury, now resolved documented as of this encounter (statuses as of 02/07/2023) [facility] History of Past illness Narrative* Problem Noted Date Diagnosed Date Resolved Date Chest pain 08/12/2015 08/13/2015 Abnormal ECG 07/28/2012 11/14/2012 Flat feet 02/27/2011 01/12/2020 Dysfunction of eustachian tube 12/12/2004 03/05/2013 Pulmonary valve disorders 04/26/2004 Other specified cardiac dysrhythmias(427.89) 4 11/14/2012 Disorders of diaphragm 08/06/200203/05 Overview: surgical injury, now resolved documented as of this encounter (statuses as of 02/16/2023) [facility] History of Past illness Narrative* Problem Noted Date Diagnosed Date Resolved Date Chest pain 08/12/2015 08/13/2015 Abnormal ECG 07/28/2012 11/14/2012 Flat feet 02/27/2011 01/12/2020 Dysfunction of eustachian tube 12/12/2004 03/05/2013 Pulmonary valve disorders 04/26/2004 Other specified cardiac dysrhythmias(427.89) 4 11/14/2012 Disorders of diaphragm 08/06/200203/05 Overview: surgical injury, now resolved documented as of this encounter (statuses as of 02/16/2023) [facility] History of Past illness Narrative* Problem Noted Date Diagnosed Date Resolved Date Chest pain 08/12/2015 08/13/2015 Abnormal ECG 07/28/2012 11/14/2012 Flat feet 02/27/2011 01/12/2020 Dysfunction of eustachian tube 12/12/2004 03/05/2013 Pulmonary valve disorders 04/26/2004 Other specified cardiac dysrhythmias(427.89) 4 11/14/2012 Disorders of diaphragm 08/06/200203/05 Overview: surgical injury, now resolved documented as of this encounter (statuses as of 02/16/2023) [facility] History of Past illness Narrative* Problem Noted Date Diagnosed Date Resolved Date Chest pain 08/12/2015 08/13/2015 Abnormal ECG 07/28/2012 11/14/2012 Flat feet 02/27/2011 01/12/2020 Dysfunction of eustachian tube 12/12/2004 03/05/2013 Pulmonary valve disorders 04/26/2004 Other specified cardiac dysrhythmias(427.89) 4 11/14/2012 Disorders of diaphragm 08/06/200203/05 Overview: surgical injury, now resolved documented as of this encounter (statuses as of 03/08/2023) [facility] History of Past illness Narrative* Problem Noted Date Diagnosed Date Resolved Date Chest pain 08/12/2015 08/13/2015 Abnormal ECG 07/28/2012 11/14/2012 Flat feet 02/27/2011 01/12/2020 Dysfunction of eustachian tube 12/12/2004 03/05/2013 Pulmonary valve disorders 04/26/2004 Other specified cardiac dysrhythmias(427.89) 4 11/14/2012 Disorders of diaphragm 08/06/200203/05 Overview: surgical injury, now resolved documented as of this encounter (statuses as of 03/30/2023) [facility] History of Past illness Narrative* Problem Noted Date Diagnosed Date Resolved Date Chest pain 08/12/2015 08/13/2015 Abnormal ECG 07/28/2012 11/14/2012 Flat feet 02/27/2011 01/12/2020 Dysfunction of eustachian tube 12/12/2004 03/05/2013 Pulmonary valve disorders 04/26/2004 Other specified cardiac dysrhythmias(427.89) 4 11/14/2012 Disorders of diaphragm 08/06/200203/05 Overview: surgical injury, now resolved documented as of this encounter (statuses as of 03/31/2023) [facility] History of Past illness Narrative* Problem Noted Date Diagnosed Date Resolved Date Chest pain 08/12/2015 08/13/2015 Abnormal ECG 07/28/2012 11/14/2012 Flat feet 02/27/2011 01/12/2020 Dysfunction of eustachian tube 12/12/2004 03/05/2013 Pulmonary valve disorders 04/26/2004 Other specified cardiac dysrhythmias(427.89) 4 11/14/2012 Disorders of diaphragm 08/06/200203/05 Overview: surgical injury, now resolved documented as of this encounter (statuses as of 06/20/2023) [facility] Diagnosis Breakthrough bleeding on OCPs- Primary Metrorrhagia Dysmenorrhea Surveillance for control, oral contraceptives Surveillance of previously prescribed contraceptive pill [facility] Diagnosis Vaginal discharge- Primary Leukorrhea, not specified as infective Screen for STD (sexually transmitted disease) Screening examination for venereal disease [facility] Diagnosis Viral syndrome- Primary Unspecified viral infection, in conditions classified elsewhere and of unspecified site [facility] Diagnosis Status post transcatheter replacement of pulmonary valve- Primary Heart valve replaced by other means TOF (tetralogy of Fallot) Tetralogy of Fallot [facility] Diagnosis Status post transcatheter replacement of pulmonary valve- Primary Heart valve replaced by other means TOF (tetralogy of Fallot) Tetralogy of Fallot [facility] Diagnosis TOF (tetralogy of Fallot)- Primary Tetralogy of Fallot [facility] Diagnosis TOF (tetralogy of Fallot)- Primary Tetralogy of Fallot Status post transcatheter replacement of pulmonary valve Heart valve replaced by other means [facility] Diagnosis Sore throat- Primary Acute pharyngitis TOF (tetralogy of Fallot) Tetralogy of Fallot [facility] Diagnosis Viral illness- Primary Unspecified viral infection, in conditions classified elsewhere and of unspecified site [facility] Diagnosis Sore throat- Primary Acute pharyngitis [facility] Diagnosis Acute cough [facility] Diagnosis Chest pain, unspecified type- Primary Rash Rash and other nonspecific skin eruption [facility] Diagnosis URI, acute- Primary Acute upper respiratory infections of unspecified site Acute cough FUO (fever of unknown origin) Fever, unspecified documented in this encounter [facility] note* Diagnosis Acute cough- Primary Acute cough documented in this encounter [facility] note* Diagnosis Acute cough documented in this encounter [facility] note* Diagnosis Acute cough- Primary Acute cough documented in this encounter [facility] note* Diagnosis Acute cough [facility] Outpatient Procedure (Routine) - Closed Specialty Diagnoses / Procedures Referred By Foreign lucas Referred To Contact [facility] Diagnoses Status post transcatheter replacement of pulmonary valve TOF (tetralogy of Fallot) Procedures ECG COMPLETE ECG ROUTINE ECG W/LEAST 12 LDS W/I&R Tanya Butterfield MD [address] [place] [address] [facility] [address] [place] [address] Referral ID Status Reason Start Date Expiration Date V isits Requested Visits Authorized [id number] Closed Auto-Generate d Referral 02/07/2023 02/07/2024 1 0 [facility] for visit Narrative* (Routine) - New Request Specialty Diagnoses / Procedures Referred By Foreign lucas Referred To Contact [facility] Diagnoses chest x ray Procedures X-RAY EXAM CHEST 2 VIEWS Aspen Andrews PA [address] [place] [address] Phone: tel: fax: [facility] [address] [place] [address] Phone: tel: Referral ID Status Reason Start Date Expiration Date Visits Requested Visits Authorized [id number] New Request OON/Self Pay Override 11/04/2024 02/02/2025 1 1 [facility] Summary Purpose Family History No Family History Records FoundNo Family History Records FoundNo Family History Records FoundNo Family History Records FoundNo Family History Records Found Advance Directives No Advanced Directives Records FoundDocuments on File Type Date Recorded Patient Pediatric Ophthalmologist Expl anation Advance Directive(s) 05/10/2020 8:49 AM ma in campus Reason for Referral Specialty Diagnoses / Procedures Referred By Contac t Referred To Contact [facility] Diagnoses TOF (tetralogy of Fallot) Procedures MRA CHEST CARDIOVASCULAR WO/W IVCON MRA CHEST WITH OR W/O CONT Tanya Butterfield MD [address] [place] [address] [facility] [place] [address] Referral ID Status Reason Start Date Expiration Date Visits Requested Visits Authorized [id number] Pending Review Auto-Generat ed Referral 02/16/2023 03/16/2024 1 1 Specialty Diagnoses / Procedures Referred By Contac t Referred To Contact [facility] IM[facility] Diagnoses TOF (tetralogy of Fallot) Procedures MRI CARDIAC MORPH FUNC WO/W IVCON CARDIAC MRI W/WO CONTRAST & FURTHER SEQ Tanya Butterfield MD [address] [place] [address] [facility] [place] [address] Referral ID Status Reason Start Date Expiration Date Visits Requested Visits Authorized [id number] Pending Review Auto-Generat ed Referral 02/16/2023 03/16/2024 1 1 Specialty Diagnoses / Procedures Referred By Contac t Referred To Contact [facility] IMAGING Diagnoses TOF (tetralogy of Fallot) Procedures MRI CARDIAC VELOCITY FLOW MAP CARDIAC MRI FOR VELOCITY FLOW MAPPING Tanya Butterfield MD [address] [place] [address] [facility] [place] [address] Referral ID Status Reason Start Date Expiration Date Visits Requested Visits Authorized [id number] Pending Review Auto-Generat ed Referral 02/16/2023 03/16/2024 1 1 Specialty Diagnoses / Procedures Referred By Contac t Referred To Contact INTERNAL MEDICINE Diagnoses TOF (tetralogy of Fallot) Procedures ESTABLISH WITH PRIMARY CARE NEW PATIENT OFFICE/OUTPATIENT [facility] 60-74 MINUTES Marie Rodgers MD [address] [place] [address] [facility] [address] [place] [address] Referral ID Status Reason Start Date Expiration Date Visits Requested Visits Authorized [id number] Authorized PCP Requested Referral 03/29/2023 03/28/2024 1 1 Additional Source Comments INFORMATION SOURCE (unrecogn ized section and content) DATE CREATED AUTHOR 03/25/2019 [facility] DATE CREATED AUTHOR AUTHOR'S ORGANIZ ATION 09/14/2021 [facility] DATE CREATED AUTHOR AUTHOR'S ORGANIZ ATION 05/10/2024 [facility] DATE CREATED AUTHOR AUTHOR'S ORGANIZ ATION 10/08/2024 [facility] DATE CREATED AUTHOR AUTHOR'S ORGANIZ ATION 12/07/2024 [facility] Source Comments (unrecognize d section and content) In the event this informatio n is protected by the Federal Confidentiality of Alcohol and Drug Abuse Patient Records regulations: The Federal rules restrict any use of the information to criminally investigate or prosecute any alcohol or drug abuse patient.[facility] event this information is protected by the Federal Confidentiality of Alcohol and Drug Abuse Patient Records regulations: The Federal rules restrict any use of the information to criminally investigate or prosecute any alcohol or drug abuse patient.[facility] the event this information is protected by the Federal Confidentiality of Alcohol and Drug Abuse Patient Records regulations: The Federal rules restrict any use of the information to criminally investigate or prosecute any alcohol or drug abuse patient.[facility] the event this information is protected by the Federal Confidentiality of Alcohol and Drug Abuse Patient Records regulations: The Federal rules restrict any use of the information to criminally investigate or prosecute any alcohol or drug abuse patient.[facility] the event this information is protected by the Federal Confidentiality of Alcohol and Drug Abuse Patient Records regulations: The Federal rules restrict any use of the information to criminally investigate or prosecute any alcohol or drug abuse patient.[facility] the event this information is protected by the Federal Confidentiality of Alcohol and Drug Abuse Patient Records regulations: The Federal rules restrict any use of the information to criminally investigate or prosecute any alcohol or drug abuse patient.[facility] the event this information is protected by the Federal Confidentiality of Alcohol and Drug Abuse Patient Records regulations: The Federal rules restrict any use of the information to criminally investigate or prosecute any alcohol or drug abuse patient.[facility] the event this information is protected by the Federal Confidentiality of Alcohol and Drug Abuse Patient Records regulations: The Federal rules restrict any use of the information to criminally investigate or prosecute any alcohol or drug abuse patient.[facility] the event this information is protected by the Federal Confidentiality of Alcohol and Drug Abuse Patient Records regulations: The Federal rules restrict any use of the information to criminally investigate or prosecute any alcohol or drug abuse patient.[facility] the event this information is protected by the Federal Confidentiality of Alcohol and Drug Abuse Patient Records regulations: The Federal rules restrict any use of the information to criminally investigate or prosecute any alcohol or drug abuse patient.[facility] the event this information is protected by the Federal Confidentiality of Alcohol and Drug Abuse Patient Records regulations: The Federal rules restrict any use of the information to criminally investigate or prosecute any alcohol or drug abuse patient.[facility] the event this information is protected by the Federal Confidentiality of Alcohol and Drug Abuse Patient Records regulations: The Federal rules restrict any use of the information to criminally investigate or prosecute any alcohol or drug abuse patient.[facility] the event this information is protected by the Federal Confidentiality of Alcohol and Drug Abuse Patient Records regulations: The Federal rules restrict any use of the information to criminally investigate or prosecute any alcohol or drug abuse patient.[facility] the event this information is protected by the Federal Confidentiality of Alcohol and Drug Abuse Patient Records regulations: The Federal rules restrict any use of the information to criminally investigate or prosecute any alcohol or drug abuse patient.[facility] the event this information is protected by the Federal Confidentiality of Alcohol and Drug Abuse Patient Records regulations: The Federal rules restrict any use of the information to criminally investigate or prosecute any alcohol or drug abuse patient.[facility] the event this information is protected by the Federal Confidentiality of Alcohol and Drug Abuse Patient Records regulations: The Federal rules restrict any use of the information to criminally investigate or prosecute any alcohol or drug abuse patient.[facility] the event this information is protected by the Federal Confidentiality of Alcohol and Drug Abuse Patient Records regulations: The Federal rules restrict any use of the information to criminally investigate or prosecute any alcohol or drug abuse patient.[facility] the event this information is protected by the Federal Confidentiality of Alcohol and Drug Abuse Patient Records regulations: The Federal rules restrict any use of the information to criminally investigate or prosecute any alcohol or drug abuse patient.[facility] the event this information is protected by the Federal Confidentiality of Alcohol and Drug Abuse Patient Records regulations: The Federal rules restrict any use of the information to criminally investigate or prosecute any alcohol or drug abuse patient.[facility] the event this information is protected by the Federal Confidentiality of Alcohol and Drug Abuse Patient Records regulations: The Federal rules restrict any use of the information to criminally investigate or prosecute any alcohol or drug abuse patient.[facility] the event this information is protected by the Federal Confidentiality of Alcohol and Drug Abuse Patient Records regulations: The Federal rules restrict any use of the information to criminally investigate or prosecute any alcohol or drug abuse patient.[facility] the event this information is protected by the Federal Confidentiality of Alcohol and Drug Abuse Patient Records regulations: The Federal rules restrict any use of the information to criminally investigate or prosecute any alcohol or drug abuse patient.[facility] the event this information is protected by the Federal Confidentiality of Alcohol and Drug Abuse Patient Records regulations: The Federal rules restrict any use of the information to criminally investigate or prosecute any alcohol or drug abuse patient.[facility] the event this information is protected by the Federal Confidentiality of Alcohol and Drug Abuse Patient Records regulations: The Federal rules restrict any use of the information to criminally investigate or prosecute any alcohol or drug abuse patient.[facility] the event this information is protected by the Federal Confidentiality of Alcohol and Drug Abuse Patient Records regulations: The Federal rules restrict any use of the information to criminally investigate or prosecute any alcohol or drug abuse patient.[facility] Reason for Visit (unrecogniz ed section and content) Reason Comments Vaginal Bleeding Specialty Diagnoses / Procedures Referred By Foreign t Referred To Contact [facility] Diagnoses control counseling control Procedures OFFICE/OUTPATIENT ESTABLISHED HIGH MDM 40-54 MIN control Self [facility] [address] [place] [address] Referral ID Status Reason Start Date Expiration Date V isits Requested Visits Authorized [id number] Closed OON/Self Pay Override 10/19/2021 01/17/2022 1 1 Reason Comments Vaginal Problem Specialty Diagnoses / Procedures Referred By Contac t Referred To Contact SEARCH CONSULTANT Diagnoses possible yeast infection Procedures OFFICE/OUTPATIENT ESTABLISHED MOD MDM 30-39 MIN EST WHI OB Self Tracy Cazares APRN.CNM [address] [place] [address] Referral ID Status Reason Start Date Expiration Date Visits Re quested Visits Authorized [id number] Closed 12/16/2021 07/01/2022 1 1 Reason Comments Results Reason Comments Cough Reason Comments Nasal Congestion Cough Specialty Diagnoses / Procedures Referred By Contac t Referred To Contact Pediatrics / PRIMARY CARE PEDIATRICS Diagnoses INFLUENZA Procedures PHYS/QHP TELEPHONE EVALUATION 5-10 MIN VIDEO PRIMARY EST Self Marie Rodgers MD [address] [place] [address] Referral ID Status Reason Start Date Expiration Date Visits Re quested Visits Authorized [id number] Closed 05/16/2022 08/14/2022 1 1 Reason Comments Event Zio Reason Comments Follow Up Routine follow up no concerns Specialty Diagnoses / Procedures Referred By Contac t Referred To Contact Pediatric Cardiology / PEDIATRIC CARDIOLOGY Diagnoses TOF Procedures EST PEDS SPECIALTY Tanya Butterfield MD [address] [facility] [address] Tanya Butterfield MD [address] [place] [address] Referral ID Status Reason Start Date Expiration Date Visits Requested Visits Authorized [id number] Authorized Patient Cleared - Qualified 100% FAS [...] Care Teams (unrecognized sec tion and content) Silviculture Professor Relationship Specialty Start Date End Date Ladonna lPata MD [address] [facility], [place] [address] PCP - General 08/15/02 Silviculture Professor Relationship Specialty Start Date End Date Ladonna Plata MD [address] [facility], [place] [address] PCP - General 08/15/02 Silviculture Professor Relationship Specialty Start Date End Date Ladonna Plata MD [address] [facility], [place] [address] PCP - General 08/15/02 Silviculture Professor Relationship Specialty Start Date End Date Ladonna Plata MD [address] [facility], [place] [address] PCP - General 08/15/02 Silviculture Professor Relationship Specialty Start Date End Date Ladonna Plata MD [address] [facility], [place] [address] PCP - General 08/15/02 Silviculture Professor Relationship Specialty Start Date End Date Ladonna Plata MD [address] [facility], [place] [address] PCP - General 08/15/02 Silviculture Professor Relationship Specialty Start Date End Date Ladonna Plata MD [address] [facility], [place] [address] PCP - General 08/15/02 Silviculture Professor Relationship Specialty Start Date End Date Ladonna Plata MD [address] [place] [address] PCP - General 08/15/02 Silviculture Professor Relationship Specialty Start Date End Date Ladonna Plata MD [address] [place] [address] PCP - General 08/15/02 Silviculture Professor Relationship Specialty Start Date End Date Ladonna Plata MD [address] [place] [address] PCP - General 08/15/02 Silviculture Professor Relationship Specialty Start Date End Date Ladonna Plata MD [address] [place] [address] PCP - General 08/15/02 Silviculture Professor Relationship Specialty Start Date End Date Padmini Porter DO [address] [place] [address] PCP - General Family Medicine 07/05/23 Silviculture Professor Relationship Specialty Start Date End Date Padmini Porter DO [address] [place] [address] PCP - General Family Medicine 07/05/23 Silviculture Professor Relationship Specialty Start Date End Date Padmini Porter DO [address] [place] [address] PCP - General Family Medicine 07/05/23 Silviculture Professor Relationship Specialty Start Date End Date Padmini Porter DO [address] [place] [address] PCP - General Family Medicine 07/05/23 FOR [...] BE BASED ON THE PRIMARY CLINICAL RECORDS. [facility]. provides no warranty or guarantee of the accuracy or completeness of information in this document.
[2025-01-04] MEDS: Azithromycin 500 MG in 0.9% Normal Saline (250mL Bag) 250 ML 250 MG IV (01:56)
[2025-01-04 02:02] LABS: Pro- Brain NATRIURETIC PEPTIDE 238 pg/mL (<=450)
[2025-01-04 02:19] LABS: Troponin T High Sens 2 HR 8 ng/L (<=14)
--- NOTE | 2025-01-04 02:32 | EKG12_ITS ---
Test Reason : ABD PAIN Blood Pressure : */* mmHG Vent. Rate : 97 BPM Atrial Rate : 97 BPM P-R Int : 124 ms QRS Dur : 108 ms QT Int : 362 ms P-R-T Axes : 10 50 135 degrees QTcB Int : 459 ms Normal sinus rhythm [address] & T wave abnormality, consider anterolateral ischemia Abnormal ECG Confirmed by RENETTA MARAVILLA, YEIMI ([id number]), video tape editor MARY CARMEN BARROSO ([id number]) on 01/05/2025 10:57:12 AM Referred By: Confirmed By: YEIMI JACKSON MD
[2025-01-04] MEDS: 0.9% Normal Saline (1000mL) 1,000 ML 100 ML IV (02:42)
[2025-01-04 03:12] LABS: Ferritin 108 ng/mL (22-378); Iron 9 ug/dL (50-170); Iron Binding Capacity,Total 282 ug/dL (250-450); Iron Binding Capacity,Unsat 273 ug/dL (228-428); Magnesium 2.1 mg/dL (1.5-2.2)
[2025-01-04 04:56] LABS: Troponin T High Sens 4 HR < 6 ng/L (<=14)
[2025-01-04 07:31] LABS: Hematocrit 26.8 % (37-47); Hemoglobin 8.2 g/dL (12.0-15.0); Immature Granulocytes Count 0.050 X10^3/uL (0.0-0.0); Mean Corp Hgb Conc 30.6 g/dL (32-36); Mean Corpuscular Volume 61.6 fL (81-99); NRBC Flagged by Analyzer 0 % (0-5); POSITIVE MORPHOLOGY YES; Platelet Count 206 K/mm3 (150-450); RBC Distribution Width CV 20.4 % (11.6-14.6); RBC Distribution Width SD 43.3 fl (35.1-43.9); Red Blood Count 4.35 M/mm3 (4.2-5.4); White Blood Count 10.3 K/mm3 (4.4-11.0)
[2025-01-04 07:32] LABS: Differential Indicated SCAN CRITERIA MET
--- NOTE | 2025-01-04 07:54 | PCM.PN.BLA ---
Assessment & Plan Assessment/Plan (1) Pulmonary embolism: QUALIFIERS: Pulmonary embolism type: multiple subsegmental (without acute cor pulmonale) Qualified Code(s): I26.94 - Multiple subsegmental thrombotic pulmonary emboli without acute cor pulmonale PLAN: Plan Patient is a 24-year-old lady recently treated for pneumonia as outpatient presented to the emergency department with progressive right lower flank pain. Patient was found to have elevated D-dimer. Subsequent workup with CTA did demonstrateRight lower lobe pulmonary emboli, small clot burden. Negative heart strain. Right lower lobe airspace disease favoring pneumonia.. Patient was started on heparin, azithromycin as well as ceftriaxone admitted to regular nursing floor for further management patient seen and examined, initial assessment including history and physical, diagnostic workup and management orders reviewed will follow
[2025-01-04 08:10] LABS: Anisocytosis 1+
[2025-01-04 08:16] LABS: Partial Thromboplast Time 90.1 Seconds (24.1-36.2)
[2025-01-04 08:27] LABS: AST(SGOT) 15 U/L (<=31); Alanine Aminotransfer ALT/SGPT 14 U/L (<=34); Albumin, Serum 3.5 g/dL (3.5-5.0); Alkaline Phosphatase 59 U/L (35-104); Anion Gap 12 (5-15); BUN 8 mg/dL (4-19); BUN/Creat Ratio 12.4 RATIO (10-20); Calcium,Total 8.6 mg/dL (7.6-11.0); Carbon Dioxide 18.9 mmol/L (21.0-32.0); Chloride 109 mmol/L (98-108); Estimated Creatinine Clearance 136.31 ml/min (50-250); Globulin 3.2 g/dL (2.2-4.2); Glucose 93 mg/dL (70-99); Potassium 3.9 mmol/L (3.3-5.1)
[2025-01-04] MEDS: APIXABAN 5 MG TABLET 10 MG PO ×2 (09:32→21:37)
[2025-01-04] MEDS: Lactobacillis Acidophilus 1 CAP PO ×4 (09:33→21:36)
[2025-01-04] MEDS: Magnesium Chloride 64 MG Delay Rel.Tablet PO (09:35)
[2025-01-04] MEDS: Sodium Ferric Gluconat/Sucrose 250 MG in 0.9% Normal Saline (250mL Bag) 250 ML 135 MG IV (11:14)
[2025-01-04] MEDS: Azithromycin 500 MG in 0.9% Normal Saline (250mL Bag) 250 ML 255 MG IV (22:26)
[2025-01-05 03:13] VITALS: BMI 27.6
[2025-01-05 04:20] VITALS: BP 108/66; PULSE 69; RESP 14; TEMP 36.3; O2SAT 98
[2025-01-05] MEDS: 0.9% Saline Lock 10 ML Syringe IV ×3 (05:24→23:08)
[2025-01-05 07:00] VITALS: PULSE 78
[2025-01-05 07:29] VITALS: BP 105/73; PULSE 74; RESP 23; TEMP 36.6; O2SAT 100
[2025-01-05 07:31] LABS: Hematocrit 27.2 % (37-47); Hemoglobin 8.2 g/dL (12.0-15.0); Immature Granulocytes Count 0.050 X10^3/uL (0.0-0.0); Mean Corp Hgb Conc 30.1 g/dL (32-36); Mean Corpuscular Volume 61.3 fL (81-99); Mean Platelet Vol. 9.7 fl (6.2-12.0); NRBC Flagged by Analyzer 0 % (0-5); POSITIVE MORPHOLOGY YES; Platelet Count 230 K/mm3 (150-450); RBC Distribution Width CV 20.6 % (11.6-14.6); RBC Distribution Width SD 43.2 fl (35.1-43.9); Red Blood Count 4.44 M/mm3 (4.2-5.4); White Blood Count 9.8 K/mm3 (4.4-11.0)
[2025-01-05 07:35] LABS: Differential Indicated SCAN CRITERIA MET
[2025-01-05] MEDS: Lactobacillis Acidophilus 1 CAP PO ×4 (07:35→21:35)
[2025-01-05] MEDS: APIXABAN 5 MG TABLET 10 MG PO ×2 (07:36→21:35)
[2025-01-05] MEDS: Magnesium Chloride 64 MG Delay Rel.Tablet PO (07:36)
[2025-01-05 07:57] LABS: Anion Gap 11 (5-15); BUN 5 mg/dL (4-19); BUN/Creat Ratio 7.4 RATIO (10-20); Calcium,Total 9.3 mg/dL (7.6-11.0); Carbon Dioxide 20.5 mmol/L (21.0-32.0); Chloride 105 mmol/L (98-108); Estimated Creatinine Clearance 132.52 ml/min (50-250); Glucose 85 mg/dL (70-99); Magnesium 2.1 mg/dL (1.5-2.2); Potassium 4.1 mmol/L (3.3-5.1)
[2025-01-05 08:10] LABS: Differential Comment SCANNED
--- NOTE | 2025-01-05 08:51 | PCM.PN.HOSP ---
Reason for Visit Reason for Visit: Diagnoses Iron deficiency anemia, unspecified (01/04/25) Overweight (01/04/25) Multiple subsegmental thrombotic pulmonary emboli without acute cor pulmonale (01/04/25) Other pulmonary embolism without acute cor pulmonale (01/04/25) Pneumonia, unspecified organism (01/04/25) Tetralogy of Fallot (01/04/25) Pleurodynia (01/04/25) Personal history of pneumonia (recurrent) (01/04/25) Subjective Subjective Complaining of pain in right lateral chest that is worse with movement, deep respirations. Objective Data Objective Data Vital Signs: Vital Signs Temp Pulse Resp BP Pulse Ox O2 Del Method 36.6 C 74 13 105/73 100 Room Air 01/05/25 07:29 01/05/25 07:29 01/05/25 07:29 01/05/25 07:29 01/05/25 07:29 01/05/25 07:29 Oxygen Delivery Method Room Air Weight: 75.2 kg Body Mass Index (BMI) 27.6 Intake & Output: Intake and Output for Last 24 Hours 01/03/25 01/04/25 01/05/25 23:59 23:59 23:59 Intake Total 3906.5 / 4266.5 360 / 360 Balance 3906.5 / 4266.5 360 / 360 Medical Nutrition Assessment Dietitian: Malnutrition Criteria Met Start: 01/04/25 11:31 Freq: Status: Active Protocol: Document 01/04/25 11:31 JASPER (Rec: 01/04/25 11:31 JASPER [id number]) Nutrition Malnutrition Evidence of Yes Malnutrition Exists Malnutrition ( Acute Illness/Injury moderate): Evidenced By Suboptimal Energy Intake (Moderate),Weight Loss (Severe ) Clinical Problem Acute Disease or Injury Related Malnutrition Etiology related to bronchitis and PNA issues since spring that decreased appetite Signs/Symptoms as evidenced by ~ 8.6% of unintended wt loss x 3 months d/t po intake meeting < 50-74% of est nutritional needs Status Active Problem Recommendation Dietitian Continue liberal regular diet Recommendations/ Will order 4 oz ensure plus high protein tid w/ meals Changes for increased nutrition if consumed. Lab / Micro Data 01/05/25 07:02 01/05/25 07:02 Labs: Laboratory Results - last 24 hr 01/05/25 07:02: WBC 9.8, RBC 4.44, Hgb 8.2 L, Hct 27.2 L, MCV 61.3 L, MCH 18.5 L, MCHC 30.1 L, RDW Std Deviation 43.2, RDW Coeff of Estephania 20.6 H, Plt Count 230, MPV 9.7, Immature Gran % (Auto) 0.500, Neut % (Auto) 69.9, Lymph % (Auto) 17.3 L, Boone % (Auto) 9.6, Eos % (Auto) 1.8, Baso % (Auto) 0.9, Absolute Neuts (auto) 6.8, Absolute Lymphs (auto) 1.70, Nucleated RBC % 0, Differential Comment SCANNED, Sodium 137, Potassium 4.1, Chloride 105, Carbon Dioxide 20.5 L, Anion Gap 11, BUN 5, Creatinine 0.67 L, Estim Creat Clear Calc 132.52, Est GFR (MDRD) Non-Af 126, BUN/Creatinine Ratio 7.4 L, Glucose 85, Calcium 9.3, Phosphorus 4.0, Magnesium 2.1 Micro: Microbiology 01/04/25 09:45 Stool Stool Occult Blood (CHANTEL) - Final 01/03/25 23:10 Urine, Random Streptococcus pneumoniae Antigen (M - Final 01/03/25 23:10 Urine, Random Legionella Antigen - Final Physical Exam Const alert Constitutional Narrative: uncomfortable. short shallow breaths. Resp normal respiratory effort, no retractions, no use of accessory muscles and clear to auscultation bilaterally Cardio regular rate, regular rhythm, S1 normal heart sound and S2 normal heart sound GI normal to inspection, nondistended, normoactive bowel sounds, soft to palpation, non-tender and non-distended Neuro oriented x3 and no focal motor deficits Sensorium / Orientation: awake Psych Mood & Affect: anxious Assessment & Plan Assessment/Plan (1) Pulmonary embolism: QUALIFIERS: Pulmonary embolism type: multiple subsegmental (without acute cor pulmonale) Qualified Code(s): I26.94 - Multiple subsegmental thrombotic pulmonary emboli without acute cor pulmonale PLAN: On apixaban hypercoagulable panel pending. follow up with hematology. pt recently had been ill and had been started on abx in November. Possible patient may have been relatively immobilized with the infection. Check duplex. (2) Pneumonia: QUALIFIERS: Laterality: right Lung location: lower lobe of lung Pneumonia type: due to unspecified organism Qualified Code(s): J18.9 - Pneumonia, unspecified organism PLAN: suspected pneumococcal unclear if this resolution from previous pneumonia or new infection. on CTX and azithromycin strep and legionella antigens negative (3) Microcytic anemia: PLAN: low iron, Ferritin 108. hemoccult negative. on iron tablets. give another dose of iron sucrose. Pt notes heavy periods, especially the first day. Unsure if pt would be a candidate for OCPs given her PE. Recommend she follow up with hematology. (4) Chest pain: PLAN: pleuritic. likely 2/2 pulmonary infarct. continue scheduled acetaminophen, PRN oxycodone. (5) Pulmonary hypertension: PLAN: probably multifactorial from Tetrology of Fallot, PE. Per mother, no VSD. Pt to follow up with her assistant operator in March. PLAN: Plan Monitor overnight. Hopefully can discharge on 01/06. Greater than 55 minutes most time spent in the room discussing with the patient and her mother about pulmonary embolism, where it is coming from (more likely legs), the management, potential management if patient would not be able to be anticoagulated such as an IVC filter, anemia, its correlation with her menses, the need for iron. Charges/Coding Visit Charges Inpatient E&M: 74936 [facility] Hosp L3
--- NOTE | 2025-01-05 11:20 | CASEMGMT ---
JASEN VILLALBA Assessment: Face to Face with pt for initial transition planning/care coordination assessment. JASEN VILLALBA introduced self and role at [facility], pt voices understanding and consents to assessment. Pt is A&O x4 and answers all questions appropriately at this time. Care providers, pharmacy, and demographics verified/updated. Strata: 1 Admitting Dx: PE, LLE PNA & PLEURATIC CHEST PAIN PCP: No PCP, provided list of PCP's in the area and discussed VSC with patient. Specialists: None Preferred [facility]acy: [facility] Insurance: Self pay, pt would like to speak with someone to see if she qualifies for DEENA. JASEN VILLALBA shared this with SW, she will follow up. Prescription Benefit: yes LNOK: Father, Elgin; Mother, Violet Living Arrangements: Pt lives with parents in a 2 story home with no steps to enter. ADLs: Pt states I at baseline. Transportation: Pt drives self and denies concerns with transportation. DME: Denies HHC/SNF: Denies Hx of. Pt states no concerns with going home at time of dc. Pt states no further concerns/needs. CM to follow. Advised pt to ask CM if any further question/concerns/needs arise, voices understanding. Pt Goal: Home Plan: Home with family support. Tessa AGGARWAL CM
--- NOTE | 2025-01-05 13:44 | CASEMGMT ---
Social Work SW met w/pt in room as pt is listed as self pay. She did speak w/More from [employer], pt states she does not qualify for Medicaid. SW provided to pt resources, including [facility] assist, [employer], [employer] Frazier, prescription assistance programs, and the [employer] Card. SW remains available for any needed additional resources. MATT Ambrose
[2025-01-05 14:00] VITALS: BP 98/60; PULSE 84; RESP 22; TEMP 36.7; O2SAT 99
--- NOTE | 2025-01-05 14:49 | VDLE_ITS ---
Reason For Study Reason For Study: Chest pain RIGHT LEFT GSV is normal. GSV is normal. CFV is compressible, spontaneous, phasic, competent CFV is compressible, spontaneous, phasic, competent, and demonstrates normal augmentation. and demonstrates normal augmentation. FV is compressible, spontaneous, phasic, competent FV is compressible, spontaneous, phasic, competent and demonstrates normal augmentation. and demonstrates normal augmentation. POP V is compressible, spontaneous, phasic, competent POP V is compressible, spontaneous, phasic, competent and demonstrates normal augmentation. and demonstrates normal augmentation. T/P Trunk is compressible. T/P Trunk is compressible. PTV is compressible. PTV is compressible. RT PerV is compressible. LT PerV is compressible. Procedure This is a venous duplex using B-mode, color flow and spectral Doppler. Exam performed portable in patient room. A preliminary report was called and/or faxed to Crystal AGGARWAL. VL/Venous Duplex US - Sabino Extrem Interpretation Summary Deep veins of the bilateral lower extremities are patent and compressible segme ntally. There is no evidence of bilateral lower extremity deep vein thrombosis. The bilateral great saphenous veins appea r patent and compressible segmentally. Ordering Physician: Kev Plata Performed By: Nisha Gastelum RVT
[2025-01-05 15:00] VITALS: PULSE 85
[2025-01-05] MEDS: guaiFENesin 10 ML UDC (200MG/10ML) 20 ML PO (21:34)
[2025-01-05 22:00] VITALS: BP 100/58; PULSE 78; RESP 26; TEMP 36.8; O2SAT 100
[2025-01-05] MEDS: Azithromycin 500 MG in 0.9% Normal Saline (250mL Bag) 250 ML 255 MG IV (22:56)
[2025-01-06 05:30] VITALS: BMI 27.1
[2025-01-06 05:41] VITALS: BP 103/67; PULSE 82; RESP 24; TEMP 36.7; O2SAT 100
[2025-01-06 07:00] VITALS: PULSE 83
[2025-01-06 08:00] VITALS: BP 104/71; PULSE 81; RESP 20; TEMP 36.8; O2SAT 100
--- NOTE | 2025-01-06 08:03 | PN.HOSP_ITS ---
Reason for Visit Reason for Visit: Diagnoses Iron deficiency anemia, unspecified (01/04/25) Overweight (01/04/25) Multiple subsegmental thrombotic pulmonary emboli without acute cor pulmonale (01/04/25) Other pulmonary embolism without acute cor pulmonale (01/04/25) Pulmonary hypertension, unspecified (01/04/25) Pneumonia, unspecified organism (01/04/25) Tetralogy of Fallot (01/04/25) Pleurodynia (01/04/25) Chest pain, unspecified (01/04/25) Personal history of pneumonia (recurrent) (01/04/25) Subjective Subjective Feeling much better. Objective Data Objective Data Vital Signs: Vital Signs Temp Pulse Resp BP Pulse Ox O2 Del Method 36.7 C 82 24 H 103/67 100 Room Air 01/06/25 05:41 01/06/25 05:41 01/06/25 05:41 01/06/25 05:41 01/06/25 05:41 01/06/25 05:41 Oxygen Delivery Method Room Air Weight: 74 kg Body Mass Index (BMI) 27.1 Intake & Output: Intake and Output for Last 24 Hours 01/04/25 01/05/25 01/06/25 23:59 23:59 23:59 Intake Total 3906.5 / 4266.5 410 / 665 255 / 255 Balance 3906.5 / 4266.5 410 / 665 255 / 255 Medical Nutrition Assessment Dietitian: Malnutrition Criteria Met Start: 01/04/25 11:31 Freq: Status: Active Protocol: Document 01/04/25 11:31 JASPER (Rec: 01/04/25 11:31 JASPER [id number]) Nutrition Malnutrition Evidence of Yes Malnutrition Exists Malnutrition ( Acute Illness/Injury moderate): Evidenced By Suboptimal Energy Intake (Moderate),Weight Loss (Severe ) Clinical Problem Acute Disease or Injury Related Malnutrition Etiology related to bronchitis and PNA issues since spring that decreased appetite Signs/Symptoms as evidenced by ~ 8.6% of unintended wt loss x 3 months d/t po intake meeting < 50-74% of est nutritional needs Status Active Problem Recommendation Dietitian Continue liberal regular diet Recommendations/ Will order 4 oz ensure plus high protein tid w/ meals Changes for increased nutrition if consumed. Lab / Micro Data 01/06/25 09:01 01/05/25 07:02 Labs: Laboratory Results - last 24 hr 01/05/25 07:02: Differential Comment SCANNED Micro: Microbiology 01/04/25 09:45 Stool Stool Occult Blood (CHANTEL) - Final 01/03/25 23:10 Urine, Random Streptococcus pneumoniae Antigen (M - Final 01/03/25 23:10 Urine, Random Legionella Antigen - Final Radiography Diagnostic Testing: Radiology Impression Echocardiogram 01/04/25 01:18 Interpretation Summary Normal LV size. The left ventricular ejection fraction is 65 %. Mild concentric left ventricular hypertrophy. Pulmonary artery systolic pressure is 91 mmHg. Moderate stenosis of the pulmonic valve. Max pulmonary gradient is approximately 53 mmHg with a mean gradient of 33 mmHg. Patient has a history of repaired tetralogy of Fallot and the pulmonary artery systolic pressure cannot be necessarily extrapolated from the TR velocity. There is no evidence of D-shaped septum however noted. Ordering Physician: Contreras Perez Performed By: Julio Cesar Olivera RCS Physical Exam Const alert and no apparent distress Constitutional Narrative: appear much more comfortable. HEENT head/scalp atraumatic and moist oral mucous membranes Resp normal respiratory effort, no retractions, no use of accessory muscles and clear to auscultation bilaterally Cardio regular rate, regular rhythm, S1 normal heart sound and S2 normal heart sound GI normal to inspection, nondistended, normoactive bowel sounds, soft to palpation, non-tender and non-distended Assessment & Plan Assessment/Plan (1) Pulmonary embolism: QUALIFIERS: Pulmonary embolism type: multiple subsegmental (without acute cor pulmonale) Qualified Code(s): I26.94 - Multiple subsegmental thrombotic pulmonary emboli without acute cor pulmonale PLAN: On apixaban hypercoagulable panel pending. follow up with hematology. pt recently had been ill and had been started on abx in November. Possible patient may have been relatively immobilized with the infection. Check duplex. (2) Pneumonia: QUALIFIERS: Laterality: right Lung location: lower lobe of lung Pneumonia type: due to unspecified organism Qualified Code(s): J18.9 - Pneumonia, unspecified organism PLAN: suspected pneumococcal unclear if this resolution from previous pneumonia or new infection. on CTX and azithromycin strep and legionella antigens negative (3) Microcytic anemia: PLAN: low iron, Ferritin 108. hemoccult negative. on iron tablets. give another dose of iron sucrose. Pt notes heavy periods, especially the first day. Unsure if pt would be a candidate for OCPs given her PE. Recommend she follow up with hematology. (4) Chest pain: PLAN: pleuritic. likely 2/2 pulmonary infarct. continue scheduled acetaminophen, PRN oxycodone. (5) Pulmonary hypertension: PLAN: probably multifactorial from Tetrology of Fallot, PE. Per mother, no VSD. Pt to follow up with her banking pin adjuster in March. Charges/Coding Visit Charges Inpatient E&M: 55343 Subs Hosp L2
[2025-01-06] MEDS: 0.9% Saline Lock 10 ML Syringe IV ×2 (08:17→09:40)
[2025-01-06] MEDS: Lactobacillis Acidophilus 1 CAP PO ×2 (08:21→12:45)
[2025-01-06] MEDS: APIXABAN 5 MG TABLET 10 MG PO (08:21)
[2025-01-06] MEDS: Magnesium Chloride 64 MG Delay Rel.Tablet PO (08:22)
[2025-01-06] MEDS: Lidocaine 5% Patch 1 PATCH TOPICAL (08:22)
[2025-01-06 09:13] LABS: Hematocrit 30.4 % (37-47); Hemoglobin 9.1 g/dL (12.0-15.0); Immature Granulocytes Count 0.070 X10^3/uL (0.0-0.0); Mean Corp Hgb Conc 29.9 g/dL (32-36); Mean Corpuscular Volume 61.0 fL (81-99); Mean Platelet Vol. 9.2 fl (6.2-12.0); NRBC Flagged by Analyzer 0 % (0-5); POSITIVE MORPHOLOGY YES; Platelet Count 316 K/mm3 (150-450); RBC Distribution Width CV 20.3 % (11.6-14.6); RBC Distribution Width SD 42.1 fl (35.1-43.9); Red Blood Count 4.98 M/mm3 (4.2-5.4); White Blood Count 10.8 K/mm3 (4.4-11.0)
[2025-01-06 09:19] LABS: Differential Indicated SCAN CRITERIA MET
[2025-01-06] MEDS: Sodium Ferric Gluconat 250 MG in 0.9% Normal Saline 250 ML 135 MG IV (09:28)
[2025-01-06 11:02] LABS: Anisocytosis 1+; Tear Drop Cell 1+
[2025-01-06 12:32] VITALS: O2SAT 98
--- NOTE | 2025-01-06 13:37 | CHAPLAIN ---
Type of Pastoral Visit _x__ Initial Visit ___ Follow-up Visit ___ On-call Visit ___ General Patient Visit ___ Spiritual Assessment ___ Family Conference ___ Bereavement ___ Rapid Response ___ Code Blue ___ Other (describe below) Pastoral Care Referral From _x__ Patient ___ Family ___ Nurse ___ Physician ___ Physics Technician ___ Director Of In Service Education ___ Other (describe below) Sacrament/Intervention _x__ Active listening ___ Anointing ___ Nondenominational ___ Bereavement ___ Communion ___ Jerica exploration ___ ___ Life review _x__ Prayer ___ Reconciliation ___ Sacrament of Sick _x__ Supportive presence ___ Wedding ___ Other (describe below) Pastoral Comments patient is welcoming and reports being satisfied with her situation although the progress is slow; 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
[2025-01-06 14:00] VITALS: BP 94/56; PULSE 77; PULSE 87; RESP 18; TEMP 36.6; O2SAT 99
[2025-01-06 15:08] LABS: Sickle Hgb Solubility Negative (Negative)
--- NOTE | 2025-01-06 15:14 | PCM.DC.SUM ---
Providers Date of Admission: 01/04/25 Primary Care Physician: No Primary Care Phys Reason For Visit: PE, RLL PNA & PLEURITIC CHEST PAIN Diagnosis Discharge Diagnosis (1) Pulmonary embolism: Status: Acute Code(s): I26.99 - Other pulmonary embolism without acute cor pulmonale Qualifiers: Pulmonary embolism type: multiple subsegmental (without acute cor pulmonale) Qualified Code(s): I26.94 - Multiple subsegmental thrombotic pulmonary emboli without acute cor pulmonale Plan: On apixaban hypercoagulable panel pending. follow up with hematology. pt recently had been ill and had been started on abx in November. Possible patient may have been relatively immobilized with the infection. Check duplex. (2) Pneumonia: Status: Acute Code(s): J18.9 - Pneumonia, unspecified organism Qualifiers: Pneumonia type: due to unspecified organism Laterality: right Lung location: lower lobe of lung Qualified Code(s): J18.9 - Pneumonia, unspecified organism Plan: suspected pneumococcal unclear if this resolution from previous pneumonia or new infection. on CTX and azithromycin strep and legionella antigens negative (3) Microcytic anemia: Status: Acute Code(s): D50.9 - Iron deficiency anemia, unspecified Plan: low iron, Ferritin 108. hemoccult negative. on iron tablets. give another dose of iron sucrose. Pt notes heavy periods, especially the first day. Unsure if pt would be a candidate for OCPs given her PE. Recommend she follow up with hematology. (4) Chest pain: Status: Acute Code(s): R07.9 - Chest pain, unspecified Plan: pleuritic. likely 2/2 pulmonary infarct. continue scheduled acetaminophen, PRN oxycodone. (5) Pulmonary hypertension: Status: Acute Code(s): I27.20 - Pulmonary hypertension, unspecified Plan: probably multifactorial from Tetrology of Fallot, PE. Per mother, no VSD. Pt to follow up with her tomato paste maker in March. Medications at Discharge Home Medications ascorbate calcium (vitamin C) 500 mg tablet 1 g PO DAILY vitamin 01/03/25 folic acid 1 mg tablet 1 mg PO DAILY supplement 01/03/25 magnesium 200 mg tablet 200 mg PO DAILY supplement 01/03/25 mecobalamin (vitamin B12) 500 mcg chewable tablet 500 mcg PO DAILY supplement 01/03/25 amoxicillin 875 mg-potassium clavulanate 125 mg tablet 1 tab PO Q12H #8 tabs 01/06/25 apixaban 5 mg tablet 5 mg PO BID #60 tabs 01/06/25 cyclobenzaprine 5 mg tablet 5 mg PO Q8H PRN PRN spasms/musculoskeletal pain #10 tabs 01/06/25 ferrous sulfate 325 mg (65 mg iron) tablet,delayed release 325 mg PO QODAY #30 tabs 01/06/25 oxycodone 5 mg capsule 5 mg PO Q6H PRN pain (scale score 7-10) 3 days #12 caps 01/06/25 Hospital Course Operations None Procedures 2-D Echocardiogram Summary of Care Provided Minutes Spent on Discharge: 32 Hospital Course: This is a 24-year-old female with a 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 Presents with fever, chest pain. She had a CT angiogram of her chest that showed right lower lobe pulmonary emboli with small clot burden. Negative for any heart strain. And right lower lobe airspace disease favoring pneumonia. Patient was started on anticoagulation as well as antibiotics for the pneumonia. Course complicated by ongoing chest pain. [place] that the chest pain was likely due to pulmonary infarct from the pulmonary embolism. Medical management was pursued and patient overall today is feeling much better. Patient did have a duplex of her lower extremities that did show improvement. Additionally, patient was noted to be significantly anemic with an iron of 9. Patient did receive 2 doses of IV iron and will continue with ferrous sulfate every other day moving forward. The anemia is most likely due to chronic blood loss due to heavy menstrual periods. For her pulmonary embolism she did undergo a hypercoagulable workup which is currently pending. Patient did undergo testing for sickle cell solubility that was negative. They recommend the patient follow-up with hematology to see about the length of treatment of anticoagulation whether to be 6 months or lifelong. Patient will continue with antibiotics upon discharge for the pneumonia. Medical Records Data Medical Nutrition Assessment Dietitian: Malnutrition Criteria Met Start: 01/04/25 11:31 Freq: Status: Active Protocol: Document 01/04/25 11:31 JASPER (Rec: 01/04/25 11:31 JASPER [id number]) Nutrition Malnutrition Evidence of Yes Malnutrition Exists Malnutrition ( Acute Illness/Injury moderate): Evidenced By Suboptimal Energy Intake (Moderate),Weight Loss (Severe ) Clinical Problem Acute Disease or Injury Related Malnutrition Etiology related to bronchitis and PNA issues since spring that decreased appetite Signs/Symptoms as evidenced by ~ 8.6% of unintended wt loss x 3 months d/t po intake meeting < 50-74% of est nutritional needs Status Active Problem Recommendation Dietitian Continue liberal regular diet Recommendations/ Will order 4 oz ensure plus high protein tid w/ meals Changes for increased nutrition if consumed. Weight / BMI Weight Weight: 74 kg Body Mass Index (BMI) 27.1 ABG / Lab / Microbiology Data 01/06/25 09:01 01/05/25 07:02 Laboratory: Laboratory Results - last 24 hr 01/05/25 07:02: Sickle Cell Solubility Negative 01/06/25 09:01: WBC 10.8, RBC 4.98, Hgb 9.1 L, Hct 30.4 L, MCV 61.0 L, MCH 18.3 L, MCHC 29.9 L, RDW Std Deviation 42.1, RDW Coeff of Estephania 20.3 H, Plt Count 316, MPV 9.2, Immature Gran % (Auto) 0.600, Neut % (Auto) 67.2, Lymph % (Auto) 20.6, Dickey % (Auto) 8.8, Eos % (Auto) 1.7, Baso % (Auto) 1.1 H, Absolute Neuts (auto) 7.3, Absolute Lymphs (auto) 2.23, Nucleated RBC % 0, Platelet Estimate A, Anisocytosis 1+, Tear Drop Cells 1+, Ovalocytes 1+ Microbiology: Microbiology 01/04/25 09:45 Stool Stool Occult Blood (CHANTEL) - Final 01/03/25 23:10 Urine, Random Streptococcus pneumoniae Antigen (M - Final 01/03/25 23:10 Urine, Random Legionella Antigen - Final D/C Instructions Discharge Diet: No restrictions Return to work on: 01/12/25 DC O2, CPAP, BIPAP Needs Home O2 Discharge instructions: No Meaningful Use Info Meaningful Use Meaningful Use Diagnoses (Choose all that apply): None applicable Ischemic Stroke Statin Dosing Therapy Reference: STATIN DOSE THERAPY REFERENCE: * Patients > 75 years receive moderate or high dose statin therapy. * Patients 75 years or YOUNGER should receive HIGH intensity statin dose unless contraindicated. You will be required to document reason for non-treatment if statin daily dose does not meet guidelines. HIGH DOSE STATIN THERAPY DAILY Atorvastatin > than or = to 40 mg Rosuvastatin > than or = to 20 mg Amlodipine + Atorvastatin > than or = to 2.5/40 mg Ezetimibe + Simvastatin 10/80 mg Simvastatin 80mg Discharge Plan Admission Admit Date/Time: 01/04/25 01:13 Primary Reason for Your Visit: Pulmonary embolism and pneumonia. Attending Provider: Kev Plata Primary Care Provider: Care Physician,No Primary Consulting Providers: Contreras Perez; Contreras Orozco Instructions Additional Instructions / Restrictions: You have a blood clot in your lung which I think is what is causing your chest pain. And with time that chest pain should continue to improve. Continue with the blood thinners, which will be apixaban for the next 6 months. The dosing of apixaban will change after total 7 days, including the time they have been here in the hospital. It will go from 10 mg to 5 mg twice daily. You also have pneumonia and you will continue with antibiotics for a total of 7 days, including the time you are here in the hospital. For the blood clot, they did send off of panel to see if you have clotting disorders. This take about a week or 2 to get back. I would recommend that you follow-up with the carry out clerk and shelf stocker the next 1 to 2 months to see about the length of treatment of the blood thinners whether to be 6 months or potentially lifelong. Additionally, as we discussed, you did have pulmonary hypertension. Likely component of this related with your history of tetralogy of Fallot and repair but you do also have blood clots. Recommend you follow with your tomato paste maker to see if they have any additional recommendations or if you may eventually need referral to pulmonary hypertension clinic (which they do at the [facility]). Discharge Orders/Prescriptions Prescriptions: New apixaban 5 mg tablet 5 mg PO BID Qty: 60 1RF Rx Instructions: 2 tabs twice daily through 01/10, then 1 tab twice daily thereafter. cyclobenzaprine 5 mg Tablet 5 mg PO Q8H PRN PRN (Reason: spasms/musculoskeletal pain) Qty: 10 0RF ferrous sulfate 325 mg (65 mg iron) tablet,delayed release (DR/EC) 325 mg PO QODAY Qty: 30 0RF oxycodone 5 mg capsule 5 mg PO Q6H PRN (Reason: pain (scale score 7-10)) 3 Days Qty: 12 0RF amoxicillin-pot clavulanate 875-125 mg tablet 1 tab PO Q12H Qty: 8 0RF Continued magnesium 200 mg tablet 200 mg PO DAILY ascorbate calcium (vitamin C) 500 mg tablet 1 g PO DAILY folic acid 1 mg tablet 1 mg PO DAILY mecobalamin (vitamin B12) 500 mcg tablet,chewable 500 mcg PO DAILY Referrals / Follow Up: *[facility] [Provider Group] - Within 1 Month (Hematology follow up. ) [facility] [Outside] - Within 2 Weeks Care Physician,No Primary [Primary Care Provider] - jocelyne [Other] (next scheduled appointment. ) Disposition Disposition (needs filled in before D/C Order can be placed): Home, Self Care Charges/Coding Visit Charges Inpatient E&M: 56798 Disch Hosp >30min
--- NOTE | 2025-01-06 15:39 | CASEMGMT ---
Patient is discharging on Eliquis and has no prescription coverage. JASEN VILLALBA provided Eliquis free trial card to patient. RN CM encouraged patient to get established with PCP for follow-up care. Patient denies further needs or concerns. Patient had no further questions.
[2025-01-09 16:09] LABS: Anti-Cardiolipin Ab, IgG, Qn < 9 GPL U/mL (0-14); Anti-Cardiolipin Ab, IgM, Qn 12 MPL U/mL (0-12); Anti-Thrombin 3 AG, Immunol 75 % (72-124); Antithrombin 3 Function 145 % (75-135); Beta-2-Glycoprotein I IgA <9 (0-25); Beta-2-Glycoprotein I IgG <9 (0-20); Beta-2-Glycoprotein I IgM <9 (0-32); Protein C, Functional 65 % (73-180)
== END 2025-01-06 17:11 | disposition home or self-care (01) | DRG 193 ==
LOC: ED 23:34 → PCU 01-04 01:45
PROVIDERS: Internal Medicine; Admitting Provider Internal Medicine; Emergency Provider Emergency Medicine
DX: J13 Pneumonia due to Streptococcus pneumoniae (principal); I26.94 Multiple subsegmental thrombotic pulmonary emboli without acute cor pulmonale; E44.0 Moderate protein-calorie malnutrition; I27.20 Pulmonary hypertension, unspecified; D50.9 Iron deficiency anemia, unspecified; E66.3 Overweight; N92.0 Excessive and frequent menstruation with regular cycle; Z68.26 Body mass index [BMI] 26.0-26.9, adult
CPT/HCPCS: 36415; 71046; 71275; 80048; 80053; 81001; 81025; 81240; 81241; 82274; 82728; 83540; 83550; 83690; 83735; 83880; 84100; 84443; 84484; 85025; 85300; 85301; 85302; 85303; 85379; 85610; 85660; 85730; 86146; 86147; 87449; 93005; 93306; 93970; 99252; 99285; Q9967; A4216; G0463; J2916

== ENCOUNTER → 2025-05-26 | Outpatient (CLI) | payer SELFPAY ==
--- NOTE | 2025-05-26 13:04 | VDLE_ITS ---
Reason For Study Reason For Study: R/O DVT RIGHT LEFT CFV is compressible, spontaneous, phasic, competent GSV is normal. and demonstrates normal augmentation. CFV is compressible, spontaneous, phasic, competent, Procedure and demonstrates normal augmentation. This is a venous duplex using B-mode, color flow and FV is compressible, spontaneous, phasic, competent spectral Doppler. and demonstrates normal augmentation. Exam performed in department. POP V is compressible, spontaneous, phasic, competent A preliminary report was called and/or faxed to Gloria and demonstrates normal augmentation. Amy NP_C @ [phone] @ 13:30. T/P Trunk is compressible. PTV is compressible. LT PerV is compressible. VL/Venous Duplex US, Unilateral Interpretation Summary Deep veins of the left lower extremity are patent and compressible segmentally. There is no evidence of left lower extremity deep vein thrombosis. Valvular competence appears intact within the p roximal deep venous system on the left . The left great saphenous vein appears patent and compressible segmentally. The right common femoral vein is patent and compressible . Ordering Physician: Gloria Reyes Referring Physician: ELLY PCP Performed By: Lorenza Randle, MISTY, RVT
== END | disposition home or self-care (01) ==
LOC: CVS 13:00
PROVIDERS: Referring Provider Nurse Practitioner Family; Visit Provider Nurse Practitioner Family
DX: M79.662 Pain in left lower leg (principal)
CPT/HCPCS: 93971